=== PATIENT | male | born 1995 ===

== ENCOUNTER 2018-12-31 10:35 | Inpatient (IN) | payer OTHER ==
[~2018-12-31] VITALS: Ht 182.9 cm; Wt 84.0 kg
[2018-12-31] MEDS ORDERED: tuberculin, purif. prot. deriv. 5 units/0.1ml ID ONE (11:40)
[2018-12-31] MEDS ORDERED: hydrOXYzine 25 MG tablet PO PRN (11:40)
[2018-12-31] MEDS ORDERED: loperamide 2mg capsule PO PRN (11:40)
[2018-12-31] MEDS ORDERED: acetaminophen 325mg tablet PO PRN ×2 (11:40)
[2018-12-31] MEDS ORDERED: NO HOME MEDS (11:47)
--- NOTE | 2018-12-31 11:49 | NUR ---
Admission Note: Pt arrived on the unit in shackles, escorted by silke and . Pt calm and cooperative. Shackles removed and pt sat on the bed and then changed into hospital scrubs. Pt skin check completed by ZAMZAM laura and security Eddy as he changed. Pt intact and WNL. Pt does have excess skin around his midsection and thighs which appears to indicated that he has lost a lot of weight. This RN is unable to properly assess due to extreme disorganization. Pt doesn't answer the questions with appropriate answers. Pt is tangential with disorganized thoughts. Pt oriented x 1. Pt remains calm throughout admission process, but his speech patterns/content make very little sense with random unconnected words - word salad.
[2018-12-31 12:13] VITALS: BP 102/63
--- NOTE | 2018-12-31 17:32 | NUR ---
Nursing Progress Note: Legal hold: court competency Client on involuntary status for GD Report received from nurse with use of SBAR: n/a Why are they here: Pt has been arrested multiple times for trespassing and this time has been in Detention since April 2018. Pt unmedicated and very psychotic with poor hygiene. Pt is not competent to stand trial and so was placed here for stabilization of his psychiatric symptoms. Assessment What has happened this shift: After admission patient mostly stayed in his room. Patient walked down to dining room when the lunch trays got here but refused lunch and went back to his room. Patient did not want to sit on his bed and instead chose to sit on the floor under the window almost in a sitting up, position. Patient remains extremely confused and disorganized speaking in word salad. Patient remains pleasant and remains redirectable without agitation. Will continue to encourage hygiene care and medication compliance and will continue to reassure patient of his safety and orient him to the unit. S/I, H/I: unable to assess due to psychotic and disorganized A/VH: unable to assess due to psychotic and disorganized Sleep:no ADL's: ? Group attendance: no Were meds taken:n/a Any med S/E n/a Mental Status Exam Appearance: dishevled Eye contact: poor Behavior: isolative but cooperative Speech: word salad Mood:calm Affect: anxious to flat Thought process:disorganized Thought Content:disorganized Cognition: Insight: Judgment: Interventions PRN's used: n/a Therapeutic interventions: Restraints/seclusion/emergency medication: Justification of Continued Inpatient Treatment: Pt gravely disabled and on a court competency 1370 hold.
[2018-12-31 20:18] VITALS: BP 90/60
--- NOTE | 2019-01-01 05:19 | NUR ---
Nursing Progress Note: Legal hold: court competency Client on involuntary status for GD Report received from nurse with use of SBAR: Yes, Román RN Why are they here: Pt has been arrested multiple times for trespassing and this time has been in [facility] since April 2018. Pt unmedicated and very psychotic with poor hygiene. Pt is not competent to stand trial and so was placed here for stabilization of his psychiatric symptoms. Assessment What has happened this shift: Pt isolates in his room majority of the shift, but does come into the group room to get a snack. He does not engage with ay of his peers. Pt will answer questions and is cooperative with 1:1 assessment. Pt is pleasant, but guarded. PPD was placed. Pt sits on floor reading a book, when encouraged to lay in bed to be more comfortable he politely declines. Pt speaks in full sentences but it is mainly delusional content. He mentions "troll people, Taliaferro, October, necromancy." He occasionally speaks in a word salad. Pt offered a shower and new clothing but he declined. He also declined any medication. S/I, H/I: unable to assess due to psychotic and disorganized A/VH: unable to assess due to psychotic and disorganized Sleep: see sleep assessment notation ADL's: independent Group attendance: rn shift mgr, no group Were meds taken:n/a Any med S/E n/a Mental Status Exam Appearance: disheveled Eye contact: direct Behavior: isolative but cooperative Speech: word salad at times, linear at other times Mood:calm, guarded Affect: anxious to flat Thought process:disorganized Thought Content:disorganized Cognition: poor Insight:poor Judgment: poor Interventions PRN's used: n/a Therapeutic interventions: 1:1 assessment, therapeutic listening, offered shower and clean clothing although he declined, Q15 minute safety checks Restraints/seclusion/emergency medication:none Justification of Continued Inpatient Treatment: Pt gravely disabled and on a court competency 1370 hold.
[2019-01-01 07:38] VITALS: BP 108/62
[2019-01-01 08:02] LABS: CHOL/HDL RATIO 2.7 (0.00-4.99); CHOLESTEROL 114 MG/DL (0-200); HDL CHOLESTEROL 43 MG/DL (35-60); LDL CHOLESTEROL 65 MG/DL (50-100); TRIGLYCERIDES 47 MG/DL (20-135)
--- NOTE | 2019-01-01 17:45 | NUR ---
Nursing Progress Note: Legal hold: court competency Client on involuntary status for GD Report received from ZAMZAM Mayer with use of SBAR Why are they here: Pt has been arrested multiple times for trespassing and this time has been in Longterm since April 2018. Pt unmedicated and very psychotic with poor hygiene. Pt is not competent to stand trial and so was placed here for stabilization of his psychiatric symptoms. Assessment What has happened this shift: Pt. is awake at beginning of shift, pt. appears apprehensive. Pt. in community room for breakfast. Pt. goes by Devon. 1:1 done in pt.'s room. Pt. stops cooperating with assessment after a few questions. Pt. begins word salad talk which this RN cannot understand. Pt. smiles bizzarely Pt. visited by hospitalist, and pt. was not responding coherently, responding to questions with the following, "penis, vagina, my testosterone is flowing through my body, shabish, the cognitive.." Pt. to psychotic to go to group. S/I, H/I: unable to assess due to psychotic and disorganized A/VH: unable to assess due to psychotic and disorganized Sleep: see sleep assessment notation ADL's: independent but not doing self-care. Group attendance: No, pt. is too psychotic. Were meds taken:n/a Any med S/E n/a Mental Status Exam Appearance: disheveled Eye contact: direct Behavior: isolative but cooperative Speech: word salad at times, linear at other times Mood:calm, guarded Affect: anxious to flat Thought process:disorganized Thought Content:disorganized Cognition: poor Insight:poor Judgment: poor Interventions PRN's used: n/a Therapeutic interventions: 1:1 assessment, therapeutic listening, offered shower and clean clothing although he declined, Q15 minute safety checks Restraints/seclusion/emergency medication:none Justification of Continued Inpatient Treatment: Pt gravely disabled and on a court competency 1370 hold.
[2019-01-01 20:00] VITALS: BP 116/64
--- NOTE | 2019-01-01 20:30 | NUR ---
Received a call from the [facility] to verify the hx of Solo's meds while in custody. Per Sudhir RN the record showed that in 2017 he was prescribed Zyprexa 5mg po QHS, Celexa 40 mg po daily, Hydroxyzine 50mg po TID prn, Trazadone 100mg one to 2 tabs qhs prn insomnia, and he did state that the patient had been on conservatorship in the recent past. I reviewed this information with Dr. Cano.
--- NOTE | 2019-01-02 02:37 | NUR ---
Nursing Progress Note: Legal hold: court competency Client on involuntary status for GD Report received from nurse with use of SBAR: Yes, Rivera RN Why are they here: Pt has been arrested multiple times for trespassing and this time has been in [facility] since April 2018. Pt unmedicated and very psychotic with poor hygiene. Pt is not competent to stand trial and so was placed here for stabilization of his psychiatric symptoms. Assessment What has happened this shift: Pt isolates in his room majority of the shift, he does stick his head out of his door occasionally and looks around suspiciously. He still has a napkin stuffed up his left nostril, which remote mortgage underwriter encouraged him to remove but he replied, "it keeps the tip of the spine." Most of his conversation is word salad. He does respond appropriately sometimes, but speech is pressured and mostly bizarre. He smiles occasionally and giggles. He will talk to remote mortgage underwriter but look directly next to remote mortgage underwriter and stare at the wall. Pt encouraged to try taking ativan, but he politely declined. Pt is sleeping in bed tonight. instead of in the chair or on the floor. 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, no group Were meds taken:n/a Any med S/E n/a Mental Status Exam Appearance: disheveled Eye contact: direct Behavior: isolative but cooperative Speech: word salad at times, linear at other times Mood:calm, guarded Affect: anxious to flat Thought process:disorganized Thought Content:disorganized Cognition: poor Insight:poor Judgment: poor Interventions PRN's used: n/a Therapeutic interventions: 1:1 assessment, therapeutic listening, offered shower and clean clothing although he declined, Q15 minute safety checks Restraints/seclusion/emergency medication:none Justification of Continued Inpatient Treatment: Pt gravely disabled and on a court competency 1370 hold.
[2019-01-02 08:00] VITALS: BP 101/54
--- NOTE | 2019-01-02 11:05 | NUR ---
The below named therapist completed this patients Activity Assessment. This patient was unable to answer any questions directly due to his inability to distinguish reality from internal stimuli. He remained pleasant and was willing to communicate with this therapist. There were times in between his disorganized, delusional and random 'word salad' comments where remnants of this patients thoughts and feelings surfaced. At one point, the patient was talking about his cousin, then began talking in gibberish with disconnected thoughts. He then stopped and said, translated it means "Nobody's is here." At another point in the conversation, the patient was noted saying "Nobody talks to me." This was not said in relationship to a specific question, rather a random comment that was mixed in between other nonsensical communications. Several times, this patient would give this therapist direct eye contact, would shake his head, open his mouth and make odd facial gestures. The assessment ended with this therapist re-stating her name and thanking the patient for talking together. Jailene Varghese MA, EDI PROGRAMMER ANALYST #[id number] [facility] Art Therapist
--- NOTE | 2019-01-02 17:10 | NUR ---
Art Therapy Group, Continued: Patient was able to follow directions and began selecting pictures to share in group. Patient was able to wait his turn and was able to listen to others talk. When patient did talk, his thought content remained disorganized and he described his pictures using words that were "of his own making or language." At one point patient did share 1/5 pictures of a forested area with a gonzalez noting "If I was to kill someone, this is where I would bury them." There was not an identifying intent and the patient rambled on with unrelated non-sensible comments. When asked towards the end of group if he remembered what he had described re: his gonzalez picture, his comment had changed completely. This was patients first attempt at being in a group setting. Although his psychosis and thought process made direct communication difficult, he remained respectful of other group members and in return they were respectful. Jailene Varghese MA, HAND RIVETER #[id number] [facility] Art Therapist
--- NOTE | 2019-01-02 17:49 | NUR ---
Nursing Progress Note: Legal hold: court competency Client on involuntary status for GD Report received from ZAMZAM Mayer with use of SBAR Why are they here: Pt has been arrested multiple times for trespassing and this time has been in [facility] since April 2018. Pt unmedicated and very psychotic with poor hygiene. Pt is not competent to stand trial and so was placed here for stabilization of his psychiatric symptoms. Was in solitary confinement for 6 months in [facility]. Assessment What has happened this shift: Pt. wanted to let this RN know that he wanted to shave but said, "my fingers are broken" and pointed to his face. RN assisted pt. with trimming his mcmillan. RN asked pt. if he wanted to trim his finger nails and pt. shook his head "no". Pt. asked this RN what ethnicity his name was, when RN responded "it's Bulgarian" pt. replied with a word of Bulgarian. RN asked pt. what ethnicity his name was and pt. started speaking word salad but then said, "Macedonian". Pt. seen sitting on floor in his room. Pt. went to afternoon group. Pt. smiles bizzarely and tries to speak to other pt.'s but is not comprehendible. S/I, H/I: Pt. responds with word salad A/VH: Pt. responds with word salad Sleep: 6.25 hours of sleep. ADL's: independent. pt. trimmed his facial hair, RN encouraged pt. to clip his nails and shower but pt. refused. Group attendance: Pt. attended afternoon group. Were meds taken: N/A Any med S/E N/A Mental Status Exam Appearance: Disheveled. Eye contact: direct Behavior: isolative but cooperative Speech: word salad at times, linear at other times Mood: calm, guarded Affect: anxious to flat Thought process: disorganized Thought Content: disorganized Cognition: poor Insight:poor Judgment: poor Interventions PRN's used: n/a Therapeutic interventions: 1:1 assessment, therapeutic listening, offered shower and clean clothing although he declined, Q15 minute safety checks Restraints/seclusion/emergency medication:none Justification of Continued Inpatient Treatment: Pt gravely disabled and on a court competency 1370 hold.
[2019-01-02] MEDS ORDERED: haloperidol lactate 5mg/ml inj IM ONE (20:45)
[2019-01-02] MEDS ORDERED: LORazepam 2 mg/ml vial IM ONE (20:45)
[2019-01-02] MEDS: aripiprazole 5mg tablet PO SCH (21:00)
--- NOTE | 2019-01-02 21:16 | NUR ---
Nursing Progress Note: Legal hold: court competency Client on involuntary status for GD Report received from ZAMZAM Stafford with use of SBAR Why are they here: Pt has been arrested multiple times for trespassing and this time has been in Group Home since April 2018. Pt unmedicated and very psychotic with poor hygiene. Pt is not competent to stand trial and so was placed here for stabilization of his psychiatric symptoms. Was in solitary confinement for 6 months in [facility]. Assessment What has happened this shift: One to one with the patient to assess severity of thought disorder. The patient appeared very disheveled and it appears he has not combed his hair or showered in some time. He was relatively pleasant until medication pass when he was informed he needed to take the Abilify or get an injection of Haldol/Ativan. He continued to refuse and security staff were at the bedside and the patient then accepted the Abilify but he was quite angry about it but was not aggressive. The patient gave very bizarre responses to any question asked of him. When asked what year it was he began talking to someone named Salma that was not in the room. He continued to communicate with people who were not there throughout the evening. He stated he wants to be called, "Devon" then stated "R[facility] is short for [facility]" The place he is at is "[facility]" He stated his source of income is "[employer]" He is unable to formulate any kind of realistic plan for food fdc or clothing out side of the safety and structure of the unit. He is eating his meals when meals are served but he does not take care of his ADLs. A/VH: He is actively responding to internal stimuli and is talking to people are not there. Sleep: ADL's: The patient is not attending to his ADLs and requires encouragement and prompting Group attendance: No PM group Were meds taken: Yes Any med S/E - none at this time reported or observed Mental Status Exam Appearance: Disheveled. He is wearing scrubs. His hair is uncombed. He constantly has a tissue hanging from one of his nostrils. When he was asked about it he stated something about wanting to be transgender. Eye contact: direct Behavior: Disorganized, Talking to people who are not there. Resistive to medications. Speech: Fast, spontaneous Mood: calm until medication pass Affect: some labile. Laughing and singing at times. Thought process: disorganized Thought Content: delusional, psychotic Cognition: poor Insight:poor Judgment: poor Interventions PRN's used: n/a Therapeutic interventions: 1:1 assessment, reoriented patient as needed, provided medication Restraints/seclusion/emergency medication:none Justification of Continued Inpatient Treatment: Pt gravely disabled and on a court competency 1370 hold
[2019-01-03 07:49] VITALS: BP 104/65
--- NOTE | 2019-01-03 15:17 | NUR ---
Nursing Progress Note: Solo Jordan Legal hold: court competency Client on involuntary status for GD Report received from ZAMZAM Mayer with use of SBAR Why are they here: Pt has been arrested multiple times for trespassing and this time has been in [facility] since April 2018. Pt unmedicated and very psychotic with poor hygiene. Pt is not competent to stand trial and so was placed here for stabilization of his psychiatric symptoms. Was in solitary confinement for 6 months in [facility]. Assessment What has happened this shift: Pt was observed sitting on floor beneath window, behind the chair when approached by this automatic typewriter inspector. When asked why he was there, client replied "I need to keep my back straight, my hips are broken." When asked how he broke his hips, he replied "I didnt." Rates pain at 10/10, depression 10/10, denies suicidal ideation, homicidal ideation. States "I need methamphetamine to calm down." Initial HR 117, PRN medications ordered for agitation, but no outward signs/symptoms. The patient appeared very disheveled and it appears he has not combed his hair or showered in some time. The patient gave very bizarre responses to any question asked of him. Refused lunch, remained on the bed covered in blanket, when approached appeared confused, oriented to place, offered brush, toothbrush, shower, clean clothes, client refused all. States he has pain in left mandaeism from too much dopamine production. C/O back pain, declined any pain medication. Ambulated in loera and returned to room. A/VH: He is actively responding to internal stimuli and is talking to people are not there. Sleep: 6 hours ADL's: The patient is not attending to his ADLs and requires encouragement and prompting Group attendance: No Were meds taken: none ordered on day shift Any med S/E - none at this time reported or observed Mental Status Exam Appearance: Disheveled. He is wearing scrubs. His hair is uncombed. He constantly has a tissue hanging from one of his nostrils. Eye contact: poor Behavior: Disorganized, Talking to people who are not there. Isolating, guarded, suspicious Speech: pressured, incoherent Mood: fearful, paranoid Affect: constricted Thought process: disorganized Thought Content: delusional, psychotic Cognition: poor Insight:poor Judgment: poor Interventions PRN's used: n/a Therapeutic interventions: 1:1 assessment, reoriented patient as needed Restraints/seclusion/emergency medication:none Justification of Continued Inpatient Treatment: Pt gravely disabled and on a court competency 1370 hold. Currently on [facility] order for medication administration.
[2019-01-03 20:00] VITALS: BP 120/60
[2019-01-03] MEDS: aripiprazole 5mg tablet PO SCH (20:48)
--- NOTE | 2019-01-03 22:48 | NUR ---
Nursing Progress Note: Legal hold: Court Competency Client on involuntary status for GD Report received from ZAMZAM Chavarria with use of SBAR Why are they here: Pt has been arrested multiple times for trespassing and this time has been in [facility] since April 2018. Pt unmedicated and very psychotic with poor hygiene. Pt is not competent to stand trial and so was placed here for stabilization of his psychiatric symptoms. Was in solitary confinement for 6 months in [facility]. Assessment What has happened this shift: Patient is in bed at the change of shift. He is easily aroused and informs staff that he likes to go by "Eddi". He is cooperative and friends during a 1:1 assessment. During the assessment when asked questions patient responds by reading stuff off a book. When asked how his day was he states "[place] best seller, yeah because you know [place]." He denies SI/HI, AH/VH but appears to be responding to internal stimuli. He is internally preoccupied, and is heard talking to himself at times. At medication ass time patient becomes agitated stating "The nurse last night was a bitch, she made me take Abilify because she was mad at me." he then throws his blankets off and leaps out of his bed stating "Who's my Dr. you can go tell them to fuck themselves." "[place] is holding me against my will." patient is left in his room to calm down, CRN and this senior underwriter return and reluctantly patient does take hsi medication at this time and then is provided with warm blankets. SI/HI: Denies A/VH: Denies, but is actively responding to internal stimuli and is talking to people are not there. Sleep: See sleep assessment ADL's: The patient is not attending to his ADLs and requires encouragement and prompting Group attendance: No PM group Were meds taken: Yes Any med S/E - none at this time reported or observed Mental Status Exam Appearance: Disheveled. He is wearing scrubs. His hair is uncombed Eye contact: Direct Behavior: Disorganized, Talking to people who are not there. Resistive to medications. Speech: Fast, spontaneous Mood: Calm and cooperative until medication pass Affect: Labile Thought process: Disorganized Thought Content: Delusional, psychotic Cognition: Poor Insight Poor Judgment: Poor Interventions PRN's used: None Therapeutic interventions: 1:1 assessment at the bedside. Provided therapeutic communication and active listening, medication administration/monitoring/education, reality orientation, symptom identification and management, Q 15 min checks. Restraints/seclusion/emergency medication: None Justification of Continued Inpatient Treatment: Pt gravely disabled and on a court competency 1370 hold
[2019-01-04 08:07] VITALS: BP 97/67
--- NOTE | 2019-01-04 17:30 | NUR ---
Nursing Progress Note: Legal hold: Court Competency Client on involuntary status for GD Report received from ZAMZAM Baltazar with use of SBAR Why are they here: Pt has been arrested multiple times for trespassing and this time has been in [facility] since April 2018. Pt unmedicated and very psychotic with poor hygiene. Pt is not competent to stand trial and so was placed here for stabilization of his psychiatric symptoms. Was in solitary confinement for 6 months in [facility]. Assessment What has happened this shift: Pt. stayed in bed until mid morning, refusing to eat breakfast. 1:1 done at bedside. Pt. continues to be disorganized in his conversation with moments of clarity. Pt. allowed RN to clip his fingernails. Pt. continues to make references to needing testosterone and other hormones and neurotransmiters. Pt. smiles bizarrely and makes bizarre gestures such as standing in the middle of the hallway and pretending to fire a bow and arrow. Pt. mostly isolative with a few interactions with pt.'s and staff. SI/HI: Denies A/VH: Denies, but is actively responding to internal stimuli and is talking to people are not there. Sleep: 7 hours ADL's: The patient is not attending to his ADLs and requires encouragement and prompting. Nails clipped today after much encouragemetn Group attendance: No PM group Were meds taken: Yes Any med S/E - none at this time reported or observed Mental Status Exam Appearance: Disheveled. He is wearing scrubs. His hair is uncombed Eye contact: Direct Behavior: Disorganized, Talking to people who are not there. Resistive to medications. Speech: Fast, spontaneous Mood: Calm and cooperative until medication pass Affect: Labile Thought process: Disorganized Thought Content: Delusional, psychotic Cognition: Poor Insight Poor Judgment: Poor Interventions PRN's used: None Therapeutic interventions: 1:1 assessment at the bedside. Provided therapeutic communication and active listening, medication administration/monitoring/education, reality orientation, symptom identification and management, Q 15 min checks. Restraints/seclusion/emergency medication: None Justification of Continued Inpatient Treatment: Pt gravely disabled and on a court competency 1370 hold
[2019-01-04 19:39] VITALS: BP 101/66
[2019-01-04] MEDS: aripiprazole 5mg tablet PO SCH (20:58)
--- NOTE | 2019-01-05 02:41 | NUR ---
Nursing Progress Note: Legal hold: Court Competency Client on involuntary status for GD Report received from ZAMZAM Chavarria with use of SBAR Why are they here: Pt has been arrested multiple times for trespassing and this time has been in [facility] since April 2018. Pt unmedicated and very psychotic with poor hygiene. Pt is not competent to stand trial and so was placed here for stabilization of his psychiatric symptoms. Was in solitary confinement for 6 months in [facility]. Assessment What has happened this shift: Patient is in his room at the change of shift. He does come out and go to the group room for evening snack where he eats a sandwich and burrito then promptly returns to his room. During his assessment patient is very disorganized and states things randomly. He changes his tone of voice at one point and refers to lucifer climbing a mountain. He then states "Fadumo always talked about all her blue eyed babies, then she went bat shit and gave them all green eyes." He agrees to his evening medications this evening without incident and states "It's 30 mg Abilify." which is confirmed and he takes them without incident. He then states "Those are crimson. (referring to the Abilify.)Once I took them are they still Crimson?" Then returns to sitting in a chair staring out the window. It is noted that the patient does take all his blankets and sleeps on the floor in the evenings. SI/HI: Denies A/VH: Denies, but is actively responding to internal stimuli and is talking to people are not there, and is noted changing his tone of voice. Sleep: 7 hours ADL's: The patient is not attending to his ADLs and requires encouragement and prompting. Nails clipped today after much encouragement Group attendance: No PM group Were meds taken: Yes Any med S/E - None at this time reported or observed Mental Status Exam Appearance: Disheveled. He is wearing scrubs. His hair is uncombed Eye contact: Direct Behavior: Disorganized, Talking to people who are not there. Speech: Fast, spontaneous Mood: Calm and cooperative Affect: Animated Thought process: Disorganized Thought Content: Delusional, psychotic Cognition: Poor Insight Poor Judgment: Poor Interventions PRN's used: None Therapeutic interventions: 1:1 assessment at the bedside. Provided therapeutic communication and active listening, medication administration/monitoring/education, reality orientation, symptom identification and management, Q 15 min checks. Restraints/seclusion/emergency medication: None Justification of Continued Inpatient Treatment: Pt gravely disabled and on a court competency 1370 hold.
[2019-01-05 08:00] VITALS: BP 108/83
--- NOTE | 2019-01-05 12:58 | NUR ---
Initial: Pt admit with [facility] with psychosis. Pt currently on a regular diet with documented 75-100% PO intake meeting nutrient needs. LBM 01/05. No edema or wounds. No nutrition diagnosis at this time. Will continue to follow. Recommendations: 1) Continue with regular diet 2) Weekly wt Addendum: 01/05/19 at [address] Amended: Links added.
--- NOTE | 2019-01-05 17:48 | NUR ---
Nursing Progress Note: Legal hold: court competency 1730 Client on involuntary status for GD Report received from Delaney charge nurse, RN with use of SBAR Why are they here: Pt has been arrested multiple times for trespassing and this time has been in [facility] since April 2018. Pt unmedicated and very psychotic with poor hygiene. Pt is not competent to stand trial and so was placed here for stabilization of his psychiatric symptoms. Was in solitary confinement for [address] [facility]. Assessment What has happened this shift: Patient was awake at change of shift and curled up in a ball in the chair in the corner. He is pale, disheveled, and wide eyed. He states that he can only take medication at night. One to one with the patient to assess severity of thought disorder. The patient appeared very disheveled and it appears he has not combed his hair or showered in some time. When asked what year it was patient stated Past year, past year, code, code, 75, 75. with a bright affect. Patient then began speaking in what sounded like [place] Parlezvous parlevous, yolanda, yolanda, colton? Patient isolated in his room for most of the day reading Brian Vo, curled up in a ball underneath blankets in his chair and sometimes on the floor. Patient reminded he could sleep in the bed. He smiled and nodded and pulled the covers over his head while remaining curled in a ball in the chair. Later in the shift he was seen hopping and twirling down the hallway. At what point he was walking between two different colored floor tiles with his finger upraised directly in front of him and he appeared to be attempting to stay away from the developer designer colored floor tiles as if it was a gee. A/VH: He is actively responding to internal stimuli and is talking to people who are not there. Sleep: See report ADL's: The patient is not attending to his ADLs even with encouragement and prompting. He did change into clean clothes. He was given a hairbrush which he ran through the back of his hair, but he was unable to successfully groom his own hair. Group attendance: No Were meds taken: No Any med S/E - none at this time reported or observed Mental Status Exam Appearance: Disheveled. He is wearing scrubs. His hair is uncombed. He constantly has a tissue hanging from one of his nostrils. Eye contact: direct Behavior: Disorganized, Talking to people who are not there. Hopping in the hallway. Laying ion the floor. Curled up in a ball. Speech: Fast, spontaneous Mood: Good Affect: Bright and full Thought process: disorganized, thoughts are disconnected and rapid. Loose associations, word salad. Thought Content: Illusions, delusions, ideas of reference Cognition: poor attention and concentration. Insight:poor Judgment: poor Interventions PRN's used: n/a Therapeutic interventions: 1:1 assessment, reoriented patient as needed, medication education, Q15 checks Restraints/seclusion/emergency medication:none Justification of Continued Inpatient Treatment: Pt gravely disabled and on a court competency 1370 hold
[2019-01-05 19:00] VITALS: BP 96/63
[2019-01-05] MEDS: aripiprazole 5mg tablet PO SCH (21:30)
--- NOTE | 2019-01-06 04:15 | NUR ---
Nursing Progress Note: Legal hold: court competency 1730 Client on involuntary status for GD Report received from ZAMZAM Chavarria with use of SBAR Why are they here: Pt has been arrested multiple times for trespassing and this time has been in [facility] since April 2018. Pt unmedicated and very psychotic with poor hygiene. Pt is not competent to stand trial and so was placed here for stabilization of his psychiatric symptoms. Was in solitary confinement for 6 months in [facility]. Assessment What has happened this shift: This patient is in a recumbent position on the floor of his room. He is upbeat and converses easily with this director underwriter sales upon entry into the room. The patient exhibits delusional behavior. His speech is tangential, his behavior is animated. A/VH: He is actively responding to internal stimuli and is talking to people who are not there. This patient has placed cleanex in his right nare. He is medication compliant. This patient is advised that he is in a safe place. Sleep: See report ADL's: The patient is not attending to his ADLs even with encouragement and prompting. He did change into clean clothes. He was given a hairbrush which he ran through the back of his hair, but he was unable to successfully groom his own hair. Group attendance: No Were meds taken: No Any med S/E - none at this time reported or observed Mental Status Exam Appearance: Disheveled. He is wearing scrubs. His hair is uncombed. He constantly has a tissue hanging from one of his nostrils. Eye contact: direct Behavior: Disorganized, Talking to people who are not there. Hopping in the hallway. Laying ion the floor. Curled up in a ball. Speech: Fast, spontaneous Mood: Good Affect: Bright and full Thought process: disorganized, thoughts are disconnected and rapid. Loose associations, word salad. Thought Content: Illusions, delusions, ideas of reference Cognition: poor attention and concentration. Insight:poor Judgment: poor Interventions PRN's used: n/a Therapeutic interventions: 1:1 assessment, reoriented patient as needed, medication education, Q15 checks Restraints/seclusion/emergency medication:none Justification of Continued Inpatient Treatment: Pt gravely disabled and on a court competency 1370 hold
[2019-01-06 07:00] VITALS: BP 98/50
--- NOTE | 2019-01-06 15:48 | NUR ---
Nursing Progress Note: Legal hold: court competency 1730 Client on involuntary status for GD Report received from Tanja Euceda charge nurse, RN with use of SBAR Why are they here: Pt has been arrested multiple times for trespassing and this time has been in [facility] since April 2018. Pt unmedicated and very psychotic with poor hygiene. Pt is not competent to stand trial and so was placed here for stabilization of his psychiatric symptoms. Was in solitary confinement for 6 months in [facility]. Assessment What has happened this shift: Patient was seen up on the unit after change of shift. He is pale, disheveled, with hair that is long and unbrushed and sticks up around his face. He stays in his room for the majority of the day but is present on the unit for meals. When eating his behavior is disorganized. He will pour his milk into the bag of cereal even though he has access to a bowl and spoon. He eats most of his meals with his fingers. He smiles when approached. He was seen in his room doing yoga in the afternoon. When this nurse commented on his flexibility he stated I am not that flexible with my mind anymore. When asked what he meant by that he stated I did a lot and I paid for it all. When asked if he would like to take a shower this shift he looked fearful and stated There is no air in there. A/VH: He is actively responding to internal stimuli. Sleep: Slept some during the day on a mattress on the floor. ADL's: The patient is not attending to his ADLs even with encouragement and prompting. He did not change into clean clothes today. Group attendance: No Were meds taken: No Any med S/E - none at this time reported or observed Mental Status Exam Appearance: Disheveled. He is wearing scrubs. His hair is uncombed. He constantly has a tissue hanging from one of his nostrils. Eye contact: direct Behavior: Disorganized, isolative Speech: Fast, spontaneous, difficulty enunciating words Mood: Good Affect: Bright , expressive, and full Thought process: disorganized, thoughts are disconnected and rapid. Loose associations, word salad. Thought Content: Illusions, delusions, ideas of reference Cognition: poor attention and concentration. Insight:poor Judgment: poor Interventions PRN's used: N/A Therapeutic interventions: 1:1 assessment, reoriented patient as needed, medication education, Q15 checks Restraints/seclusion/emergency medication:none Justification of Continued Inpatient Treatment: Pt gravely disabled and on a court competency 1370 hold
[2019-01-06 19:48] VITALS: BP 99/60
[2019-01-06] MEDS: aripiprazole 5mg tablet PO SCH (21:30)
--- NOTE | 2019-01-07 02:16 | NUR ---
Nursing Progress Note: Legal hold: court competency 1730 Client on involuntary status for GD Report received from Deon charge nurse, RN with use of SBAR Why are they here: Pt has been arrested multiple times for trespassing and this [facility] in [facility] 2018. Pt unmedicated and very psychotic with poor hygiene. Pt is not competent to stand trial and so was placed here for stabilization of his psychiatric symptoms. Was in solitary confinement for 6 months in [facility]. Assessment What has happened this shift: This patient self isolates in his room. He is awake and animated. He has a second mattress on the floor which he chooses to use. The patient speaks freely to this report writer. He presents as disheveled. He had tissue paper in his left nare. The patient explains that he is related to Eliseo Lin is a relative who his family keeps on the fringe. When this report writer advises that Eliseo Lin has been for many years now the patient expresses surprise. He then moves on quickly to discuss a family friend Maykel Butler. The patient occasionly speakes a word salad. His speach pattern is fast. He bounces between topics rapidly. He can be labile at times, he is not violent. The patient has been medication compliant and he takes his medication. This patient is reassured that he is in a safe place. The patient agrees and then rapidly exhibits flight of ideas. A/VH: He is actively responding to internal stimuli. Sleep: Slept some during the day on a mattress on the floor. ADL's: The patient is not attending to his ADLs even with encouragement and prompting. He did not change into clean clothes today. Group attendance: No Were meds taken: No Any med S/E - none at this time reported or observed Mental Status Exam Appearance: Disheveled. He is wearing scrubs. His hair is uncombed. He constantly has a tissue hanging from one of his nostrils. Eye contact: direct Behavior: Disorganized, isolative Speech: Fast, spontaneous, difficulty enunciating words Mood: Good Affect: Bright , expressive, and full Thought process: disorganized, thoughts are disconnected and rapid. Loose associations, word salad. Thought Content: Illusions, delusions, ideas of reference Cognition: poor attention and concentration. Insight:poor Judgment: poor Interventions PRN's used: N/A Therapeutic interventions: 1:1 assessment, reoriented patient as needed, medication education, Q15 checks Restraints/seclusion/emergency medication:none Justification of Continued Inpatient Treatment: Pt gravely disabled and on a court competency 1370 hold
[2019-01-07 08:26] VITALS: BP 157/55
--- NOTE | 2019-01-07 17:50 | NUR ---
Nursing Progress Note: Legal hold: court competency 1730 Client on involuntary status for GD Report received from ZAMZAM Gomes with use of SBAR Why are they here: Pt has been arrested multiple times for trespassing and this time has been in [facility] since April 2018. Pt unmedicated and very psychotic with poor hygiene. Pt is not competent to stand trial and so was placed here for stabilization of his psychiatric symptoms. Was in solitary confinement for 6 months in [facility]. Assessment What has happened this shift: Pt. sleeping at start of shift. Pt. awake for breakfast in community room then went back to his room and fell asleep. Pt.sleeping on mat on the floor. 1:1 done in pt.'s room, [facility] assessment pt. was mostly coherent. When RN asked pt. why he is sleeping on the floor pt. did not respond. Pt. denies SI/HI, A/V H. Pt. appears to be responding to internal stimuli though. Pt. reports he slept well.Pt. keeps tissue up his left nostril, when RN asked this pt. about it he stated, "I need it for my neurotransmitters". Pt. did remove it when RN asked him to. Pt. is labile at times. Pt. continues to refuse shower. SI/HI: Pt. Denies. A/VH: Pt. denies, but he is actively responding to internal stimuli. Sleep: Slept some during the day on a mattress on the floor. ADL's: Independent. Pt. refusing shower. Group attendance: No Were meds taken: N/A Any med S/E - none at this time reported or observed Mental Status Exam Appearance: Disheveled. Not showering. He is wearing scrubs. His hair is uncombed. He constantly has a tissue hanging from one of his nostrils. Eye contact: direct Behavior: Disorganized, isolative Speech: Fast, spontaneous, difficulty enunciating words Mood: Good Affect: Bright, expressive, and full Thought process: Moments of clairy mixed with disorganized thinking that is disconnected and rapid. Loose associations, word salad at times. Thought Content: delusions and ideas of reference about testosterone and neurotransmitters. Cognition: poor attention and concentration. Insight:poor Judgment: poor Interventions PRN's used: N/A Therapeutic interventions: 1:1 assessment, reoriented patient as needed, ADL encouragement, Q15 checks Restraints/seclusion/emergency medication:none Justification of Continued Inpatient Treatment: Pt is gravely disabled unable to verbalize a plan for food, clothing and nursing home. Interrupting current crisis. on a court competency 1370 hold
[2019-01-07 20:46] VITALS: BP 102/69
[2019-01-07] MEDS: aripiprazole 5mg tablet PO SCH (20:55)
--- NOTE | 2019-01-07 23:02 | NUR ---
Nursing Progress Note: Legal hold: court competency 1370 Client on involuntary status for GD Report received from ZAMZAM Chavarria with use of SBAR Why are they here: Pt has been arrested multiple times for trespassing and this time has been in [facility] since April 2018. Pt unmedicated and very psychotic with poor hygiene. Pt is not competent to stand trial and so was placed here for stabilization of his psychiatric symptoms. Was in solitary confinement for 6 months in [facility]. Assessment What has happened this shift: Pt walking the halls in a hunched manner then later with a book on his head. He was also observed to be sorting through the books in the TV room and engaging with on of his peers. During 1:1, pt had returned to his room and was looking out his room window, talking to himself. Pt keeps tissue in his left nostril for "deviated septum" and requested that the RN realign his nose. Pt continued "Your eyebrows are very straight except when it comes to connecting with the Gods" and "The mountain is [place]? Like Pass? [place]?" He smiled, then turned back to his window stating "Thank you for visiting." Pt would only smile and nod, after this interaction. He was compliant with medications. SI/HI: Denies. A/VH: Denies, but observed to be talking loudly to himself in his room Sleep: Slept some during the day on a mattress on the floor. ADL's: Independent. Pt. refusing shower. Group attendance: N Were meds taken: Y Any med S/E: None reported nor observed Mental Status Exam Appearance: Wearing unit green scrubs, with nonskid socks and disheveled hair Eye contact: Direct Behavior: Disorganized, isolative, interacting with peers, pacing Speech: Fast, normal tone Mood: "Good" Affect: Expressive Thought process: Disorganized Thought Content: Delusional, Loose associations Cognition: Limited attention and concentration; Impaired Insight: Poor Judgment: Poor Interventions PRN's used: N/A Therapeutic interventions: 1:1 assessment, reoriented patient as needed, ADL encouragement, Q15 checks Restraints/seclusion/emergency medication: None Justification of Continued Inpatient Treatment: Pt is gravely disabled unable to verbalize a plan for food, clothing and senior living. Interrupting current crisis. on a court competency 1370 hold
[2019-01-08 08:00] VITALS: BP 95/60
--- NOTE | 2019-01-08 15:01 | NUR ---
Nursing Progress Note: Legal hold: court competency 1730 Client on involuntary status for GD Report received from TIARA Mayer with use of SBAR Why are they here: Pt has been arrested multiple times for trespassing and this time has been in [facility] since April 2018. Pt unmedicated and very psychotic with poor hygiene. Pt is not competent to stand trial and so was placed here for stabilization of his psychiatric symptoms. Was in solitary confinement for 6 months in [facility]. Assessment What has happened this shift: Pt. sleeping at start of shift on mattress on the floor by the window. Pt. awake for breakfast in community room. Patient appears to be a little more paranoid today. RN within 6 feet of patient and patient took 2 steps back. RN called patient Solo and patient advised RN to call him Devon. Patient isolates. When RN spoke to patient she noticed his shirt was dirty with stains. RN asked patient if he wanted to change his shirt. Patient started saying obscure things and then quickly took off his shirt and put on a clean (green scrub shirt). Patient was seen rinsing his hair in the sink earlier in the day. RN spoke to patient again in early afternoon. Patient stated he is depressed because there is nothing to do here. Patient offered RN some Abilify "just in case." He was slightly sarcastic with a little anger and appeared to be more linear than this morning. Patient did not get the day correct but he guessed by looking at his wrist band. When RN asked him where he was he pulled a green scrub shirt from the chair and stated "[facility]". RN offered patient head phones to listen to music patient didn't answer but asked RN if she listened to music. RN has not observed patient responding to internal stimuli but RN has observed patient acting and saying bizarre statements. Patient still has tissue in his left nostril. RN observed patient take it out and place it back in again. A/VH: Pt. denies Sleep: Slept some during the day on a mattress on the floor. ADL's: Independent Group attendance: No Were meds taken: N/A Any med S/E - none at this time reported or observed Mental Status Exam Appearance: Patient's hair was wet and placed behind his ears. Pt has a tissue hanging from his left nostril. Eye contact: direct Behavior: Disorganized, isolative Speech: Fast, spontaneous, difficulty enunciating words Mood: Paranoid, Slight anger Affect: flat Thought process: Disorganized. Loose associations, Word salad at times. Thought Content: Boredom Cognition: poor attention and concentration. Insight:poor Judgment: poor Interventions PRN's used: N/A Therapeutic interventions: 1:1 assessment, reoriented patient as needed, ADL encouragement, Q15 checks Restraints/seclusion/emergency medication:none Justification of Continued Inpatient Treatment: Pt is gravely disabled unable to verbalize a plan for food, clothing and [facility]. Interrupting current crisis. on a court competency 1370 hold
[2019-01-08 20:00] VITALS: BP 126/69
[2019-01-08] MEDS: aripiprazole 5mg tablet PO SCH (20:25)
--- NOTE | 2019-01-09 00:14 | NUR ---
Nursing Progress Note: Legal hold: court competency 1370 Client on involuntary status for GD Report received from TIARA Chavarria with use of SBAR Why are they here: Pt has been arrested multiple times for trespassing and this time has been in [facility] since April 2018. Pt unmedicated and very psychotic with poor hygiene. Pt is not competent to stand trial and so was placed here for stabilization of his psychiatric symptoms. Was in solitary confinement for 6 months in [facility]. Assessment What has happened this shift: Pt. walking around the unit during change of shift. Later he was in the group room staring intently at the TV and miming shooting an arrow at it. This RN then observed pt to say the following to a tech " How do you spell ICHOR? What year is it? [birth year]? Yes, that's right. Yes! Thats the same antique as the second child." 1:1 was completed in pt's room. He was noted to be looking out the window making "honking" noises that he described as representing "dog vaginal farts" or "fargles" (as his family calls them). He then continued to state "My mom had gone to payless rides - its ghastly what happened." Pt then switched conversation to requesting that the MD prescribe "uppers" because he is "bored". Pt compliant with medications and went to sleep on mattress on the floor after administration. SI/HI: Denies A/VH: Denies Sleep: See Sleep Assessment ADL's: Independent Group attendance: N Were meds taken: Y Any med S/E: none at this time reported or observed Mental Status Exam Appearance: Wearing green scrubs and nonskid socks with a tissue hanging from his left nostril. Eye contact: Direct Behavior: Bizarre Speech: Fast, spontaneous, difficulty enunciating words Mood: "I feel Great" Affect: Blunted with some brightening that is not always appropriate to conversation Thought process: Disorganized. Loose associations. Thought Content: Boredom Cognition: Poor attention and concentration. Insight: Poor Judgment: Poor Interventions PRN's used: N/A Therapeutic interventions: 1:1 assessment, reoriented patient as needed, ADL encouragement, Q15 checks Restraints/seclusion/emergency medication: None Justification of Continued Inpatient Treatment: Pt is gravely disabled unable to verbalize a plan for food, clothing and [facility]. Interrupting current crisis. on a court competency 1370 hold.
[2019-01-09 08:00] VITALS: BP 114/69
--- NOTE | 2019-01-09 17:00 | NUR ---
Nursing Progress Note: Legal hold: 5270 Client on involuntary status for GD. Report received from TIARA Mayer with use of SBAR Why are they here: Pt admitted on a 5150 for Psychosis. Pt is engaged in a belief that her TV at her home was communicating with her and her couch was attempting to cause harm to her daughter. Pt also having difficulty sleeping due to fear that her life is in danger. Assessment Pt. isolating in room most of the day, however, when pt. comes out he acts bizarre, shouting, running, and jumping and needs redirection. Pt. ate meals in community room. Pt. has moments of clarity interrupted by bizzarre, tangential, and word salad sentences stating, "My finger print is on the back of your calf. Cunt sword, it is enchanted. [place]. Smith mejia." S/I, H/I: denies A/VH: denies Sleep: 6.75 hours ADL's: Independent Group attendance: No Were Meds taken: N/A Any med S/E: None observed, None reported Mental Status Exam Appearance: Clean, dressed in hospital scrubs Eye contact: Direct Behavior: Isolative puncutated with moments of bizarre yelling, running, and jumping. Speech: Hyper verbal Mood: Labile Affect: Bright Thought process: Disorganized, tangential with moments of clarity. Thought Content: Nonsensical, magical topics Cognition: A/O x3 (not cognizant of events/purpose) Insight: Poor Judgment: Poor Interventions PRN's used: Therapeutic interventions: Limit setting, No tolerance rule on unit to keep other patients safe. Provided therapeutic communication and active listening, medication administration/monitoring/education, reality orientation, symptom identification and management, Q 15 min checks. Restraints/seclusion/emergency medication: None Justification of Continued Inpatient Treatment: Pt remains labile, agitated, paranoid and psychotic. Interruption of current crisis, therapeutic support and medication management needed to provide stabilization, and prevent decompensation decreasing risk to patient and other patients on unit.
[2019-01-09 20:00] VITALS: BP 107/63
[2019-01-09] MEDS: aripiprazole 5mg tablet PO SCH (21:41)
--- NOTE | 2019-01-10 03:39 | NUR ---
Nursing Progress Note: Legal hold: court competency 1370 Client on involuntary status for GD Report received from TIARA Stafford with use of SBAR Why are they here: Pt has been arrested multiple times for trespassing and this time has been in [facility] since April 2018. Pt unmedicated and very psychotic with poor hygiene. Pt is not competent to stand trial and so was placed here for stabilization of his psychiatric symptoms. Was in solitary confinement for 6 months in [facility]. Assessment What has happened this shift: Pt. walking around the unit during change of shift. Observed to break out into a hunched over sprint then return to normal walking pace. Pt visited the group room, TV room, and his bedroom at fast intervals before remaining in her bedroom. Pt did not engage with staff or peers. During 1:1, Rn asked how was doing to which pt replied "I'm good" while squinting his eyes suspicously and taking a few steps back. Pt would not elaborate on the rest of his day and reluctantly answered other questions. He requested a snack, RN provided sandwich. Pt compliant with med pass and agreeable to Abilify increase from 30mg to 45mg. SI/HI: Denies A/VH: Denies Sleep: See Sleep Assessment ADL's: Independent Group attendance: N Were meds taken: Y Any med S/E: none at this time reported or observed Mental Status Exam Appearance: Wearing green scrubs and nonskid socks with a tissue hanging from his left nostril. Eye contact: Direct Behavior: Bizarre Speech: Fast, spontaneous, difficulty enunciating words Mood: "I'm good" Affect: Blunted with some brightening that is not always appropriate to conversation Thought process: Disorganized. Loose associations. Thought Content: Boredom Cognition: Poor attention and concentration. Insight: Poor Judgment: Poor Interventions PRN's used: N/A Therapeutic interventions: 1:1 assessment, reoriented patient as needed, ADL encouragement, Q15 checks Restraints/seclusion/emergency medication: None Justification of Continued Inpatient Treatment: Pt is gravely disabled unable to verbalize a plan for food, clothing and chcf. Interrupting current crisis. on a court competency 1370 hold.
[2019-01-10 08:00] VITALS: BP 111/65
--- NOTE | 2019-01-10 17:03 | NUR ---
Nursing Progress Note: Legal hold: 5270 Client on involuntary status for GD. Report received from TIARA Mayer with use of SBAR Why are they here: Pt admitted on a 5150 for Psychosis. Pt is engaged in a belief that her TV at her home was communicating with her and her couch was attempting to cause harm to her daughter. Pt also having difficulty sleeping due to fear that her life is in danger. Assessment Patient visible on the unit. Patient refused shower today. Patient denies auditory hallucinations and suicidal thoughts and depression. Though he denied hallucinations, patient observed gesturing at things unseen in the hallway and talking to himself while sitting in his room. Patient has mattress on his floor and is laying in the sun by the window stating he was constructing himself to the sunlight. Later patient also made bizarre statement about seeing Jw Maravilla on the TV and thats could tell she has leukemia on her lip. Continue to provide reassurance as necessary. S/I, H/I: denies A/VH: denies Sleep: 8 hours last noc, napped a little today ADL's: Independent Group attendance: No Were Meds taken: N/A Any med S/E: None observed, None reported Mental Status Exam Appearance: Clean, dressed in hospital scrubs Eye contact: Direct Behavior: Isolative puncutated with moments of bizarre yelling, running, and jumping. Speech: Hyper verbal Mood: Labile Affect: Bright Thought process: Disorganized, tangential with moments of clarity. Thought Content: Nonsensical, magical topics Cognition: A/O x3 (not cognizant of events/purpose) Insight: Poor Judgment: Poor Interventions PRN's used: Therapeutic interventions: Limit setting, No tolerance rule on unit to keep other patients safe. Provided therapeutic communication and active listening, medication administration/monitoring/education, reality orientation, symptom identification and management, Q 15 min checks. Restraints/seclusion/emergency medication: None Justification of Continued Inpatient Treatment: Pt remains labile, agitated, paranoid and psychotic. Interruption of current crisis, therapeutic support and medication management needed to provide stabilization, and prevent decompensation decreasing risk to patient and other patients on unit.
[2019-01-10 20:00] VITALS: BP 107/61
[2019-01-10] MEDS: aripiprazole 5mg tablet PO SCH (20:58)
--- NOTE | 2019-01-11 03:30 | NUR ---
Nursing Progress Note: Legal hold: Court Competency 1370 Client on involuntary status for GD Report received from TIARA Elizalde with use of SBAR Why are they here: Pt has been arrested multiple times for trespassing and this time has been in [facility] since April 2018. Pt unmedicated and very psychotic with poor hygiene. Pt is not competent to stand trial and so was placed here for stabilization of his psychiatric symptoms. Was in solitary confinement for 6 months in [facility]. Assessment What has happened this shift: Pt was pacing hallway in front of his room at shift change. Pt had a bright affect. Introduced self and pt prefers to be called "Devon" "I like Devon." As pt was conversing with this brief writer pt was having conversation and looking over his shoulder "ouch" and looks over right shoulder and mumbles something. "My mother knows" then looks over left shoulder. States their names in jibberish and states "that is their Thai names." Pt. talks about how his burrito was lined when he was in school "I couldn't afford lunch." HS Abilify was administer pt stated "Abilify means "abrupt victory, I win." Pt observed rolling around on his bed yelling, laughing. Pt provided HS snack and medication. Pt retired to bed and is currently sleeping. 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 Eye contact: Direct Behavior: Bizarre, isolative Speech: Hyperverbal Mood: "I'm good" Affect: Blunted with some brightening that is not always appropriate to conversation Thought process: Disorganized. loose associations. Thought Content: Preoccupied with internal stimuli Cognition: Poor attention and concentration. Insight: Poor Judgment: Poor Interventions PRN's used: N/A Therapeutic interventions: 1:1 assessment, reoriented patient as needed, ADL encouragement, Q15 checks Restraints/seclusion/emergency medication: None Justification of Continued Inpatient Treatment: Pt is gravely disabled unable to verbalize a plan for food, clothing and nursing home. Interrupting current crisis. on a court competency 1370 hold.
[2019-01-11 07:29] VITALS: BP 112/66
--- NOTE | 2019-01-11 15:34 | NUR ---
Nursing Progress Note: Legal hold: Court Competency 1370 Client on involuntary status for GD Report received from TIARA Sharma with use of SBAR Why are they here: Pt has been arrested multiple times for trespassing and this time has been in [facility] since April 2018. Pt unmedicated and very psychotic with poor hygiene. Pt is not competent to stand trial and so was placed here for stabilization of his psychiatric symptoms. Was in solitary confinement for 6 months in [facility]. Assessment What has happened this shift: Pt denied anxiety, depression, SI/HI/AH/VH. Pt was disoriented to time, thought it was the month after December. Pt asked when his 5270 was up, explained that he was not on a 5250, he was here from the nursing home to establish competency. Asked pt if he knew why he had been in nursing home, pt shook his head "no." Pt stated that he had not been trespassing, that he lived there for 3 years but that he would wander off from time to time because he could not stand the tails. When asked him to elaborate he stated "the livestock." Pt could not state what kind of animal/livestock but he did describe that they had a skin condition with a nonsensical name that this RN cannot exactly recall. Pt described in detail blisters and bubbles in the skin that would ooze and then the skin would shear off in sheets. Pt stated that he had a nice tree with a hole in it that he hid out in. Pt did not have tissue shoved up his nose this shift, also nothing observed in pt's ears. Pt continues to prefer to have his mattress on the floor. SI/HI: Pt denies A/VH: Pt denies Sleep: Slept 7 hours per noc shift report ADL's: Independent, pt refused to shower today Group attendance: Pt declines to attend groups Were meds taken: Pt has no medications scheduled in the morning Any med S/E: None reported or observed Mental Status Exam Appearance: Messy hair Eye contact: Good Behavior: cooperative, isolative to self Speech: clear, audible, limited, uses neologisms Mood: Good Affect: Blunted Thought process: Disorganized, delusional Thought Content: Pt insists he was not trespassing, inquiring when his hold is up Cognition: A/O X 2 Insight: Poor Judgment: Poor Interventions PRN's used: None Therapeutic interventions: 1:1 assessment, therapeutic conversation, reality orientation, discouraging pt from shoving tissue up his nose, encouragement to perform personal hygiene, legal status education, Q 15 min safety checks. Restraints/seclusion/emergency medication: None Justification of Continued Inpatient Treatment: Pt is delusional and disorganized, he is gravely disabled unable to verbalize a plan for food, clothing and half-way. Interrupting current crisis in attempt to establish court competency.
[2019-01-11 19:00] VITALS: BP 120/66
[2019-01-11] MEDS: aripiprazole 5mg tablet PO SCH (21:27)
[2019-01-11] MEDS: LORazepam 1 MG tablet PO PRN (21:27)
--- NOTE | 2019-01-12 02:36 | NUR ---
Nursing Progress Note: Legal hold: Court Competency 1370 Client on involuntary status for GD Report received from TIARA Elizalde with use of SBAR Why are they here: Pt has been arrested multiple times for trespassing and this time has been in [facility] since April 2018. Pt unmedicated and very psychotic with poor hygiene. Pt is not competent to stand trial and so was placed here for stabilization of his psychiatric symptoms. Was in solitary confinement for 6 months in [facility]. Assessment What has happened this shift: Pt was lying on his mattress in his room at shift change. Pt was observed walking down the loera waving his arms - he mentioned "not sure", "I own [employer]." Pt was medication compliant. This typewriter mechanic dropped a pill on the floor, pt was adamant about taking it. Had to explain the pill would be replaced with a clean one. Pt requested an Ativan at the same time. Pt remarked "last two words make it difficult." Pt stayed in his room until HS snack, then retired to bed. 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 Thought Content: Nonsensical Cognition: Poor attention and concentration. Insight: Poor Judgment: Poor Interventions PRN's used: N/A Therapeutic interventions: 1:1 assessment, reoriented patient as needed, ADL encouragement, Q15 checks. Restraints/seclusion/emergency medication: None Justification of Continued Inpatient Treatment: Pt is gravely disabled unable to verbalize a plan for food, clothing and skilled nursing. Interrupting current crisis. on a court competency 1370 hold.
[2019-01-12 07:57] VITALS: BP 106/62
--- NOTE | 2019-01-12 09:46 | NUR ---
Reassessment: Pt continues with documented 75-100% PO intake on regular diet meeting nutrient needs. [facility] 01/10. No nutrition diagnosis at this time. Will continue to follow. Recommendations: 1) Continue with regular diet 2) Weekly wt Addendum: 01/12/19 at [address] Amended: Links added.
--- NOTE | 2019-01-12 14:23 | NUR ---
Nursing Progress Note: Legal hold: Court Competency 1370 Client on involuntary status for GD Report received from TIARA Sharma with use of SBAR Why are they here: Pt has been arrested multiple times for trespassing and this time has been in [facility] since April 2018. Pt unmedicated and very psychotic with poor hygiene. Pt is not competent to stand trial and so was placed here for stabilization of his psychiatric symptoms. Was in solitary confinement for 6 months in [facility]. Assessment What has happened this shift: Pt described is mood as "good" today. Pt was able to recall that he was in nursing home for trespassing. Pt once again wanted to know about when his 5250 was up, explained again that he was on a 1370 for competency, pt stated that he already had a trial twice and that he was supposed to be released in June. Pt continues to be disorganized with delusions and loose associations, he appears to be internally preoccupied and responding to internal stimuli at times. Observed pt staring at his reflection in the lower section of his bedroom window while sitting on his mattress which is still on the floor. Pt would point at his reflection and make gestures with his fingers. Pt denied depression, anxiety, SI/HI/AH/VH. Pt described "hot flashes" or "hot shots" in nursing home. He mentioned something about amphetamines then he stated that prisoners and guards would drink a bunch of fruit juice and then pee into cups and toss it on people or spray it all over everywhere. Pt stated that "nursing home was getting pretty fun...it's easy to do a nursing home sentence, I did not expect to come here." "There was a female officer with dark hair who did not appreciate vaginal jokes amongst male prisoners...if I see the associate juvenile court judge, I'll cough in his face...my family has it's own myth...zoology (then some mumbled nonsense)... Vj raised daughters and I'm the Rustler so I'm Devon...I don't age at all, in nursing home my face got kind of scruffy which is irritating." Encouraged pt to shower, pt declined. Let pt know he could shave here if he wished, he stated he would let me know later. SI/HI: Pt denies A/VH: Pt denies Sleep: Slept per noc shift report ADL's: Independent, pt refused to shower again today Group attendance: Pt declines to attend groups Were meds taken: Pt has no medications scheduled in the morning Any med S/E: None reported or observed Mental Status Exam Appearance: Messy hair, encouraged pt to brush it to prevent knots, pt declined Eye contact: Good Behavior: guarded, isolative to self, internally preoccupied, appears to be responding to internal stimuli at times. Speech: tangential, makes up words Mood: "Good" Affect: Flat Thought process: Disorganized, delusional, loose associations Thought Content: Cognition: A/O X 3, D/o to time Insight: Poor Judgment: Poor Interventions PRN's used: None Therapeutic interventions: 1:1 assessment, therapeutic conversation, reality orientation, encouragement to shower and perform personal hygiene, legal status education,monitoring for medication side effects, Q 15 min safety checks. Restraints/seclusion/emergency medication: None Justification of Continued Inpatient Treatment: Pt is delusional and disorganized, he is gravely disabled unable to verbalize a plan for food, clothing and [facility]. Interrupting current crisis in attempt to establish court competency.
[2019-01-12 19:00] VITALS: BP 108/65
[2019-01-12] MEDS: aripiprazole 5mg tablet PO SCH (21:00)
--- NOTE | 2019-01-12 23:55 | NUR ---
Nursing Progress Note: Legal hold: Court Competency 1370 Client on involuntary status for GD Report received from TIARA Elizalde with use of SBAR Why are they here: Pt has been arrested multiple times for trespassing and this time has been in [facility] since April 2018. Pt unmedicated and very psychotic with poor hygiene. Pt is not competent to stand trial and so was placed here for stabilization of his psychiatric symptoms. Was in solitary confinement for 6 months in [facility]. Assessment What has happened this shift: Pt was in room dancing around at shift change. Pt asked this creative writer if she wanted to play a board game "I am anxious" because he is bored. Asked if pt wanted to color in the group, pt obliged, but didn't stay long. Pt refused an Ativan when offered. 1:1 assessment was completed at bedside, pt at first refused stated "I know my sister very well, they call her Nehemias." Pt kept referring to his mother, when asked if he sees his mother pt looked to his right and "yes, but she is in room 327." Pt then preceded to go to the consultation room "there." Pt was medication compliant. Pt was in and out of his room this shift. Observed dancing in talking into his hand like a radio. Pt likes to be called Devon. SI/HI: None reported or observed A/VH: None reported or observed Sleep: Currently sleeping comfortably. 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 Thought Content: Nonsensical Cognition: Poor attention and concentration. Insight: Poor Judgment: Poor Interventions PRN's used: N/A Therapeutic interventions: 1:1 assessment, therapeutic conversation, reality orientation, encouragement to shower and perform personal hygiene, legal status education,monitoring for medication side effects, Q 15 min safety checks. Justification of Continued Inpatient Treatment: Pt is delusional and disorganized, he is gravely disabled unable to verbalize a plan for food, clothing and residential. Interrupting current crisis in attempt to establish court competency
[2019-01-13 08:00] VITALS: BP 101/67
[2019-01-13] MEDS ORDERED: benztropine 1mg tablet PO ONE (12:00)
[2019-01-13 14:13] LABS: BASOPHILS % (AUTO) 0.9 % (0-1); EOSINOPHILS # (AUTO) 0.1 X10'3 (0-0.9); EOSINOPHILS % (AUTO) 1.4 % (0-6); HEMOGLOBIN 14.5 g/dl (14.0-17.9); LYMPHOCYTES # (AUTO) 1.6 X10'3 (1.1-4.8); LYMPHOCYTES % (AUTO) 29.4 % (21-51); MEAN CORPUSCULAR HEMOGLOBIN 30.2 PG (27.0-31.0); MEAN CORPUSCULAR HGB CONC 34.4 g/dL (33.0-36.5); MEAN CORPUSCULAR VOLUME 87.7 FL (78-98); MONOCYTES # (AUTO) 0.5 X10'3 (0-0.9); MONOCYTES % (AUTO) 9.9 % (2-12); NEUTROPHILS # (AUTO) 3.2 X10'3 (1.8-7.7); NEUTROPHILS % (AUTO) 58.4 % (42-75); PLATELET COUNT 233 X10'3 (140-440); RED BLOOD COUNT 4.79 X10'6 (4.70-6.10); RED CELL DISTRIBUTION WIDTH 13.1 % (11.5-14.5); WHITE BLOOD COUNT 5.5 X10'3 (4.5-11.0)
[2019-01-13 14:26] LABS: ALBUMIN 3.5 G/DL (3.4-5.0); ANION GAP 4 (8-16); BLOOD UREA NITROGEN 12 MG/DL (7-18); CALCIUM 8.6 MG/DL (8.5-10.1); CHLORIDE 108 MMOL/L (99-107); CREATININE 0.86 MG/DL (0.60-1.10); GLUCOSE 102 MG/DL (70-104); POTASSIUM 4.4 MMOL/L (3.5-5.1); SODIUM 140 MMOL/L (135-145); TOTAL CARBON DIOXIDE 28.2 MMOL/L (24-32); eGFR > 90 ML/MIN
[2019-01-13 14:58] LABS: ALANINE AMINOTRANSFERASE 19 U/L (12-78); ALBUMIN/GLOBULIN RATIO 1.2 (1.1-1.5); ALKALINE PHOSPHATASE 67 IU/L (46-116); ASPARTATE AMINO TRANSFERASE 14 U/L (10-37); BILIRUBIN,DIRECT 0.1 MG/DL (0-0.3); BILIRUBIN,TOTAL 0.3 MG/DL (0.1-1.0); TOTAL PROTEIN 6.4 G/DL (6.4-8.2)
--- NOTE | 2019-01-13 15:21 | NUR ---
Nursing Progress Note: Legal hold: Court Competency 1370 Client on involuntary status for GD Report received from TIARA Sharma with use of SBAR Why are they here: Pt has been arrested multiple times for trespassing and this time has been in [facility] since April 2018. Pt unmedicated and very psychotic with poor hygiene. Pt is not competent to stand trial and so was placed here for stabilization of his psychiatric symptoms. Was in solitary confinement for 6 months in [facility]. Assessment What has happened this shift: Pt denied depression/anxiety/SI/HI/AH/VH. Pt again refused to shower and shave. Pt c/o restless legs, reported that he felt like he just had to keep moving them. Pt also stated, "there seems to be a problem with the hemoglobular concentration of my blood." Notified Dr Mcdowell of pt's c/o restless legs, obtained order for Cogentin 0.5 mg BID as well as lab work as pt did not have a CBC or chem panel on file or in his chart. Pt was reluctant to take the Cogentin stated that he would just walk some more as he needed exercise anyway. Pt took the Cogentin with much encouragement. Lab results were WNL. SI/HI: Pt denies A/VH: Pt denies Sleep: Slept per 6.5 hours noc shift report ADL's: Independent, pt refused to shave or shower Group attendance: Pt declines to attend groups Were meds taken: Pt has no medications scheduled in the morning, did take 1st dose of Cogentin Any med S/E: Possible akathisia, pt c/o restless legs. Mental Status Exam Appearance: Long messy hair, unshaven Eye contact: Good Behavior: guarded, isolative to self, internally preoccupied, out of room walking more in the hallway Speech: minimal today, continues to make up words Mood: "good" Affect: Flat Thought process: Disorganized Thought Content: Preoccupied with restless legs, somewhat medication resistent Cognition: A/O X 3, D/o to time Insight: Poor Judgment: Poor Interventions PRN's used: None Therapeutic interventions: 1:1 assessment, active listening, reality orientation, encouragement to shower and perform personal hygiene, medication administration/education/ monitoring for effect and side effects, legal status education, Q 15 min safety checks. Restraints/seclusion/emergency medication: None Justification of Continued Inpatient Treatment: Pt is delusional and disorganized, he is gravely disabled unable to verbalize a plan for food, clothing and jail. Interrupting current crisis in attempt to establish court competency.
[2019-01-13] MEDS: benztropine 1mg tablet PO SCH (20:00)
[2019-01-13] MEDS: aripiprazole 5mg tablet PO SCH (21:11)
--- NOTE | 2019-01-14 04:02 | NUR ---
Nursing Progress Note: Legal hold: Court Competency 1370 Client on involuntary status for GD Report received from TIARA Elizalde with use of SBAR Why are they here: Pt has been arrested multiple times for trespassing and this time has been in [facility] since April 2018. Pt unmedicated and very psychotic with poor hygiene. Pt is not competent to stand trial and so was placed here for stabilization of his psychiatric symptoms. Was in solitary confinement for 6 months in [facility]. Assessment What has happened this shift: Pt was in the loera pacing and asked if this staff writer could smell coconut. Told him that I could not but would try to find the source. Pt later stated that he found it one of the staff smells like that. Pt refused to have help combing his hair stating it will smooth it self out. Pt continues to lay on the mattress on the floor with his blanket over his head. Pt has difficulty initiating a conversation but will answer if spoken to. Pt likes to be called Devon. Pt was med compliant with the exception of his Cogentin he refused. SI/HI: None reported or observed A/VH: None reported or observed Sleep: Currently sleeping comfortably. 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 Thought Content: Nonsensical Cognition: Poor attention and concentration. Insight: Poor Judgment: Poor Interventions PRN's used: N/A Therapeutic interventions: 1:1 assessment, therapeutic conversation, reality orientation, encouragement to shower and perform personal hygiene, legal status education,monitoring for medication side effects, Q 15 min safety checks. Justification of Continued Inpatient Treatment: Pt is delusional and disorganized, he is gravely disabled unable to verbalize a plan for food, clothing and senior living. Interrupting current crisis in attempt to establish court competency
[2019-01-14 08:00] VITALS: BP 89/51
[2019-01-14] MEDS: benztropine 1mg tablet PO SCH ×2 (11:46→20:00)
--- NOTE | 2019-01-14 17:55 | NUR ---
Nursing Progress Note: Legal hold: Court Competency 1370 Client on involuntary status for GD Report received from ZAMZAM Saldaña with use of SBAR Why are they here: Pt has been arrested multiple times for trespassing and this time has been in Care Home since April 2018. Pt unmedicated and very psychotic with poor hygiene. Pt is not competent to stand trial and so was placed here for stabilization of his psychiatric symptoms. Was in solitary confinement for 6 months in [facility]. Assessment What has happened this shift: Pt denied depression/anxiety/SI/HI/AH/VH. Pt again refused to shower and shave. Cogentin 0.5 mg administered as ordered. Patient states he feels improvement in his leg twitching. Sat with patient, he spoke at length in a tangential, nonsensical manner about "the hundred women that he impregnated, but only two babies were born, decreasing the twinkles in my eye while someone plays dark side of the anguiano for twenty-four hours." Continues to display posturing while in his room or out in the loera. Observed talking to self when in his room. Sat in the loera on the floor reading a [employer] book. Presents as bizarre and delusional. SI/HI: Pt denies A/VH: Pt denies Sleep: Did not sleep today ADL's: Independent, pt refused to shave or shower Group attendance: Pt declines to attend groups Were meds taken: Pt has no medications scheduled in the morning, did take 1st dose of Cogentin Any med S/E: Possible akathisia, pt c/o restless legs. Mental Status Exam Appearance: Long messy hair, unshaven Eye contact: Good Behavior: guarded, isolative to self, internally preoccupied, out of room walking more in the hallway Speech: minimal today, continues to make up words Mood: "good" Affect: Flat Thought process: Disorganized Thought Content: Preoccupied with restless legs, somewhat medication resistent Cognition: A/O X 3, D/o to time Insight: Poor Judgment: Poor Interventions PRN's used: None Therapeutic interventions: 1:1 assessment, active listening, reality orientation, encouragement to shower and perform personal hygiene, medication administration/education/ monitoring for effect and side effects, legal status education, Q 15 min safety checks. Restraints/seclusion/emergency medication: None Justification of Continued Inpatient Treatment: Pt is delusional and disorganized, he is gravely disabled unable to verbalize a plan for food, clothing and mcc. Interrupting current crisis in attempt to establish court competency.
[2019-01-14] MEDS: aripiprazole 5mg tablet PO SCH (20:50)
--- NOTE | 2019-01-15 01:13 | NUR ---
Nursing Progress Note: Legal hold: Court Competency 1370 Client on involuntary status for GD Report received from TIARA Elizalde with use of SBAR Why are they here: Pt has been arrested multiple times for trespassing and this time has been in [facility] since April 2018. Pt unmedicated and very psychotic with poor hygiene. Pt is not competent to stand trial and so was placed here for stabilization of his psychiatric symptoms. Was in solitary confinement for 6 months in [facility]. Assessment What has happened this shift: Pt stading in the loera talking with a peer. Then pt squatted and buried his head in his hands and was talking to him self then got up and went to his room. This data analyst report writer asked pt how he is doing today pt stated Im fine and walked away. Pt was in loera with a blanket wrapped around him and preceded to run down the loera with the blanket as a cape when he stoped he punched the air as if fighting then posed with his hands on his hip. Pt continued to talk to him self responding to internal stimuli. At one point pt was playing KitchIn with a peer in the loera. Pt refused his Cogentin this shift but took his Abilify. Pt denies SI/HI and AH.VH . SI/HI: None reported or observed A/VH: None reported or observed Sleep: Currently sleeping comfortably. 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 Thought Content: Nonsensical Cognition: Poor attention and concentration. Insight: Poor Judgment: Poor Interventions PRN's used: N/A Therapeutic interventions: 1:1 assessment, therapeutic conversation, reality orientation, encouragement to shower and perform personal hygiene, legal status education,monitoring for medication side effects, Q 15 min safety checks. Justification of Continued Inpatient Treatment: Pt is delusional and disorganized, he is gravely disabled unable to verbalize a plan for food, clothing and fdc. Interrupting current crisis in attempt to establish court competency
[2019-01-15 07:23] VITALS: BP 133/58
--- NOTE | 2019-01-15 07:23 | NUR ---
DISCHARGE PLANNING: HOA emailed [facility] Station Worker, Giuseppe GARCIA, to request clarification of where to send updated notes and progress information to. Sanjana Cisse, [id number]
[2019-01-15] MEDS: benztropine 1mg tablet PO SCH ×2 (07:56→20:00)
--- NOTE | 2019-01-15 17:03 | NUR ---
Nursing Progress Note: Legal hold: Court Competency 1370 Client on involuntary status for GD Report received from ZAMZAM Mayer with use of SBAR Why are they here: Pt has been arrested multiple times for trespassing and this time has been in [facility] since April 2018. Pt unmedicated and very psychotic with poor hygiene. Pt is not competent to stand trial and so was placed here for stabilization of his psychiatric symptoms. Was in solitary confinement for 6 months in [facility]. Assessment What has happened this shift: Pt denied depression/anxiety/SI/HI/AH/VH. Pt again refused to shower and shave. Cogentin 0.5 mg administered as ordered. Patient states he feels improvement in his leg twitching. Pt voices desire to get medicine to increase his blood volume because hes getting no sun. Pt observed posturing to nothing in the hallway and continues to lie on floor in room by his window. Pt stays to himself and does not initiate interactions with others. SI/HI: Pt denies A/VH: Pt denies Sleep: Did not sleep today ADL's: Independent, pt refused to shave or shower Group attendance: Pt declines to attend groups Were meds taken: Pt has no medications scheduled in the morning, did take 1st dose of Cogentin Any med S/E: Possible akathisia, pt c/o restless legs. Mental Status Exam Appearance: Long messy hair, unshaven Eye contact: Good Behavior: guarded, isolative to self, internally preoccupied, out of room walking more in the hallway Speech: minimal today, continues to make up words Mood: "good" Affect: Flat Thought process: Disorganized Thought Content: Preoccupied with restless legs, somewhat medication resistent Cognition: A/O X 3, D/o to time Insight: Poor Judgment: Poor Interventions PRN's used: None Therapeutic interventions: 1:1 assessment, active listening, reality orientation, encouragement to shower and perform personal hygiene, medication administration/education/ monitoring for effect and side effects, legal status education, Q 15 min safety checks. Restraints/seclusion/emergency medication: None Justification of Continued Inpatient Treatment: Pt is delusional and disorganized, he is gravely disabled unable to verbalize a plan for food, clothing and retirement. Interrupting current crisis in attempt to establish court competency.
[2019-01-15 20:00] VITALS: BP 112/77
[2019-01-15] MEDS: aripiprazole 5mg tablet PO SCH (20:10)
--- NOTE | 2019-01-15 22:35 | NUR ---
Nursing Progress Note: Legal hold: Court Competency 1370 Client on involuntary status for GD Report received from ZAMZAM Elizalde with use of SBAR Why are they here: Pt has been arrested multiple times for trespassing and this time has been in [facility] since April 2018. Pt unmedicated and very psychotic with poor hygiene. Pt is not competent to stand trial and so was placed here for stabilization of his psychiatric symptoms. Was in solitary confinement for 6 months in [facility]. Assessment What has happened this shift: Pt denied depression/anxiety/SI/HI/AH/VH. Pt again refused to shower and shave. Cogentin 0.5 mg refused this shift. Patient states he feels improvement in his leg twitching. Pt continues to respond to internal stimuli talking to himself the hallway and continues to lie on floor in room by his window. Pt stays to himself and does not initiate interactions with others. SI/HI: Pt denies A/VH: Pt denies Sleep: Did not sleep today ADL's: Independent, pt refused to shave or shower Group attendance: Pt declines to attend groups Were meds taken: Pt has no medications scheduled in the morning, did take 1st dose of Cogentin Any med S/E: Possible akathisia, pt c/o restless legs. Mental Status Exam Appearance: Long messy hair, unshaven Eye contact: Good Behavior: guarded, isolative to self, internally preoccupied, out of room walking more in the hallway Speech: minimal today, continues to make up words Mood: "good" Affect: Flat Thought process: Disorganized Thought Content: Preoccupied with restless legs, somewhat medication resistent Cognition: A/O X 3, D/o to time Insight: Poor Judgment: Poor Interventions PRN's used: None Therapeutic interventions: 1:1 assessment, active listening, reality orientation, encouragement to shower and perform personal hygiene, medication administration/education/ monitoring for effect and side effects, legal status education, Q 15 min safety checks. Restraints/seclusion/emergency medication: None Justification of Continued Inpatient Treatment: Pt is delusional and disorganized, he is gravely disabled unable to verbalize a plan for food, clothing and longterm. Interrupting current crisis in attempt to establish court competency.
[2019-01-16 08:52] VITALS: BP 109/64
[2019-01-16] MEDS: benztropine 1mg tablet PO SCH ×2 (08:59→20:29)
[2019-01-16] MEDS ORDERED: haloperidol 5mg tablet PO ONE (12:30)
--- NOTE | 2019-01-16 16:03 | NUR ---
Nursing Progress Note: Legal hold: Court Competency 1370 Client on involuntary status for GD Report received from TIARA Mayer with use of SBAR Why are they here: Pt has been arrested multiple times for trespassing and this time has been in care home since April 2018. Pt unmedicated and very psychotic with poor hygiene. Pt is not competent to stand trial and so was placed here for stabilization of his psychiatric symptoms. Was in solitary confinement for 6 months in [facility]. Assessment What has happened this shift: Pt sitting in the chair in his room at the change of shift with his eyes closed. He refused breakfast. Initially, he refused his Cogentin, but after an hour agreed to take the medications. Pt continues to express delusional thinking. He talked about being a dermaphrodite. He described having an eyeball on the top of his head and one eyeball behind his knee. He requested a medication to help replenish his blood supply. Pt reported that while he slept if felt like he had a body on andrew of him. Other delusional statements were also expressed. Pt isolated to his room for much of the day. He has his mattress on the floor in front of the window. SI/HI: Denies A/VH: Denies Sleep: Slept per 3.25 hours per noc shift report ADL's: Independent Group attendance: No Were meds taken: Initially refused, then agreed to take Cogentin Any med S/E: None reported or noted Mental Status Exam Appearance: Long hair, mcmillan Eye contact: Direct Behavior: Isolates, guarded Speech: Normal Mood: Anxious Affect: Flat Thought process: Disorganized, Delusions Thought Content: Resists taking medications, Delusions Cognition: A/O X 3 Insight: Poor Judgment: Poor Interventions PRN's used: None Therapeutic interventions: 1:1 assessment, active listening, reality orientation, encouragement to shower, medication administration/education/ monitoring for effect and side effects, maintained therapeutic milieu, Q 15 min safety checks. Restraints/seclusion/emergency medication: None Justification of Continued Inpatient Treatment: Pt is delusional and disorganized, he is gravely disabled unable to verbalize a plan for food, clothing and alf. Interrupting current crisis in attempt to establish court competency.
[2019-01-16 20:00] VITALS: BP 103/59
[2019-01-16] MEDS: aripiprazole 5mg tablet PO SCH (20:29)
--- NOTE | 2019-01-16 23:20 | NUR ---
Nursing Progress Note: Legal hold: Court Competency 1370 Client on involuntary status for GD Report received from ZAMZAM Marcelino with use of SBAR Why are they here: Pt has been arrested multiple times for trespassing and this [facility]. Pt unmedicated and very psychotic with poor hygiene. Pt is not competent to stand trial and so was placed here for stabilization of his psychiatric symptoms. Was in solitary confinement for 6 months in [facility]. Assessment What has happened this shift: Received patient awake in room. Patient did walk to the dayroom and have a snack briefly. Patient did not initiate interaction with staff or peers. Patient denies depression and denies suicidal thoughts, but does endorse auditory hallucinations and says its like listening to teenage girls talking about their music patient does state that it bothers him. Patient asleep by 2100. SI/HI: Pt denies A/VH: Pt denies Sleep: Did not sleep today ADL's: Independent, pt refused to shave or shower Group attendance: Pt declines to attend groups Were meds taken: Pt has no medications scheduled in the morning, did take 1st dose of Cogentin Any med S/E: Possible akathisia, pt c/o restless legs. Mental Status Exam Appearance: Long messy hair, unshaven Eye contact: Good Behavior: guarded, isolative to self, internally preoccupied, out of room walking more in the hallway Speech: minimal today, continues to make up words Mood: "good" Affect: Flat Thought process: Disorganized Thought Content: Preoccupied with restless legs, somewhat medication resistent Cognition: A/O X 3, D/o to time Insight: Poor Judgment: Poor Interventions PRN's used: None Therapeutic interventions: 1:1 assessment, active listening, reality orientation, encouragement to shower and perform personal hygiene, medication administration/education/ monitoring for effect and side effects, legal status education, Q 15 min safety checks. Restraints/seclusion/emergency medication: None Justification of Continued Inpatient Treatment: Pt is delusional and disorganized, he is gravely disabled unable to verbalize a plan for food, clothing and half-way. Interrupting current crisis in attempt to establish court competency.
[2019-01-17 07:30] VITALS: BP 100/64
[2019-01-17] MEDS: benztropine 1mg tablet PO SCH ×2 (07:31→20:22)
[2019-01-17] MEDS ORDERED: haloperidol 5mg tablet PO SCH (08:00)
--- NOTE | 2019-01-17 17:19 | NUR ---
Nursing Progress Note: Legal hold: Court Competency 1370 Client on involuntary status for GD Report received from ZAMZAM Mayer with use of SBAR Why are they here: Pt has been arrested multiple times for trespassing and this time has been in [facility] since April 2018. Pt unmedicated and very psychotic with poor hygiene. Pt is not competent to stand trial and so was placed here for stabilization of his psychiatric symptoms. Was in solitary confinement for 6 months in [facility]. Assessment What has happened this shift: Pt. in room at beginning of shift. pt. laying on mattress on floor. Pt. took medications and ate breakfast in day room. When taking medications, pt. mumbled something about "my medications are for my electrolytes" Pt. encouraged to shower this AM, and reports that he showered yesterday. Pt. isolative in his room today and seen crouching on the floor, standing in odd positions. When asked what he is doing pt. does not respond or responds bizarrely with nonsensical words. Pt. denies having any side effects from the medications. SI/HI: Pt denies A/VH: Pt denies Sleep: 7.75 hours ADL's: Independent. Pt. showered yesterday. Group attendance: Pt declines to attend groups Were meds taken: Y Any med S/E: None responded. Mental Status Exam Appearance: Long messy hair, unshaven Eye contact: Good Behavior: guarded, isolates in his room, internally preoccupied Speech: minimal today, continues to make up words Mood: "good" Affect: Flat Thought process: Disorganized Thought Content: Nonsensical delusions about testosterone and made up words. Cognition: A/O X 3, D/o to time Insight: Poor Judgment: Poor Interventions PRN's used: None Therapeutic interventions: 1:1 assessment, active listening, reality orientation, encouragement to shower and perform personal hygiene, medication administration/education/ monitoring for effect and side effects, legal status education, Q 15 min safety checks. Restraints/seclusion/emergency medication: None Justification of Continued Inpatient Treatment: Pt is delusional and disorganized, he is gravely disabled unable to verbalize a plan for food, clothing and penitentiary. Interrupting current crisis in attempt to establish court competency.
[2019-01-17 20:00] VITALS: BP 107/57
[2019-01-17] MEDS: aripiprazole 5mg tablet PO SCH (20:21)
--- NOTE | 2019-01-18 00:56 | NUR ---
Nursing Progress Note: Legal hold: Court Competency 1370 Client on involuntary status for GD Report received from ZAMZAM Chavarria with use of SBAR Why are they here: Pt has been arrested multiple times for trespassing and this time has been in [facility] Term since April 2018. Pt unmedicated and very psychotic with poor hygiene. Pt is not competent to stand trial and so was placed here for stabilization of his psychiatric symptoms. Was in solitary confinement for 6 months in [facility]. Assessment What has happened this shift: Pt was sitting on the mattress on the floor in his room w a blanket over his head at change of shift. 1:1 assessment completed at bedside. Pt states I'm looking at a "very ugly man in the window." Pt is pleasant and smiling and makes nonsensical statements. Pt denies s/i, denies h/i, denies a/vh but is internally preoccupied. Asked pt about sleep and he explains "Im just chillin here with Tanja, and points to the corner." Pt is med compliant amrit, states "Yeah I know, you're giving me the wobbly leg medicine." SI/HI: Pt denies A/VH: Pt denies Sleep: pt sleeps well ADL's: Independent. Pt. showered yesterday. Group attendance: Pt declines to attend groups Were meds taken: Y Any med S/E: None responded. Mental Status Exam Appearance: Long messy hair, unshaven Eye contact: Good Behavior: guarded, isolates in his room, internally preoccupied Speech: minimal Mood: "good" Affect: Flat Thought process: Disorganized Thought Content: Nonsensical delusions Cognition: A/O X 3, D/o to time Insight: Poor Judgment: Poor Interventions PRN's used: None Therapeutic interventions: 1:1 assessment, active listening, reality orientation, encouragement to shower and perform personal hygiene, medication administration/education/ monitoring for effect and side effects, legal status education, Q 15 min safety checks. Restraints/seclusion/emergency medication: None Justification of Continued Inpatient Treatment: Pt is delusional and disorganized, he is gravely disabled unable to verbalize a plan for food, clothing and intermediate. Interrupting current crisis in attempt to establish court competency.
[2019-01-18] MEDS: LORazepam 1 MG tablet PO PRN (07:48)
[2019-01-18] MEDS: benztropine 1mg tablet PO SCH ×2 (07:48→21:04)
[2019-01-18 07:56] VITALS: BP 98/60
--- NOTE | 2019-01-18 10:35 | NUR ---
Reassessment: Pt continues with good PO intake meeting nutrient needs documented at 75-100% with the exception of refusing two meals. Wt stable with admit. [facility] 01/18. No nutrition diagnosis. Will continue to follow. Recommendations: 1) Continue with regular diet 2) Weekly wt Addendum: 01/18/19 at [address] Amended: Links added.
--- NOTE | 2019-01-18 17:53 | NUR ---
Nursing Progress Note: Legal hold: Court Competency 1370 Client on involuntary status for GD Report received from Tanja Aly RN with use of SBAR Why are they here: Pt has been arrested multiple times for trespassing and this time has been in [facility] since April 2018. Pt unmedicated and very psychotic with poor hygiene. Pt is not competent to stand trial and so was placed here for stabilization of his psychiatric symptoms. Was in solitary confinement for 6 months in [facility]. Assessment What has happened this shift: Pt. awake at beginning of shift. Pt. agitated this am, hitting himself in the chest. RN gave pt. Ativan 1 mg po with good effect. Pt. took medications and ate breakfast in community room. Pt. isolative to room all morning sitting on mat on the floor and staring out his window. Pt. denies SI/HI, A/V H. Pt. has moments of clarity with nonsensical words. RN asked if pt. if he needs anything, pt. replies, "I need my cunt sword". RN asked pt. where he was, and pt. replied, "I'm on the fourth intersteller planet". Pt. seen and overheard talking with himself. SI/HI: Pt denies A/VH: Pt denies Sleep: Pt. reports ADL's: Independent. Pt. showered yesterday. Group attendance: Pt declines to attend groups Were meds taken: Y Any med S/E: None responded. Mental Status Exam Appearance: Long messy hair, unshaven Eye contact: Good Behavior: guarded, isolates in his room, internally preoccupied Speech: minimal Mood: "good" Affect: Flat Thought process: Disorganized Thought Content: Nonsensical delusions with moments of clarity. Pt. focused on discharge. Cognition: A/O X 2, d/o to events and purpose and place. Insight: Poor Judgment: Poor Interventions PRN's used: None Therapeutic interventions: 1:1 assessment, active listening, reality orientation, encouragement to shower and perform personal hygiene, medication administration/education/ monitoring for effect and side effects, legal status education, Q 15 min safety checks. Restraints/seclusion/emergency medication: None Justification of Continued Inpatient Treatment: Pt is delusional and disorganized, he is gravely disabled unable to verbalize a plan for food, clothing and assisted. Interrupting current crisis in attempt to establish court competency.
[2019-01-18 19:00] VITALS: BP 109/62
[2019-01-18] MEDS: aripiprazole 5mg tablet PO SCH (21:05)
--- NOTE | 2019-01-19 03:07 | NUR ---
Nursing Progress Note: Legal hold: Court Competency 1370 Client on involuntary status for GD Report received from TIARA Chavarria with use of SBAR Why are they here: Pt has been arrested multiple times for trespassing and [facility] in [facility]. Pt unmedicated and very psychotic with poor hygiene. Pt is not competent to stand trial and so was placed here for stabilization of his psychiatric symptoms. Was in solitary confinement for 6 months in [facility]. Assessment What has happened this shift: Pt was sitting on his mattress in his room with a blanket over his head. When asked if pt was okay pt responded "yes", but did not remove the blanket. Pt still prefers to be called "Devon." Pt isolates to his room, but is out for HS snack. Pt cooperative with 1:1 assessment and medication administration. When asked where he is at pt responds "my mothers [id number] (spells it out). Pt responds with "to Stephanie" when asked about his mood, which means to break the rules. Pt appeared to be less agitated this shift and not as many outbursts. SI/HI: Pt denies. None observed A/VH: Pt denies. None observed Sleep: Currently sleeping. Pt is on mattress in room. ADL's: Independent. 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 Were meds taken: Medication compliant Any med S/E: None responded. Mental Status Exam Appearance: Clean, wearing green scrubs. Eye contact: Good Behavior: Guarded, isolates in his room, internally preoccupied Speech: Minimal Mood: "to Stephanie" = to break the rules Affect: Flat Thought process: Disorganized Thought Content: Nonsensical delusions Cognition: A/O X 3, D/o to time Insight: Poor Judgment: Poor Interventions PRN's used: None Therapeutic interventions: 1:1 assessment, active listening, reality orientation, encouragement to shower and perform personal hygiene, medication administration/education/ monitoring for effect and side effects, legal status education, Q 15 min safety checks. Restraints/seclusion/emergency medication: None Justification of Continued Inpatient Treatment: Pt is delusional and disorganized, he is gravely disabled unable to verbalize a plan for food, clothing and snf. Interrupting current crisis in attempt to establish court competency.
[2019-01-19 07:30] VITALS: BP 108/71
[2019-01-19] MEDS: benztropine 1mg tablet PO SCH ×2 (07:51→21:04)
--- NOTE | 2019-01-19 17:45 | NUR ---
Nursing Progress Note: Legal hold: Court Competency 1370 Client on involuntary status for GD Report received from TIARA Sharma with use of SBAR Why are they here: Pt has been arrested multiple times for trespassing and this time has been in [facility] since April 2018. Pt unmedicated and very psychotic with poor hygiene. Pt is not competent to stand trial and so was placed here for stabilization of his psychiatric symptoms. Was in solitary confinement for 6 months in [facility]. Assessment What has happened this shift: Pt. sleeping at start of shift. Pt. took medications but refused breakfast. Pt. later asked for his tray but it was gone but was given PBJ sandwhich and whole milk. Pt. denies SI/HI, A/V H. Pt. states. 1:1 done at bedside, pt. continues have moments of clear thinking with d/o thinking. When asked about his medications, pt. states, "I have the adam to the universe". Pt.'s mood is labile, pt. seen dancing in the hallway and then sitting in the corner of the room with a blanket over his head. Pt. encouraged to shower and states, "I may". RN asked pt. how much he ate for lunch and pt. replied "How much did I eat for lunch?" RN asked again and pt. replied "I ate as much as my left hand" and then pt. preceeds to hold his right hand up. SI/HI: Pt denies. A/VH: Pt denies. Sleep: 6.25 ADL's: Independent. Group attendance: Pt. did not attend groups. Were meds taken: Yes Any med S/E: None reported. None observed. Mental Status Exam Appearance: Clean, wearing green scrubs. Eye contact: Good Behavior: Guarded, isolates in his room, internally preoccupied Speech: Minimal Mood: "Good" Affect: Flat Thought process: Disorganized, tangential Thought Content: Nonsensical delusions Cognition: A/O X 3, D/o to time Insight: Poor Judgment: Poor Interventions PRN's used: None Therapeutic interventions: 1:1 assessment, active listening, reality orientation, encouragement to shower and perform personal hygiene, medication administration/education/ monitoring for effect and side effects, legal status education, Q 15 min safety checks. Restraints/seclusion/emergency medication: None Justification of Continued Inpatient Treatment: Pt is delusional and disorganized, he is gravely disabled unable to verbalize a plan for food, clothing and detention. Interrupting current crisis in attempt to establish court competency.
[2019-01-19 20:00] VITALS: BP 99/55
[2019-01-19] MEDS: aripiprazole 5mg tablet PO SCH (21:05)
--- NOTE | 2019-01-20 01:51 | NUR ---
Nursing Progress Note: Legal hold: Court Competency 1370 Client on involuntary status for GD Report received from Deon , with use of SBAR Why are they here: Pt has been arrested multiple times for trespassing and this time has been in [facility] since April 2018. Pt unmedicated and very psychotic with poor hygiene. Pt is not competent to stand trial and so was placed here for stabilization of his psychiatric symptoms. Was in solitary confinement for 6 months in [facility]. Assessment What has happened this shift: This patient is isolating in his room. He sleeps on the mattress on the floor. The patient is oriented to peraon and place, he knows this writers name from memory. The patient exhibits disorganized thought. Patient makes good eye contact. He is friendly to staff. He is medication compliant. The patient consumes his meals. He eats occasional snacks. This patient on some previous shifts has stuffed toilet paper in his left nare. He is not doing that today. The patient denies S/I or H/I. He denies hearing voices. The patient is advised that he is in a safe place. SI/HI: Pt denies. A/VH: Pt denies. Sleep: 6.25 ADL's: Independent. Group attendance: Pt. did not attend groups on the day shift. Were med's taken: Yes Any med S/E: None reported. None observed. Mental Status Exam Appearance: Clean, wearing green scrubs. Eye contact: Good Behavior: Guarded, isolates in his room, internally preoccupied Speech: Minimal Mood: "Good" Affect: Flat Thought process: Disorganized, tangential Thought Content: Nonsensical delusions Cognition: Oriented to person and place. Insight: Poor Judgment: Poor Interventions PRN's used: None Therapeutic interventions: 1:1 assessment, active listening, reality orientation, encouragement to shower and perform personal hygiene, medication administration/education/ monitoring for effect and side effects, legal status education, Q 15 min safety checks. Restraints/seclusion/emergency medication: None Justification of Continued Inpatient Treatment: Pt is delusional and disorganized, he is gravely disabled unable to verbalize a plan for food, clothing and assisted. Interrupting current crisis in attempt to establish court competency.
[2019-01-20] MEDS: benztropine 1mg tablet PO SCH ×2 (07:51→20:00)
[2019-01-20 08:00] VITALS: BP 94/51
--- NOTE | 2019-01-20 16:54 | NUR ---
Nursing Progress Note: Legal hold: Court Competency 1370 Client on involuntary status for GD Report received from Tanja Euceda RN with use of SBAR Why are they here: Pt has been arrested multiple times for trespassing and this time has been in [facility] since April 2018. Pt unmedicated and very psychotic with poor hygiene. Pt is not competent to stand trial and so was placed here for stabilization of his psychiatric symptoms. Was in solitary confinement for 6 months in [facility]. Assessment What has happened this shift: Received Pt in bed on floor at beginning of shift. Pt. took AM medication after many questions and false statements about its purpose. He tolerated conversation with this RN for a short time which included lucid moments mixed with bizzare statements and disorganized thinking. Pt very paranoid about medications. Spent most of the day in his room isolating, with an occasional walk through the halls. Minimal contact with peers or staff initiated by Pt. Pt did not eat lunch but was given a PBJ which he ate. Pt observed speaking to himself and making hand and body movements that appear to be engaging imaginary things. SI/HI: Pt denies. A/VH: Pt denies. Sleep: 7 ADL's: Independent. Group attendance: Pt. did not attend groups. Were meds taken: Yes Any med S/E: None reported. None observed. Mental Status Exam Appearance: Clean, wearing green scrubs. Eye contact: Good Behavior: Guarded, isolates in his room, internally preoccupied Speech: Minimal Mood: "Good" Affect: Flat Thought process: Disorganized, tangential Thought Content: Nonsensical delusions Cognition: A/O X 3, D/o to time Insight: Poor Judgment: Poor Interventions PRN's used: None Therapeutic interventions: 1:1 assessment, active listening, reality orientation, encouragement to shower and perform personal hygiene, medication administration/education/ monitoring for effect and side effects, legal status education, Q 15 min safety checks. Restraints/seclusion/emergency medication: None Justification of Continued Inpatient Treatment: Pt is delusional and disorganized, he is gravely disabled unable to verbalize a plan for food, clothing and penitentiary. Interrupting current crisis in attempt to establish court competency.
[2019-01-20 19:55] VITALS: BP 103/66
[2019-01-20] MEDS: aripiprazole 5mg tablet PO SCH (22:13)
--- NOTE | 2019-01-21 05:04 | NUR ---
Nursing Progress Note: Legal hold: Court Competency 1370 Client on involuntary status for GD Report received from Tanja Euceda RN with use of SBAR Why are they here: Pt has been arrested multiple times for trespassing and this time has been in [facility] since April 2018. Pt unmedicated and very psychotic with poor hygiene. Pt is not competent to stand trial and so was placed here for stabilization of his psychiatric symptoms. Was in solitary confinement for 6 months in [facility]. Assessment What has happened this shift: Once again this patient is self isolating in his room. On rare occasion he enters hallway. The patient is well oriented but quite delusional. He is medication compliant. The patient is animated at times. He rambles, telling this proposal manager writer I raised myself from . The patient is cooperative with this proposal manager writer. The patient is assured that he is in a safe place. This patient rested quietly throughout the night in his chair or on the floor mattress. SI/HI: Pt denies. A/VH: Pt denies. Sleep: ADL's: Independent. Group attendance: Pt. did not attend groups. Were meds taken: Yes Any med S/E: None reported. None observed. Mental Status Exam Appearance: Clean, wearing green scrubs. Eye contact: Good Behavior: Guarded, isolates in his room, internally preoccupied Speech: Minimal Mood: "Good" Affect: Flat Thought process: Disorganized, tangential Thought Content: Nonsensical delusions Cognition: A/O X 3, D/o to time Insight: Poor Judgment: Poor Interventions PRN's used: None Therapeutic interventions: 1:1 assessment, active listening, reality orientation, encouragement to shower and perform personal hygiene, medication administration/education/ monitoring for effect and side effects, legal status education, Q 15 min safety checks. Restraints/seclusion/emergency medication: None Justification of Continued Inpatient Treatment: Pt is delusional and disorganized, he is gravely disabled unable to verbalize a plan for food, clothing and long term. Interrupting current crisis in attempt to establish court competency.
[2019-01-21] MEDS: benztropine 1mg tablet PO SCH ×2 (07:45→20:57)
[2019-01-21 08:03] VITALS: BP 104/60
--- NOTE | 2019-01-21 16:44 | NUR ---
Nursing Progress Note: Legal hold: Court Competency 1370 Client on involuntary status for GD Report received from ZAMZAM Fuentes with use of SBAR Why are they here: Pt has been arrested multiple times for trespassing and this time has been in [facility] since April 2018. Pt unmedicated and very psychotic with poor hygiene. Pt is not competent to stand trial and so was placed here for stabilization of his psychiatric symptoms. Was in solitary confinement for 6 months in [facility]. Assessment What has happened this shift: Pt. sleeping at change of shift. Pt. took medications and ate breakfast in day room. 1:1 assessment done at bedside. Pt. reports he slept well and ate all his breakfast. Pt. talks about killing a friend named Meenakshi when he is discharged. When further asked about this woman, pt. looks at his hand and says, "She's a roque, a roque panda, dedra", going on with Clang associations and neologisms. When asked what month it is today, pt. responded, "It's a good season of nice healthy warewolves." Pt. did not attend groups. Pt. did not eat his lunch tray but did eat a PBJ sandwhich. RN asked pt. why he is called Eddi and not Solo and pt. responded, "because Solo is the other rhonda". RN asked pt. what he will do when he is discharged and pt. states, "I'm going to get certificates, I'm going to get a baseball bat and do damage to their bodies" RN asked who these people are and pt. states, "Their licks, "I'm going to do damage to their knees just like they did to mine". RN discussed pt.'s threats with the treatment team. Pt. sits on the floor of his room looking out the window. Clang associations and neologisms. Received Pt in bed on floor at beginning of shift. Pt. took AM medication after many questions and false statements about its purpose. He tolerated conversation with this RN for a short time which included lucid moments mixed with bizzare statements and disorganized thinking. Pt very paranoid about medications. Spent most of the day in his room isolating, with an occasional walk through the halls. Minimal contact with peers or staff initiated by Pt. Pt did not eat lunch but was given a PBJ which he ate. Pt observed speaking to himself and making hand and body movements that appear to be engaging imaginary things. SI/HI: Pt denies. A/VH: Pt denies. Sleep: 5.75 ADL's: Independent. Group attendance: Pt. did not attend groups. Were meds taken: Yes Any med S/E: None reported. None observed. Mental Status Exam Appearance: Clean, wearing green scrubs. Eye contact: Good Behavior: Guarded, isolates in his room, internally preoccupied Speech: Clang associations and neologisms. Mood: "Good" Affect: Flat Thought process: Disorganized, tangential Thought Content: Nonsensical delusions Cognition: A/O X 3, D/o to time Insight: Poor Judgment: Poor Interventions PRN's used: None Therapeutic interventions: 1:1 assessment, active listening, reality orientation, encouragement to shower and perform personal hygiene, medication administration/education/ monitoring for effect and side effects, legal status education, Q 15 min safety checks. Restraints/seclusion/emergency medication: None Justification of Continued Inpatient Treatment: Pt is delusional and disorganized, he is gravely disabled unable to verbalize a plan for food, clothing and [facility]. Interrupting current crisis in attempt to establish court competency.
[2019-01-21 20:00] VITALS: BP 98/55
[2019-01-21] MEDS: aripiprazole 5mg tablet PO SCH (20:57)
--- NOTE | 2019-01-21 22:39 | NUR ---
Nursing Progress Note: Legal hold: court competency 1370 Client on involuntary status for GD Report received from nurse with use of SBAR: Yes, Deon WYMAN Why are they here: Pt has been arrested multiple times for trespassing and this time has been in [facility] since April 2018. Pt unmedicated and very psychotic with poor hygiene. Pt is not competent to stand trial and so was placed here for stabilization of his psychiatric symptoms. Assessment What has happened this shift: Pt isolates in his room majority of the shift, but does come into the group room to get a snack. He does not engage with ay of his peers. Pt will answer questions and is cooperative with 1:1 assessment. Pt is pleasant, but guarded. When asked how his day was he replied, "It was fine, I got up late." He is medication compliant. 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 Mental Status Exam Appearance: disheveled Eye contact: direct Behavior: isolative but cooperative Speech: word salad at times, linear at other times Mood:calm, guarded Affect: anxious to flat Thought process:disorganized Thought Content:disorganized Cognition: poor Insight:poor Judgment: poor Interventions PRN's used: n/a Therapeutic interventions: 1:1 assessment, therapeutic listening, offered shower and clean clothing although he declined, Q15 minute safety checks Restraints/seclusion/emergency medication:none Justification of Continued Inpatient Treatment: Pt gravely disabled and on a court competency 1370 hold.
[2019-01-22 07:30] VITALS: BP 99/55
[2019-01-22] MEDS: benztropine 1mg tablet PO SCH ×2 (07:44→20:13)
[2019-01-22] MEDS ORDERED: LORazepam 2 mg/ml vial IM PRN (10:45)
[2019-01-22] MEDS ORDERED: diphenhydrAMINE 50 mg/ml inj IM PRN (10:45)
[2019-01-22] MEDS: haloperidol 5mg tablet PO SCH ×2 (10:45→20:00)
[2019-01-22] MEDS: LORazepam 1 MG tablet PO SCH ×2 (11:10→20:17)
[2019-01-22] MEDS: diphenhydrAMINE 25mg capsule PO SCH ×2 (11:10→20:17)
--- NOTE | 2019-01-22 11:53 | NUR ---
Note: Pt asked SW to explain if he is ordered to take medication per the court. Pt states he does not agree to take Haldol, stating he has an allergy to the medication. Pt states the medication causes him to gain weight and reports he needs a stimulant medication. Pt continued to decline medication after being informed of historical information from previous conservatorship records. Pt was directed to discuss situation in his room. Pt was provided w/ IM of Haldol and will be offered PO during next administration. Sanjana Cisse, Lease Attendant DOCUMENT CONTROL SUPERVISOR [id number] Supervised by Sandip Anders, [id number]
[2019-01-22] MEDS: haloperidol lactate 5mg/ml inj IM PRN ×2 (11:54→20:35)
--- NOTE | 2019-01-22 17:50 | NUR ---
Nursing Progress Note: Legal hold: court competency 1370 Client on involuntary status for GD Report received from nurse with use of SBAR: Yes, Leyla RN Why are they here: Pt has been arrested multiple times for trespassing and this time has [facility] in [facility] April 2018. Pt unmedicated and very psychotic with poor hygiene. Pt is not competent to stand trial and so was placed here for stabilization of his psychiatric symptoms. Assessment What has happened this shift: Pt. sleeping at start of shift. Pt. woken up for medications and breakfast. 1:1 assessment done at bedside. Pt. has clear thinking mixed with d/o thinking with clang associations and neologisms. Pt. ate all of breakfast but did not eat lunch tray. Pt. ate peanut butter, and jelly sandwhich instead. Pt. started on Haldol, Ativan, and Benadryl. Pt. given Ativan, Haldol, and Benadryl IM after refusing PO this afternoon. Pt. states, "the haldol is pulling all of the water out of my body". Pt. ate all his tray at dinner. S/I, H/I: denies A/VH: denies Sleep: 7.5 hours ADL's: independent. Pt. encouraged to shower, pt. reports he showered yesterday. Group attendance: Pt. did not attend groups. Were meds taken: yes Any med S/E : none reported, none observed. Mental Status Exam Appearance: disheveled Eye contact: direct Behavior: isolative Speech: word salad at times, clang associations, neologisms. Mood:calm, guarded Affect: anxious to flat Thought process: Disorganized, tangential Thought Content: Nonsensical delusions Cognition: poor Insight:poor Judgment: poor Interventions PRN's used: Therapeutic interventions: 1:1 assessment, active listening, reality orientation, encouragement to shower and perform personal hygiene, medication administration/education/ monitoring for effect and side effects, legal status education, Q 15 min safety checks. Restraints/seclusion/emergency medication: None Justification of Continued Inpatient Treatment: Pt is delusional and disorganized, he is gravely disabled unable to verbalize a plan for food, clothing and intermediate. Interrupting current crisis in attempt to establish court competency.
[2019-01-22 20:00] VITALS: BP 104/50
[2019-01-22] MEDS ORDERED: LORazepam 1 MG tablet PO SCH (20:00)
[2019-01-22] MEDS ORDERED: diphenhydrAMINE 25mg capsule PO SCH (20:00)
[2019-01-22] MEDS: aripiprazole 5mg tablet PO SCH (20:13)
--- NOTE | 2019-01-22 22:11 | NUR ---
Nursing Progress Note: Legal hold: court competency 1370 Client on involuntary status for GD Report received from nurse with use of SBAR: Yes, Deon WYMAN Why are they here: Pt has been arrested multiple times for trespassing and this time has been in [facility] since April 2018. Pt unmedicated and very psychotic with poor hygiene. Pt is not competent to stand trial and so was placed here for stabilization of his psychiatric symptoms. Assessment What has happened this shift: Pt walks the unit occasionally, stopping randomly in the loera and looking around. Medical DrViola came to interview him, pt's responses were mostly nonsensical,"snorting moldy cheese up your nose for an upper," but he did say, "I do not want Haldol, I was 300 pounds." Pt was given medication education and reality was enforced, radio news writer reminded him that he was her for a court competency. Pt was cooperative with the physician's physical assessment. At HS medication pass pt took all of his medications PO except Haldol. Pt requested that he "please get the injection, I won't throw a fit." Pt was given Haldol 5 mg IM. Pt was very cooperative and polite. He then asked for a snack, which he was given. 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 Mental Status Exam Appearance: disheveled Eye contact: direct Behavior: cooperative Speech: linear at times, Mood:calm, guarded Affect: anxious to flat Thought process:disorganized Thought Content:disorganized Cognition: poor Insight:poor Judgment: poor Interventions PRN's used: n/a Therapeutic interventions: 1:1 assessment, therapeutic listening, offered shower and clean clothing although he declined, Q15 minute safety checks Restraints/seclusion/emergency medication:none Justification of Continued Inpatient Treatment: Pt gravely disabled and on a court competency 1370 hold.
--- NOTE | 2019-01-23 07:05 | NUR ---
Late entry DISCHARGE PLANNING: SW emailed all progress, MAR and nursing notes to [employer], Giuseppe Paredes. Sanjana Cisse, Sheriffs WEATHERIZATION SPECIALIST [id number] Supervised by Sandip Anders, [id number]
[2019-01-23 07:56] VITALS: BP 105/66
[2019-01-23] MEDS: haloperidol 5mg tablet PO SCH ×2 (08:12→20:55)
[2019-01-23] MEDS: diphenhydrAMINE 25mg capsule PO SCH ×2 (08:12→20:52)
[2019-01-23] MEDS: benztropine 1mg tablet PO SCH ×2 (08:13→20:52)
[2019-01-23] MEDS: LORazepam 1 MG tablet PO SCH ×2 (08:13→20:50)
--- NOTE | 2019-01-23 17:47 | NUR ---
Nursing Progress Note: Legal hold: court competency 1370 Client on involuntary status for GD Report received from nurse with use of SBAR: Leyla WYMAN Why are they here: Pt has been arrested multiple times for trespassing and this time has been in [facility] since April 2018. Pt unmedicated and very psychotic with poor hygiene. Pt is not competent to stand trial and so was placed here for stabilization of his psychiatric symptoms. Assessment What has happened this shift: Pt. sleeping at start of shift. Pt. woken up for medications and breakfast. Pt. took all medications PO. Pt. ate all of breakfast and went back to sleep. 1:1 done at bedside. RN asked pt. "Do you know where you're at right now?" Pt. responded, "[facility]" RN asked pt. "What is the date?" Pt. responds, "6 month". then says "I'm on [facility], Perdomo, Valentino, Soy... etc. with Clang associations and neologisms. Pt. refused to go to groups stating, "I'm not going to go to groups because I'm hear by police order. I just want to leave." RN asked pt. "What do you want to do with your life?" Pt. responded, "I Want to feed the rabbit bulls. I entroph... enroph, ensoph..." S/I, H/I: denies A/VH: denies Sleep: 6.5hrs ADL's: independent Group attendance: No Were meds taken: yes Any med S/E : none reported, none observed. Mental Status Exam Appearance: disheveled Eye contact: direct Behavior: cooperative, isolative Speech: linear at times, clang associations and neologisms at other times. Mood:calm, guarded Affect: congruent with mood at times. Flat at other times. Thought process:disorganized Thought Content:disorganized Cognition: A&O x1 Insight:poor Judgment: poor Interventions PRN's used: n/a Therapeutic interventions: 1:1 assessment, therapeutic listening, offered shower and clean clothing although he declined, Q15 minute safety checks Restraints/seclusion/emergency medication:none Justification of Continued Inpatient Treatment: Pt gravely disabled and on a court competency 1370 hold.
[2019-01-23 20:00] VITALS: BP 108/60
[2019-01-23] MEDS: aripiprazole 5mg tablet PO SCH (20:51)
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
[2019-01-24] MEDS: benztropine 1mg tablet PO SCH ×2 (07:32→20:52)
[2019-01-24] MEDS: diphenhydrAMINE 25mg capsule PO SCH ×2 (07:32→20:53)
[2019-01-24] MEDS: LORazepam 1 MG tablet PO SCH ×2 (07:32→20:53)
[2019-01-24] MEDS: haloperidol 5mg tablet PO SCH ×2 (07:32→20:52)
[2019-01-24 07:46] VITALS: BP 104/64
--- NOTE | 2019-01-24 16:19 | NUR ---
Nursing Progress Note: Legal hold: court competency 1370 Client on involuntary status for GD Report received from ZAMZAM Mayer with use of SBAR. Why are they here: Pt has been arrested multiple times for trespassing and this time has been in [facility] since April 2018. Pt unmedicated and very psychotic with poor hygiene. Pt is not competent to stand trial and so was placed here for stabilization of his psychiatric symptoms. Assessment What has happened this shift: Patient is observed sleeping at change of shift. Once awake, he is observed walking the halls. RN offered patient his morning medications just prior to breakfast. Patient reported that he already took his meds this morning, patient did not take any meds yet this morning. Patient agreed to show this nurse the RN that administered his meds, patient was unable to find said nurse and then agreed to take all PO meds. Patient did make eye contact with RN and then joined others in group room for breakfast. After breakfast patient is observed resting. He gets up in the afternoon and when asked how he is doing states that he is doing fine, he denies having any needs, gets a book and then returns to his room. S/I, H/I: denies A/VH: denies Sleep: 8.75 NOC and rested during day ADL's: independent Group attendance: no Were meds taken: yes Any med S/E : none reported, none observed. Mental Status Exam Appearance: disheveled and unkempt Eye contact: direct Behavior: cooperative and isolative Speech: soft tone, normal rate/rhythm Mood: calm Affect: restricted with softening Thought process: disorganized thoughts Thought Content: no delusional thought content expressed Cognition: poor Insight:poor Judgment: poor Interventions PRN's used: n/a Therapeutic interventions: 1:1 assessment, therapeutic listening, offered shower and clean clothing although he declined, Q15 minute safety checks Restraints/seclusion/emergency medication:none Justification of Continued Inpatient Treatment: Pt gravely disabled and on a court competency 1370 hold.
[2019-01-24 20:00] VITALS: BP 104/71
[2019-01-24] MEDS: aripiprazole 5mg tablet PO SCH (20:54)
--- NOTE | 2019-01-25 04:40 | NUR ---
Nursing Progress Note: Legal hold: 1370 Client on involuntary status for GD Report received from nurse with use of SBAR: ZAMZAM Elizalde Why are they here: Pt has been arrested multiple times for trespassing and this time has been in [facility] since April 2018. Pt unmedicated and very psychotic with poor hygiene. Pt is not competent to stand trial and so was placed here for stabilization of his psychiatric symptoms. Assessment What has happened this shift: Pt. isolating in his room laying on his mattress placed on the floor throughout the shift, body wrapped in blankets. This medical technical writer attempted to complete 1:1 at bedside, pt. cooperative, however presents as guarded, restless, and slightly irritable at times. He presents with poverty of speech and will minimally answer questions with disorganized/tangental answers. Pt. denies any H/A, however inappropriately states, "No, I stopped watching TV." He does appear to be internally preoccupied and continues to make grandiose delusional statements. Pt. is A&O X3, however when questioned by this medical technical writer why he is here states, "It says medical in my chart." He is compliant with all medications and then requests to attend snack. S/I, H/I: Denies A/VH: Denies, however appears internally preoccupied Sleep: Appears to be resting comfortably ADL's: Requires encouragement and prompting from staff Group attendance: Pt. reports he does not attend groups, states, "I don't need to." Were meds taken: yes Any med S/E: None Mental Status Exam Appearance: Appears disheveled, however appropriately dressed in hospital attire Eye contact: Fair Behavior: Cooperative, however presents as guarde, restless, and slightly irritable at times. Speech: Poverty of speech and will minimally answer questions with disorganized/tangental answers Mood: Cooperative, restless, slightly irritable Affect: Constricted Thought process: Disorganized, tangental Thought Content: Grandiose delusions, H/A, preoccupation with internal stimuli Cognition: A&O X3 Insight: Poor Judgment: Poor Interventions PRN's used: None Therapeutic interventions: Maintained a safe and supportive environment, provided clear and simple instructions, attempted to reorient to reality, and maintained Q 15 min safety checks. Restraints/seclusion/emergency medication: N/A Justification of Continued Inpatient Treatment: Pt. requires continued medication adjustments and a safe and supportive environment. He is not competent to stand trial.
[2019-01-25 08:00] VITALS: BP 106/56
[2019-01-25] MEDS: benztropine 1mg tablet PO SCH ×2 (08:00→20:15)
[2019-01-25] MEDS: diphenhydrAMINE 25mg capsule PO SCH ×2 (08:20→20:14)
[2019-01-25] MEDS: LORazepam 1 MG tablet PO SCH ×2 (08:20→20:14)
[2019-01-25] MEDS: haloperidol 5mg tablet PO SCH ×2 (08:20→20:15)
--- NOTE | 2019-01-25 12:09 | NUR ---
Reassessment: Pt continues with good PO intake meeting nutrient needs documented at 75-100% with the exception of refusing two meals. Wt stable with admit. [facility] 01/23. No nutrition diagnosis. Will continue to follow. Recommendations: 1) Continue with regular diet 2) Weekly wt Addendum: 01/25/19 at [address] Amended: Links added.
--- NOTE | 2019-01-25 15:39 | NUR ---
Nursing Progress Note: Legal hold: 1370 Client on involuntary status for GD Report received from nurse with use of SBAR: Tanja Euceda RN Why are they here: Pt has been arrested multiple times for trespassing and this time has been in Shel[facility] since April 2018. Pt unmedicated and very psychotic with poor hygiene. Pt is not competent to stand trial and so was placed here for stabilization of his psychiatric symptoms. Assessment What has happened this shift: Pt denied depression, anxiety, SI/HI/AH/VH. Pt adamantly refused Cogentin stating that it was for restless legs and he didn't need it since his legs weren't restless. Pt stated that Ativan was a pain pill and he wasn't in pain so he didn't need it, told pt it was also called lorazepam and it was for anxiety. Pt replied, lorazepam, that's a suppressant, I only take suppressants at bedtime...don't argue with me, you'll lose." Pt asked the PCT what time he was supposed to take his meds. PCT encouraged him to listen to this nurse. Pt reluctantly took all morning meds except Cogentin with much encouragement. Pt naps frequently throughout the day. When attempted a therapeutic conversation with the pt he replied with rhyming nonsensical words interspersed with a couple of sentences that made some sense. Pt is irritable at times and mostly avoidant and isolative to self. S/I, H/I: Pt denies A/VH: Pt denies Sleep: Slept per noc shift report ADL's: Poor hygiene, refuses to brush hair or shower at times Group attendance: Pt declines Were meds taken: Yes, all but Cogentin Any med S/E: Pt seems drowsy after morning meds, no side effects reported, denies restless legs. Mental Status Exam Appearance: Disheveled, messy hair Eye contact: Fair Behavior: Guarded, resistant to meds, irritable, avoidant, isolative to self Speech: Disorganized at times with nonsensical words and rhyming, poverty of speech Mood: Irritable Affect: Constricted Thought process: Disorganized Thought Content: Pt does not like to take medications, believes he is only supposed to take them at bedtime Cognition: A&O X2 Insight: Poor Judgment: Poor Interventions PRN's used: None Therapeutic interventions: 1:1 assessment, attempted establishment of rapport, encouragement to take prescribed medications, encouragement to express thoughts and feelings, encouragement to perform personal hygiene, reality orientation, medication administration/monitoring/education, Q 15 min safety checks. Restraints/seclusion/emergency medication: N/A Justification of Continued Inpatient Treatment: Pt requires continued medication adjustments in a safe and supportive environment. He remains psychotic and disorganized, he is not competent to stand trial.
[2019-01-25 20:00] VITALS: BP 94/51
[2019-01-25] MEDS: aripiprazole 5mg tablet PO SCH (20:15)
--- NOTE | 2019-01-26 01:44 | NUR ---
Nursing Progress Note: Legal hold: 1370 Client on involuntary status for GD Report received from nurse with use of SBAR: ZAMZAM Elizalde Why are they here: Pt has been arrested multiple times for trespassing and this time has been in [facility] since April 2018. Pt unmedicated and very psychotic with poor hygiene. Pt is not competent to stand trial and so was placed here for stabilization of his psychiatric symptoms. Assessment What has happened this shift: Pt. continues to isolate in his room throughout the shift, laying in bed with a blanket over his head. This freelance writer awoke pt. to attend HS snack and administer HS medications. Pt. states, "I don't want the Cogentin." This freelance writer explained the purpose of this medication to pt. and he seemed to nod in understanding, however then stated, "No Ativan, I already got it twice today." This freelance writer provided education to pt. that he had only received Ativan X1 today in the morning. Pt. impulsively stated, "Ok, can I go to snack first?" and he quickly left the room. Pt. returned and asked freelance writer if all the medications were ready, and then he quickly took them. However, he refuses to let this freelance writer reassess his BP, which was slightly hypotensive, pt. denies any dizziness and will monitor. Pt. continues to present with poverty of speech, and will minimally answer questions sometimes appropriately, and other times with disorganized/tangental answers. This freelance writer attempts to question pt. regarding what he likes to do, and if he is looking forward to the 31 of January? However, he is unable to appropriately formulate an answer, and begins speaking in a disorganized fashion about setting off bombs and explosions. S/I, H/I: Denies A/VH: Denies, however appears internally preoccupied Sleep: Appears to be resting comfortably ADL's: Requires direction, encouragement, and prompting from staff Group attendance: Pt. remains unable to participate in groups Were meds taken: yes Any med S/E: None Mental Status Exam Appearance: Hair disheveled, however appropriately dressed in hospital attire Eye contact: Fair Behavior: Cooperative with resistance to care at times, guarded, restless/impulsive, and slightly irritable at times. Speech: Poverty of speech, will minimally answer questions appropriately or with disorganized/tangental answers Mood: Blunted Affect: Flat Thought process: Disorganized, tangental Thought Content: Grandiose delusions, H/A, preoccupation with internal stimuli Cognition: A&O X3 Insight: Poor Judgment: Poor Interventions PRN's used: None Therapeutic interventions: Maintained a safe and supportive environment, provided clear and simple instructions, attempted to reorient to reality, provided medication education and positive encouragement, encouraged independent performance of ADLs and socialization with others, and maintained Q 15 min safety checks. Restraints/seclusion/emergency medication: N/A Justification of Continued Inpatient Treatment: Pt. requires continued medication adjustments and a safe and supportive environment. He is not competent to stand trial.
[2019-01-26 07:57] VITALS: BP 94/53
[2019-01-26] MEDS: diphenhydrAMINE 25mg capsule PO SCH ×2 (08:25→20:45)
[2019-01-26] MEDS: LORazepam 1 MG tablet PO SCH ×2 (08:25→20:42)
[2019-01-26] MEDS: haloperidol 5mg tablet PO SCH ×2 (08:25→20:45)
[2019-01-26] MEDS: benztropine 1mg tablet PO SCH ×2 (08:25→20:46)
--- NOTE | 2019-01-26 15:22 | NUR ---
Nursing Progress Note: Legal hold: 1370 Client on involuntary status for GD Report received from nurse with use of SBAR: Tanja Euceda, RN Why are they here: Pt has been arrested multiple times for trespassing and this time has been in [facility] since April 2018. Pt unmedicated and very psychotic with poor hygiene. Pt is not competent to stand trial and so was placed here for stabilization of his psychiatric symptoms. Assessment What has happened this shift: Pt had to be told that breakfast was here this morning twice, did come to the dining room to eat before the trays were collected. Pt stated that he only took meds at night, reminded pt that he actually takes his medication twice daily in the morning and at night. Pt took all his scheduled morning meds and allowed this RN to do a physical assessment as well as a mental health assessment which he participated in minimally. When asked pt if he slept well, he replied, "nope." When asked why not he stated, "cause I want to get out of here." When asked him if he heard voices, he replied, "yes." Asked the pt what the voices say to him and he replied, "I hear your voice...no Ana, no Reinaldo, no Alejandro, no tummy...the only pain I might have is tummy." Asked the pt if he was currently having tummy pain, pt replied, "yes." Pt was unable to recall when he had his last BM, asked him if he was feeling constipated, pt answered "no." Offered the pt some Maalox, pt refused stating, "Maalox kills dogs, I know because my neighbors's dog drank Maalox and ." Encouraged pt to let this RN know if his stomach pain did not go away or worsened, pt replied, "Do you have any of those Uncrustables?" Reminded pt that he had just eaten breakfast but he could ask for an Uncrustable at snack time. S/I, H/I: Pt denies A/VH: Pt denies Sleep: Slept 9 hours per noc shift report ADL's: Poor hygiene, refuses to brush hair or shower at times Group attendance: Pt declines Were meds taken: Yes Any med S/E: No side effects noted or reported. Mental Status Exam Appearance: Disheveled, messy hair Eye contact: Fair Behavior: Restricted, mostly isolative to self, cooperative Speech: audible, clear, quiet unless asked direct questions, using alliterations today, speech is more organized than previously. Mood: less irritable today Affect: Flat Thought process: often illogical Thought Content: wants out of here, likes snacks Cognition: A&O X2 Insight: Poor Judgment: Poor Interventions PRN's used: None Therapeutic interventions: 1:1 assessment, establishment of rapport, encouragement to take prescribed medications, encouragement to express thoughts and feelings, encouragement to perform personal hygiene, reality orientation, medication administration/monitoring/education, Q 15 min safety checks. Restraints/seclusion/emergency medication: N/A Justification of Continued Inpatient Treatment: Pt requires continued medication adjustments in a safe and supportive environment. He remains psychotic and disorganized, he is not competent to stand trial.
[2019-01-26 20:00] VITALS: BP 114/61
[2019-01-26] MEDS: aripiprazole 5mg tablet PO SCH (20:44)
--- NOTE | 2019-01-27 01:17 | NUR ---
Nursing Progress Note: Legal hold: court competency 1370 Client on involuntary status for GD Report received from nurse with use of SBAR: Yes, Fide MENJIVAR Why are they here: Pt has been arrested multiple times for trespassing and this time has been in [facility] since April 2018. Pt unmedicated and very psychotic with poor hygiene. Pt is not competent to stand trial and so was placed here for stabilization of his psychiatric symptoms. Assessment What has happened this shift: Pt walks the unit occasionally, he says hello to sports writer and smiles. He is minimal in conversation but remains pleasant. He is medication compliant. He denies SI/HI/AH/VH. He appears anxious at times, will shift while standing or look at sports writer and others from the corner of his eye. When sports writer asks if he is feeling anxious he just shakes his head and says, "i'm okay, just hungry." Pt is given a peanut butter and jelly uncrustable which he eats in the rec room. Concrete Mixer Operator encourages pt to shower or let sports writer brush his hair but he politely declines. S/I, H/I: denies A/VH: denies Sleep: see sleep assessment notation ADL's: independent Group attendance: overnight cashier, no group Were meds taken: yes Any med S/E : none reported, none observed. Mental Status Exam Appearance: disheveled Eye contact: direct Behavior: cooperative Speech: linear at times, Mood:calm, guarded Affect: anxious to flat Thought process:disorganized Thought Content:disorganized Cognition: poor Insight:poor Judgment: poor Interventions PRN's used: n/a Therapeutic interventions: 1:1 assessment, therapeutic listening, offered shower and clean clothing although he declined, Q15 minute safety checks Restraints/seclusion/emergency medication:none Justification of Continued Inpatient Treatment: Pt gravely disabled and on a court competency 1370
[2019-01-27 07:47] VITALS: BP 93/47
[2019-01-27] MEDS: diphenhydrAMINE 25mg capsule PO SCH (08:06)
[2019-01-27] MEDS: haloperidol 5mg tablet PO SCH ×2 (08:06→20:18)
[2019-01-27] MEDS: LORazepam 1 MG tablet PO SCH ×3 (08:06→20:18)
[2019-01-27] MEDS: benztropine 1mg tablet PO SCH ×2 (08:07→20:18)
[2019-01-27 08:49] VITALS: BP 100/58
[2019-01-27] MEDS ORDERED: LORazepam 2 mg/ml vial IM PRN (11:35)
--- NOTE | 2019-01-27 14:15 | NUR ---
Nursing Progress Note: Legal hold: 1370 Client on involuntary status for GD Report received from nurse with use of SBAR: Tanja Euceda RN Why are they here: Pt has been arrested multiple times for trespassing and this time has been in [facility] since April 2018. Pt unmedicated and very psychotic with poor hygiene. Pt is not competent to stand trial and so was placed here for stabilization of his psychiatric symptoms. Assessment What has happened this shift: Pt showered and washed his hair this morning before breakfast, though he still looked fatigued. B/P before breakfast was low at 93/47, pt does not like to drink water. Let pt know his BP was low and that it was important for him to drink more fluids, pt responded, " I need hemoglobual stimulants." Reiterated/educated that what he needed was some more fluids. Pt again stated, "it's hemoglobual stimulants." Asked pt what he liked to drink, pt declined to answer. Pt does drink his coffee and his milk. Instructed PCT to order extra fluids on menu for pt and to try a variety of things like tea and lemonade to determine what he likes to drink. B/P rechecked after breakfast, it was 100/58. Pt returned to bed after breakfast and slept a couple of hours, up again for lunch then back to bed. Pt has been taking routine PO Benadryl 50 mg, Ativan 2 mg, and Haldol 5 mg in the morning since 01/22/19 with IM back ups. He is Riesed. Pt has not received IM back up since 01/22/19. Discussed pt's fatigue and low BP with ANDRES Early who decreased his routine PO Ativan to 1 mg PO BID with intent to wean him off of it and D/c'd his Benadryl. S/I, H/I: Pt denies A/VH: Pt denies Sleep: Slept 9.75 hours per noc shift report, napped for much of the day. ADL's: Independent, pt showered today before breakfast. Group attendance: No Were meds taken: Yes Any med S/E: Hypotension, increased fatigue/somnolence Mental Status Exam Appearance: Clean, showered, dressed in hospital scrubs Eye contact: Fair Behavior: Fatigued, restricted, mostly isolative to self, cooperative Speech: audible, clear, quiet unless asked direct questions, nonsensical at times Mood: Calm Affect: Flat Thought process: Disorganized, delusional Thought Content: pt believes his blood pressure is low because he needs "hemoglobual stimulants." Cognition: A&O X2 Insight: Poor Judgment: Poor Interventions PRN's used: None Therapeutic interventions: 1:1 assessment, encouragement to take prescribed PO medications, encouragement to express thoughts and feelings, encouragement to perform personal hygiene, reality orientation, medication administration/monitoring/education, encouragement to drink adequate fluids, Q 15 min safety checks. Restraints/seclusion/emergency medication: N/A Justification of Continued Inpatient Treatment: Pt requires continued medication adjustments in a safe and supportive environment. He remains psychotic and disorganized, he is not competent to stand trial.
[2019-01-27 19:55] VITALS: BP 94/53
[2019-01-27] MEDS: aripiprazole 5mg tablet PO SCH (20:17)
--- NOTE | 2019-01-28 00:27 | NUR ---
Nursing Progress Note: Legal hold: court competency 1370 Client on involuntary status for GD Report received from nurse with use of SBAR: Yes, Fide MENJIVAR Why are they here: Pt has been arrested multiple times for trespassing and this time has been in [facility] since April 2018. Pt unmedicated and very psychotic with poor hygiene. Pt is not competent to stand trial and so was placed here for stabilization of his psychiatric symptoms. Assessment What has happened this shift: Pt isolates to his room most of the shift, but does come out for snack and to occasionally look around. He has a flat affect, but brightened slightly when engaged. He denies SI/HI/VH. PT does say he hears voices but will not elaborate. He is able to hold a linear conversation this evening while doing the 1:1 assessment. He is medication compliant. Market Gardener asks what his hobbies are and he replies with a smile, "getting a house." Pt's BP was 94/53 this shift. Market Gardener educated pt on the importance of drinking water and hydration. Pt nodded his head , but drank 2 juice boxes directly after during snack. Market Gardener encouraged pt to brush his hair or let staff brush it but he politely declined. S/I, H/I: denies A/VH: + voices, but will not elaborate Sleep: see sleep assessment notation ADL's: independent Group attendance: blacktop spreader, no group Were meds taken: yes Any med S/E : none reported, none observed. Mental Status Exam Appearance: green scrubs, uncombed hair Eye contact: direct Behavior: cooperative Speech: linear at times, Mood:calm, guarded Affect: anxious to flat Thought process:disorganized Thought Content:disorganized Cognition: poor Insight:poor Judgment: poor Interventions PRN's used: n/a Therapeutic interventions: 1:1 assessment, therapeutic listening, offered shower and clean clothing although he declined, Q15 minute safety checks Restraints/seclusion/emergency medication:none Justification of Continued Inpatient Treatment: Pt gravely disabled and on a court competency 1370
[2019-01-28] MEDS: haloperidol 5mg tablet PO SCH ×2 (07:42→20:28)
[2019-01-28] MEDS: benztropine 1mg tablet PO SCH ×2 (07:42→20:27)
[2019-01-28] MEDS: LORazepam 1 MG tablet PO SCH ×2 (07:43→20:25)
[2019-01-28 08:00] VITALS: BP 93/52
--- NOTE | 2019-01-28 11:07 | NUR ---
Nursing Progress Note: Legal hold: 1370 Client on involuntary status for GD Report received from nurse with use of SBAR: ZAMZAM Bowens Why are they here: Pt has been arrested multiple times for trespassing and this time has been in Longterm since April 2018. Pt unmedicated and very psychotic with poor hygiene. Pt is not competent to stand trial and so was placed here for stabilization of his psychiatric symptoms. Assessment What has happened this shift: Pt appeared fatigued. Patient spent the majority of the morning lying flat on his mattress on the floor. Pt dressed in green scrubs. Pt's appearance looks disheveled with unkept hair and pt is unshaven. Pt was seen ambulating up and down hallways periodically during the shift. Pt had minimal interaction with other patients and staff. Pt made nonsensical statements during medication administration. Pt inquired about certain medications during medication administration, asking what medications he was taking. Pt ate breakfast with the rest of the group. Pt continued to have low-normal blood pressure, with a systolic of 93 mmHg this morning. Pt does not like to drink water and preferred to have milk. Educated pt that taking in more fluids would improve blood pressure. Pt also drank coffee. Pt returned to bed after breakfast where he spent the majority of his time continuing to lie down and periodically ambulated through hallways. Pt inquired why his benadryl had been d/c'd. Informed pt medication had been d/c'd related to concerns of his fatigue and low BP. S/I, H/I: Pt denies A/VH: Pt denies Sleep: Slept 9.75 hours per noc shift report, napped for much of the day. ADL's: Independent, pt showered today before breakfast. Group attendance: No Were meds taken: Yes Any med S/E: Hypotension, increased fatigue/somnolence Mental Status Exam Appearance: Clean, showered, dressed in hospital scrubs Eye contact: Fair Behavior: Fatigued, restricted, mostly isolative to self, cooperative Speech: audible, clear, quiet unless asked direct questions, nonsensical at times Mood: Calm Affect: Flat Thought process: Disorganized, delusional Thought Content: pt believes his blood pressure is low because he needs "hemoglobual stimulants." Cognition: A&O X2 Insight: Poor Judgment: Poor Interventions PRN's used: None Therapeutic interventions: 1:1 assessment, encouragement to take prescribed PO medications, encouragement to express thoughts and feelings, encouragement to perform personal hygiene, reality orientation, medication administration/monitoring/education, encouragement to drink adequate fluids, Q 15 min safety checks. Restraints/seclusion/emergency medication: N/A Justification of Continued Inpatient Treatment: Pt requires continued medication adjustments in a safe and supportive environment. He remains psychotic and disorganized, he is not competent to stand trial.
[2019-01-28 20:00] VITALS: BP 102/50
[2019-01-28] MEDS: aripiprazole 5mg tablet PO SCH (20:23)
--- NOTE | 2019-01-28 22:21 | NUR ---
Nursing Progress Note: Legal hold: 1370 Client on involuntary status for GD Report received from nurse with use of SBAR: ZAMZAM Bowens Why are they here: Pt has been arrested multiple times for trespassing and this time has been in [facility] since April 2018. Pt unmedicated and very psychotic with poor hygiene. Pt is not competent to stand trial and so was placed here for stabilization of his psychiatric symptoms. Assessment What has happened this shift: Pt appeared fatigued. Patient spent the majority shift lying flat on his mattress on the floor. Pt dressed in green scrubs. Pt's appearance looks disheveled with unkept hair and pt is unshaven. Pt was seen ambulating up and down hallways periodically during the shift. Pt had minimal interaction with other patients and staff. Pt made nonsensical statements during medication administration. Pt ate snack with the rest of the group. Pt does not like to drink water . Educated pt that taking in more fluids would improve blood pressure. Pt also drank hot chocolate at snack. Pt returned to bed after snack where he spent the majority of his time continuing to lie down and periodically ambulated through hallways. S/I, H/I: Pt denies A/VH: Pt denies Sleep: Slept 9.75 hours per noc shift report, napped for much of the day. ADL's: Independent, pt showered today before breakfast. Group attendance: No Were meds taken: Yes Any med S/E: Hypotension, increased fatigue/somnolence Mental Status Exam Appearance: Clean, showered, dressed in hospital scrubs Eye contact: Fair Behavior: Fatigued, restricted, mostly isolative to self, cooperative Speech: audible, clear, quiet unless asked direct questions, nonsensical at times Mood: Calm Affect: Flat Thought process: Disorganized, delusional Thought Content: pt believes his blood pressure is low because he needs "hemoglobual stimulants." Cognition: A&O X2 Insight: Poor Judgment: Poor Interventions PRN's used: None Therapeutic interventions: 1:1 assessment, encouragement to take prescribed PO medications, encouragement to express thoughts and feelings, encouragement to perform personal hygiene, reality orientation, medication administration/monitoring/education, encouragement to drink adequate fluids, Q 15 min safety checks. Restraints/seclusion/emergency medication: N/A Justification of Continued Inpatient Treatment: Pt requires continued medication adjustments in a safe and supportive environment. He remains psychotic and disorganized, he is not competent to stand trial.
[2019-01-29 07:32] VITALS: BP 116/62
[2019-01-29] MEDS: haloperidol 5mg tablet PO SCH ×2 (09:05→20:34)
[2019-01-29] MEDS: LORazepam 1 MG tablet PO SCH ×2 (09:05→20:53)
[2019-01-29] MEDS: benztropine 1mg tablet PO SCH ×2 (09:06→20:33)
--- NOTE | 2019-01-29 14:46 | NUR ---
Nursing Progress Note: Legal hold: 1370 Client on involuntary status for GD Report received from nurse with use of SBAR: Leyla RN Why are they here: Pt has been arrested multiple times for trespassing and this time has been in [facility] April 2018. Pt unmedicated and very psychotic with poor hygiene. Pt is not competent to stand trial and so was placed here for stabilization of his psychiatric symptoms. Assessment What has happened this shift: Received Pt in bed and appeared to be sleeping w/o distress. Pt awoke and talked with social science instructor in a relatively coherent manner. Pt ate breakfast with others w/o issue. Pt took AM medications without argument or stating misinformation about them. He did proceed to talk delusionally about dancing with spirits and being jailed for odd reasons. Pt returns to room during free times and lays on his mattress or looks out the window. Encouraged groups and fluids. He liked drinking hot chocolate. Pt remains guarded and delusional, yet is more engagable and less argumentative. S/I, H/I: Pt denies A/VH: Pt denies Sleep: Slept 8.5 hours per noc shift report, napped for much of the day. ADL's: Independent, pt showered today before breakfast. Group attendance: No Were meds taken: Yes Any med S/E: Mild Hypotension Mental Status Exam Appearance: Clean, showered, dressed in hospital scrubs Eye contact: Fair Behavior: Fatigued, restricted, mostly isolative to self, cooperative Speech: audible, clear, quiet unless asked direct questions, nonsensical at times Mood: Calm Affect: Flat Thought process: Disorganized, delusional Thought Content: dulusions r/t persecution Cognition: A&O X2 Insight: Poor Judgment: Poor Interventions PRN's used: None Therapeutic interventions: 1:1 assessment, encouragement to take prescribed PO medications, encouragement to express thoughts and feelings, encouragement to perform personal hygiene, reality orientation, medication administration/monitoring/education, encouragement to drink adequate fluids, Q 15 min safety checks. Restraints/seclusion/emergency medication: N/A Justification of Continued Inpatient Treatment: Pt requires continued medication adjustments in a safe and supportive environment. He remains psychotic and disorganized, he is not competent to stand trial.
[2019-01-29 20:00] VITALS: BP 111/90
[2019-01-29] MEDS: aripiprazole 5mg tablet PO SCH (20:36)
--- NOTE | 2019-01-29 21:53 | NUR ---
Nursing Progress Note: Legal hold: 1370 Client on involuntary status for GD Report received from nurse with use of SBAR: Ted RN Why are they here: Pt has been arrested multiple times for trespassing and this time has been in [facility] since April 2018. Pt unmedicated and very psychotic with poor hygiene. Pt is not competent to stand trial and so was placed here for stabilization of his psychiatric symptoms. Assessment What has happened this shift: Received Pt in room sitting in chair looking out window. Pt paced the loera and responded to greatings by this teletypewriter installer. Pt ate snack with others w/o issue. Pt took HS medications without argument or stating misinformation about them. He did proceed to talk delusionally about dancing with spirits and being jailed for odd reasons. Pt returns to room after snack and lay on his mattress and looks out the window. Pt remains guarded and delusional, yet is more engagable and less argumentative. S/I, H/I: Pt denies A/VH: Pt denies Sleep: Slept 8.5 hours per noc shift report, napped for much of the day. ADL's: Independent, pt showered today before breakfast. Group attendance: No Were meds taken: Yes Any med S/E: Mild Hypotension Mental Status Exam Appearance: Clean, showered, dressed in hospital scrubs Eye contact: Fair Behavior: Fatigued, restricted, mostly isolative to self, cooperative Speech: audible, clear, quiet unless asked direct questions, nonsensical at times Mood: Calm Affect: Flat Thought process: Disorganized, delusional Thought Content: dulusions r/t persecution Cognition: A&O X2 Insight: Poor Judgment: Poor Interventions PRN's used: None Therapeutic interventions: 1:1 assessment, encouragement to take prescribed PO medications, encouragement to express thoughts and feelings, encouragement to perform personal hygiene, reality orientation, medication administration/monitoring/education, encouragement to drink adequate fluids, Q 15 min safety checks. Restraints/seclusion/emergency medication: N/A Justification of Continued Inpatient Treatment: Pt requires continued medication adjustments in a safe and supportive environment. He remains psychotic and disorganized, he is not competent to stand trial.
[2019-01-30 07:24] VITALS: BP 98/60
[2019-01-30] MEDS: haloperidol 5mg tablet PO SCH ×2 (08:31→20:33)
[2019-01-30] MEDS: LORazepam 1 MG tablet PO SCH ×2 (08:31→20:32)
[2019-01-30] MEDS: benztropine 1mg tablet PO SCH ×2 (08:32→20:32)
--- NOTE | 2019-01-30 15:50 | NUR ---
Nursing Progress Note: Solo Jordan Legal hold: 1370 Client on involuntary status for GD Report received from nurse with use of SBAR: ZAMZAM Mayer Why are they here: Pt has been arrested multiple times for trespassing and this time has been in Nursing Home since April 2018. Pt unmedicated and very psychotic with poor hygiene. Pt is not competent to stand trial and so was placed here for stabilization of his psychiatric symptoms. Assessment What has happened this shift: Pt. In room lying on mattress at change of shift. Refuses physical assessment, answers questions with minimal responses. When asked why he prefers to sleep on the mattress on the floor, he responds "It is difficult to explain." Ate breakfast in community room with others, returned to room immediately after. This headline writer inquired about level of depression which he responded "I am depressed, they are giving me Haldol." When asked why this was depressing, he responded with "it is a synthetic drug and it affects my hemogolbulin, they are going to make me remove hemoglobulin." Compliant with medication administration. Approached this headline writer to request a sugar packet, then stated "there is enough sugar in this already, (holding up water pitcher)." Isolated in room majority of afternoon, appears to be sleeping. Suggested to begin preparing letters stating incompetent for trial. S/I, H/I: Pt denies A/VH: Pt denies Sleep: Slept 7.25 hours, napping throughout the day. Medications adjusted to reduce fatigue. ADL's: Independent, declined offer of a shower today Group attendance: No Were meds taken: Yes Any med S/E: Mild Hypotension 98/60 no complaints of dizziness Mental Status Exam Appearance: Green scrubs, hair wild, disheveled Eye contact: Fair Behavior: Fatigued, restricted, mostly isolative to self, cooperative Speech: audible, clear, quiet unless asked direct questions, Mood: Calm Affect: Flat Thought process: Disorganized, delusional Thought Content: dulusions r/t persecution Cognition: A&O X2 Insight: Poor Judgment: Poor Interventions PRN's used: None Therapeutic interventions: 1:1 assessment, encouragement to take prescribed PO medications, encouragement to express thoughts and feelings, encouragement to perform personal hygiene, reality orientation, medication administration/monitoring/education, encouragement to drink adequate fluids, Q 15 min safety checks. Restraints/seclusion/emergency medication: N/A Justification of Continued Inpatient Treatment: Pt requires continued medication adjustments in a safe and supportive environment. He remains psychotic and disorganized, he is not competent to stand trial.
[2019-01-30 20:00] VITALS: BP 104/54
[2019-01-30] MEDS: aripiprazole 5mg tablet PO SCH (20:32)
--- NOTE | 2019-01-31 01:53 | NUR ---
Nursing Progress Note: Legal hold: 1370 Client on involuntary status for GD Report received from nurse with use of SBAR: ZAMZAM Waldrop Why are they here: Pt has been arrested multiple times for trespassing and this time has been in Care Home since April 2018. Pt unmedicated and very psychotic with poor hygiene. Pt is not competent to stand trial and so was placed here for stabilization of his psychiatric symptoms. Assessment What has happened this shift: Pt was lying on his mattress with covers over his head at shift change. Pt responded to underwriter solicitation director when his name called. Pt was medication compliant and 1:1 was completed at bedside. This underwriter solicitation director made a comment about being slow opening up his medication packages. Pt stated "my sister is younger than me, she was so slow she used all the ink in my printer. When asked if he had any more siblings pt responded "No, they are all Pluto's children." Pt isolated most of the shift, came out for HS snack then went back to room. Pt denies wanting to harm himself, or A/VH, but is observed, by himself engaging in conversation in his room. S/I, H/I: None reported or observed A/VH: None reported or observed Sleep: Currently sleeping. See sleep assessment notation. ADL's: Independent - with some prompting Group attendance: shift production associate, no group Were meds taken: Medication compliant Any med S/E: Mild hypotension 104/54 Mental Status Exam Appearance: Disheveled, messy hair dressed in green scrubs Eye contact: Fair Behavior: Fatigued, restricted, mostly isolative to self, cooperative Speech: audible, clear, quiet unless asked direct questions, nonsensical at times Mood: Calm Affect: Flat Thought process: Disorganized, tangential Thought Content: Wanting his HS snack Cognition: A&O X2 Insight: Poor Judgment: Poor Interventions PRN's used: None Therapeutic interventions: 1:1 assessment, encouragement to take prescribed PO medications, encouragement to express thoughts and feelings, encouragement to perform personal hygiene, reality orientation, medication administration/monitoring/education, encouragement to drink adequate fluids, Q 15 min safety checks. Restraints/seclusion/emergency medication: N/A Justification of Continued Inpatient Treatment: Pt requires continued medication adjustments in a safe and supportive environment. He remains psychotic and disorganized, he is not competent to stand trial.
[2019-01-31] MEDS: haloperidol 5mg tablet PO SCH ×2 (07:38→20:27)
[2019-01-31] MEDS: benztropine 1mg tablet PO SCH ×2 (07:39→20:27)
[2019-01-31] MEDS: LORazepam 1 MG tablet PO SCH ×2 (07:40→20:28)
[2019-01-31 08:00] VITALS: BP 103/65
--- NOTE | 2019-01-31 13:10 | NUR ---
Reassessment: Patient's PO intake fluctuates recently 50-75% however overall with 75-100% PO intake likely meeting nutrient needs. Wt also fluctuates, currently +5.7 kg since admit. Pt documented with LBM 01/29 however per GI trends pt bowel pattern being documented as "normal" as well as "no bowel movement" simultaneously. D/w RN who spoke with pt about BM, pt reported LBM this morning. No nutrition diagnosis at this time. Will continue to follow. Recommendations: 1) Continue with regular diet 2) Weekly wt Addendum: 01/31/19 at [address] Amended: Links added.
--- NOTE | 2019-01-31 13:35 | NUR ---
Nursing Progress Note: Legal hold: 1370 Client on involuntary status for GD Report received from nurse with use of SBAR: Leyla RN Why are they here: Pt has been arrested multiple times for trespassing and this time has been in [facility] since April 2018. Pt unmedicated and very psychotic with poor hygiene. Pt is not competent to stand trial and so was placed here for stabilization of his psychiatric symptoms. Assessment What has happened this shift: The patient was asleep at change of shift. He was up for breakfast and is med compliant. Isolates to room and lays on mattress on floor in front of window. Delusional thoughts about beings and how trespassing isn't a real thing. Retreats to room frequently and puts wadded up sheet over his entire head and neck. Removes sheet when instructed to do so. Eats lunch with group and is guarded but cooperative. S/I, H/I: Pt denies A/VH: Pt denies Sleep: Napped ADL's: Independent Group attendance: No Were meds taken: Yes Any med S/E: None Mental Status Exam Appearance: Disheveled, dressed in hospital scrubs Eye contact: Poor Behavior: Guarded, restricted, mostly isolative, cooperative Speech: audible, clear, quiet, nonsensical at times Mood: Calm Affect: Flat Thought process: Disorganized, delusional Thought Content: beings and trespassing definition Cognition: A&O X2 Insight: Poor Judgment: Poor Interventions PRN's used: None Therapeutic interventions: 1:1 assessment, encouragement to take prescribed PO medications, encouragement to express thoughts and feelings, encouragement to perform personal hygiene, reality orientation, medication administration/monitoring/education, encouragement to drink adequate fluids, Q 15 min safety checks. Restraints/seclusion/emergency medication: N/A Justification of Continued Inpatient Treatment: Pt requires continued medication adjustments in a safe and supportive environment. He remains psychotic and disorganized, he is not competent to stand trial.
[2019-01-31 20:00] VITALS: BP 95/59
[2019-01-31] MEDS: aripiprazole 5mg tablet PO SCH (20:26)
--- NOTE | 2019-01-31 23:44 | NUR ---
Nursing Progress Note: Legal hold: 1370 Client on involuntary status for GD Report received from nurse with use of SBAR: ZAMZAM Farley Why are they here: Pt has been arrested multiple times for trespassing and this time has been in [facility] since April 2018. Pt unmedicated and very psychotic with poor hygiene. Pt is not competent to stand trial and so was placed here for stabilization of his psychiatric symptoms. Assessment What has happened this shift: Pt walking around unit at beginning of shift, then isolated to his room, laying on the mattress next to the window. During 1:1, pt looked at this RN suspiciously and stated he "is perfectly fine". Pt would nod or answer "okay" to most direct questions but not offer information on his own. Pt stated "I want to be left alone now so I may stretch to straighten my spine, thank you." Pt compliant with all medications. S/I, H/I: Pt denies A/VH: Pt denies Sleep: See Sleep Assessment ADL's: Independent Group attendance: Attended HS Snack Were meds taken: Y Any med S/E: None reported nor observed Mental Status Exam Appearance: Disheveled, dressed in green hospital scrubs Eye contact: Direct Behavior: Guarded, Cooperative, mostly isolates to room Speech: Clear and quiet, normal rate and rhythm Mood: Calm Affect: Blunted Thought process: Difficult to assess given interaction Thought Content: Wanting to stretch, wanting to be left alone Cognition: A&O X3 Insight: Poor Judgment: Poor Interventions PRN's used: None Therapeutic interventions: 1:1 assessment, encouragement to take prescribed PO medications, encouragement to express thoughts and feelings, encouragement to perform personal hygiene, reality orientation, medication administration/monitoring/education, encouragement to drink adequate fluids, Q 15 min safety checks. Restraints/seclusion/emergency medication: N/A Justification of Continued Inpatient Treatment: Pt requires continued medication adjustments in a safe and supportive environment until competent to stand trial.
[2019-02-01] MEDS: benztropine 1mg tablet PO SCH ×2 (07:30→20:20)
[2019-02-01] MEDS: haloperidol 5mg tablet PO SCH ×2 (07:30→20:21)
[2019-02-01 07:59] VITALS: BP 98/50
--- NOTE | 2019-02-01 17:00 | NUR ---
Nuring Progress Note Legal hold: 1370 Client on involuntary status for GD Report received from nurse with use of SBAR: Tanja Aly RN Why are they here: Pt has been arrested multiple times for trespassing and this time has been in [facility] since April 2018. Pt unmedicated and very psychotic with poor hygiene. Pt is not competent to stand trial and so was placed here for stabilization of his psychiatric symptoms. Assessment What has happened this shift: Pt. asleep at start of shift pt. took medication and ate all meals. 1:1 done at [facility]. Pt. states, "I'm in a bad mood". RN asked pt. what happened to put him in a bad mood, pt. replied, "I'm leafy", and then continued to repeat kaz, jeremiah, gabriel". Pt. did not attend groups. Pt. seen pacing hallways at times but mostly isolates to his room. Pt asks about his discharge. S/I, H/I: Pt denies A/VH: Pt denies Sleep: 6.50 hrs ADL's: Independent Group attendance: No group attendance. Were meds taken: Y Any med S/E: None reported nor observed Mental Status Exam Appearance: Disheveled, dressed in green hospital scrubs Eye contact: Direct Behavior: Guarded, Cooperative, mostly isolates to room Speech: Clear and quiet, normal rate and rhythm Mood: Pt. states "I'm in a bad mood" Affect: Blunted Thought process: linear at times mixed wtih neologisms and Clang associations. Thought Content: Focused on discharge Cognition: A&O X3 Insight: Poor Judgment: Poor Interventions PRN's used: None Therapeutic interventions: 1:1 assessment, encouragement to take prescribed PO medications, encouragement to express thoughts and feelings, encouragement to perform personal hygiene, reality orientation, medication administration/monitoring/education, encouragement to drink adequate fluids, Q 15 min safety checks. Restraints/seclusion/emergency medication: N/A Justification of Continued Inpatient Treatment: Pt requires continued medication adjustments in a safe and supportive environment until competent to stand trial.
[2019-02-01 20:00] VITALS: BP 93/57
[2019-02-01] MEDS: aripiprazole 5mg tablet PO SCH (20:21)
--- NOTE | 2019-02-02 00:52 | NUR ---
Nursing Progress Note: Legal hold: 1370 Client on involuntary status for GD Report received from nurse with use of SBAR: ZAMZAM Elizalde Why are they here: Pt has been arrested multiple times for trespassing and this time has been in [facility] since April 2018. Pt unmedicated and very psychotic with poor hygiene. Pt is not competent to stand trial and so was placed here for stabilization of his psychiatric symptoms. Assessment What has happened this shift: Pt. continues to isolate in his room throughout the shift, laying in bed; however does attend HS snack and will occasionally come out in the hallway and look around but does not interact with others. He is compliant with V/S and physical assessment, however refuses to let this radio news writer reassess his BP, which was slightly hypotensive. Pt. states, "It's been low, I need hemoglobulin stimulation to regrow blood." Pt. encouraged by this radio news writer to consume plenty of fluids in order to prevent dehydration, and he voices understanding, states, "I refill my own pitcher from the sink." When questioned by this radio news writer regarding any any dizziness, pt. denies, however reports he was a little dizzy this morning and agrees to notify staff if he feels this way again. 1:1 completed at bedside, pt. continues to be pleasantly delusional with a disorganized/tangental thought process, however is able to be redirected. He continues to present with poverty of speech, and will minimally answer questions, however concentration and length of response has improved. Pt. is A&O X3 (is unable to answer why he is here). Also, when questioned in regard to the day states, "It's the day before my birthday," and it was verified that it is in-fact his BD tomorrow. However, pt. then make delusional/disorganized statements, "I am [age] again. I'm the only [place] in [place], two S's and two L's." S/I, H/I: Denies A/VH: Denies, however continues to appear internally preoccupied at times Sleep: Reports he sleeps well ADL's: Requires direction, encouragement, and prompting from staff Group attendance: Pt. does not attend groups Were meds taken: yes Any med S/E: None Mental Status Exam Appearance: Hair disheveled, however appropriately dressed in hospital attire Eye contact: Fair Behavior: Cooperative with resistance to care at times, guarded, withdrawn, and isolative Speech: Poverty of speech, will minimally answer questions appropriately or with disorganized/tangental answers Mood: Pleasantly delusional Affect: Flat Thought process: Disorganized, tangental, however is able to be redirected Thought Content: Ongoing delusions and preoccupation with internal stimuli Cognition: A&O X3 (not to reason here) Insight: Poor Judgment: Poor to fair Interventions PRN's used: None Therapeutic interventions: Maintained a safe and supportive environment, provided clear and simple instructions, attempted to reorient to reality, provided positive encouragement regarding improved cognition and ability to focus, encouraged independent performance of ADLs and socialization with others, and maintained Q 15 min safety checks. Restraints/seclusion/emergency medication: N/A Justification of Continued Inpatient Treatment: Pt. requires continued medication adjustments and a safe and supportive environment. He is not competent to stand trial.
[2019-02-02 07:59] VITALS: BP 84/58
[2019-02-02] MEDS: haloperidol 5mg tablet PO SCH ×2 (08:13→20:45)
[2019-02-02] MEDS: benztropine 1mg tablet PO SCH ×2 (08:13→20:45)
[2019-02-02] MEDS: mag hydrox/Alum hydrox/simeth 30ml oral suspension PO PRN ×2 (12:41→17:00)
--- NOTE | 2019-02-02 16:50 | NUR ---
Nuring Progress Note Legal hold: 1370 Client on involuntary status for GD Report received from nurse with use of SBAR: Tanja Aly RN Why are they here: Pt has been arrested multiple times for trespassing and this time has been in [facility] since April 2018. Pt unmedicated and very psychotic with poor hygiene. Pt is not competent to stand trial and so was placed here for stabilization of his psychiatric symptoms. Assessment What has happened this shift: Pt. asleep at start of shift pt. took medication and ate all meals. 1:1 done at [facility]. Pt. states, "I'm in a bad mood". RN asked pt. what happened to put him in a bad mood, pt. replied, "I'm leafy", and then continued to repeat kaz, jeremiah, gabriel". Pt. did not attend groups. Pt. seen pacing hallways at times but mostly isolates to his room. Pt asks about his discharge. S/I, H/I: Pt denies A/VH: Pt denies Sleep: 6.50 hrs ADL's: Independent Group attendance: No group attendance. Were meds taken: Y Any med S/E: None reported nor observed Mental Status Exam Appearance: Disheveled, dressed in green hospital scrubs Eye contact: Direct Behavior: Guarded, Cooperative, mostly isolates to room Speech: Clear and quiet, normal rate and rhythm Mood: Pt. states "I'm in a bad mood" Affect: Blunted Thought process: linear at times mixed wtih neologisms and Clang associations. Thought Content: Focused on discharge Cognition: A&O X3 Insight: Poor Judgment: Poor Interventions PRN's used: None Therapeutic interventions: 1:1 assessment, encouragement to take prescribed PO medications, encouragement to express thoughts and feelings, encouragement to perform personal hygiene, reality orientation, medication administration/monitoring/education, encouragement to drink adequate fluids, Q 15 min safety checks. Restraints/seclusion/emergency medication: N/A Justification of Continued Inpatient Treatment: Pt requires continued medication adjustments in a safe and supportive environment until competent to stand trial. Addendum: 02/02/19 at 1819 by Wandy Woods RN Please disregard note
--- NOTE | 2019-02-02 18:04 | NUR ---
Nuring Progress Note Legal hold: 1370 Client on involuntary status for GD Report received from nurse with use of SBAR: Tanja Aly RN Why are they here: Pt has been arrested multiple times for trespassing and this [facility] in [facility] April 2018. Pt unmedicated and very psychotic with poor hygiene. Pt is not competent to stand trial and so was placed here for stabilization of his psychiatric symptoms. Assessment What has happened this shift: Pt up for all meals. Pt. remains psychotic making statements that he was in a 4 rm apt. and there were 36 men all named Joshua. Pt. reports that he likes senior living better because he can sleep all day and only talk to someone every few days. Pt. sleeps on mattress on floor. Pt. complains of burning of his esophagus, Maalox given x 2, would probably benefit from Protonix, will endorse to in a.m. Pt. does brush his hair when asked, otherwise it messy from laying in bed. Pt. isolates to his room most of the day and does not attend groups. ASSESSMENT: S/I, H/I: Pt denies A/VH: Pt denies Sleep: 7.50 hrs ADL's: Independent with prompting. Group attendance: No group attendance. Were meds taken: Y Any med S/E: None reported nor observed Mental Status Exam Appearance: Disheveled, dressed in green hospital scrubs Eye contact: Direct Behavior: Guarded, Cooperative, mostly isolates to room Speech: Clear and quiet, normal rate and rhythm Mood: Dysthymic. Affect: Blunted Thought process: Illogical, flight of ideas. at times mixed wtih neologisms and Clang associations. Thought Content: Getting daily needs met. Prefers to be alone in bed. Cognition: A&O X3 Insight: Impaired. Judgment: Impaired. Interventions PRN's used: Maalox x 2 Therapeutic interventions: 1:1 assessment, encouragement to take prescribed PO medications, encouragement to express thoughts and feelings, encouragement to perform personal hygiene, reality orientation, medication administration/monitoring/education, encouragement to drink adequate fluids, Q 15 min safety checks. Restraints/seclusion/emergency medication: N/A Justification of Continued Inpatient Treatment: Pt requires continued medication adjustments in a safe and supportive environment until competent to stand trial.
[2019-02-02 20:00] VITALS: BP 104/62
[2019-02-02] MEDS: aripiprazole 5mg tablet PO SCH (20:44)
--- NOTE | 2019-02-03 02:47 | NUR ---
Nursing Progress Note: Legal hold: 1370 Client on involuntary status for GD Report received from nurse with use of SBAR: ZAMZAM Elizalde Why are they here: Pt has been arrested multiple times for trespassing and this time has been in [facility] since April 2018. Pt unmedicated and very psychotic with poor hygiene. Pt is not competent to stand trial and so was placed here for stabilization of his psychiatric symptoms. Assessment What has happened this shift: Pt. laying in his bed at the beginning of the shift, and later up in that hallway smiling and interacting minimally with others. V/S WNL and no c/o dizziness or indigestion this shift. 1:1 completed at bedside, pt. presents as cooperative and guarded, social interaction is improved, and no s/s of mood lability. He is better ability to focus and appears to have less internal preoccupation. Pt. continues to be pleasantly delusional with a disorganized/tangental thought process, however is able to be redirected. This bond writer wishes pt. a happy birthday and he smiles and states, "Thank you, I am 23 again because of the God Thaddeus." When questioned regarding how his day went, he states, "It was the same,, I'm just waiting to get out." He reports he plans to return to [place] and feels that he will be able to care for himself, states, "I've been doing it for 24 years." S/I, H/I: Denies A/VH: Denies, decreased s/s of internal preoccupation present Sleep: Reports he sleeps well ADL's: Requires direction, encouragement, and prompting from staff Group attendance: Pt. does not attend groups Were meds taken: yes Any med S/E: None Mental Status Exam Appearance: Hair disheveled, however appropriately dressed in hospital attire Eye contact: Good Behavior: Cooperative and guarded Speech: Poverty of speech, will minimally answer questions appropriately or with disorganized/tangental answers Mood: Pleasantly delusional Affect: Blunted, animates with conversation Thought process: Disorganized, tangental, however is able to be redirected Thought Content: Ongoing delusions and some preoccupation with internal stimuli Cognition: A&O X3 (not to reason here) Insight: Poor Judgment: Poor to fair Interventions PRN's used: None Therapeutic interventions: Maintained a safe and supportive environment, provided clear and simple instructions, attempted to reorient to reality, provided positive encouragement regarding improved cognition and ability to focus, encouraged independent performance of ADLs and socialization with others, and maintained Q 15 min safety checks. Restraints/seclusion/emergency medication: N/A Justification of Continued Inpatient Treatment: Pt. requires continued medication adjustments and a safe and supportive environment. He is not competent to stand trial.
[2019-02-03 08:00] VITALS: BP 113/54
[2019-02-03] MEDS: haloperidol 5mg tablet PO SCH ×2 (09:00→20:42)
[2019-02-03] MEDS: benztropine 1mg tablet PO SCH ×2 (09:01→20:43)
[2019-02-03] MEDS: pantoprazole 40mg Tablet.DR PO SCH (09:14)
--- NOTE | 2019-02-03 19:23 | NUR ---
Nursing Progress Note Legal hold: 1370 Client on involuntary status for GD Report received from nurse with use of SBAR: Tanja Aly RN Why are they here: Pt has been arrested multiple times for trespassing and this time [facility] in [facility] since April 2018. Pt unmedicated and very psychotic with poor hygiene. Pt is not competent to stand trial and so was placed here for stabilization of his psychiatric symptoms. Assessment What has happened this shift: Pt. up for all meals and asks for and was provided extra snack per request. Pt. reluctant to talk or allow exams, evaluations. Pt. utilizes neoglisms/Makes words up: Chanches, colonic box pain in throat. Any "Faustinier facts comes from me". If allowed to talk, he becomes more psychotic as he speaks, no evidence of agitation or violence. Pt refused Protonix as it sounded like a " control method". Assured him that it was not, but went into other delusional/psychotic statements. ASSESSMENT: S/I, H/I: Pt denies A/VH: Pt denies Sleep: 6.0 hrs NOC, sleeps during daytime. ADL's: Independent with prompting. Group attendance: No group attendance. Were meds taken: Yes for meds that he knows he will get IM for rejecting. Refused Protonix before lunch. Any med S/E: None reported nor observed Mental Status Exam Appearance: Disheveled, dressed in green hospital scrubs, wild hair. Eye contact: Direct Behavior: Guarded, Cooperative, mostly isolates to room Speech: Clear and quiet, normal rate and rhythm Mood: Dysthymic. Affect: Blunted Thought process: Illogical, disorganized, flight of ideas. at times mixed with neologisms. Thought Content: Getting daily needs met. Prefers to be alone in bed. Cognition: A&O X3 Insight: Impaired. Judgment: Impaired. Interventions PRN's used: Maalox x 2 Therapeutic interventions: 1:1 assessment, encouragement to take prescribed PO medications, encouragement to express thoughts and feelings, encouragement to perform personal hygiene, reality orientation, medication administration/monitoring/education, encouragement to drink adequate fluids, Q 15 min safety checks. Restraints/seclusion/emergency medication: N/A Justification of Continued Inpatient Treatment: Pt requires continued medication adjustments in a safe and supportive environment until competent to stand trial.
[2019-02-03 19:55] VITALS: BP 99/39
[2019-02-03] MEDS: aripiprazole 5mg tablet PO SCH (20:45)
--- NOTE | 2019-02-03 22:42 | NUR ---
Nursing Progress Note Legal hold: 1370 Client on involuntary status for GD Report received from nurse with use of SBAR: Tanja Aly RN Why are they here: Pt has been arrested multiple times for trespassing and this time has been in [facility] since April 2018. Pt unmedicated and very psychotic with poor hygiene. Pt is not competent to stand trial and so was placed here for stabilization of his psychiatric symptoms. Assessment What has happened this shift: Pt. up for all meals and asks for and was provided extra snack per request. If allowed to talk, he becomes more psychotic as he speaks, no evidence of agitation or violence. Pt refused Protonix as it sounded like a " control method". Assured him that it was not, but went into other delusional/psychotic statements. This shift he was med compliant and manually checked his BP 98/72. ASSESSMENT: S/I, H/I: Pt denies A/VH: Pt denies Sleep: 6.0 hrs NOC, sleeps during daytime. ADL's: Independent with prompting. Group attendance: No group attendance. Were meds taken: Yes for meds that he knows he will get IM for rejecting. Refused Protonix before lunch. Any med S/E: None reported nor observed Mental Status Exam Appearance: Disheveled, dressed in green hospital scrubs, wild hair. Eye contact: Direct Behavior: Guarded, Cooperative, mostly isolates to room Speech: Clear and quiet, normal rate and rhythm Mood: Dysthymic. Affect: Blunted Thought process: Illogical, disorganized, flight of ideas. at times mixed with neologisms. Thought Content: Getting daily needs met. Prefers to be alone in bed. Cognition: A&O X3 Insight: Impaired. Judgment: Impaired. Interventions PRN's used: Maalox x 2 Therapeutic interventions: 1:1 assessment, encouragement to take prescribed PO medications, encouragement to express thoughts and feelings, encouragement to perform personal hygiene, reality orientation, medication administration/monitoring/education, encouragement to drink adequate fluids, Q 15 min safety checks. Restraints/seclusion/emergency medication: N/A Justification of Continued Inpatient Treatment: Pt requires continued medication adjustments in a safe and supportive environment until competent to stand trial.
[2019-02-04] MEDS ORDERED: pantoprazole 40mg Tablet.DR PO SCH (07:30)
[2019-02-04] MEDS: pantoprazole 40mg Tablet.DR PO SCH (07:56)
[2019-02-04] MEDS: haloperidol 5mg tablet PO SCH ×2 (07:56→20:41)
[2019-02-04] MEDS: benztropine 1mg tablet PO SCH ×2 (07:56→20:40)
--- NOTE | 2019-02-04 08:00 | NUR ---
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 HOA has attempted to contact several times and has been unable to make contact w/ store employees. Sanjana Cisse, [employer] YARD RIGGER [id number] Supervised by Sandip Anders, [id number]
[2019-02-04 08:06] VITALS: BP 100/68
[2019-02-04] MEDS: mag hydrox/Alum hydrox/simeth 30ml oral suspension PO PRN (16:48)
--- NOTE | 2019-02-04 16:55 | NUR ---
Nursing Progress Note Legal hold: 1370 Client on involuntary status for GD Report received from nurse with use of SBAR: JAYME Murillo Why are they here: Pt has been arrested multiple times for trespassing and this time has been in [facility] since April 2018. Pt unmedicated and very psychotic with poor hygiene. Pt is not competent to stand trial and so was placed here for stabilization of his psychiatric symptoms. Assessment What has happened this shift: Received patient sleeping in his bed. Patient awoke for breakfast and all meals. Patient did not attend groups, but returned to his room and laid on his bed on the floor under the window during all times other than meals. Patient seen gesturing to things unseen. The patient denies auditory or visual hallucinations and denies suicidal thoughts. Patient medication compliant. ASSESSMENT: S/I, H/I: Pt denies A/VH: Pt denies Sleep: 5.5 hrs NOC, sleeps during daytime. ADL's: Independent with prompting. Group attendance: No group attendance. Were meds taken: Yes Any med S/E: None reported nor observed Mental Status Exam Appearance: Disheveled, dressed in green hospital scrubs, wild hair. Eye contact: Direct Behavior: Guarded, Cooperative, mostly isolates to room Speech: Clear and quiet, normal rate and rhythm Mood: Dysthymic. Affect: Blunted Thought process: Illogical, disorganized, flight of ideas. at times mixed with neologisms. Thought Content: Getting daily needs met. Prefers to be alone in bed. Cognition: A&O X3 Insight: Impaired. Judgment: Impaired. Interventions PRN's used: Maalox x 1 Therapeutic interventions: 1:1 assessment, encouragement to take prescribed PO medications, encouragement to express thoughts and feelings, encouragement to perform personal hygiene, reality orientation, medication administration/monitoring/education, encouragement to drink adequate fluids, Q 15 min safety checks. Restraints/seclusion/emergency medication: N/A Justification of Continued Inpatient Treatment: Pt requires continued medication adjustments in a safe and supportive environment until competent to stand trial.
[2019-02-04 20:00] VITALS: BP 102/57
[2019-02-04] MEDS: aripiprazole 5mg tablet PO SCH (20:41)
--- NOTE | 2019-02-04 23:27 | NUR ---
Nursing Progress Note Legal hold: 1370 Client on involuntary status for GD Report received from nurse with use of SBAR: JAYME Murillo Why are they here: Pt has been arrested multiple times for trespassing and this time has been in [facility] since April 2018. Pt unmedicated and very psychotic with poor hygiene. Pt is not competent to stand trial and so was placed here for stabilization of his psychiatric symptoms. Assessment What has happened this shift: Received patient up and pacing the loera. Patient in group room for snack. Patient did not attend groups, but returned to his room and laid on his bed on the floor under the window during all times other than meals. Patient seen gesturing to things unseen. The patient denies auditory or visual hallucinations and denies suicidal thoughts. Patient medication compliant. ASSESSMENT: S/I, H/I: Pt denies A/VH: Pt denies Sleep: 5.5 hrs NOC, sleeps during daytime. ADL's: Independent with prompting. Group attendance: No group attendance. Were meds taken: Yes Any med S/E: None reported nor observed Mental Status Exam Appearance: Disheveled, dressed in green hospital scrubs, wild hair. Eye contact: Direct Behavior: Guarded, Cooperative, mostly isolates to room Speech: Clear and quiet, normal rate and rhythm Mood: Dysthymic. Affect: Blunted Thought process: Illogical, disorganized, flight of ideas. at times mixed with neologisms. Thought Content: Getting daily needs met. Prefers to be alone in bed. Cognition: A&O X3 Insight: Impaired. Judgment: Impaired. Interventions PRN's used: Maalox x 1 Therapeutic interventions: 1:1 assessment, encouragement to take prescribed PO medications, encouragement to express thoughts and feelings, encouragement to perform personal hygiene, reality orientation, medication administration/monitoring/education, encouragement to drink adequate fluids, Q 15 min safety checks. Restraints/seclusion/emergency medication: N/A Justification of Continued Inpatient Treatment: Pt requires continued medication adjustments in a safe and supportive environment until competent to stand trial.
[2019-02-05 07:15] VITALS: BP 93/54
[2019-02-05] MEDS: haloperidol 5mg tablet PO SCH ×2 (07:59→20:21)
[2019-02-05] MEDS: benztropine 1mg tablet PO SCH ×2 (07:59→20:20)
[2019-02-05] MEDS: pantoprazole 40mg Tablet.DR PO SCH (07:59)
[2019-02-05 10:30] VITALS: BP 96/47
--- NOTE | 2019-02-05 13:13 | NUR ---
Nursing Progress Note Legal hold: 1370 Client on involuntary status for GD Report received from nurse with use of SBAR: Leyla MENJIVAR Why are they here: Pt has been arrested multiple times for trespassing and this time has been in [facility] since April 2018. Pt unmedicated and very psychotic with poor hygiene. Pt is not competent to stand trial and so was placed here for stabilization of his psychiatric symptoms. Assessment What has happened this shift: Pt denied depression, SI/HI/AH/VH, and anxiety. Signs of responding to internal stimuli not observed. Pt c/o pain in the back of his head and behind his right eye this morning 03/09. He would not identify it as "headache" pain and refused prn Tylenol. Pt also c/o feeling like he couldn't get enough air to his lungs and of feeling like he was going to pass out at times, stated, "don't worry, I start twitching before I pass out." Rechecked pt's VS, O2 sat was 96% on RA. Pt continues to have hypotension with BP of 93/54 this morning and 96/47 when rechecked at 1030. Pt encouraged to lima ASSESSMENT: S/I, H/I: Pt denies A/VH: Pt denies Sleep: 5.5 hrs NOC, sleeps during daytime. ADL's: Independent with prompting. Group attendance: No group attendance. Were meds taken: Yes Any med S/E: None reported nor observed Mental Status Exam Appearance: Disheveled, dressed in green hospital scrubs, wild hair. Eye contact: Direct Behavior: Guarded, Cooperative, mostly isolates to room Speech: Clear and quiet, normal rate and rhythm Mood: Dysthymic. Affect: Blunted Thought process: Illogical, disorganized, flight of ideas. at times mixed with neologisms. Thought Content: Getting daily needs met. Prefers to be alone in bed. Cognition: A&O X3 Insight: Impaired. Judgment: Impaired. Interventions PRN's used: Maalox x 1 Therapeutic interventions: 1:1 assessment, encouragement to take prescribed PO medications, encouragement to express thoughts and feelings, encouragement to perform personal hygiene, reality orientation, medication administration/monitoring/education, encouragement to drink adequate fluids, Q 15 min safety checks. Restraints/seclusion/emergency medication: N/A Justification of Continued Inpatient Treatment: Pt requires continued medication adjustments in a safe and supportive environment until competent to stand trial. Addendum: 02/05/19 at 1322 by Coleen Aguilar RN (Lee) NURSING NOTE CONTINUED, ACCIDENTLY HIT A ALVAREZ AND SAVED NOTE BEFORE COMPLETED.
--- NOTE | 2019-02-05 13:22 | NUR ---
CONTINUED Nursing Progress Note: Legal hold: 1370 Client on involuntary status for GD Report received from nurse with use of SBAR: Leyla MENJIVAR Why are they here: Pt has been arrested multiple times for trespassing and this [facility] in [facility] since April 2018. Pt unmedicated and very psychotic with poor hygiene. Pt is not competent to stand trial and so was placed here for stabilization of his psychiatric symptoms. Assessment What has happened this shift: Pt denied depression, SI/HI/AH/VH, and anxiety. Signs of responding to internal stimuli not observed. Pt c/o pain in the back of his head and behind his right eye this morning 03/09. He would not identify it as "headache" pain and refused prn Tylenol. Pt also c/o feeling like he couldn't get enough air to his lungs and of feeling like he was going to pass out at times, stated, "don't worry, I start twitching before I pass out." Rechecked pt's VS, O2 sat was 96% on RA. Pt continues to have hypotension with BP of 93/54 this morning and 96/47 when rechecked at 1030. Pt encouraged to sit down when feeling dizzy, encouraged fluids, pt expressed understanding and filled his cup up with 2 cups of water from the sink and drank them in front of this RN. Discussed low BP trend with ANDRES Early as well as c/o feeling dizzy. Reassessed pt immediately prior to writing this note. Pt stated that the pain in his head and eye were now "barely there." Pt observed lying on the floor in his room. Encouraged pt to place his mattress on the floor if he wished. Pt stated, "okay, but I'm just stretching my back right now." Pt was cooperative with all scheduled PO meds this shift. ASSESSMENT: S/I, H/I: Pt denies A/VH: Pt denies Sleep: Slept 8 hours per noc shift report, naps during the day ADL's: Independent with prompting Group attendance: No Were meds taken: Yes Any med S/E: Pt c/o feeling SOB and dizzy, hypotension. Mental Status Exam Appearance: Messy hair, barefoot, refusing to wear nonskid socks Eye contact: Fair Behavior: cooperative, restricted, mostly isolative to self Speech: Clear, normal rate and rhythm, poverty of speech Mood: Dysthymic Affect: Blunted Thought process: Perseverative, disorganized Thought Content: somatic complaints Cognition: A&O X3 Insight: Impaired. Judgment: Impaired. Interventions PRN's used: None Therapeutic interventions: 1:1 assessment, encouragement to take prescribed PO medications, encouragement to express thoughts and feelings, encouragement to perform personal hygiene, reality orientation, medication administration/monitoring/education, encouragement to drink adequate fluids, Q 15 min safety checks. Restraints/seclusion/emergency medication: N/A Justification of Continued Inpatient Treatment: Pt requires continued medication adjustments in a safe and supportive environment until competent to stand trial.
--- NOTE | 2019-02-05 16:44 | NUR ---
The extra mattress was removed from the pt's room today. Pt observed lying on the mattress on his bed today.
--- NOTE | 2019-02-05 18:17 | NUR ---
Observed pt lying on the floor again, told pt it would be okay if he wished to take the mattress off of the bed and place it on the floor, offered assistance. Pt stated, "no, that's okay, cause Tanja sleeps in it...the nice Yi lady who sleeps in here when I'm not here."
[2019-02-05 20:00] VITALS: BP 104/58
[2019-02-05] MEDS: aripiprazole 5mg tablet PO SCH (20:21)
--- NOTE | 2019-02-05 22:03 | NUR ---
Nursing Progress Note Legal hold: 1370 Client on involuntary status for GD Report received from nurse Akhil WYMAN with use of SBAR: Why are they here: Pt has been arrested multiple times for trespassing and this time has been in [facility] since April 2018. Pt unmedicated and very psychotic with poor hygiene. Pt is not competent to stand trial and so was placed here for stabilization of his psychiatric symptoms. Assessment What has happened this shift: Pt denied depression, SI/HI/AH/VH, and anxiety. Signs of responding to internal stimuli observed. Pt lying on floor after his extra matres was removed. Pt said he is letting his friend Tanja use the bed who is the older albanian lady he talks to.Pt continues to pace and make bizarre jesters and movements. Rechecked pt's VS, O2 sat was 96% on RA. Pt continues to have hypotension with BP of 93/54 this morning and 96/47 when rechecked at 1030. ASSESSMENT: S/I, H/I: Pt denies A/VH: Pt denies Sleep: 5.5 hrs NOC, sleeps during daytime. ADL's: Independent with prompting. Group attendance: No group attendance. Were meds taken: Yes Any med S/E: None reported nor observed Mental Status Exam Appearance: Disheveled, dressed in green hospital scrubs, wild hair. Eye contact: Direct Behavior: Guarded, Cooperative, mostly isolates to room Speech: Clear and quiet, normal rate and rhythm Mood: Dysthymic. Affect: Blunted Thought process: Illogical, disorganized, flight of ideas. at times mixed with neologisms. Thought Content: Getting daily needs met. Prefers to be alone in bed. Cognition: A&O X3 Insight: Impaired. Judgment: Impaired. Interventions PRN's used: Maalox x 1 Therapeutic interventions: 1:1 assessment, encouragement to take prescribed PO medications, encouragement to express thoughts and feelings, encouragement to perform personal hygiene, reality orientation, medication administration/monitoring/education, encouragement to drink adequate fluids, Q 15 min safety checks. Restraints/seclusion/emergency medication: N/A Justification of Continued Inpatient Treatment: Pt requires continued medication adjustments in a safe and supportive environment until competent to stand trial. Addendum: 02/05/19 at 1322 by Coleen Aguilar RN (Lee) NURSING NOTE CONTINUED, ACCIDENTLY HIT A ALVAREZ AND SAVED NOTE BEFORE COMPLETED.
[2019-02-06 07:00] VITALS: BP 86/45
[2019-02-06] MEDS: haloperidol 5mg tablet PO SCH (07:30)
[2019-02-06] MEDS: benztropine 1mg tablet PO SCH ×2 (07:30→20:13)
[2019-02-06] MEDS: pantoprazole 40mg Tablet.DR PO SCH (07:30)
[2019-02-06 10:27] LABS: BASOPHILS % (AUTO) 0.9 % (0-1); EOSINOPHILS # (AUTO) 0.1 X10'3 (0-0.9); EOSINOPHILS % (AUTO) 1.7 % (0-6); HEMATOCRIT 47.7 % (42.0-52.0); HEMOGLOBIN 15.7 g/dl (14.0-17.9); LYMPHOCYTES # (AUTO) 1.7 X10'3 (1.1-4.8); LYMPHOCYTES % (AUTO) 31.9 % (21-51); MEAN CORPUSCULAR HEMOGLOBIN 29.5 PG (27.0-31.0); MEAN CORPUSCULAR HGB CONC 32.9 g/dL (33.0-36.5); MEAN CORPUSCULAR VOLUME 89.7 FL (78-98); MEAN PLATELET VOLUME 7.6 FL (7.4-10.4); MONOCYTES # (AUTO) 0.5 X10'3 (0-0.9); MONOCYTES % (AUTO) 9.4 % (2-12); NEUTROPHILS % (AUTO) 56.1 % (42-75); PLATELET COUNT 228 X10'3 (140-440); RED BLOOD COUNT 5.31 X10'6 (4.70-6.10); RED CELL DISTRIBUTION WIDTH 13.3 % (11.5-14.5); WHITE BLOOD COUNT 5.3 X10'3 (4.5-11.0)
--- NOTE | 2019-02-06 17:23 | NUR ---
Nursing Progress Note Legal hold: 1370 Client on involuntary status for GD Report received from ZAMZAM Mayer with use of SBAR: Why are they here: Pt has been arrested multiple times for trespassing and this time has been in [facility] since April 2018. Pt unmedicated and very psychotic with poor hygiene. Pt is not competent to stand trial and so was placed here for stabilization of his psychiatric symptoms. Assessment What has happened this shift: Pt prefers to go by "Devon." He presents sleeping on his bed at change of shift, extra mattress had been removed during NOC. During assessment he denies depression, SI/HI/AH/VH, and anxiety. Pt makes bizarre statements. He reports not wanting to take his morning medications but did so after some education. Pt actively responds to internal stimuli. Pt continues to pace and make bizarre movements. Pt has low 86/45, Marcus Sharath notified. Pt encouraged to drink more water today. ASSESSMENT: S/I, H/I: Pt denies A/VH: Pt denies Sleep: "good" - naps during daytime ADL's: Independent with prompting Group attendance: No group attendance Were meds taken: Yes Any med S/E: None reported nor observed Mental Status Exam Appearance: Disheveled, dressed in green hospital scrubs, wild hair. Eye contact: Shifty Behavior: Guarded, Cooperative, isolates Speech: Clear and quiet, normal rate and rhythm Mood: Dysthymic. Affect: Blunted Thought process: Illogical, disorganized, flight of ideas Thought Content: unable to formally assess, pt very guarded Cognition: A&O X3 Insight: Impaired Judgment: Impaired Interventions PRN's used: n/a Therapeutic interventions: 1:1 assessment, encouragement to take prescribed PO medications, encouragement to express thoughts and feelings, encouragement to perform personal hygiene, reality orientation, medication administration/monitoring/education, encouragement to drink adequate fluids, Q 15 min safety checks. Restraints/seclusion/emergency medication: N/A Justification of Continued Inpatient Treatment: Pt requires continued medication adjustments in a safe and supportive environment until competent to stand trial.
[2019-02-06 19:56] VITALS: BP 100/58
[2019-02-06] MEDS ORDERED: clozapine 25mg tablet PO SCH (21:00)
[2019-02-06] MEDS ORDERED: aripiprazole 5mg tablet PO SCH (21:00)
[2019-02-06] MEDS ORDERED: haloperidol 5mg tablet PO SCH (21:00)
--- NOTE | 2019-02-06 21:55 | NUR ---
Nursing Progress Note Legal hold: 1370 Client on involuntary status for GD Report received from ZAMZAM [place] with use of SBAR: Why are they here: Pt has been arrested multiple times for trespassing and this time has been in [facility] since April 2018. Pt unmedicated and very psychotic with poor hygiene. Pt is not competent to stand trial and so was placed here for stabilization of his psychiatric symptoms. Assessment What has happened this shift: The patient has been up on the unit pacing at times. He has his mattress on the floor of his room. He lacks ability to socialize appropriately with others 2nd to his psychotic thought process. He makes bizarre somatic delusional statements that are difficult to follow such as "My left nostril is burnt all the way to my eye socket" and "There's a piece of my skull missing from the left side of my head" He is unable to verbalize any kind of plan for his self care if her were not in the safety and security of the unit. When asked why he was here he stated, "I'm here so they can use sedatives so I won't be able to go to court" He insight is very poor into his need for medications but he did take all of the medications that were ordered. He was polite during the evening assessment. ASSESSMENT: S/I, H/I: Pt denies A/VH: Pt denies but clearly has disordered thought processes Sleep: ADL's: The patient appears very disheveled with his hair uncombed and sticking up in all directions Group attendance: No group attendance Were meds taken: Yes Any med S/E: None reported nor observed Mental Status Exam Appearance: Disheveled, dressed in green hospital scrubs, wild hair. Eye contact: Fair Behavior: Guarded, Cooperative, out of his room but no real socializing with others Speech: Spontaneous Mood: Denies problems with mood Affect: Blunted Thought process: Illogical, disorganized, flight of ideas Thought Content: delusional, psychotic thoughts Cognition: The patient is aware of where he is at and that he was in [facility] Insight: very poor Judgment: very poor Interventions PRN's used: n/a Therapeutic interventions: 1:1 assessment, encouragement to take prescribed PO medications, encouragement to express thoughts and feelings, encouragement to perform personal hygiene, reality orientation, medication administration/monitoring/education, encouragement to drink adequate fluids, Q 15 min safety checks. Restraints/seclusion/emergency medication: N/A Justification of Continued Inpatient Treatment: Pt requires continued medication adjustments in a safe and supportive environment until competent to stand trial.
[2019-02-07 07:08] LABS: BASOPHILS # (AUTO) 0.1 X10'3 (0-0.2); BASOPHILS % (AUTO) 1.2 % (0-1); EOSINOPHILS # (AUTO) 0.1 X10'3 (0-0.9); HEMATOCRIT 47.1 % (42.0-52.0); HEMOGLOBIN 15.7 g/dl (14.0-17.9); LYMPHOCYTES # (AUTO) 1.9 X10'3 (1.1-4.8); LYMPHOCYTES % (AUTO) 36.3 % (21-51); MEAN CORPUSCULAR HEMOGLOBIN 29.5 PG (27.0-31.0); MEAN CORPUSCULAR HGB CONC 33.4 g/dL (33.0-36.5); MEAN CORPUSCULAR VOLUME 88.2 FL (78-98); MEAN PLATELET VOLUME 7.6 FL (7.4-10.4); MONOCYTES # (AUTO) 0.5 X10'3 (0-0.9); MONOCYTES % (AUTO) 9.8 % (2-12); NEUTROPHILS # (AUTO) 2.6 X10'3 (1.8-7.7); NEUTROPHILS % (AUTO) 50.7 % (42-75); PLATELET COUNT 225 X10'3 (140-440); RED BLOOD COUNT 5.34 X10'6 (4.70-6.10); WHITE BLOOD COUNT 5.2 X10'3 (4.5-11.0)
[2019-02-07 07:45] VITALS: BP 90/52
[2019-02-07] MEDS: haloperidol 5mg tablet PO SCH ×2 (07:52→20:56)
[2019-02-07] MEDS: benztropine 1mg tablet PO SCH ×2 (07:53→20:57)
[2019-02-07] MEDS: pantoprazole 40mg Tablet.DR PO SCH (07:53)
--- NOTE | 2019-02-07 12:06 | NUR ---
Reassessment: Pt with steady PO intake at 75-100% meeting nutrient needs. Wt stable since last RD assessment. LBM 02/05 per physical assessment however pt documented with large formed BM 02/07 in GI trends. Pt with MoM PRN. Will continue to follow and monitor need for additional bowel care. Recommendations: 1) Continue with regular diet 2) Bowel care PRN 3) Weekly wt Addendum: 02/07/19 at [address] Amended: Links added.
--- NOTE | 2019-02-07 17:49 | NUR ---
Nursing Progress Note Legal hold: 1370 Client on involuntary status for GD Report received from ZAMZAM Mayer with use of SBAR: Why are they here: Pt has been arrested multiple times for trespassing and this time has been in [facility] since April 2018. Pt unmedicated and very psychotic with poor hygiene. Pt is not competent to stand trial and so was placed here for stabilization of his psychiatric symptoms. Assessment What has happened this shift: Pt prefers to go by "Devon." He presents sleeping on his bed at change of shift, extra mattress had been removed during NOC. 1:1 assessment. Patient denies depression SI/HI/AVH. Patient makes bizarre statements when RN giving him his morning medications. Patient questioned his medications but RN explained the medications and patient took all of them. Patient is still quit disheveled with his hair sticking up. Patient appears to respond to internal stimuli. Patient lays in bed, remakes his bed and walks around the unit with a blanket draped around his shoulders. Patient is no longer having the tissue up his nose so he has had some progress. ASSESSMENT: S/I, H/I: Pt denies A/VH: Pt denies Sleep: "good" - naps during daytime ADL's: Independent with prompting Group attendance: No group attendance Were meds taken: Yes Any med S/E: None reported nor observed Mental Status Exam Appearance: Disheveled, dressed in green hospital scrubs, wild hair. Eye contact: Shifty Behavior: Guarded, Cooperative, isolates Speech: Clear and quiet, normal rate and rhythm Mood: Dysthymic. Affect: Blunted Thought process: Illogical, disorganized, flight of ideas Thought Content: unable to formally assess, pt very guarded Cognition: A&O X3 Insight: Impaired Judgment: Impaired Interventions PRN's used: n/a Therapeutic interventions: 1:1 assessment, encouragement to take prescribed PO medications, encouragement to express thoughts and feelings, encouragement to perform personal hygiene, reality orientation, medication administration/monitoring/education, encouragement to drink adequate fluids, Q 15 min safety checks. Restraints/seclusion/emergency medication: N/A Justification of Continued Inpatient Treatment: Pt requires continued medication adjustments in a safe and supportive environment until competent to stand trial.
[2019-02-07 19:26] VITALS: BP 90/60
[2019-02-07] MEDS ORDERED: clozapine 25mg tablet PO SCH (21:00)
[2019-02-07] MEDS ORDERED: aripiprazole 5mg tablet PO SCH (21:00)
--- NOTE | 2019-02-08 00:01 | NUR ---
Nursing Progress Note: Legal hold: court competency 1370 Client on involuntary status for GD Report received from nurse with use of SBAR: Yes, Deon MENJIVAR Why are they here: Pt has been arrested multiple times for trespassing and this time has been in [facility] since April 2018. Pt unmedicated and very psychotic with poor hygiene. Pt is not competent to stand trial and so was placed here for stabilization of his psychiatric symptoms. Assessment What has happened this shift: Pt walks the unit with a blanket draped around his shoulders. He approaches headline writer and requests to shave his face. Pt is monitored while he shaves, and he thanks headline writer. When asked how his day went he replies, "uneventful." Cone Former asks if he has been thinking about his court competency at all and he says," I have. The strong nitric operator is going to find me guilty no matter what. Even if I am nit he will find someone I am associated with and I'll still be in custodial. 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 You couldn't even get a danuta for the children but I could get much more for my mother." Pt is medication compliant. He sleeps on the floor next to his bed. 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 Mental Status Exam Appearance: disheveled, did shave this evening Eye contact: direct Behavior: cooperative Speech: linear at times, Mood:calm, guarded Affect: anxious to flat Thought process:disorganized Thought Content:disorganized Cognition: poor Insight:poor Judgment: poor Interventions PRN's used: n/a Therapeutic interventions: 1:1 assessment, therapeutic listening, offered shower and clean clothing although he declined, Q15 minute safety checks Restraints/seclusion/emergency medication:none Justification of Continued Inpatient Treatment: Pt gravely disabled and on a court competency 1370
[2019-02-08 08:00] VITALS: BP 107/64
[2019-02-08] MEDS: pantoprazole 40mg Tablet.DR PO SCH (08:00)
[2019-02-08] MEDS: benztropine 1mg tablet PO SCH ×2 (08:00→20:05)
[2019-02-08] MEDS: haloperidol 5mg tablet PO SCH ×2 (08:00→20:03)
[2019-02-08 11:27] LABS: BASOPHILS % (AUTO) 0.6 % (0-1); EOSINOPHILS # (AUTO) 0.1 X10'3 (0-0.9); EOSINOPHILS % (AUTO) 1.2 % (0-6); HEMATOCRIT 46.3 % (42.0-52.0); HEMOGLOBIN 15.6 g/dl (14.0-17.9); LYMPHOCYTES # (AUTO) 1.4 X10'3 (1.1-4.8); LYMPHOCYTES % (AUTO) 24.6 % (21-51); MEAN CORPUSCULAR HEMOGLOBIN 29.7 PG (27.0-31.0); MEAN CORPUSCULAR HGB CONC 33.6 g/dL (33.0-36.5); MEAN CORPUSCULAR VOLUME 88.4 FL (78-98); MEAN PLATELET VOLUME 8.1 FL (7.4-10.4); MONOCYTES # (AUTO) 0.5 X10'3 (0-0.9); MONOCYTES % (AUTO) 9.3 % (2-12); NEUTROPHILS # (AUTO) 3.6 X10'3 (1.8-7.7); NEUTROPHILS % (AUTO) 64.3 % (42-75); PLATELET COUNT 222 X10'3 (140-440); RED BLOOD COUNT 5.23 X10'6 (4.70-6.10); RED CELL DISTRIBUTION WIDTH 12.8 % (11.5-14.5); WHITE BLOOD COUNT 5.5 X10'3 (4.5-11.0)
--- NOTE | 2019-02-08 12:40 | NUR ---
Nursing Progress Note Legal hold: 1370 Client on involuntary status for GD Report received from Tanja Aly RN with use of SBAR: Why are they here: Pt has been arrested multiple times for trespassing and this time has been in [facility] since April 2018. Pt unmedicated and very psychotic with poor hygiene. Pt is not competent to stand trial and so was placed here for stabilization of his psychiatric symptoms. Assessment What has happened this shift: Pt prefers to go by "Devon." He sleeping on his bed at change of shift and up for breakfast. Patient 1:1 assessment, patient denies suicidal ideation and depression. Patient answers questions appropriately. Patient asked for prune juice for constipation. Patient makes bizarre statements at breakfasts. Patient stares at his medications for several seconds and then took all of them. Patient is still quit disheveled with his hair sticking up. Patient appears to respond to internal stimuli. Patient lays in bed and occasionally will lay on the floor by the window. ASSESSMENT: S/I, H/I: Pt denies A/VH: Pt denies Sleep: "good" - naps during daytime ADL's: Independent with prompting Group attendance: No group attendance Were meds taken: Yes Any med S/E: None reported nor observed Mental Status Exam Appearance: Disheveled, dressed in green hospital scrubs, wild hair. Eye contact: Shifty Behavior: Guarded, Cooperative, isolates Speech: Clear and quiet, normal rate and rhythm Mood: Dysthymic. Affect: Blunted Thought process: Illogical, disorganized, flight of ideas Thought Content: unable to formally assess, pt very guarded Cognition: A&O X3 Insight: Impaired Judgment: Impaired Interventions PRN's used: n/a Therapeutic interventions: 1:1 assessment, encouragement to take prescribed PO medications, encouragement to express thoughts and feelings, encouragement to perform personal hygiene, reality orientation, medication administration/monitoring/education, encouragement to drink adequate fluids, Q 15 min safety checks. Restraints/seclusion/emergency medication: N/A Justification of Continued Inpatient Treatment: Pt requires continued medication adjustments in a safe and supportive environment until competent to stand trial.
[2019-02-08] MEDS: LORazepam 0.5 MG tablet PO PRN (15:16)
--- NOTE | 2019-02-08 15:29 | NUR ---
Nursing Progress Note addendum. Patient in Community Room during lunch saying "fat fat fat fat". Soon after patient was walking in the loera and looked in the nurses station and yelled "fat!". Patient again walking down the pacing and Tech John asked patient "How are you?" patient replied "Fuck you!". Patient pacing in the hallway. RN got patient 0.5 mg Ativan P.O. RN asked patient if he was anxious and patient stated "No, my left brain is misfiring."
[2019-02-08 20:00] VITALS: BP 91/56
[2019-02-08] MEDS ORDERED: aripiprazole 5mg tablet PO SCH (21:00)
[2019-02-08] MEDS ORDERED: clozapine 25mg tablet PO SCH (21:00)
--- NOTE | 2019-02-09 00:16 | NUR ---
Nursing Progress Note: Legal hold: court competency 1370 Client on involuntary status for GD Report received from nurse with use of SBAR: Yes, Deon MENJIVAR Why are they here: Pt has been arrested multiple times for trespassing and this time has been in [facility] since April 2018. Pt unmedicated and very psychotic with poor hygiene. Pt is not competent to stand trial and so was placed here for stabilization of his psychiatric symptoms. Assessment What has happened this shift: Pt isolates to his room most of the shift aside from snack at 1999. Pt is pleasant upon approach and is a little more talkative today. Candy Catcher asks why he cursed at staff on day shift and he replied, " I was having left eye pain as if I were staring at a distant light in the darkness for far too long. The pain is gone now but I was being snarky. 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 Mental Status Exam Appearance: disheveled, did shave this evening Eye contact: direct Behavior: cooperative Speech: linear at times, Mood:calm, guarded Affect: anxious to flat Thought process:disorganized Thought Content:disorganized Cognition: poor Insight:poor Judgment: poor Interventions PRN's used: n/a Therapeutic interventions: 1:1 assessment, therapeutic listening, offered shower and clean clothing although he declined, Q15 minute safety checks Restraints/seclusion/emergency medication:none Justification of Continued Inpatient Treatment: Pt gravely disabled and on a court competency 1370
[2019-02-09] MEDS: haloperidol 5mg tablet PO SCH ×2 (07:46→19:59)
[2019-02-09] MEDS: pantoprazole 40mg Tablet.DR PO SCH (07:46)
[2019-02-09] MEDS: benztropine 1mg tablet PO SCH ×2 (07:46→19:59)
[2019-02-09 08:00] VITALS: BP 108/74
[2019-02-09 11:11] LABS: BASOPHILS % (AUTO) 0.8 % (0-1); EOSINOPHILS # (AUTO) 0.1 X10'3 (0-0.9); EOSINOPHILS % (AUTO) 1.7 % (0-6); HEMATOCRIT 47.4 % (42.0-52.0); HEMOGLOBIN 15.7 g/dl (14.0-17.9); LYMPHOCYTES # (AUTO) 1.5 X10'3 (1.1-4.8); LYMPHOCYTES % (AUTO) 31.5 % (21-51); MEAN CORPUSCULAR HEMOGLOBIN 29.4 PG (27.0-31.0); MEAN CORPUSCULAR HGB CONC 33.2 g/dL (33.0-36.5); MEAN CORPUSCULAR VOLUME 88.5 FL (78-98); MEAN PLATELET VOLUME 7.6 FL (7.4-10.4); MONOCYTES # (AUTO) 0.5 X10'3 (0-0.9); MONOCYTES % (AUTO) 10.8 % (2-12); NEUTROPHILS # (AUTO) 2.6 X10'3 (1.8-7.7); NEUTROPHILS % (AUTO) 55.2 % (42-75); PLATELET COUNT 225 X10'3 (140-440); RED BLOOD COUNT 5.35 X10'6 (4.70-6.10); RED CELL DISTRIBUTION WIDTH 12.9 % (11.5-14.5); WHITE BLOOD COUNT 4.6 X10'3 (4.5-11.0)
--- NOTE | 2019-02-09 14:50 | NUR ---
Nursing Progress Note Legal hold: 1370 Client on involuntary status for GD Report received from Tanja Aly RN with use of SBAR: Why are they here: Pt has been arrested multiple times for trespassing and this time has been in [facility] since April 2018. Pt unmedicated and very psychotic with poor hygiene. Pt is not competent to stand trial and so was placed here for stabilization of his psychiatric symptoms. Assessment What has happened this shift: ASSESSMENT: Patient is observed sleeping on the floor in his room at shift change. He is awoken just before breakfast and when greeted he greets this RN back with a Good morning. He takes his medications without issue. He reports that he slept well last night but is continuing to have discomfort with his right eye. He reports he has a sty and that he has been draining it. Nothing is observed by this RN but patient is educated on washing his hands often, not touching his eye with his hands, and only using a clean washcloth to avoid infection. He verbalizes understanding. Did not eat his lunch, he asks for crackers and states The kitchen touched my lunch with their hands, their glove came off or something. It smells like a neighbor that I use to have. When asked if it was a bad smell he stated Well not bad, it smelled like a teenagers, bodily function. Patient is observed mumbling unintelligibly while walking alone in the loera and fidgeting with his hands. Patient is pleasant throughout the day. S/I, H/I: Pt denies A/VH: Pt denies, appears to be responding to internal stimuli Sleep: 8hrs NOC- naps during daytime ADL's: Independent with prompting, showered today Group attendance: No group attendance Were meds taken: Yes Any med S/E: None reported nor observed Mental Status Exam Appearance: Disheveled, dressed in green hospital scrubs, wild hair. Eye contact: direct Behavior: Cooperative, isolative but friendly Speech: Clear and quiet, normal rate and rhythm Mood: content Affect: restricted with occasional brightening Thought process: linear Thought Content: Delusional and paranoid Cognition: A&O X3 Insight: Impaired Judgment: Impaired Interventions PRN's used: n/a Therapeutic interventions: 1:1 assessment, encouragement to take prescribed PO medications, encouragement to express thoughts and feelings, encouragement to perform personal hygiene, reality orientation, medication administration/monitoring/education, encouragement to drink adequate fluids, Q 15 min safety checks. Restraints/seclusion/emergency medication: N/A Justification of Continued Inpatient Treatment: Pt requires continued medication adjustments in a safe and supportive environment until competent to stand trial.
[2019-02-09 20:00] VITALS: BP 97/69
[2019-02-09] MEDS ORDERED: clozapine 100mg tablet PO SCH (21:00)
--- NOTE | 2019-02-09 23:19 | NUR ---
Nursing Progress Note: Legal hold: court competency 1370 Client on involuntary status for GD Report received from nurse with use of SBAR: Yes, Deon MENJIVAR Why are they here: Pt has been arrested multiple times for trespassing and this time has been in [facility] since April 2018. Pt unmedicated and very psychotic with poor hygiene. Pt is not competent to stand trial and so was placed here for stabilization of his psychiatric symptoms. Assessment What has happened this shift: Pt isolates to his room at the beginning of the shift. He is pleasant on approach and begins talking about random things. He mentions having 2 children and commercial underwriter asks how old they are and he replies, "well there are many many herbes or hollidays, about this tall (motions with hands) big enough to hit with a bat with no intention of stopping." "Or my sister Spickard the shadow eater will get them." Driver Wheelchair asks who the mother of his children are and he replies, "Oh my DNA was extracted from me at a young age and now there are too many Smiths." Pt is medication compliant and cooperative with 1:1 assessment. After HS meds, he is observed skipping to the community room for snack yelling happily unintelligible words. He returns to his room and lays on the floor and can be heard talking and counting. S/I, H/I: denies A/VH: denies Sleep: see sleep assessment notation ADL's: independent Group attendance: weight shifter, no group Were meds taken: yes Any med S/E : none reported, none observed. Mental Status Exam Appearance: disheveled, did shave this evening Eye contact: direct Behavior: cooperative Speech: linear at times, Mood:calm, guarded Affect: anxious to flat Thought process:disorganized Thought Content:disorganized Cognition: poor Insight:poor Judgment: poor Interventions PRN's used: n/a Therapeutic interventions: 1:1 assessment, therapeutic listening, offered shower and clean clothing although he declined, Q15 minute safety checks Restraints/seclusion/emergency medication:none Justification of Continued Inpatient Treatment: Pt gravely disabled and on a court competency 1370
[2019-02-10] MEDS: haloperidol 5mg tablet PO SCH ×2 (07:18→20:23)
[2019-02-10] MEDS: pantoprazole 40mg Tablet.DR PO SCH (07:19)
[2019-02-10] MEDS: benztropine 1mg tablet PO SCH ×2 (07:19→20:20)
[2019-02-10 08:31] VITALS: BP 108/60
[2019-02-10 11:27] LABS: BASOPHILS # (AUTO) 0.1 X10'3 (0-0.2); BASOPHILS % (AUTO) 1.2 % (0-1); EOSINOPHILS # (AUTO) 0.1 X10'3 (0-0.9); EOSINOPHILS % (AUTO) 1.2 % (0-6); HEMATOCRIT 51.6 % (42.0-52.0); HEMOGLOBIN 17.2 g/dl (14.0-17.9); LYMPHOCYTES # (AUTO) 1.5 X10'3 (1.1-4.8); LYMPHOCYTES % (AUTO) 31.3 % (21-51); MEAN CORPUSCULAR HEMOGLOBIN 29.5 PG (27.0-31.0); MEAN CORPUSCULAR HGB CONC 33.3 g/dL (33.0-36.5); MEAN CORPUSCULAR VOLUME 88.6 FL (78-98); MEAN PLATELET VOLUME 7.8 FL (7.4-10.4); MONOCYTES # (AUTO) 0.4 X10'3 (0-0.9); MONOCYTES % (AUTO) 8.8 % (2-12); NEUTROPHILS # (AUTO) 2.7 X10'3 (1.8-7.7); NEUTROPHILS % (AUTO) 57.5 % (42-75); PLATELET COUNT 229 X10'3 (140-440); RED BLOOD COUNT 5.83 X10'6 (4.70-6.10); RED CELL DISTRIBUTION WIDTH 13.1 % (11.5-14.5); WHITE BLOOD COUNT 4.8 X10'3 (4.5-11.0)
--- NOTE | 2019-02-10 12:42 | NUR ---
Nursing Progress Note Legal hold: 1370 Client on involuntary status for GD Report received from Tanja Aly RN with use of SBAR: Why are they here: Pt has been arrested multiple times for trespassing and this time has been in [facility] since April 2018. Pt unmedicated and very psychotic with poor hygiene. Pt is not competent to stand trial and so was placed here for stabilization of his psychiatric symptoms. Assessment What has happened this shift: Pt prefers to go by "Devon. He spent almost the entire shift wrapped up like a mummy in a blanket laying on the floor by the window. He answers closed ended questions. He is up for meals. He does not go to groups. He did take all of his medications as prescribed, but will not swallow his pills with water. Instead he puts his head upside down to straighten my esophagus and then swallows the pills dry. ASSESSMENT: S/I, H/I: Pt denies A/VH: Pt denies Sleep: sleeps all day ADL's: Independent with prompting and cuing Group attendance: No group attendance Were meds taken: Yes Any med S/E: None reported nor observed Mental Status Exam Appearance: Disheveled, dressed in green hospital scrubs, wild hair. Eye contact: Poor Behavior: Bizarre Speech: quiet, normal rate and rhythm Mood: Dysthymic. Affect: Flat Thought process: Illogical, disorganized, flight of ideas Thought Content: unable to formally assess, pt very guarded Cognition: A&O X3 Insight: Poor Judgment: Poor Interventions PRN's used: n/a Therapeutic interventions: 1:1 assessment, encouragement to take prescribed PO medications, encouragement to express thoughts and feelings, encouragement to perform personal hygiene, reality orientation, medication administration/monitoring/education, encouragement to drink adequate fluids, Q 15 min safety checks. Restraints/seclusion/emergency medication: N/A Justification of Continued Inpatient Treatment: Pt requires continued medication adjustments in a safe and supportive environment until competent to stand trial.
[2019-02-10 19:55] VITALS: BP 109/61
[2019-02-10] MEDS: LORazepam 0.5 MG tablet PO PRN (20:34)
[2019-02-10] MEDS ORDERED: clozapine 25mg tablet PO SCH (21:00)
--- NOTE | 2019-02-10 23:02 | NUR ---
Nursing Progress Note: Legal hold: court competency 1370 Client on involuntary status for GD Report received from nurse with use of SBAR: Yes, Deon MENJIVAR Why are they here: Pt has been arrested multiple times for trespassing and this time has been in Shelter since April 2018. Pt unmedicated and very psychotic with poor hygiene. Pt is not competent to stand trial and so was placed here for stabilization of his psychiatric symptoms. Assessment What has happened this shift: Pt paces the unit this shift from approximately shift change to 2129. He points to the floor and tells whiter there is an angry chihuahua in the floor. He also mentions his mom "Tanja" who he says he spoke to internally 2 days ago. He also mentions that he is immune to cancer. PT did know his full name and date of . Tower Director encouraged pt to try sleeping in his bed tonight, but he politely refused saying" straightens out the spine, yes it does." while pacing up and down the loera he begins cursing and getting excited and skipping. He stops sporadically and turns around and paces some more. PT given PRN ativan along with HS medications. Pt is medication compliant and cooperative with 1:1 assessment. S/I, H/I: denies A/VH: denies Sleep: see sleep assessment notation ADL's: independent Group attendance: police shift commander, no group Were meds taken: yes Any med S/E : none reported, none observed. Mental Status Exam Appearance: disheveled, did shave this evening Eye contact: direct Behavior: cooperative Speech: linear at times, Mood:calm, guarded Affect: anxious to flat Thought process:disorganized Thought Content:disorganized Cognition: poor Insight:poor Judgment: poor Interventions PRN's used: ativan Therapeutic interventions: 1:1 assessment, therapeutic listening, offered shower and clean clothing although he declined, Q15 minute safety checks Restraints/seclusion/emergency medication:none Justification of Continued Inpatient Treatment: Pt gravely disabled and on a court competency 1370
[2019-02-11 08:28] VITALS: BP 115/83
[2019-02-11] MEDS: benztropine 1mg tablet PO SCH ×2 (09:02→20:32)
[2019-02-11] MEDS: haloperidol 5mg tablet PO SCH ×2 (09:02→20:34)
[2019-02-11] MEDS: pantoprazole 40mg Tablet.DR PO SCH (09:02)
[2019-02-11 10:27] LABS: BASOPHILS % (AUTO) 0.7 % (0-1); EOSINOPHILS # (AUTO) 0.1 X10'3 (0-0.9); EOSINOPHILS % (AUTO) 1.9 % (0-6); HEMOGLOBIN 16.6 g/dl (14.0-17.9); LYMPHOCYTES # (AUTO) 1.5 X10'3 (1.1-4.8); LYMPHOCYTES % (AUTO) 27.2 % (21-51); MEAN CORPUSCULAR HEMOGLOBIN 29.8 PG (27.0-31.0); MEAN CORPUSCULAR HGB CONC 33.2 g/dL (33.0-36.5); MEAN CORPUSCULAR VOLUME 89.8 FL (78-98); MEAN PLATELET VOLUME 7.8 FL (7.4-10.4); MONOCYTES # (AUTO) 0.6 X10'3 (0-0.9); MONOCYTES % (AUTO) 10.5 % (2-12); NEUTROPHILS # (AUTO) 3.3 X10'3 (1.8-7.7); NEUTROPHILS % (AUTO) 59.7 % (42-75); PLATELET COUNT 209 X10'3 (140-440); RED BLOOD COUNT 5.56 X10'6 (4.70-6.10); WHITE BLOOD COUNT 5.5 X10'3 (4.5-11.0)
--- NOTE | 2019-02-11 12:52 | NUR ---
DISCHARGE PLANNING: SW emailed pt notes, MAR and progress to Engineer Of System Development Giuseppe Paredes. SW requested clarification regarding [facility] conservatorship process for pt. Sanjana Cisse, Assistant Teaching Professor CLINICAL TECHNICIAN [id number] Supervised by Sandip Anders, [id number]
--- NOTE | 2019-02-11 15:04 | NUR ---
Nursing Progress Note: Solo Jordan Legal hold: court competency 1370 Client on involuntary status for GD Report received from ZAMZAM [place] with use of SBAR: Why are they here: Pt has been arrested multiple times for trespassing and this time has been in [facility] since April 2018. Pt unmedicated and very psychotic with poor hygiene. Pt is not competent to stand trial and so was placed here for stabilization of his psychiatric symptoms. Assessment What has happened this shift: Pt. Lying on floor completely covered with blankets at change of shift. Pt is medication compliant and cooperative with 1:1 assessment. When asked how he was feeling, client replied "not good." When asked why, client states "mortality." This song writer then asked patient if he could elaborate in which he stated "no one will , we will all live forever, the micheline will turn everyone evil." During med pass, client stated "excuse me, I need to get to my water" very appropriately. Following breakfast, returned to room, lying on floor. Only seen on unit ambulated to meals, then retreating to room, lying on floor covered completely with banket. S/I, H/I: denies A/VH: denies, Observed responding to some external stimuli Sleep: 6.75 ADLs: independent requires encouragement Group attendance: Were meds taken: yes Any med S/E : none reported, none observed. Mental Status Exam Appearance: disheveled, Eye contact: direct Behavior: cooperative Speech: linear at times, Mood:calm, guarded Affect: anxious to flat Thought process:disorganized Thought Content:disorganized Cognition: poor Insight:poor Judgment: poor Interventions PRN's used: Therapeutic interventions: 1:1 assessment, therapeutic listening, offered shower and clean clothing although he declined, Q15 minute safety checks Restraints/seclusion/emergency medication:none Justification of Continued Inpatient Treatment: Pt gravely disabled and on a court competency 1370
[2019-02-11] MEDS ORDERED: LORazepam 1 MG tablet PO PRN (18:50)
[2019-02-11 19:39] VITALS: BP 131/58
[2019-02-11] MEDS ORDERED: clozapine 25mg tablet PO SCH (21:00)
--- NOTE | 2019-02-12 02:32 | NUR ---
RN PROGRESS NOTE: LEGAL HOLD: 1370 (Client lacks capacity to stand trial at this time.) THIS SHIFT: Client was lying on the floor completely covered with a blanket next to the wall. At med pass client stood in doorway and accepted medications. Client stated, "They keep taking my blood. They took it three times. They only need to take it once." Client expressed interest in his Lab results. Client to discuss lab results with MD. Client did leave room several times during the shift. Pleasant and cooperative. MSE: Messy hair, disheveled clothing. Mood was stable. Thoughts are tangential with loose associations. Affect is appropriate. Client is unable to formulate a plan for food and intermediate.
[2019-02-12 07:43] VITALS: BP 105/63
[2019-02-12] MEDS: pantoprazole 40mg Tablet.DR PO SCH (07:58)
[2019-02-12] MEDS: haloperidol 5mg tablet PO SCH ×2 (07:58→20:45)
[2019-02-12] MEDS: benztropine 1mg tablet PO SCH ×2 (07:58→20:44)
[2019-02-12 11:04] LABS: BASOPHILS % (AUTO) 0.8 % (0-1); EOSINOPHILS # (AUTO) 0.1 X10'3 (0-0.9); HEMATOCRIT 49.2 % (42.0-52.0); HEMOGLOBIN 16.5 g/dl (14.0-17.9); LYMPHOCYTES # (AUTO) 1.4 X10'3 (1.1-4.8); LYMPHOCYTES % (AUTO) 23.9 % (21-51); MEAN CORPUSCULAR HEMOGLOBIN 29.5 PG (27.0-31.0); MEAN CORPUSCULAR HGB CONC 33.5 g/dL (33.0-36.5); MEAN PLATELET VOLUME 7.6 FL (7.4-10.4); MONOCYTES # (AUTO) 0.6 X10'3 (0-0.9); MONOCYTES % (AUTO) 9.6 % (2-12); NEUTROPHILS # (AUTO) 3.9 X10'3 (1.8-7.7); NEUTROPHILS % (AUTO) 64.7 % (42-75); PLATELET COUNT 226 X10'3 (140-440); RED BLOOD COUNT 5.59 X10'6 (4.70-6.10); RED CELL DISTRIBUTION WIDTH 12.9 % (11.5-14.5)
--- NOTE | 2019-02-12 17:13 | NUR ---
Nursing Progress Note: Solo Jordan Legal hold: court competency 1370 Client on involuntary status for GD Report received from ZAMZAM Mayer with use of SBAR: Why are they here: Pt has been arrested multiple times for trespassing and this time has been in [facility] since April 2018. Pt unmedicated and very psychotic with poor hygiene. Pt is not competent to stand trial and so was placed here for stabilization of his psychiatric symptoms. Assessment What has happened this shift: Pt. Lying on floor completely covered with blankets at change of shift. Pt is medication compliant and cooperative with 1:1 assessment. When asked why he prefers to sleep on the floor client stated "it keeps my back straight." I have more muscles on one side of my body." Was medication compliant, ate meals in community room. When asked by other staff why he prefers sleeping on the floor states "the study of the forearm determines the path of the heart then responded you have a good day ma'am." S/I, H/I: denies A/VH: denies, Observed responding to some external stimuli Sleep: 8 ADLs: independent requires encouragement Group attendance: No Were meds taken: yes Any med S/E : none reported, none observed. Mental Status Exam Appearance: disheveled, Eye contact: direct Behavior: cooperative Speech: tangential Mood:calm, guarded Affect: anxious to flat Thought process:disorganized Thought Content:disorganized Cognition: poor Insight:poor Judgment: poor Interventions PRN's used: Therapeutic interventions: 1:1 assessment, therapeutic listening, offered shower and clean clothing although he declined, Q15 minute safety checks Restraints/seclusion/emergency medication:none Justification of Continued Inpatient Treatment: Pt gravely disabled and on a court competency 1370
[2019-02-12 20:00] VITALS: BP 104/81
[2019-02-12] MEDS: CLOZAPINE 100 MG TAB.RAPDIS PO SCH (20:45)
--- NOTE | 2019-02-12 23:43 | NUR ---
Nursing Progress Note: Solo Jordan Legal hold: court competency 1370 Client on involuntary status for GD Report received from ZAMZAM Mayer with use of SBAR: Why are they here: Pt has been arrested multiple times for trespassing and this time has been in [facility] since April 2018. Pt unmedicated and very psychotic with poor hygiene. Pt is not competent to stand trial and so was placed here for stabilization of his psychiatric symptoms. Assessment What has happened this shift: Pt. Lying on floor completely covered with blankets at change of shift. Pt is medication compliant and cooperative with 1:1 assessment. Patient pacing the loera participated in snack. Responding to internal stimuli talking to him self and the carrera. Patient prefers to sleep on the floor with pillow and blanket. S/I, H/I: denies A/VH: denies, Observed responding to some external stimuli Sleep: 8 ADLs: independent requires encouragement Group attendance: No Were meds taken: yes Any med S/E : none reported, none observed. Mental Status Exam Appearance: disheveled, Eye contact: direct Behavior: cooperative Speech: tangential Mood:calm, guarded Affect: anxious to flat Thought process:disorganized Thought Content:disorganized Cognition: poor Insight:poor Judgment: poor Interventions PRN's used: Therapeutic interventions: 1:1 assessment, therapeutic listening, offered shower and clean clothing although he declined, Q15 minute safety checks Restraints/seclusion/emergency medication:none Justification of Continued Inpatient Treatment: Pt gravely disabled and on a court competency 1370
[2019-02-13 07:29] VITALS: BP 119/65
[2019-02-13] MEDS ORDERED: haloperidol 5mg tablet PO SCH (08:00)
[2019-02-13] MEDS: pantoprazole 40mg Tablet.DR PO SCH (08:08)
[2019-02-13] MEDS: benztropine 1mg tablet PO SCH ×2 (08:08→20:07)
[2019-02-13 09:44] LABS: BASOPHILS % (AUTO) 0.7 % (0-1); EOSINOPHILS # (AUTO) 0.1 X10'3 (0-0.9); EOSINOPHILS % (AUTO) 1.7 % (0-6); HEMATOCRIT 49.8 % (42.0-52.0); HEMOGLOBIN 16.8 g/dl (14.0-17.9); LYMPHOCYTES # (AUTO) 1.6 X10'3 (1.1-4.8); LYMPHOCYTES % (AUTO) 33.1 % (21-51); MEAN CORPUSCULAR HEMOGLOBIN 29.8 PG (27.0-31.0); MEAN CORPUSCULAR HGB CONC 33.8 g/dL (33.0-36.5); MEAN CORPUSCULAR VOLUME 88.1 FL (78-98); MEAN PLATELET VOLUME 7.9 FL (7.4-10.4); MONOCYTES # (AUTO) 0.5 X10'3 (0-0.9); MONOCYTES % (AUTO) 9.6 % (2-12); NEUTROPHILS # (AUTO) 2.6 X10'3 (1.8-7.7); NEUTROPHILS % (AUTO) 54.9 % (42-75); PLATELET COUNT 208 X10'3 (140-440); RED BLOOD COUNT 5.65 X10'6 (4.70-6.10); RED CELL DISTRIBUTION WIDTH 12.8 % (11.5-14.5); WHITE BLOOD COUNT 4.8 X10'3 (4.5-11.0)
--- NOTE | 2019-02-13 16:35 | NUR ---
Nursing Progress Note: Solo Jordan Legal hold: court competency 1370 Client on involuntary status for GD Report received from ZAMZAM Mayer with use of SBAR: Why are they here: Pt has been arrested multiple times for trespassing and this time has been in [facility] since April 2018. Pt unmedicated and very psychotic with poor hygiene. Pt is not competent to stand trial and so was placed here for stabilization of his psychiatric symptoms. Assessment What has happened this shift: Pt. Lying on floor completely covered with blankets at change of shift. Pt is medication compliant and cooperative with 1:1 assessment. Patient pacing the loera participated in snack. Responding to internal stimuli talking to him self and the carrera. Compliant with blood draw. Showered today. Dr. Cano has worked with patient to answer questions minimally and to not ramble down a rabbit hole in preparation for court hearing. Today his responses have been very minimal with 1-2 word responses. Continues to sleep and sit on floor in room when accept for meal times. S/I, H/I: denies A/VH: denies, Observed responding to some external stimuli Sleep: 8.25 ADLs: independent requires encouragement Group attendance: No Were meds taken: yes Any med S/E : none reported, none observed. Mental Status Exam Appearance: clean, green scrubs, hair unbrushed Eye contact: direct Behavior: cooperative Speech: tangential Mood:calm, guarded Affect: anxious to flat Thought process:disorganized Thought Content:disorganized Cognition: poor Insight:poor Judgment: poor Interventions PRN's used: Therapeutic interventions: 1:1 assessment, therapeutic listening, offered shower and clean clothing although he declined, Q15 minute safety checks Restraints/seclusion/emergency medication:none Justification of Continued Inpatient Treatment: Pt gravely disabled and on a court competency 1370
[2019-02-13 20:00] VITALS: BP 121/74
[2019-02-13] MEDS: CLOZAPINE 100 MG TAB.RAPDIS PO SCH (20:05)
[2019-02-13] MEDS: haloperidol 5mg tablet PO SCH (20:05)
[2019-02-13] MEDS: clozapine 25mg tablet PO SCH (20:18)
[2019-02-13] MEDS ORDERED: CLOZAPINE 25 MG PO SCH (21:00)
[2019-02-13] MEDS ORDERED: CLOZAPINE 25 MG oral disintegrating tablet PO SCH (21:00)
--- NOTE | 2019-02-14 04:10 | NUR ---
Nursing Progress Note: Solo Jordan Legal hold: court competency 1370 Client on involuntary status for GD Report received from ZAMZAM [place] with use of SBAR: Why are they here: Pt has been arrested multiple times for trespassing and this time has been in [facility] since April 2018. Pt unmedicated and very psychotic with poor hygiene. Pt is not competent to stand trial and so was placed here for stabilization of his psychiatric symptoms. Assessment What has happened this shift: Patient pacing the loera at the beginning of shift. Patient pleasant and cooperative during physical assessment. Answering all questions "yes ma'am" and "no ma'am." However, when patient was asked by this typewriter aligner to listen to his heart sounds he asked "which one?" and proceeded to say "oh yea, you went to med school" and directed this typewriter aligner to the correct location of his heart but then he explained "not all human hearts are in the same spot." Patient continues to lay and sit on the floor while in his room, but sat in a chair while in the group room for snack. S/I, H/I: denies A/VH: denies Sleep: asleep at this time ADLs: independent requires encouragement Group attendance: group room for snack Were meds taken: yes Any med S/E : none reported, none observed. Mental Status Exam Appearance: clean, green scrubs, hair unkept Eye contact: direct Behavior: cooperative Speech: tangential Mood:calm, guarded Affect: anxious to flat Thought process:disorganized Thought Content:disorganized Cognition: poor Insight:poor Judgment: poor Interventions PRN's used: Therapeutic interventions: 1:1 assessment, therapeutic listening, offered shower and clean clothing although he declined, Q15 minute safety checks Restraints/seclusion/emergency medication:none Justification of Continued Inpatient Treatment: Pt gravely disabled and on a court competency 1370
[2019-02-14 07:56] VITALS: BP 136/58
[2019-02-14] MEDS: benztropine 1mg tablet PO SCH ×2 (08:00→20:07)
[2019-02-14] MEDS: pantoprazole 40mg Tablet.DR PO SCH (08:00)
[2019-02-14 08:21] LABS: BASOPHILS % (AUTO) 1.2 % (0-1); EOSINOPHILS # (AUTO) 0.1 X10'3 (0-0.9); EOSINOPHILS % (AUTO) 2.2 % (0-6); HEMATOCRIT 49.9 % (42.0-52.0); HEMOGLOBIN 16.9 g/dl (14.0-17.9); LYMPHOCYTES # (AUTO) 1.3 X10'3 (1.1-4.8); LYMPHOCYTES % (AUTO) 31.4 % (21-51); MEAN CORPUSCULAR HEMOGLOBIN 29.8 PG (27.0-31.0); MEAN CORPUSCULAR HGB CONC 33.8 g/dL (33.0-36.5); MEAN CORPUSCULAR VOLUME 88.1 FL (78-98); MONOCYTES # (AUTO) 0.6 X10'3 (0-0.9); MONOCYTES % (AUTO) 13.4 % (2-12); NEUTROPHILS # (AUTO) 2.2 X10'3 (1.8-7.7); NEUTROPHILS % (AUTO) 51.8 % (42-75); PLATELET COUNT 195 X10'3 (140-440); RED BLOOD COUNT 5.66 X10'6 (4.70-6.10); WHITE BLOOD COUNT 4.3 X10'3 (4.5-11.0)
--- NOTE | 2019-02-14 08:54 | NUR ---
Reassessment: Pt PO 75-100% meals meeting needs. LBM 02/13. No nutrition concerns at this time. Recommendations: 1) Continue with regular diet 2) Bowel care PRN 3) Weekly wt Addendum: 02/14/19 at [address] Amended: Links added.
--- NOTE | 2019-02-14 14:25 | NUR ---
Nursing Progress Note: Legal hold: court competency 1370 Client on involuntary status for GD Report received from ZAMZAM Mayer with use of SBAR: Why are they here: Pt has been arrested multiple times for trespassing and this time has been in [facility]Term since April 2018. Pt unmedicated and very psychotic with poor hygiene. Pt is not competent to stand trial and so was placed here for stabilization of his psychiatric symptoms. Assessment What has happened this shift: Pt refused to allow physical assessment to be done. When asked if I could listen to his lungs, he replied, "no, they already got my lungs." Asked pt who had got his lungs. He replied, "the girl with the blood draw, I don't need a stethoscope." Pt walked away from this RN as he was stating this. WBC count was 4.3 today, psychiatrist Dr Cano notified. Pt observed lying on the floor in his room. PCT requested/encouraged pt to lie in his bed instead of on the floor. Pt layed down in bed curled up in the lower left corner, taking up as little room as possible in the bed as though to leave room for an unseen someone else. Later observed pt sitting on the floor in the hallway propped against the wall by the front door with a blanket around him. Asked the pt if there was any reason why he was sitting on the floor in the hallway and not in his room. He replied, "no" and declined to elaborate. PCT reports that he often does this, did not feel that pt was door watching or exit seeking. S/I, H/I: Pt declined to answer the question A/VH: Pt declined to answer the question Sleep: Slept 7.75 hours per noc shift report ADLs: independent, requires prompting for personal hygiene at times Group attendance: No Were meds taken: Yes Any med S/E : None reported or noted Mental Status Exam Appearance: Disheveled, messy hair, long fingernails Eye contact: Fair Behavior: Avoidant, guarded, dismissive, isolative to self Speech: minimal, poverty of speech Mood: Irritable, avoidant Affect: Flat Thought process: Delusional Thought Content: He doesn't need to be assessed physically, does not appreciate frequent blood draws. Cognition: A/O X 2 Insight:poor Judgment: poor Interventions PRN's used: None Therapeutic interventions: 1:1 assessment, active listening, encouragement to express thoughts and feelings, encouragement to lie on his bed instead of on the hard floor, encouragement to perform personal hygiene, Q15 minute safety checks Restraints/seclusion/emergency medication: None Justification of Continued Inpatient Treatment: Pt gravely disabled and on a court competency 1370, remains delusional and disorganized.
[2019-02-14 19:00] VITALS: BP 116/78
[2019-02-14] MEDS: clozapine 25mg tablet PO SCH (20:07)
[2019-02-14] MEDS: CLOZAPINE 100 MG TAB.RAPDIS PO SCH (20:08)
[2019-02-14] MEDS: haloperidol 5mg tablet PO SCH (20:08)
--- NOTE | 2019-02-14 21:26 | NUR ---
Nursing Progress Note: Legal hold: court competency 1370 Client on involuntary status for GD Report received from TIARA Elizalde with use of SBAR: Why are they here: Pt has been arrested multiple times for trespassing and this time has been in [facility] since April 2018. Pt unmedicated and very psychotic with poor hygiene. Pt is not competent to stand trial and so was placed here for stabilization of his psychiatric symptoms. Assessment What has happened this shift: Patient ambulating the loera at the start of shift. Compliant with physical assessment and medications. After assessment patient began jogging in place and into a slow motion into the loera. This nurse asked if he needed to get some energy out and replied his hands were cold and needed to warm them up. Refused warm blanket when offered. S/I, H/I: refused A/VH: refused Sleep: asleep at this time ADLs: independent, requires prompting for personal hygiene at times Group attendance: group room for snack Were meds taken: Yes Any med S/E : None reported or noted Mental Status Exam Appearance: unkept nails and hair, wearing green scrubs Eye contact: Fair Behavior: pleasant, cooperative Speech: minimal, clear, steady pace Mood: "good" Affect: Flat Thought process: Delusional Thought Content: unable to assess Cognition: A/O X 2 Insight: poor Judgment: poor Interventions PRN's used: None Therapeutic interventions: 1:1 assessment, active listening, encouragement to express thoughts and feelings, encouragement to lie on his bed instead of on the hard floor, encouragement to perform personal hygiene, Q15 minute safety checks Restraints/seclusion/emergency medication: None Justification of Continued Inpatient Treatment: Pt gravely disabled and on a court competency 1370, remains delusional and disorganized.
[2019-02-15 08:00] VITALS: BP 105/71
[2019-02-15] MEDS: benztropine 1mg tablet PO SCH ×2 (08:15→21:24)
[2019-02-15] MEDS: pantoprazole 40mg Tablet.DR PO SCH (08:15)
[2019-02-15 08:25] LABS: EOSINOPHILS # (AUTO) 0.1 X10'3 (0-0.9); HEMOGLOBIN 15.7 g/dl (14.0-17.9); LYMPHOCYTES # (AUTO) 1.1 X10'3 (1.1-4.8); LYMPHOCYTES % (AUTO) 26.4 % (21-51); MEAN CORPUSCULAR HEMOGLOBIN 29.3 PG (27.0-31.0); MEAN CORPUSCULAR HGB CONC 33.4 g/dL (33.0-36.5); MEAN CORPUSCULAR VOLUME 87.6 FL (78-98); MEAN PLATELET VOLUME 8.1 FL (7.4-10.4); MONOCYTES # (AUTO) 0.5 X10'3 (0-0.9); MONOCYTES % (AUTO) 12.2 % (2-12); NEUTROPHILS # (AUTO) 2.5 X10'3 (1.8-7.7); NEUTROPHILS % (AUTO) 58.4 % (42-75); PLATELET COUNT 197 X10'3 (140-440); RED BLOOD COUNT 5.37 X10'6 (4.70-6.10); RED CELL DISTRIBUTION WIDTH 12.8 % (11.5-14.5); WHITE BLOOD COUNT 4.3 X10'3 (4.5-11.0)
--- NOTE | 2019-02-15 17:35 | NUR ---
Nursing Progress Note: Legal hold: court competency 1370 Client on involuntary status for GD Report received from ZAMZAM Mayer with use of SBAR: Why are they here: Pt has been arrested multiple times for trespassing and this time has been in Detention since April 2018. Pt unmedicated and very psychotic with poor hygiene. Pt is not competent to stand trial and so was placed here for stabilization of his psychiatric symptoms. Assessment What has happened this shift: Received patient visible on unit. Patient remains to himself and does not initiate interaction with others. Patient attended meals but did not attend groups today. Patient continues to nap a lot during free times. Patient able to remain focused on topic during interaction with nurse. Patient denies auditory hallucinations, but does endorse depression and says its mostly related to his still being here. Patient denies suicidal thoughts. S/I, H/I: denies A/VH: denies Sleep: some napping today ADLs: independent, requires prompting for personal hygiene at times Group attendance: No Were meds taken: Yes Any med S/E : None reported or noted Mental Status Exam Appearance: Disheveled, messy hair, long fingernails Eye contact: Fair Behavior: Avoidant, guarded, dismissive, isolative to self Speech: minimal, poverty of speech Mood: Irritable, avoidant Affect: Flat Thought process: Delusional Thought Content: He doesn't need to be assessed physically, does not appreciate frequent blood draws. Cognition: A/O X 2 Insight:poor Judgment: poor Interventions PRN's used: None Therapeutic interventions: 1:1 assessment, active listening, encouragement to express thoughts and feelings, encouragement to lie on his bed instead of on the hard floor, encouragement to perform personal hygiene, Q15 minute safety checks Restraints/seclusion/emergency medication: None Justification of Continued Inpatient Treatment: Pt gravely disabled and on a court competency 1370, remains delusional and disorganized.
[2019-02-15 19:34] VITALS: BP 128/56
[2019-02-15] MEDS: CLOZAPINE 100 MG TAB.RAPDIS PO SCH (21:22)
[2019-02-15] MEDS: clozapine 25mg tablet PO SCH (21:23)
[2019-02-15] MEDS: haloperidol 5mg tablet PO SCH (21:24)
--- NOTE | 2019-02-16 01:16 | NUR ---
Nursing Progress Note: Legal hold: court competency 1370 Client on involuntary status for GD Report received from ZAMZAM Mayer with use of SBAR: Why are they here: Pt has been arrested multiple times for trespassing and [facility]. Pt unmedicated and very psychotic with poor hygiene. Pt is not competent to stand trial and so was placed here for stabilization of his psychiatric symptoms. Assessment What has happened this shift: Patient sitting in his room on the floor at the beginning of the shift. Shortly after he was visible on the unit. Patient is showing interest in discharge AEB he approached this nurse stating "excuse me miss, do you know what county I would be discharged to when I leave?" this nurse was unsure at the time and he was accepting of the response. Patient was helpful with peers, another patient needed help and he eagerly found this nurse stating the other patients needs. Patient went outside for snack with peers and staff. Patient compliant with physical assessment and medication pass. Patient Clozaril increased by 25mg making HS dose 250mg per MD order, no c/o or observation of ASE. Patient went to room and laid on the floor shortly after coming in from outside. S/I, H/I: denies A/VH: denies Sleep: asleep at this time ADLs: independent, requires prompting for personal hygiene at times Group attendance: outside on the patio for snack Were meds taken: Yes Any med S/E : None reported or noted Mental Status Exam Appearance: Disheveled, unkept hair, long fingernails Eye contact: Fair Behavior: pleasant, cooperative, helpful Speech: clear, steady pace, minimal Mood: stated "feel good" Affect: Flat Thought process: Delusional Thought Content: what county he would be discharged to when the time comes Cognition: A/O X 2 Insight:poor Judgment: poor Interventions PRN's used: None Therapeutic interventions: 1:1 assessment, active listening, encouragement to express thoughts and feelings, encouragement to lie on his bed instead of on the hard floor, encouragement to perform personal hygiene, Q15 minute safety checks Restraints/seclusion/emergency medication: None Justification of Continued Inpatient Treatment: Pt gravely disabled and on a court competency 1370, remains delusional and disorganize
[2019-02-16 07:42] VITALS: BP 116/58
[2019-02-16] MEDS: benztropine 1mg tablet PO SCH ×2 (08:39→20:46)
[2019-02-16] MEDS: pantoprazole 40mg Tablet.DR PO SCH (08:39)
[2019-02-16 12:09] LABS: BASOPHILS % (AUTO) 0.6 % (0-1); EOSINOPHILS # (AUTO) 0.1 X10'3 (0-0.9); EOSINOPHILS % (AUTO) 2.2 % (0-6); HEMATOCRIT 46.2 % (42.0-52.0); HEMOGLOBIN 15.4 g/dl (14.0-17.9); LYMPHOCYTES # (AUTO) 0.9 X10'3 (1.1-4.8); LYMPHOCYTES % (AUTO) 15.7 % (21-51); MEAN CORPUSCULAR HEMOGLOBIN 29.6 PG (27.0-31.0); MEAN CORPUSCULAR HGB CONC 33.4 g/dL (33.0-36.5); MEAN CORPUSCULAR VOLUME 88.7 FL (78-98); MONOCYTES # (AUTO) 0.8 X10'3 (0-0.9); MONOCYTES % (AUTO) 12.8 % (2-12); NEUTROPHILS % (AUTO) 68.7 % (42-75); PLATELET COUNT 194 X10'3 (140-440); RED BLOOD COUNT 5.21 X10'6 (4.70-6.10); RED CELL DISTRIBUTION WIDTH 12.8 % (11.5-14.5); WHITE BLOOD COUNT 5.9 X10'3 (4.5-11.0)
--- NOTE | 2019-02-16 17:08 | NUR ---
Nursing Progress Note: Legal hold: court competency 1370 Client on involuntary status for GD Report received from Tanja Aly RN with use of SBAR: Why are they here: Pt has been arrested multiple times for trespassing and [facility]. Pt unmedicated and very psychotic with poor hygiene. Pt is not competent to stand trial and so was placed here for stabilization of his psychiatric symptoms. Assessment What has happened this shift: Received patient sleeping on floor of bedroom. Patient got up for breakfast after being woken up two times. Patient compliant with medications. Patient did attend all meals, but refused all groups. Patient polite upon approach, but did state he felt the medications are not making any changes in him. Patient stated, Im used to being on Ritalin and being yelled at. Patient states thats how his parents treated him. Patient very [id number] and concrete; without emotion. Patient denies auditory hallucinations, and suicidal thoughts though he does endorse some depression. S/I, H/I: denies A/VH: denies Sleep: some napping today ADLs: independent, requires prompting for personal hygiene at times Group attendance: No Were meds taken: Yes Any med S/E : None reported or noted Mental Status Exam Appearance: Disheveled, messy hair, long fingernails Eye contact: Fair Behavior: Avoidant, guarded, dismissive, isolative to self Speech: minimal, poverty of speech Mood: Irritable, avoidant Affect: Flat Thought process: Delusional Thought Content: He doesn't need to be assessed physically, does not appreciate frequent blood draws. Cognition: A/O X 2 Insight:poor Judgment: poor Interventions PRN's used: None Therapeutic interventions: 1:1 assessment, active listening, encouragement to express thoughts and feelings, encouragement to lie on his bed instead of on the hard floor, encouragement to perform personal hygiene, Q15 minute safety checks Restraints/seclusion/emergency medication: None Justification of Continued Inpatient Treatment: Pt gravely disabled and on a court competency 1370, remains delusional and disorganized.
[2019-02-16 20:00] VITALS: BP 112/75
[2019-02-16] MEDS: clozapine 25mg tablet PO SCH (20:47)
[2019-02-16] MEDS: haloperidol 5mg tablet PO SCH (20:47)
[2019-02-16] MEDS: CLOZAPINE 100 MG TAB.RAPDIS PO SCH (20:47)
--- NOTE | 2019-02-17 03:00 | NUR ---
Nursing Progress Note: Legal hold: Court competency 1370 Client on involuntary status for GD Report received from ZAMZAM Elizalde with use of SBAR: Why are they here: Pt has been arrested multiple times for trespassing and this time has been in [facility] since April 2018. Pt unmedicated and very psychotic with poor hygiene. Pt is not competent to stand trial and so was placed here for stabilization of his psychiatric symptoms. Assessment What has happened this shift: Pt sitting in his room at shift change. Pt is later observed walking the halls talking to himself and waving his hands. Pt is polite and cooperative with 1:1 assessment and medication administration. Pt is always polite when he needs something, weather it be a snack, a pitcher of water or patient when waiting for his meds. Pt continues to sleep on floor of his room "it makes my lumbar spine feel better." S/I, H/I: Pt denies. None observed. A/VH: Pt denies. Pt is observed talking to himself, being animated with arms/hands. Sleep: Currently sleeping. See sleep assessment notation. ADLs: Independent, requires prompting for personal hygiene at times Group attendance: power and recovery shift engineer no group. Were meds taken: Medication compliant Any med S/E : None reported or noted Mental Status Exam Appearance: Disheveled, unkept hair, dressed in green scrubs Eye contact: Fair Behavior: Guarded, avoidant, dismissive, isolates to self Speech: Minimal, poverty of speech Mood: stated "feel good" Affect: Flat Thought process: Delusional Thought Content: Pt happy about snack tonight. Cognition: A/O X 2 Insight: Poor Judgment: Poor Interventions PRN's used: None Therapeutic interventions: 1:1 assessment, active listening, encouragement to express thoughts and feelings, encouragement to lie on his bed instead of on the hard floor, encouragement to perform personal hygiene, Q15 minute safety checks Restraints/seclusion/emergency medication: N/A Justification of Continued Inpatient Treatment: Pt gravely disabled and on a court competency 1370, remains delusional and disorganize.
[2019-02-17 08:00] VITALS: BP 125/70
[2019-02-17] MEDS: benztropine 1mg tablet PO SCH ×2 (08:17→20:35)
[2019-02-17] MEDS: pantoprazole 40mg Tablet.DR PO SCH (08:17)
[2019-02-17 10:34] LABS: BASOPHILS % (AUTO) 0.7 % (0-1); EOSINOPHILS # (AUTO) 0.1 X10'3 (0-0.9); EOSINOPHILS % (AUTO) 2.3 % (0-6); HEMATOCRIT 44.4 % (42.0-52.0); LYMPHOCYTES # (AUTO) 1.1 X10'3 (1.1-4.8); LYMPHOCYTES % (AUTO) 17.8 % (21-51); MEAN CORPUSCULAR HEMOGLOBIN 29.4 PG (27.0-31.0); MEAN CORPUSCULAR HGB CONC 33.8 g/dL (33.0-36.5); MEAN CORPUSCULAR VOLUME 87.1 FL (78-98); MEAN PLATELET VOLUME 7.7 FL (7.4-10.4); MONOCYTES # (AUTO) 0.9 X10'3 (0-0.9); MONOCYTES % (AUTO) 15.2 % (2-12); PLATELET COUNT 189 X10'3 (140-440); RED CELL DISTRIBUTION WIDTH 12.9 % (11.5-14.5); WHITE BLOOD COUNT 6.2 X10'3 (4.5-11.0)
--- NOTE | 2019-02-17 11:23 | NUR ---
Nursing Progress Note: Legal hold: Court competency 1370 Client on involuntary status for GD Report received from TIARA Sharma with use of SBAR: Why are they here: Pt has been arrested multiple times for trespassing and this time has been in [facility] since April 2018. Pt unmedicated and very psychotic with poor hygiene. Pt is not competent to stand trial and so was placed here for stabilization of his psychiatric symptoms. Assessment What has happened this shift: Pt up for breakfast, was filling out his menu when this RN asked to scan his wristband to give him his meds. Pt allowed wrist band to be scanned but then picked up his finished meal tray to place in cart and started walking off to his room. Stopped pt to give him his meds which pt reluctantly took. Pt continues to be constricted, isolative to self and somewhat avoidant. After lab draw around 1015 this am pt asked family helper for a treat "since I did so good." Pt requested a PB &J sandwich he said "to replenish my sodium levels." Pt given an Uncrustable for snack. He read the label nodded and approvingly stated 500 M.G. sodium, then asked, "is that milligrams?" Pt proceeded to quickly eat his snack. Pt denies depression, SI/HI/AH/VH, states, "I'm good, a little anxious because I want to get out of here." When asked pt if he knew the date, he replied, "It's not Monday." (Today is Monday.) When asked him if he knew what month we were in he replied, " 2 months after January?" Let pt know the date and that we were still in January, pt replied, "oh cool." Notified pt that his daily blood draw order was changed to weekly. Pt stated, "I'm supposed to be getting out of here in a week." Pt continues to prefer sleeping/napping on the floor with a blanket over him. S/I, H/I: Pt denies A/VH: Pt denies. Sleep: Slept 7.75 hours last night, naps periodically throughout the day ADLs: Independent, requires prompting for personal hygiene at times Group attendance: Declines to attend groups Were meds taken: Reluctantly compliant Any med S/E : None noted or reported Mental Status Exam Appearance: Disheveled, unkept hair, dressed in green scrubs Eye contact: Fair Behavior: Constricted, avoidant, dismissive, isolates to self Speech: Minimal, poverty of speech Mood: a little anxious Affect: Flat Thought process: Delusional Thought Content: Pt wants out of here, believes he will be leaving within the week, believes he needs his sodium replenished. Cognition: A/O X 3 Insight: Poor Judgment: Poor Interventions PRN's used: None Therapeutic interventions: 1:1 assessment, encouragement to express thoughts and feelings, encouragement to lie on his bed instead of on the hard floor, encouragement to perform personal hygiene, reality orientation, medication administration/education/monitoring, lab draws/monitoring for Clozaril, Q15 minute safety checks Restraints/seclusion/emergency medication: N/A Justification of Continued Inpatient Treatment: Pt gravely disabled and on a court competency 1370, remains delusional and disorganize.
[2019-02-17 19:57] VITALS: BP 127/82
[2019-02-17] MEDS: clozapine 25mg tablet PO SCH ×2 (20:36→21:00)
[2019-02-17] MEDS: CLOZAPINE 100 MG TAB.RAPDIS PO SCH (20:36)
[2019-02-17] MEDS: haloperidol 5mg tablet PO SCH (20:37)
[2019-02-17] MEDS ORDERED: clozapine 25mg tablet PO ONE (22:05)
--- NOTE | 2019-02-18 03:39 | NUR ---
Nursing Progress Note: Legal hold: Court competency 1370 Client on involuntary status for GD Report received from TIARA Sharma with use of SBAR: Why are they here: Pt has been arrested multiple times for trespassing and this time has been in [facility] April 2018. Pt unmedicated and very psychotic with poor hygiene. Pt is not competent to stand trial and so was placed here for stabilization of his psychiatric symptoms. Assessment What has happened this shift: Pt ambulating in halls at start of shift. Pleasant and cooperative. Pt conversation is extremely delusional. Pt asked if he was going to be released next week. When asked where he would go if he got released the pt said said he would live in front of the [facility] for several years. He went on to say the business systems consultant at this [employer] was into bestiality. 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 Pt slept on the floor. S/I, H/I: Pt denies A/VH: Pt denies. Sleep: Slept sleeping at this time ADLs: Independent, requires prompting for personal hygiene at times Group attendance: Declines to attend groups Were meds taken: Reluctantly compliant Any med S/E : None noted or reported Mental Status Exam Appearance: Disheveled, unkept hair, dressed in green scrubs Eye contact: Fair Behavior: Constricted, avoidant, dismissive, isolates to self Speech: Minimal, poverty of speech Mood: a little anxious Affect: Flat Thought process: Delusional Thought Content: Pt wants out of here, believes he will be leaving within the week, believes he needs his sodium replenished. Cognition: A/O X 3 Insight: Poor Judgment: Poor Interventions PRN's used: None Therapeutic interventions: 1:1 assessment, encouragement to express thoughts and feelings, encouragement to lie on his bed instead of on the hard floor, encouragement to perform personal hygiene, reality orientation, medication administration/education/monitoring, lab draws/monitoring for Clozaril, Q15 minute safety checks Restraints/seclusion/emergency medication: N/A Justification of Continued Inpatient Treatment: Pt gravely disabled and on a court competency 1370, remains delusional and disorganize.
[2019-02-18 08:00] VITALS: BP 116/77
[2019-02-18] MEDS: pantoprazole 40mg Tablet.DR PO SCH (08:18)
[2019-02-18] MEDS: benztropine 1mg tablet PO SCH ×2 (08:18→20:09)
--- NOTE | 2019-02-18 15:42 | NUR ---
Nursing Progress Note: Legal hold: Court competency 1370 Client on involuntary status for GD Report received from ZAMZAM Mondragon with use of SBAR: Why are they here: Pt has been arrested multiple times for trespassing and this time has been in [facility] April 2018. Pt unmedicated and very psychotic with poor hygiene. Pt is not competent to stand trial and so was placed here for stabilization of his psychiatric symptoms. Assessment What has happened this shift: Pt stated he was fasting today, planned on fasting for 3 days. PCT explained that this was not a healthy thing for him to do and he did eventually come to the dining room with encouragement and eat his breakfast. At lunchtime, pt initially only ate 25% but was prompted to return to the dining room to finish his meal and he did. Pt remains somewhat disorganized though responds well to prompts and redirection. Pt continues to prefer lying on the floor to sleep. S/I, H/I: Pt denies A/VH: Pt denies. Sleep: Slept 9.5 hours last night, naps periodically throughout the day ADLs: Independent, requires prompting for personal hygiene, declines to brush his hair most of the time Group attendance: Declines to attend groups Were meds taken: Yes Any med S/E : None noted or reported Mental Status Exam Appearance: Disheveled, unkept hair, dressed in green scrubs Eye contact: Fair Behavior: Constricted, avoidant, isolates to self Speech: Minimal, poverty of speech Mood: "good" Affect: Flat Thought process: Delusional, disorganized Thought Content: Pt wants to go on a fast. Cognition: A/O X 3 Insight: Poor Judgment: Poor Interventions PRN's used: None Therapeutic interventions: 1:1 assessment, encouragement to express thoughts and feelings, encouragement to lie on his bed instead of on the hard floor, encouragement to perform personal hygiene, reality orientation, medication administration/education/monitoring, lab draws/monitoring for Clozaril, Q15 minute safety checks Restraints/seclusion/emergency medication: N/A Justification of Continued Inpatient Treatment: Pt gravely disabled and on a court competency 1370, remains delusional and disorganized.
[2019-02-18] MEDS: clozapine 25mg tablet PO SCH (20:09)
[2019-02-18] MEDS: CLOZAPINE 100 MG TAB.RAPDIS PO SCH (20:11)
[2019-02-18] MEDS: haloperidol 5mg tablet PO SCH (20:12)
[2019-02-18 20:32] VITALS: BP 112/76
--- NOTE | 2019-02-19 02:05 | NUR ---
Nursing Progress Note: Legal hold: Court competency 1370 Client on involuntary status for GD Report received from ZAMZAM Mondragon with use of SBAR: Why are they here: Pt has been arrested multiple times for trespassing and this time has been in [facility] April 2018. Pt unmedicated and very psychotic with poor hygiene. Pt is not competent to stand trial and so was placed here for stabilization of his psychiatric symptoms. Assessment What has happened this shift: Pt is walking up and down halls at start of shift. Pt continues to have disorganized delusional thinking. Pt asked when he will be discharged. When pt was asked if he was aware of plan to conserve him, pt replied he had been conserved before. Asked if that was a good thing pt said no but did not seem upset, he said immediately after that he was thinking of getting a bicycle for exercise. Pt is pleasant and cooperative took all medications. S/I, H/I: Pt denies A/VH: Pt denies. Sleep: asleep at this time ADLs: Independent, requires prompting for personal hygiene, declines to brush his hair most of the time Group attendance: Declines to attend groups Were meds taken: Yes Any med S/E : None noted or reported Mental Status Exam Appearance: Disheveled, unkept hair, dressed in green scrubs Eye contact: Fair Behavior: Constricted, avoidant, isolates to self Speech: Minimal, poverty of speech Mood: "good" Affect: Flat Thought process: Delusional, disorganized Thought Content: Pt wants to go on a fast. Cognition: A/O X 3 Insight: Poor Judgment: Poor Interventions PRN's used: None Therapeutic interventions: 1:1 assessment, encouragement to express thoughts and feelings, encouragement to lie on his bed instead of on the hard floor, encouragement to perform personal hygiene, reality orientation, medication administration/education/monitoring, lab draws/monitoring for Clozaril, Q15 minute safety checks Restraints/seclusion/emergency medication: N/A Justification of Continued Inpatient Treatment: Pt gravely disabled and on a court competency 1370, remains delusional and disorganized.
[2019-02-19] MEDS: pantoprazole 40mg Tablet.DR PO SCH (07:29)
[2019-02-19] MEDS: benztropine 1mg tablet PO SCH ×2 (08:00→20:59)
[2019-02-19 08:40] VITALS: BP 107/79
--- NOTE | 2019-02-19 13:50 | NUR ---
Nursing Progress Note: Legal hold: Court competency 1370 Client on involuntary status for GD Report received from shift engineer RN Why are they here: Pt has been arrested multiple times for trespassing and this time has been in [facility] April 2018. Pt unmedicated and very psychotic with poor hygiene. Pt is not competent to stand trial and so was placed here for stabilization of his psychiatric symptoms. Assessment What has happened this shift: Patient up and visible on unit. Walked the hallway at frequent intervals and appears less isolative this shift. No somatic complaints as of this writing. Client needs ADL prompting yet still appears disheveled. Pleasent and engaging with staff. Pt is pleasant and cooperative but refused Cogentin this am. S/I, H/I: Pt denies A/VH: Pt denies. Sleep: 7.5 hours last shift. Rested briefly several times this shift. ADLs: Independent, requires prompting for personal hygiene, declines to brush his hair most of the time Group attendance: Declines to attend groups Were meds taken: selective Any med S/E : None noted or reported Mental Status Exam Appearance: Disheveled, unkept hair, dressed in green scrubs Eye contact: Fair Behavior: Constricted, avoidant, isolates to self Speech: Minimal, poverty of speech Mood: "I feel good now" Affect: Flat Thought process: Delusional, disorganized Thought Content: Pt wants to go on a fast. Cognition: A/O X 3 Insight: Poor Judgment: Poor Interventions PRN's used: None Therapeutic interventions: 1:1 assessment, encouragement to express thoughts and feelings, encouragement to lie on his bed instead of on the hard floor, encouragement to perform personal hygiene, reality orientation, medication administration/education/monitoring, lab draws/monitoring for Clozaril, Q15 minute safety checks Restraints/seclusion/emergency medication: N/A Justification of Continued Inpatient Treatment: Pt gravely disabled and on a court competency 1370, remains delusional and disorganized.
[2019-02-19 20:46] VITALS: BP 106/73
[2019-02-19] MEDS: CLOZAPINE 100 MG TAB.RAPDIS PO SCH (20:58)
[2019-02-19] MEDS: haloperidol 5mg tablet PO SCH (20:59)
--- NOTE | 2019-02-19 22:13 | NUR ---
Nursing Progress Note: Legal hold: Court competency 1370 Client on involuntary status for GD Report received from ZAMZAM Mondragon with use of SBAR: Why are they here: Pt has been arrested multiple times for trespassing and this time has [facility] in [facility] 2018. Pt unmedicated and very psychotic with poor hygiene. Pt is not competent to stand trial and so was placed here for stabilization of his psychiatric symptoms. Assessment What has happened this shift: Pt, as usual, is walking up and down halls at start of shift. Pt continues to have disorganized delusional thinking. Pt is still refusing to have hair brushed. He is still sleeping on floor in room, He said he is afraid to sleep in the bed because he saw a scary movie and now he is afraid of the woman trying to take hime for 2 pennies. Unable to hold a conversation because so much of what he says is nonsensical. Pt is pleasant and cooperative took all medications. S/I, H/I: Pt denies A/VH: Pt denies. Sleep: asleep at this time ADLs: Independent, requires prompting for personal hygiene, declines to brush his hair most of the time Group attendance: Declines to attend groups Were meds taken: Yes Any med S/E : None noted or reported Mental Status Exam Appearance: Disheveled, unkept hair, dressed in green scrubs Eye contact: Fair Behavior: Pleasant cooperative Speech: Talkative but tangental Mood: "good" Affect: animated Thought process: Delusional, disorganized Thought Content: unable to assess Cognition: A/O X 3 Insight: Poor Judgment: Poor Interventions PRN's used: None Therapeutic interventions: 1:1 assessment, encouragement to express thoughts and feelings, encouragement to lie on his bed instead of on the hard floor, encouragement to perform personal hygiene, reality orientation, medication administration/education/monitoring, lab draws/monitoring for Clozaril, Q15 minute safety checks Restraints/seclusion/emergency medication: N/A Justification of Continued Inpatient Treatment: Pt gravely disabled and on a court competency 1370, remains delusional and disorganized.
[2019-02-20] MEDS: pantoprazole 40mg Tablet.DR PO SCH (07:36)
[2019-02-20] MEDS: benztropine 1mg tablet PO SCH ×2 (07:36→20:39)
[2019-02-20 08:37] VITALS: BP 116/82
--- NOTE | 2019-02-20 11:44 | NUR ---
Nursing Progress Note: Legal hold: Court competency 1370 Client on involuntary status for GD Report received from machinist 2nd shift RN Why are they here: Pt has been arrested multiple times for trespassing and this time has been in [facility] April 2018. Pt unmedicated and very psychotic with poor hygiene. Pt is not competent to stand trial and so was placed here for stabilization of his psychiatric symptoms. Assessment What has happened this shift: Patient sleeping on the floor at change of shift. No distress observed. Patient was up for breakfast. Patient took his medications as prescribed. Patient walked the halls. Patient isolates and does not attend group. No change in patient's behavior. S/I, H/I: Pt denies A/VH: Pt denies. Sleep: several naps during the day. ADLs: Independent, requires prompting for personal hygiene, declines to brush his hair most of the time Group attendance: Declines Were meds taken: yes Any med S/E : None noted or reported Mental Status Exam Appearance: Disheveled, unkept hair, dressed in green scrubs Eye contact: Fair Behavior: Constricted, avoidant, isolates to self Speech: Minimal, poverty of speech Mood: bored Affect: Flat Thought process: Delusional, disorganized Thought Content: unknown Cognition: A/O X 3 Insight: Poor Judgment: Poor Interventions PRN's used: None Therapeutic interventions: 1:1 assessment, encouragement to express thoughts and feelings, encouragement to lie on his bed instead of on the hard floor, encouragement to perform personal hygiene, reality orientation, medication administration/education/monitoring, lab draws/monitoring for Clozaril, Q15 minute safety checks Restraints/seclusion/emergency medication: N/A Justification of Continued Inpatient Treatment: Pt gravely disabled and on a court competency 1370, remains delusional and disorganized.
--- NOTE | 2019-02-20 14:27 | NUR ---
Addendum Nursing Progress Note: Bethany Dsouza, RN; Yelitza, RN and patient practiced a mock trial for patient. Patient did well but was a little disorganized. Patient was articulate but then went off on tangents. Patient did better than expected. Patient will practice again at a later date.
[2019-02-20 20:00] VITALS: BP 116/72
[2019-02-20] MEDS: haloperidol 5mg tablet PO SCH (20:38)
[2019-02-20] MEDS: CLOZAPINE 100 MG TAB.RAPDIS PO SCH (20:38)
--- NOTE | 2019-02-21 01:36 | NUR ---
Nursing Progress Note: Legal hold: Court competency 1370 Client on involuntary status for GD Report received from ZAMZAM [place] Why are they here: Pt has been arrested multiple times for trespassing and this time has been in [facility] since April 2018. Pt unmedicated and very psychotic with poor hygiene. Pt is not competent to stand trial and so was placed here for stabilization of his psychiatric symptoms. Assessment What has happened this shift: Patient is walking the loera at change of shift. He is friendly and occasionally will interact with others. He makes random statements/questions during conversations. Like "Are bananas and rice pilaf alike? Oh just checking." He is complaint with evening medications. He puts himself to bed after HS medications and is noted to still be sleeping on the floor with a pillow and blanket next to his bed. No change in patient's behavior. S/I, H/I: Pt denies A/VH: Pt denies. Sleep: See sleep assessment ADLs: Independent, requires prompting for personal hygiene, declines to brush his hair most of the time Group attendance: Declines Were meds taken: Yes Any med S/E : None noted or reported Mental Status Exam Appearance: Disheveled, unkept hair, dressed in green scrubs Eye contact: Fair Behavior: Constricted, walks halls Speech: Speaks fast, normal volume Mood: Pleasant, Affect: Flat Thought process: Delusional, disorganized Thought Content: Unknown Cognition: A/O X 3 Insight: Poor Judgment: Poor Interventions PRN's used: None Therapeutic interventions: 1:1 assessment, encouragement to express thoughts and feelings, encouragement to lie on his bed instead of on the hard floor, encouragement to perform personal hygiene, reality orientation, medication administration/education/monitoring, lab draws/monitoring for Clozaril, Q15 minute safety checks Restraints/seclusion/emergency medication: N/A Justification of Continued Inpatient Treatment: Pt gravely disabled and on a court competency 1370, remains delusional and disorganized.
[2019-02-21 08:00] VITALS: BP 104/61
[2019-02-21] MEDS: benztropine 1mg tablet PO SCH ×2 (08:02→21:30)
[2019-02-21] MEDS: pantoprazole 40mg Tablet.DR PO SCH (08:02)
--- NOTE | 2019-02-21 11:59 | NUR ---
Reassessment: Pt continues meeting nutrient needs with documented 75-100% PO intake on regular diet. [facility] 02/20. No nutrition diagnosis at this time. Will continue to follow. Recommendations: 1) Continue with regular diet 2) Bowel care PRN 3) Weekly wt Addendum: 02/21/19 at [address] Amended: Links added.
--- NOTE | 2019-02-21 16:39 | NUR ---
Nursing Progress Note: Legal hold: Court competency 1370 Client on involuntary status for GD Report received from assembler 1st shift nurse discharge plannerLeyla Why are they here: Pt has been arrested multiple times for trespassing and this time has been in [facility] since April 2018. Pt unmedicated and very psychotic with poor hygiene. Pt is not competent to stand trial and so was placed here for stabilization of his psychiatric symptoms. Assessment What has happened this shift: Patient sleeping on the floor w/o distress at change of shift. Patient was up for breakfast. Patient took his medications as prescribed w/o any opposition Patient walked the halls and sits by his window looking out and often talks to himself. Patient isolates and does not attend group, but does attend meals and snack times with others. Pleasant and cooperative, even joked a little with staff. No change in patient's behavior. S/I, H/I: Pt denies A/VH: Pt denies. Sleep: several naps during the day. ADLs: Independent, requires prompting for personal hygiene, declines to brush his hair most of the time: no change Group attendance: Declines Were meds taken: yes Any med S/E : None noted or reported Mental Status Exam Appearance: Disheveled, unkept hair, dressed in green scrubs Eye contact: Fair Behavior: Constricted, avoidant, isolates to self Speech: Minimal, poverty of speech Mood: bored Affect: Flat Thought process: Delusional, disorganized Thought Content: unknown Cognition: A/O X 3 Insight: Poor Judgment: Poor Interventions PRN's used: None Therapeutic interventions: 1:1 assessment, encouragement to express thoughts and feelings, encouragement to lie on his bed instead of on the hard floor, encouragement to perform personal hygiene, reality orientation, medication administration/education/monitoring, lab draws/monitoring for Clozaril, Q15 minute safety checks Restraints/seclusion/emergency medication: N/A Justification of Continued Inpatient Treatment: Pt gravely disabled and on a court competency 1370, remains delusional and disorganized.
[2019-02-21 19:45] VITALS: BP 117/78
[2019-02-21] MEDS: LORazepam 0.5 MG tablet PO PRN (21:30)
[2019-02-21] MEDS: haloperidol 5mg tablet PO SCH (21:33)
[2019-02-21] MEDS: CLOZAPINE 100 MG TAB.RAPDIS PO SCH (21:34)
[2019-02-21] MEDS: mag hydrox/Alum hydrox/simeth 30ml oral suspension PO PRN (21:34)
--- NOTE | 2019-02-22 05:06 | NUR ---
Nursing Progress Note: Legal hold: Court competency 1370 Client on involuntary status for GD Report received from ZAMZAM Chavarria, with use of SBAR. Why are they here: Pt has been arrested multiple times for trespassing and this time has been in [facility] since April 2018. Pt unmedicated and very psychotic with poor hygiene. Pt is not competent to stand trial and so was placed here for stabilization of his psychiatric symptoms. Assessment What has happened this shift: Patient ambulating through halls following shift change. Patient thought process is more linear for periods of times. He then becomes disorganized. Patient is cooperative with staff. He is medication compliant and eats his meals. At times patient demonstrates a keen sense of humor. Patient states he sleeps on the floor as he has a bad back and that feels best. Patient denies H/I or S/I. S/I, H/I: Pt denies A/VH: Pt denies. Sleep: Occasional short naps prior to bedtime. ADLs: Independent, requires prompting for personal hygiene, declines to brush his hair most of the time: no change Group attendance: Did not attend on day shift. Were meds taken: Patient is medication compliant. Any med S/E : None noted or reported Mental Status Exam Appearance: Disheveled, unkept hair, dressed in green scrubs Eye contact: Fair Behavior: Constricted, avoidant, isolates to self Speech: Minimal, poverty of speech Mood: Bored Affect: Flat Thought process: Delusional, disorganized Thought Content: unknown Cognition: A/O X 3 Insight: Poor Judgment: Poor Interventions PRN's used: None Therapeutic interventions: 1:1 assessment, encouragement to express thoughts and feelings, encouragement to lie on his bed instead of on the hard floor, encouragement to perform personal hygiene, reality orientation, medication administration/education/monitoring, lab draws/monitoring for Clozaril, Q15 minute safety checks Restraints/seclusion/emergency medication: N/A Justification of Continued Inpatient Treatment: Pt gravely disabled and on a court competency 1370, remains delusional and disorganized.
[2019-02-22 08:07] VITALS: BP 117/73
[2019-02-22] MEDS: LORazepam 0.5 MG tablet PO PRN (08:36)
[2019-02-22] MEDS: pantoprazole 40mg Tablet.DR PO SCH (08:38)
[2019-02-22] MEDS: benztropine 1mg tablet PO SCH ×2 (08:38→20:55)
--- NOTE | 2019-02-22 16:43 | NUR ---
Nursing Progress Note: Legal hold: Court competency 1370 Client on involuntary status for GD Report received from TIARA Dewey with use of SBAR Why are they here: Pt has been arrested multiple times for trespassing and [facility]. Pt unmedicated and very psychotic with poor hygiene. Pt is not competent to stand trial and so was placed here for stabilization of his psychiatric symptoms. Assessment What has happened this shift: Patient sleeping on the floor at start of shift. He was up for meals. Mock court held w/staff, and Dr. Cano. Pt brushed his hair when asked to and put it back in a ponytail prior to the mock court. Did not attend groups. Paced halls not speaking to anyone for over 2 hours after the mock trial. S/I, H/I: Denies A/VH: Denies. Sleep: Naps during the day. ADLs: Independent Group attendance: No Were meds taken: Yes Any med S/E : None noted or reported Mental Status Exam Appearance: Disheveled, unkept hair, dressed in green scrubs Eye contact: Poor Behavior: Avoidance, isolates in room Speech: Minimal with loose associations Mood: Patient, calm and cooperative Affect: Flat Thought process: Disorganized Thought Content: Unknown Cognition: A/O X 3 Insight: Poor Judgment: Poor Interventions PRN's used: None Therapeutic interventions: 1:1 assessment, provided therapeutic communication with active listening, medication administration/monitoring/education, encouragement to perform self care/personal hygiene and attend groups, Q 15 min safety checks. Restraints/seclusion/emergency medication: N/A Justification of Continued Inpatient Treatment: Pt gravely disabled and on a court competency 1370, remains delusional and disorganized.
[2019-02-22 20:00] VITALS: BP 123/83
[2019-02-22] MEDS: CLOZAPINE 100 MG TAB.RAPDIS PO SCH (20:51)
[2019-02-22] MEDS: clozapine 25mg tablet PO SCH (20:53)
[2019-02-22] MEDS: haloperidol 5mg tablet PO SCH (20:53)
[2019-02-22] MEDS ORDERED: CLOZAPINE 25 MG PO SCH (21:00)
--- NOTE | 2019-02-23 00:30 | NUR ---
Nursing Progress Note: Legal hold: Court competency 1370 Client on involuntary status for GD Report received from ZAMZAM Chavarria with use of SBAR Why are they here: Pt has been arrested multiple times for trespassing and [facility] 2018. Pt unmedicated and very psychotic with poor hygiene. Pt is not competent to stand trial and so was placed here for stabilization of his psychiatric symptoms. Assessment Patient is pacing halls at shift change. He listens to head phones. Patient returns to room for interview. Patient states he is feeling pretty good. Patient talks about past nursing home experiences, living at a [facility] in [place], he then exhibits flight of thought. Patient states he can't wait to go home. Patient has no plan for future. Patient denies voices. no H/I or S/I. He states he ate dinner. Q15 minute rounding will be continued for patient safety. S/I, H/I: Denies A/VH: Denies. Sleep: Naps during the day. ADLs: Independent Group attendance: No Were meds taken: Yes Any med S/E : None noted or reported Mental Status Exam Appearance: Disheveled, unkept hair, dressed in green scrubs Eye contact: Poor Behavior: Avoidance, isolates in room Speech: Minimal with loose associations Mood: Patient, calm and cooperative Affect: Flat Thought process: Disorganized Thought Content: Unknown Cognition: A/O X 3 Insight: Poor Judgment: Poor Interventions PRN's used: None Therapeutic interventions: 1:1 assessment, provided therapeutic communication with active listening, medication administration/monitoring/education, encouragement to perform self care/personal hygiene and attend groups, Q 15 min safety checks. Restraints/seclusion/emergency medication: N/A Justification of Continued Inpatient Treatment: Pt gravely disabled and on a court competency 1370, remains delusional and disorganized.
[2019-02-23 08:00] VITALS: BP 115/68
[2019-02-23] MEDS: benztropine 1mg tablet PO SCH ×2 (08:31→20:51)
[2019-02-23] MEDS: pantoprazole 40mg Tablet.DR PO SCH (08:31)
[2019-02-23 13:05] LABS: BASOPHILS # (AUTO) 0.1 X10'3 (0-0.2); EOSINOPHILS # (AUTO) 0.1 X10'3 (0-0.9); EOSINOPHILS % (AUTO) 2.3 % (0-6); HEMATOCRIT 44.5 % (42.0-52.0); LYMPHOCYTES # (AUTO) 1.6 X10'3 (1.1-4.8); LYMPHOCYTES % (AUTO) 24.6 % (21-51); MEAN CORPUSCULAR HEMOGLOBIN 29.6 PG (27.0-31.0); MEAN CORPUSCULAR HGB CONC 33.7 g/dL (33.0-36.5); MEAN CORPUSCULAR VOLUME 87.8 FL (78-98); MEAN PLATELET VOLUME 7.9 FL (7.4-10.4); MONOCYTES # (AUTO) 0.8 X10'3 (0-0.9); MONOCYTES % (AUTO) 11.7 % (2-12); NEUTROPHILS # (AUTO) 3.9 X10'3 (1.8-7.7); NEUTROPHILS % (AUTO) 60.4 % (42-75); PLATELET COUNT 227 X10'3 (140-440); RED BLOOD COUNT 5.06 X10'6 (4.70-6.10); RED CELL DISTRIBUTION WIDTH 12.7 % (11.5-14.5); WHITE BLOOD COUNT 6.5 X10'3 (4.5-11.0)
--- NOTE | 2019-02-23 16:04 | NUR ---
Nursing Progress Note: Legal hold: Court competency 1370 Client on involuntary status for GD Report received from retail shift leader zinc furnace charger, Josie Why are they here: Pt has been arrested multiple times for trespassing and this time has been in [facility] since April 2018. Pt unmedicated and very psychotic with poor hygiene. Pt is not competent to stand trial and so was placed here for stabilization of his psychiatric symptoms. Assessment What has happened this shift: Patient sleeping on the floor w/o distress at change of shift. Patient was up for breakfast and took his medications as prescribed w/o issue. Patient walked the halls and napped in AM. He continues to sit by his window meditating and talks to himself. Patient isolates and did not attend group. He but attend meals and snack times with others and reviewed a bunch of writings in his room mocking who would have written some of them, when the sba underwriter was actually himself. Pleasant and cooperative, willing to help with tasks around unit. Able to laugh appropriately with staff at times as well as laughing at bizarre statements. S/I, H/I: Pt denies A/VH: Pt denies. Sleep: several naps during the day. ADLs: Independent, requires prompting for personal hygiene, declines to brush his hair most of the time: no change Group attendance: Declines Were meds taken: yes Any med S/E : None noted or reported Mental Status Exam Appearance: Disheveled, unkept hair, dressed in green scrubs Eye contact: Fair Behavior: Constricted, avoidant, isolates to self Speech: Minimal, poverty of speech Mood: bored Affect: Flat Thought process: Delusional, disorganized Thought Content: unknown Cognition: A/O X 3 Insight: Poor Judgment: Poor Interventions PRN's used: None Therapeutic interventions: 1:1 assessment, encouragement to express thoughts and feelings, encouragement to lie on his bed instead of on the hard floor, encouragement to perform personal hygiene, reality orientation, medication administration/education/monitoring, lab draws/monitoring for Clozaril, Q15 minute safety checks Restraints/seclusion/emergency medication: N/A Justification of Continued Inpatient Treatment: Pt gravely disabled and on a court competency 1370, remains delusional and disorganized.
[2019-02-23 20:00] VITALS: BP 113/40
[2019-02-23] MEDS: haloperidol 5mg tablet PO SCH (20:50)
[2019-02-23] MEDS: CLOZAPINE 100 MG TAB.RAPDIS PO SCH (20:51)
[2019-02-23] MEDS: clozapine 25mg tablet PO SCH (21:33)
--- NOTE | 2019-02-24 03:19 | NUR ---
Nursing Progress Note: Legal hold: Court competency 1370 Client on involuntary status for GD Report received from ZAMZAM Chavarria with use of SBAR Why are they here: Pt has been arrested multiple times for trespassing and this time has been in [facility] since April 2018. Pt unmedicated and very psychotic with poor hygiene. Pt is not competent to stand trial and so was placed here for stabilization of his psychiatric symptoms. Assessment What has happened this shift: At shift change this patient is ambulating the halls listening to music on the headphones. This patient is making good eye contact and is more linear than the past month. He remembers staff names and is polite and friendly. Patient denies S/I or H/I. He does not discuss hallucinations. The patient lays on the floor without blankets or bedding. He is encouraged to use bedding and complies. This patient agrees to take all Rx medications. He is cooperative with staff. S/I, H/I: Pt denies A/VH: Pt denies. Sleep: several naps during the day. ADLs: Patient is encouraged to take better care of grooming hair, etc. Group attendance: Declined on day shift. Were meds taken: Patient is medication compliant. Any med S/E : None noted or reported Mental Status Exam Appearance: Disheveled, unkept hair, dressed in green scrubs Eye contact: Fair Behavior: Constricted, avoidant, isolates to self Speech: Minimal, poverty of speech Mood: Bored Affect: Flat Thought process: Delusional, disorganized Thought Content: unknown Cognition: A/O X 3 Insight: Poor Judgment: Poor Interventions PRN's used: None Therapeutic interventions: 1:1 assessment, encouragement to express thoughts and feelings, encouragement to lie on his bed instead of on the hard floor, encouragement to perform personal hygiene, reality orientation, medication administration/education/monitoring, lab draws/monitoring for Clozaril, Q15 minute safety checks Restraints/seclusion/emergency medication: N/A Justification of Continued Inpatient Treatment: Pt gravely disabled and on a court competency 1370, remains delusional and disorganized.
[2019-02-24 07:00] VITALS: BP 107/60
[2019-02-24] MEDS: pantoprazole 40mg Tablet.DR PO SCH (07:59)
[2019-02-24] MEDS: benztropine 1mg tablet PO SCH ×2 (07:59→21:28)
[2019-02-24 09:24] LABS: BASOPHILS # (AUTO) 0.1 X10'3 (0-0.2); EOSINOPHILS # (AUTO) 0.2 X10'3 (0-0.9); EOSINOPHILS % (AUTO) 3.2 % (0-6); HEMATOCRIT 43.1 % (42.0-52.0); HEMOGLOBIN 14.7 g/dl (14.0-17.9); LYMPHOCYTES # (AUTO) 1.4 X10'3 (1.1-4.8); LYMPHOCYTES % (AUTO) 26.2 % (21-51); MEAN CORPUSCULAR HEMOGLOBIN 29.3 PG (27.0-31.0); MEAN CORPUSCULAR VOLUME 86.4 FL (78-98); MEAN PLATELET VOLUME 7.5 FL (7.4-10.4); MONOCYTES # (AUTO) 0.6 X10'3 (0-0.9); MONOCYTES % (AUTO) 10.8 % (2-12); NEUTROPHILS # (AUTO) 3.2 X10'3 (1.8-7.7); NEUTROPHILS % (AUTO) 58.8 % (42-75); PLATELET COUNT 211 X10'3 (140-440); RED CELL DISTRIBUTION WIDTH 12.3 % (11.5-14.5); WHITE BLOOD COUNT 5.4 X10'3 (4.5-11.0)
--- NOTE | 2019-02-24 15:28 | NUR ---
Nursing Progress Note Legal hold: Court competency 1370 Client on involuntary status for GD Report received from manufacturing supervisor 2nd shift discharge coordinator, Josie Why are they here: Pt has been arrested multiple times for trespassing and this time has been in [facility] since April 2018. Pt unmedicated and very psychotic with poor hygiene. Pt is not competent to stand trial and so was placed here for stabilization of his psychiatric symptoms. Assessment What has happened this shift: Patient up for meals and snacks, but has been sleeping on the floor in his room most of the day. Isolative and withdrawn. Patient readily takes medications. Denies any complaints. S/I, H/I: Pt denies A/VH: Pt denies. Sleep: several naps during the day. ADLs: Independent, requires prompting for personal hygiene, declines to brush his hair most of the time: no change Group attendance: No Were meds taken: yes Any med S/E : None noted or reported Mental Status Exam Appearance: Disheveled, unkept hair, dressed in green scrubs Eye contact: Fair Behavior: Constricted, avoidant, isolates to self Speech: Minimal, poverty of speech Mood: bored Affect: Flat Thought process: Delusional, disorganized, internally preoccupied. Thought Content: unknown Cognition: A/O X 3 Insight: Poor Judgment: Poor Interventions PRN's used: None Therapeutic interventions: 1:1 assessment, encouragement to express thoughts and feelings, encouragement to lie on his bed instead of on the hard floor, encouragement to perform personal hygiene, reality orientation, medication administration/education/monitoring, lab draws/monitoring for Clozaril, Q15 minute safety checks Restraints/seclusion/emergency medication: N/A Justification of Continued Inpatient Treatment: Pt gravely disabled and on a court competency 1370, remains delusional and disorganized.
[2019-02-24 19:55] VITALS: BP 126/85
[2019-02-24] MEDS: CLOZAPINE 100 MG TAB.RAPDIS PO SCH (21:28)
[2019-02-24] MEDS: haloperidol 5mg tablet PO SCH (21:28)
[2019-02-24] MEDS: clozapine 25mg tablet PO SCH (21:29)
--- NOTE | 2019-02-25 02:44 | NUR ---
Nursing Progress Note: Legal hold: Court competency 1370 Client on involuntary status for GD Report received from ZAMZAM Chavarria with use of SBAR Why are they here: Pt has been arrested multiple times for trespassing and this time has been in [facility] since April 2018. Pt unmedicated and very psychotic with poor hygiene. Pt is not competent to stand trial and so was placed here for stabilization of his psychiatric symptoms. Assessment What has happened this shift: The patient was seen in the hallway at shift change. He agrees to 1:2 at his bedside. The patient is in his usual state of disarray, but cooperates. The patient is beginning to answer questions appropriately. The eye contact is better, less latency with questions, and less tangential. The patient is thinking beyond [facility], and where he will discharge to. He's denying SI/HI or depression. He will not talk about hallucinations. The patient states that his mock trials seem to be helping. The patient was compliant with all medications tonight, then went to bed on the floor. S/I, H/I: Denies A/VH: Denies. Sleep: Asleep since HS med pass. ADLs: Independent, but needs prompting. 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 Were meds taken: yes. Any med S/E : None noted or reported Mental Status Exam Appearance: Disheveled, unkept hair, dressed in green scrubs. Eye contact: Fair Behavior: Isolative Speech: Normal volume, rate/rhythm. Mood: Blunted. Affect: Flat Thought process: Delusional, disorganized Thought Content: unknown Cognition: A/O X 3 Insight: Poor Judgment: Poor Interventions PRN's used: None Therapeutic interventions: 1:1 assessment, encouragement to express thoughts and feelings, encouragement to lie on his bed instead of on the hard floor, encouragement to perform personal hygiene, reality orientation, medication administration/education/monitoring, lab draws/monitoring for Clozaril, Q15 minute safety checks Restraints/seclusion/emergency medication: N/A Justification of Continued Inpatient Treatment: Pt gravely disabled and on a court competency 1370, remains delusional and disorganized.
[2019-02-25] MEDS: pantoprazole 40mg Tablet.DR PO SCH (07:52)
[2019-02-25] MEDS: benztropine 1mg tablet PO SCH ×2 (07:52→20:59)
--- NOTE | 2019-02-25 15:45 | NUR ---
Nursing Progress Note: Julian Legal hold: Court competency 1370 Client on involuntary status for GD Report received from Why are they here: Pt has been arrested multiple times for trespassing and this time has been in [facility] since April 2018. Pt unmedicated and very psychotic with poor hygiene. Pt is not competent to stand trial and so was placed here for stabilization of his psychiatric symptoms. Assessment What has happened this shift: To start the shift, client was resting on the floor with blanket pulled over his head. Compliant with meals and medications this am. Client responds appropriately to staff direction and questions. Denies any thoughts of self harm or harm to others. Visible on unit all shift and appropriate on unit. Verbalizing needs to staff. S/I, H/I: Denies A/VH: Denies. Sleep: 6.75 hours last shift. ADLs: Independent, but needs prompting. Group attendance: No groups on overnight cashier. Were meds taken: yes. Any med S/E : None noted or reported Mental Status Exam Appearance: Disheveled, unkept hair, dressed in green scrubs. Eye contact: Fair Behavior: Isolative Speech: Normal volume, rate/rhythm. Mood: Blunted. Affect: Flat Thought process: Delusional, disorganized Thought Content: unknown Cognition: A/O X 3 Insight: Poor Judgment: Poor Interventions PRN's used: None Therapeutic interventions: 1:1 assessment, encouragement to express thoughts and feelings, encouragement to lie on his bed instead of on the hard floor, encouragement to perform personal hygiene, reality orientation, medication administration/education/monitoring, lab draws/monitoring for Clozaril, Q15 minute safety checks Restraints/seclusion/emergency medication: N/A Justification of Continued Inpatient Treatment: Pt gravely disabled and on a court competency 1370, remains delusional and disorganized.
[2019-02-25 20:00] VITALS: BP_SYST 124; BP_SYST 126; BP_DIAS 83; BP_DIAS 85
[2019-02-25] MEDS: CLOZAPINE 25 MG oral disintegrating tablet PO SCH (20:54)
[2019-02-25] MEDS: haloperidol 5mg tablet PO SCH (20:57)
[2019-02-25] MEDS: clozapine 25mg tablet PO SCH (20:59)
--- NOTE | 2019-02-26 03:41 | NUR ---
Nursing Progress Note: Legal hold: Court competency 1370 Client on involuntary status for GD Report received from ZAMZAM Chavarria with use of SBAR Why are they here: Pt has been arrested multiple times for trespassing and this time has been in [facility] since April 2018. Pt unmedicated and very psychotic with poor hygiene. Pt is not competent to stand trial and so was placed here for stabilization of his psychiatric symptoms. Assessment What has happened this shift: The patient was seen in the hallway at shift change. He continues to spend more time out of his room, but doesn't engage with other clients. 1:1 was completed at bedside. The patient reports that he's ambivalent about the court process, and doesn't understand why he can't talk about why he was there. He continues to believe that he is getting better at the "mock trials." The patient states tonight that he's having problems with his legs, "when I'm still for too long, my legs get all jittery, and I have to move, get up and walk." The patient is getting better at holding conversation without delusional content, or going off on tangents. The patient went to sleep after HS med pass. He continues to sleep on the floor. S/I, H/I: Denies A/VH: Denies. Sleep: Asleep since HS med pass. ADLs: Independent, but needs prompting. Group attendance: No groups on work car operator. Were meds taken: yes. Any med S/E : None noted or reported Mental Status Exam Appearance: Disheveled, unkept hair, dressed in green scrubs. Eye contact: Fair Behavior: Isolative, pacing Speech: Normal volume, rate/rhythm. Mood: "pretty good." Affect: Blunted Thought process: Delusional, disorganized Thought Content: Perseverates on "claiming" his inheritance. Cognition: A/O X 3 Insight: Poor Judgment: Poor Interventions: PRN's used: None Therapeutic interventions: 1:1 assessment, encouragement to express thoughts and feelings, encouragement to lie on his bed instead of on the hard floor, encouragement to perform personal hygiene, reality orientation, medication administration/education/monitoring, lab draws/monitoring for Clozaril, Q15 minute safety checks Restraints/seclusion/emergency medication: N/A Justification of Continued Inpatient Treatment: Pt gravely disabled and on a court competency 1370, remains delusional and disorganized.
[2019-02-26 08:00] VITALS: BP 120/70
[2019-02-26] MEDS: benztropine 1mg tablet PO SCH ×2 (08:22→20:54)
[2019-02-26] MEDS: pantoprazole 40mg Tablet.DR PO SCH (08:22)
[2019-02-26] MEDS: mag hydrox/Alum hydrox/simeth 30ml oral suspension PO PRN (12:09)
--- NOTE | 2019-02-26 17:07 | NUR ---
Nursing Progress Note: Legal hold: Court competency 1370 Client on involuntary status for GD Report received from assistant casino shift manager foam chargerDelaney Why are they here: Pt has been arrested multiple times for trespassing and [facility]. Pt unmedicated and very psychotic with poor hygiene. Pt is not competent to stand trial and so was placed here for stabilization of his psychiatric symptoms. Assessment What has happened this shift: Patient sleeping on the floor w/o distress at change of shift. Patient was up for breakfast and took his medications as prescribed w/o issue. Patient spent most of day in room and napped in AM. He sat by his window meditating or lays on the floor on his blanket. Patient isolates and did not attend groups, stating that they would make his stay here longer and other delusional comments.. He attend meals and snack times with others. Pleasant and cooperative, desiring to be helpful to staff. Able to laugh appropriately at times and also at his own bizarre statements. S/I, H/I: Pt denies A/VH: Pt denies. Sleep: several naps during the day. ADLs: Independent, requires prompting for personal hygiene, declines to brush his hair most of the time: no change Group attendance: Declines Were meds taken: yes Any med S/E : None noted or reported Mental Status Exam Appearance: Disheveled, unkept hair, dressed in green scrubs Eye contact: Fair Behavior: Constricted, avoidant, isolates to self Speech: Minimal, poverty of speech Mood: bored Affect: Flat Thought process: Delusional, disorganized Thought Content: unknown Cognition: A/O X 3 Insight: Poor Judgment: Poor Interventions PRN's used: None Therapeutic interventions: 1:1 assessment, encouragement to express thoughts and feelings, encouragement to lie on his bed instead of on the hard floor, encouragement to perform personal hygiene, reality orientation, medication administration/education/monitoring, lab draws/monitoring for Clozaril, Q15 minute safety checks Restraints/seclusion/emergency medication: N/A Justification of Continued Inpatient Treatment: Pt gravely disabled and on a court competency 1370, remains delusional and disorganized.
[2019-02-26 20:00] VITALS: BP 117/85
[2019-02-26] MEDS: CLOZAPINE 25 MG oral disintegrating tablet PO SCH (20:53)
[2019-02-26] MEDS: clozapine 25mg tablet PO SCH (20:54)
[2019-02-26] MEDS: haloperidol 5mg tablet PO SCH (20:54)
--- NOTE | 2019-02-27 02:47 | NUR ---
Nursing Progress Note: Legal hold: Court competency 1370 Client on involuntary status for GD Report received from ZAMZAM Jean with use of SBAR Why are they here: Pt has been arrested multiple times for trespassing and this time has been in [facility] since April 2018. Pt unmedicated and very psychotic with poor hygiene. Pt is not competent to stand trial and so was placed here for stabilization of his psychiatric symptoms. Assessment What has happened this shift: The patient was seen in the hallway at shift change. He agreed to 1:1 at his bedside. The patient reports that he didn't go to groups today, believing if he does, and says something wrong, it would hold up his discharge. The patient mentioned that he was upset about missing mock trials, but is over it, and he will do it tomorrow. The patient continues to be pleasant and willing to cooperate in his wellness. The patient says that he slept well last night, but still napped after lunch. He's still spending more time out on the unit, pacing, stretching, or just looking out the window. The patient took HS medications then went to bed on the floor. S/I, H/I: Denies A/VH: Denies. Sleep: Asleep since HS med pass. ADLs: Independent, but needs prompting. Group attendance: No groups on dean of graduate studies. Were meds taken: yes. Any med S/E : None noted or reported Mental Status Exam Appearance: Disheveled, hair pulled back with rubber band, dressed in green scrubs. Eye contact: Fair Behavior: Isolative, pacing Speech: Normal volume, rate/rhythm. Mood: "Great." Affect: Blunted Thought process: Delusional, disorganized Thought Content: Perseverates on "claiming" his inheritance. Cognition: A/O X 3 Insight: Poor Judgment: Poor Interventions: PRN's used: None Therapeutic interventions: 1:1 assessment, encouragement to express thoughts and feelings, encouragement to lie on his bed instead of on the hard floor, encouragement to perform personal hygiene, reality orientation, medication administration/education/monitoring, lab draws/monitoring for Clozaril, Q15 minute safety checks Restraints/seclusion/emergency medication: N/A Justification of Continued Inpatient Treatment: Pt gravely disabled and on a court competency 1370, remains delusional and disorganized.
[2019-02-27] MEDS: benztropine 1mg tablet PO SCH ×2 (07:22→20:39)
[2019-02-27] MEDS: pantoprazole 40mg Tablet.DR PO SCH (07:22)
[2019-02-27 08:00] VITALS: BP 112/70
--- NOTE | 2019-02-27 11:30 | NUR ---
Reassessment: PO intake with slight fluctuations with occasional 25-50% and refusals however overall 100% meeting nutrient needs. Wt stable. LBM documented as 02/23, d/w RN who states likely pt has had a BM more recent than that however pt unable to remember when he has BMs d/t current mentation. Pt with PRN MoM on med list, not yet given. Will continue to follow. Recommendations: 1) Continue with regular diet 2) Bowel care PRN 3) Weekly wt Addendum: 02/27/19 at [address] Amended: Links added.
--- NOTE | 2019-02-27 14:56 | NUR ---
Nursing Progress Note: Solo Legal hold: Court competency 1370 Client on involuntary status for GD Report received from Service Promoter Salesperson Lead RN Why are they here: Pt has been arrested multiple times for trespassing and this time has been in [facility] April 2018. Pt unmedicated and very psychotic with poor hygiene. Pt is not competent to stand trial and so was placed here for stabilization of his psychiatric symptoms. Assessment What has happened this shift: During shift initial rounds, client was discovered to be in his bed with eyes closed and even, unlabored respirations noted. This is a deviation as client usually rests on the fllor. Client was alert and compliant with all aspects of his care today. Patient appears to be more social on unit and engages staff with no problems. Patient rested at frequent intervals this shift and has presented no behavioral issues as of this writing. A mock trial was conducted for this client today and he performed well. Dr. Cano and Nursing Software Solutions Architect also participated in mock trial proceedings. S/I, H/I: Denies A/VH: Denies. Sleep: ADLs: Independent, but needs prompting. Group attendance: came to group in afternoon. Were meds taken: yes. Any med S/E : None noted or reported Mental Status Exam Appearance: Disheveled, dressed in green scrubs. Eye contact: Fair
[2019-02-27 19:15] VITALS: BP 127/83
[2019-02-27] MEDS: CLOZAPINE 25 MG oral disintegrating tablet PO SCH (20:36)
[2019-02-27] MEDS: clozapine 25mg tablet PO SCH (20:39)
[2019-02-27] MEDS: haloperidol 5mg tablet PO SCH (20:40)
--- NOTE | 2019-02-27 22:08 | NUR ---
Nursing Progress Note: Solo Legal hold: Court competency 1370 Client on involuntary status for GD Report received from ZAMZAM Landaverde Why are they here: Pt has been arrested multiple times for trespassing and this time [facility] in [facility] since April 2018. Pt unmedicated and very psychotic with poor hygiene. Pt is not competent to stand trial and so was placed here for stabilization of his psychiatric symptoms. Assessment What has happened this shift: During shift initial rounds, client was walking the halls. Client was alert and compliant with all aspects of his care today. Patient appears to be more social on unit and engages staff with no problems. Patient appeared to be a little anxious this evening about receiving his medications on time. He has also voiced concerns about wanting to change his clozapine, because at the moment he has to take 12 tablets at a time to equal his 300mg dose. MD made aware of patients concern and will try to change order. S/I, H/I: Denies A/VH: Denies. Sleep: No complaints at this time. ADLs: Independent, but needs prompting. Group attendance: came to group in afternoon. Were meds taken: yes. Any med S/E : None noted or reported Mental Status Exam Appearance: Disheveled, dressed in green scrubs. Eye contact: Fair
[2019-02-28] MEDS: pantoprazole 40mg Tablet.DR PO SCH (07:43)
[2019-02-28] MEDS: benztropine 1mg tablet PO SCH ×2 (07:44→21:02)
[2019-02-28 08:00] VITALS: BP 123/82
--- NOTE | 2019-02-28 11:45 | NUR ---
Nursing Progress Note: Legal hold: Court competency 1370 Client on involuntary status for GD Report received from ZAMZAM Mondragon with use of SBAR: Why are they here: Pt has been arrested multiple times for trespassing and this time has been in [facility] since April 2018. Pt unmedicated and very psychotic with poor hygiene. Pt is not competent to stand trial and so was placed here for stabilization of his psychiatric symptoms. Assessment What has happened this shift: Pt initially stated he was fasting today when awakened for breakfast. He was asked to come to the dining room and check out the food on his tray and agreed to do so. Ate well and returned to the floor in his bedroom to rest immediately afterwards. Up for lunch. Picked at his food. Intake poor. Stated "I ate enough." Believes he is no better now than when he first arrived in the hospital on 12/31/18. "All they do is keep me tranquilized. It's too much medicine. I need to sleep." Pt remains somewhat disorganized though responds well to prompts and redirection. Pt continues to prefer lying on the floor to sleep. S/I, H/I: Pt denies A/VH: Pt denies. Sleep: Found on the floor sleeping, for greater part of the day. ADLs: Independent, requires prompting for personal hygiene, declines to brush his hair most of the time Group attendance: Declines to attend groups Were meds taken: Yes Any med S/E : None noted or reported Mental Status Exam Appearance: Disheveled, unkept hair, dressed in green scrubs Eye contact: Fair Behavior: Constricted, avoidant, isolates to self Speech: Minimal, poverty of speech Mood: "good" Affect: Flat Thought process: Delusional, disorganized Thought Content: Pt wants to go on a fast. Cognition: A/O X 3 Insight: Poor Judgment: Poor Interventions PRN's used: None Therapeutic interventions: 1:1 assessment, encouragement to express thoughts and feelings, encouragement to lie on his bed instead of on the hard floor, encouragement to perform personal hygiene, reality orientation, medication administration/education/monitoring, lab draws/monitoring for Clozaril, Q15 minute safety checks Restraints/seclusion/emergency medication: N/A Justification of Continued Inpatient Treatment: Pt gravely disabled and on a court competency 1370, remains delusional and disorganized.
[2019-02-28 20:00] VITALS: BP 121/73
[2019-02-28] MEDS ORDERED: clozapine 100mg tablet PO SCH (21:00)
[2019-02-28] MEDS: clozapine 25mg tablet PO SCH (21:03)
[2019-02-28] MEDS: clozapine 100mg tablet PO SCH (21:03)
[2019-02-28] MEDS: haloperidol 5mg tablet PO SCH (21:03)
--- NOTE | 2019-03-01 00:18 | NUR ---
Nursing Progress Note: Legal hold: 1370 Client on involuntary status for GD Report received from nurse with use of SBAR: ZAMZAM Elizalde Why are they here: Pt has been arrested multiple times for trespassing and [facility] in [facility] April 2018. Pt unmedicated and very psychotic with poor hygiene. Pt is not competent to stand trial and so was placed here for stabilization of his psychiatric symptoms. Assessment What has happened this shift: Pt. up pacing in the hallway throughout the shift, he does attend HS snack, and requests HS medications from this bid writer at med pass time. This bid writer obtained a new order from Dr. Cano to have HS 300mg Odt Clozaril changed to 100mg Clozaril tablets per pt. c/o the quantity and taste of the Odt medication, pt. reported content. 1:1 completed at bedside, pt. presents as cooperative, restless, withdrawn, and guarded. He is A&O X3, reports the month as April. Also, interestingly, when asked his name and by this bid writer, pt. looks down at his name bracelet and reads them off. He continues to deny any depression, anxiety, or H/A, and does not appear to be paranoid or hypervigilent as he did previously. Pt. continues to present with a disorganized/tangental thought process at times, however is able to be redirected. He will sometimes make pleasantly delusional statements, and when questioned by this bid writer about how his Mock Trial went today, pt. stated, "Good, I've been to court eight times." Pt. also reports lower back pain, however refuses pain medication or other intervention at this time, states, "It's a missing vertebrae from my spine, nothing will help." This bid writer provided pt. with positive encouragement for sleeping in his bed last night, and encouraged him to do so tonight in order to help his back pain. Pt. voiced understanding, however is currently sleeping on the floor next to his bed, will continue to monitor. S/I, H/I: Denies A/VH: Denies, however continues to appear internally preoccupied at times Sleep: Reports he sleeps well, however endorses back pain, possibly r/t sleeping on the floor ADL's: Requires some direction and encouragement from staff Group attendance: Pt. reports he does not attend groups Were meds taken: yes Any med S/E: None Mental Status Exam Appearance: Hair pulled back and appropriately dressed in hospital attire Eye contact: Fair to good Behavior: Cooperative, restless, withdrawn, and guarded Speech: Soft, minimal, will answer questions appropriately or with disorganized/tangental answers Mood: Pleasant, however guarded Affect: Blunted Thought process: Disorganized, tangental, however is able to be redirected Thought Content: Pleasantly delusional at times and may be internally preoccupied Cognition: A&O X3 (not to time) Insight: Poor Judgment: Poor to fair Interventions PRN's used: None Therapeutic interventions: Maintained a safe and supportive environment, provided clear and simple instructions, attempted to reorient to reality, provided positive encouragement regarding pt. sleeping in his bed the previous shift, encouraged independent performance of ADLs and socialization with others, and maintained Q 15 min safety checks. Restraints/seclusion/emergency medication: N/A Justification of Continued Inpatient Treatment: Pt. requires continued medication adjustments and a safe and supportive environment. He is not competent to stand trial.
[2019-03-01 08:00] VITALS: BP 125/74
[2019-03-01] MEDS: benztropine 1mg tablet PO SCH ×2 (08:39→21:02)
[2019-03-01] MEDS: pantoprazole 40mg Tablet.DR PO SCH (08:39)
--- NOTE | 2019-03-01 13:47 | NUR ---
Nursing Progress Note: Legal hold: 1370 Client on involuntary status for GD Report received from nurse with use of SBAR: Fide RN Why are they here: Pt has been arrested multiple times for trespassing and this time has been in [facility] since April 2018. Pt unmedicated and very psychotic with poor hygiene. Pt is not competent to stand trial and so was placed here for stabilization of his psychiatric symptoms. Assessment What has happened this shift: Pt was the last one up for breakfast, needed encouragement to come to the dining room for meals but once up and in the dining room ate well. Pt was reluctant to take morning meds, stated, "I don't want any prns." Explained that they were routine meds not prns. Pt asked, "How come I didn't get them yesterday?" Explained that he did get them yesterday. Pt took his meds, only takes Protonix and Cogentin on day shift. Pt denies all symptoms, reports that he is "good." Pt requested black iced coffee with 2 packets of clear sugar from this RN, accommodated his request with decaf, he drank the whole cup down in about 3 seconds and resumed pacing down the hallway wrapped in a blanket. S/I, H/I: Pt denies. A/VH: Pt denies Sleep: Slept 7.25 hours per noc shift report ADL's: Independent Group attendance: No Were meds taken: Yes, only Cogentin and Protonix on am shift. Any med S/E: None observed or reported. Mental Status Exam Appearance: Disheveled, messy hair dressed in hospital scrubs and non-skid socks. Eye contact: Fair to good Behavior: Reluctantly cooperative, paces in loera, somewhat constricted, isolative to self except when requesting snacks, continues to lie on his bedroom floor. Speech: Clear, audible, poverty of speech Mood: "good" Affect: Blunted, guarded Thought process: linear, circumstantial Thought Content: does not like taking his morning meds, fixates on snacks Cognition: A&O X3, D/o to time Insight: Poor Judgment: Poor Interventions PRN's used: None Therapeutic interventions: 1:1 assessment, medication administration/monitoring/education, encouragement to take meds, encouragement to perform self-care, encouragement to express thoughts and feelings, reality orientation, Q 15 min safety checks. Restraints/seclusion/emergency medication: N/A Justification of Continued Inpatient Treatment: Pt. requires continued medication adjustments and a safe and supportive environment. He is not competent to stand trial. Addendum: 03/01/19 at 1803 by Coleen Aguilar RN (Lee) Pt observed walking down the hallway talking to himself before dinner, asked him how he was doing and he replied that he was just reciting 9 different words in Latin for poop, "shiz, copernalia, coperphaglia...(various rhyming words)...offal...you can call me Al, do you know that song?" Pt continues to have episodes where he is disorganized and tangential.
[2019-03-01 20:00] VITALS: BP 128/65
[2019-03-01] MEDS: clozapine 100mg tablet PO SCH (21:02)
[2019-03-01] MEDS: clozapine 25mg tablet PO SCH (21:03)
--- NOTE | 2019-03-01 23:31 | NUR ---
Nursing Progress Note: Legal hold: 1370 Client on involuntary status for GD Report received from nurse with use of SBAR: ZAMZAM Elizalde Why are they here: Pt has been arrested multiple times for trespassing and this time has been in [facility] since April 2018. Pt unmedicated and very psychotic with poor hygiene. Pt is not competent to stand trial and so was placed here for stabilization of his psychiatric symptoms. Assessment What has happened this shift: Pt. up pacing in the hallway throughout the shift, presents as restless and slightly bored, he does attend HS snack. He is later sitting on the floor in the hallway asking staff random questions when they walk by, states, "How do you spell [employer] Rootbeer? B. [employer]. R.G.?" This flex o writer operator informed pt. that she is not familiar with that brand and ask pt. if he is craving rootbeer? Pt. smiled and laughed, replied, "No, just the knowledge." He continues to complain of somatic pain in various areas (shoulder/back), however refuses intervention. This flex o writer operator again encouraged pt. to sleep in his bed, as this would be better for his body and help to relieve some of his pain, he voiced understanding but continues to sleep on the floor next to his bed. Pt. continues to deny any H/A or feelings of paranoia, however states, "I saw a light display in the hallway earlier, the lights got brighter when I was staring at the carrera." This flex o writer operator asked pt. whether this is a common occurrence for him, and pt. reported that it is sometimes, but he always tells staff when it happens. Will endorse to AM shift and continue to monitor. Pt. also appears to continue to present with some paranoid delusions, when asked by this flex o writer operator if he thought there was someone sleeping in his bed as he had before, pt. did not answer. S/I, H/I: Denies A/VH: Denies, however states, "I saw a light display in the hallway earlier, the lights got brighter when I was staring at the carrera." Sleep: Reports he sleeps well, however endorses intermittent pains, possibly r/t sleeping on the floor ADL's: Requires some direction and encouragement from staff Group attendance: Pt. reports he does not attend groups Were meds taken: Yes Any med S/E: None Mental Status Exam Appearance: Neat and appropriately dressed in hospital attire Eye contact: Fair to good Behavior: Cooperative, restless, and guarded Speech: Soft, minimal, will answer questions appropriately or with disorganized/tangental answers Mood: Pleasant, however guarded Affect: Blunted Thought process: Disorganized, with some loose associations, however is able to be redirected Thought Content: Pleasantly delusional at times and possible V/SOLORIO Cognition: A&O X3 (not to time) Insight: Poor Judgment: Poor to fair Interventions PRN's used: None Therapeutic interventions: Maintained a safe and supportive environment, provided clear and simple instructions, attempted to reorient to reality, provided positive encouragement regarding pt. sleeping in his bed, encouraged independent performance of ADLs and socialization with others, and maintained Q 15 min safety checks. Restraints/seclusion/emergency medication: N/A Justification of Continued Inpatient Treatment: Pt. continues to require a safe and supportive environment. He is not competent to stand trial.
[2019-03-02 07:55] VITALS: BP 135/84
[2019-03-02] MEDS: pantoprazole 40mg Tablet.DR PO SCH (08:34)
[2019-03-02] MEDS: benztropine 1mg tablet PO SCH ×2 (08:34→20:06)
--- NOTE | 2019-03-02 18:23 | NUR ---
Nursing Progress Note: Legal hold: 1370 Client on involuntary status for GD Report received from nurse with use of SBAR: Tanja Aly RN Why are they here: Pt has been arrested multiple times for trespassing and this time has been in [facility] since April 2018. Pt unmedicated and very psychotic with poor hygiene. Pt is not competent to stand trial and so was placed here for stabilization of his psychiatric symptoms. Assessment What has happened this shift: Patient is resting at shift change. He wakes just prior to breakfast and takes his medications. He states that he is doing well today. He is observed pacing the halls and talking to self at times throughout the day. His demeanor is friendly and even playful, as he asks staff to race him the loera. S/I, H/I: none reported A/VH: none reported Sleep: 7.25hrs NOC ADL's: Requires some direction and encouragement from staff Group attendance: Pt. reports he does not attend groups Were meds taken: Yes Any med S/E: None Mental Status Exam Appearance: appropriate, hair brushed Eye contact: direct Behavior: Cooperative, restless Speech: Soft, minimal, will answer questions appropriately Mood: Pleasant, however guarded Affect: Blunted Thought process: Disorganized, with some loose associations, however is able to be redirected Thought Content: Pleasantly delusional at times and possible V/SOLORIO Cognition: A&O X3 (not to time) Insight: Poor Judgment: Poor to fair Interventions PRN's used: None Therapeutic interventions: Maintained a safe and supportive environment, provided clear and simple instructions, attempted to reorient to reality, provided positive encouragement regarding pt. sleeping in his bed, encouraged independent performance of ADLs and socialization with others, and maintained Q 15 min safety checks. Restraints/seclusion/emergency medication: N/A Justification of Continued Inpatient Treatment: Pt. continues to require a safe and supportive environment. He is not competent to stand trial.
[2019-03-02 20:00] VITALS: BP 112/70
[2019-03-02] MEDS: clozapine 100mg tablet PO SCH (20:05)
[2019-03-02] MEDS: clozapine 25mg tablet PO SCH (20:06)
[2019-03-02] MEDS: mag hydrox/Alum hydrox/simeth 30ml oral suspension PO PRN (20:50)
--- NOTE | 2019-03-03 02:38 | NUR ---
Nursing Progress Note: Legal hold: court competency 1370 Client on involuntary status for GD Report received from nurse with use of SBAR: Yes, Fide MENJIVAR Why are they here: Pt has been arrested multiple times for trespassing and this time has been in [facility] since April 2018. Pt unmedicated and very psychotic with poor hygiene. Pt is not competent to stand trial and so was placed here for stabilization of his psychiatric symptoms. Assessment What has happened this shift: Pt paces the unit on shift change and smiles at staff. He engages in conversation when he is approached and even comes up to staff to talk. He says his day went well and talks about "krampus and midevil thompson." Pt said he has court coming up so he is "happy for that." He says that "retirement wasn't so bad he only got 5 or 6 hot shots." Expansion Joint Builder asks what a hotel general manager is and he replies," when you get piss thrown on you." "they let you take bird baths afterward but they won't ;et you shower until a few days later." "They didn't like me there." He speaks in a positive manner and smiles occasionally. Pt is medication compliant and cooperative with 1:1 assessment. S/I, H/I: denies A/VH: denies Sleep: see sleep assessment notation ADL's: independent Group attendance: shift coordinator, no group Were meds taken: yes Any med S/E : none reported, none observed. Mental Status Exam Appearance: disheveled, did shave this evening Eye contact: direct Behavior: cooperative Speech: linear at times, Mood:calm, guarded Affect: anxious to flat Thought process:disorganized Thought Content:disorganized Cognition: poor Insight:poor Judgment: poor Interventions PRN's used: maalox Therapeutic interventions: 1:1 assessment, therapeutic listening, offered shower and clean clothing although he declined, Q15 minute safety checks Restraints/seclusion/emergency medication:none Justification of Continued Inpatient Treatment: Pt gravely disabled and on a court competency 1370
[2019-03-03 07:16] LABS: BASOPHILS # (AUTO) 0.1 X10'3 (0-0.2); BASOPHILS % (AUTO) 1.2 % (0-1); EOSINOPHILS # (AUTO) 0.1 X10'3 (0-0.9); HEMATOCRIT 46.7 % (42.0-52.0); HEMOGLOBIN 15.7 g/dl (14.0-17.9); LYMPHOCYTES # (AUTO) 1.8 X10'3 (1.1-4.8); LYMPHOCYTES % (AUTO) 36.2 % (21-51); MEAN CORPUSCULAR HEMOGLOBIN 29.2 PG (27.0-31.0); MEAN CORPUSCULAR HGB CONC 33.7 g/dL (33.0-36.5); MEAN CORPUSCULAR VOLUME 86.7 FL (78-98); MEAN PLATELET VOLUME 7.3 FL (7.4-10.4); MONOCYTES # (AUTO) 0.5 X10'3 (0-0.9); MONOCYTES % (AUTO) 10.6 % (2-12); NEUTROPHILS # (AUTO) 2.4 X10'3 (1.8-7.7); PLATELET COUNT 256 X10'3 (140-440); RED BLOOD COUNT 5.39 X10'6 (4.70-6.10); RED CELL DISTRIBUTION WIDTH 12.6 % (11.5-14.5); WHITE BLOOD COUNT 4.9 X10'3 (4.5-11.0)
[2019-03-03] MEDS: benztropine 1mg tablet PO SCH ×2 (07:46→20:30)
[2019-03-03] MEDS: pantoprazole 40mg Tablet.DR PO SCH (07:46)
[2019-03-03 08:00] VITALS: BP 117/66
--- NOTE | 2019-03-03 15:59 | NUR ---
Nursing Progress Note: Legal hold: 1370 Client on involuntary status for GD Report received from nurse with use of SBAR: Tanja Aly RN Why are they here: Pt has been arrested multiple times for trespassing and this time has been in [facility] since April 2018. Pt unmedicated and very psychotic with poor hygiene. Pt is not competent to stand trial and so was placed here for stabilization of his psychiatric symptoms. Assessment What has happened this shift: Received Pt resting in his bed under a blanket w/o distress and with normal respirations. Pt cooperative with assessment and took AM medications w/o any questions or issue. Attended meals and interacted with staff well. He paced the halls frequently in the afternoon and attempted to be helpful with another client in a wheelchair and was thanked for it. Continues to not attend groups. ADLs encouraged. Talked about his mock trials and he thinks they are going well and that court is soon. Does not appear inappropriately concerned or anxious about court. S/I, H/I: none reported A/VH: none reported Sleep: 8hrs NOC ADL's: Requires some direction and encouragement from staff Group attendance: Pt. reports he does not attend groups Were meds taken: Yes Any med S/E: None Mental Status Exam Appearance: appropriate, hair brushed Eye contact: direct Behavior: Cooperative, restless Speech: Soft, minimal, will answer questions appropriately Mood: Pleasant, however guarded Affect: Blunted Thought process: Disorganized, with some loose associations, however is able to be redirected Thought Content: Pleasantly delusional at times and possible AH/VH Cognition: A&O X3 (not to time) Insight: Poor Judgment: Poor to fair Interventions PRN's used: None Therapeutic interventions: Maintained a safe and supportive environment, provided clear and simple instructions, attempted to reorient to reality, provided positive encouragement regarding pt. sleeping in his bed, encouraged independent performance of ADLs and socialization with others, and maintained Q 15 min safety checks. Restraints/seclusion/emergency medication: N/A Justification of Continued Inpatient Treatment: Pt. continues to require a safe and supportive environment. He is not competent to stand trial.
[2019-03-03 19:48] VITALS: BP 121/76
[2019-03-03] MEDS: clozapine 100mg tablet PO SCH (20:31)
[2019-03-03] MEDS ORDERED: clozapine 25mg tablet PO SCH (21:00)
--- NOTE | 2019-03-03 23:05 | NUR ---
Nursing Progress Note: Legal hold: 1370 Client on involuntary status for GD Report received from nurse with use of SBAR: Tanja Aly RN Why are they here: Pt has been arrested multiple times for trespassing and [facility] in [facility] April 2018. Pt unmedicated and very psychotic with poor hygiene. Pt is not competent to stand trial and so was placed here for stabilization of his psychiatric symptoms. Assessment What has happened this shift: Received Pt walking the halls at change of shift. Pt cooperative with assessment and took PM medications w/o any questions or issue. Attended dinner and interacted with staff well. He paced the halls in the evening and then went to his room. Continues to not attend groups. ADLs encouraged. Continued to talk about his mock trials and wether or not he should cut his hair. S/I, H/I: none reported A/VH: none reported Sleep: went to bed early ADL's: Requires some direction and encouragement from staff Group attendance: Pt. reports he does not attend groups Were meds taken: Yes Any med S/E: None Mental Status Exam Appearance: appropriate, hair brushed Eye contact: direct Behavior: Cooperative, restless Speech: Soft, minimal, will answer questions appropriately Mood: Pleasant, however guarded Affect: Blunted Thought process: Disorganized, with some loose associations, however is able to be redirected Thought Content: Pleasantly delusional at times and possible AH/VH Cognition: A&O X3 (not to time) Insight: Poor Judgment: Poor to fair Interventions PRN's used: None Therapeutic interventions: Maintained a safe and supportive environment, provided clear and simple instructions, attempted to reorient to reality, provided positive encouragement regarding pt. sleeping in his bed, encouraged independent performance of ADLs and socialization with others, and maintained Q 15 min safety checks. Restraints/seclusion/emergency medication: N/A Justification of Continued Inpatient Treatment: Pt. continues to require a safe and supportive environment. He is not competent to stand trial.
[2019-03-04 07:51] VITALS: BP 127/62
[2019-03-04] MEDS: benztropine 1mg tablet PO SCH ×2 (08:18→21:21)
[2019-03-04] MEDS: pantoprazole 40mg Tablet.DR PO SCH (08:18)
--- NOTE | 2019-03-04 15:22 | NUR ---
Nursing Progress Note: Legal hold: 1370 Client on involuntary status for GD Report received from nurse with use of SBAR: ZAMZAM Waldrop Why are they here: Pt has been arrested multiple times for trespassing and this time has been in [facility] since April 2018. Pt unmedicated and very psychotic with poor hygiene. Pt is not competent to stand trial and so was placed here for stabilization of his psychiatric symptoms. Assessment What has happened this shift: Received patient visible on the unit. Patient remains isolative to himself and does not initiate interaction with others. Patient wearing hospital scrubs with disheveled appearance. Patient seen pacing the hallways gesturing to things that are not in there. When questioned, patient denies hearing voices. Patient states he is looking forward to getting out of here. Patient did not attend groups can spend free time in his room laying on the floor at times. S/I, H/I: none reported A/VH: none reported Sleep: short naps during the day ADL's: Requires some direction and encouragement from staff Group attendance: Pt. reports he does not attend groups Were meds taken: Yes Any med S/E: None Mental Status Exam Appearance: appropriate, hair disheveled Eye contact: direct Behavior: Cooperative, restless Speech: Soft, minimal, will answer questions appropriately Mood: Pleasant, however guarded Affect: Blunted Thought process: Disorganized, with some loose associations, however is able to be redirected Thought Content: Pleasantly delusional at times and possible AH/VH Cognition: A&O X3 (not to time) Insight: Poor Judgment: Poor to fair Interventions PRN's used: None Therapeutic interventions: Maintained a safe and supportive environment, provided clear and simple instructions, attempted to reorient to reality, provided positive encouragement regarding pt. sleeping in his bed, encouraged independent performance of ADLs and socialization with others, and maintained Q 15 min safety checks. Restraints/seclusion/emergency medication: N/A Justification of Continued Inpatient Treatment: Pt. continues to require a safe and supportive environment. He is not competent to stand trial.
[2019-03-04] MEDS: mag hydrox/Alum hydrox/simeth 30ml oral suspension PO PRN (18:40)
[2019-03-04 20:28] VITALS: BP 128/73
[2019-03-04] MEDS: clozapine 100mg tablet PO SCH (21:22)
--- NOTE | 2019-03-05 00:41 | NUR ---
Nursing Progress Note: Legal hold: court competency 1370 Client on involuntary status for GD Report received from nurse with use of SBAR: Fide WYMAN Why are they here: Pt has been arrested multiple times for trespassing and this time has been in [facility] since April 2018. Pt unmedicated and very psychotic with poor hygiene. Pt is not competent to stand trial and so was placed here for stabilization of his psychiatric symptoms. Assessment What has happened this shift: Pt paces the unit at shift change. Pt is cooperative and polite. When asked about court, pt elaborates on a disorganized story about a laundry mat and [place] [employer]. Pt states he [facility] then here at [facility] because "my sister always sends me two trays." Pt is seen talking to himself and voicing other people's names. Pt is later making skating type movements down the loera, "if I just exercise." Pt's Clozaril was increased to 400 mg HS. Pt compliant with medications and 1:1 assessment. S/I, H/I: Pt denies. None observed. A/VH: Pt denies. Pt is seen talking to himself in the hallway and speaking people's names. Sleep: see sleep assessment notation ADL's: Independent, needs some direction and prompting from staff. 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 Were meds taken: Medication compliant. Any med S/E : None reported or observed. Mental Status Exam Appearance: Neat, brushed hair, wearing green scrubs Eye contact: Direct Behavior: Cooperative, guarded Speech: Soft, normal rate and rhythm Mood: Calm, guarded Affect: Flat, animated at times. Thought process: Disorganized, with some loose associations, is redirectable Thought Content: Pleasantly delusional at times and possible AH/VH Cognition: Poor Insight: Poor Judgment: Poor Interventions PRN's used: Maalox c/o heartburn Therapeutic interventions: 1:1 assessment, therapeutic listening, offered shower and clean clothing although he declined, Q15 minute safety checks. Restraints/seclusion/emergency medication: N/A Justification of Continued Inpatient Treatment: Pt gravely disabled and on a court competency 1370
[2019-03-05 07:35] VITALS: BP 119/82
[2019-03-05] MEDS: pantoprazole 40mg Tablet.DR PO SCH (08:54)
[2019-03-05] MEDS: benztropine 1mg tablet PO SCH ×2 (08:54→20:45)
--- NOTE | 2019-03-05 14:56 | NUR ---
Nursing Progress Note: Legal hold: 1370 Client on involuntary status for GD Report received from nurse with use of SBAR: ZAMZAM Baltazar Why are they here: Pt has been arrested multiple times for trespassing and [facility]. Pt unmedicated and very psychotic with poor hygiene. Pt is not competent to stand trial and so was placed here for stabilization of his psychiatric symptoms. Assessment What has happened this shift: Patient still sleeping on the floor and refuses to use a pillow. Patient was asleep at change of shift and awoken for breakfast. Patient speaking a little more. Patient using the headphones and singing up and down the loera. Patient walked by the nurse and the patient said "Hi!". Patient does not often initiate conversations. Patient appears to be more aware of his surroundings. Patient denies AV/hallucinations and SI/HI. Patient also told RN that the charge nurse was looking for her. Patient still has some bizarre behavior but appears to be improving. S/I, H/I: none reported A/VH: none reported Sleep: short naps during the day ADL's: Requires some direction and encouragement from staff Group attendance: Pt. reports he does not attend groups Were meds taken: Yes Any med S/E: None Mental Status Exam Appearance: appropriate, hair disheveled Eye contact: direct Behavior: Cooperative, restless Speech: Soft, minimal, will answer questions appropriately Mood: Pleasant, however guarded Affect: Blunted Thought process: Disorganized, with some loose associations, however is able to be redirected Thought Content: Pleasantly delusional at times and possible AH/VH Cognition: A&O X3 (not to time) Insight: Poor Judgment: Poor to fair Interventions PRN's used: None Therapeutic interventions: Maintained a safe and supportive environment, provided clear and simple instructions, attempted to reorient to reality, provided positive encouragement regarding pt. sleeping in his bed, encouraged independent performance of ADLs and socialization with others, and maintained Q 15 min safety checks. Restraints/seclusion/emergency medication: N/A Justification of Continued Inpatient Treatment: Pt. continues to require a safe and supportive environment. He is not competent to stand trial.
[2019-03-05 19:40] VITALS: BP 127/42
[2019-03-05] MEDS: mag hydrox/Alum hydrox/simeth 30ml oral suspension PO PRN (19:59)
[2019-03-05] MEDS: clozapine 100mg tablet PO SCH (20:45)
--- NOTE | 2019-03-05 23:24 | NUR ---
Nursing Progress Note: Legal hold: court competency 1370 Client on involuntary status for GD Report received from nurse with use of SBAR: Fide WYMAN Why are they here: Pt has been arrested multiple times for trespassing and this time has been in [facility] since April 2018. Pt unmedicated and very psychotic with poor hygiene. Pt is not competent to stand trial and so was placed here for stabilization of his psychiatric symptoms. Assessment What has happened this shift: Pt pacing the halls listening and singing with the headphones. Pt is cooperative and polite. Pt continues with disorganized statements. Pt is engaging staff more. Pt is always polite asking if can have or do things. Pt says thank you. Pt spent most of his time this shift pacing the halls and listening to music. S/I, H/I: Pt denies. None observed. A/VH: Pt denies. Pt is observed talking to himself in the hallway and speaking people's names. Sleep: see sleep assessment notation ADL's: Independent, needs some direction and prompting from staff. 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 Were meds taken: Medication compliant. Any med S/E : None reported or observed. Mental Status Exam Appearance: Neat, brushed hair, wearing green scrubs Eye contact: Direct Behavior: Cooperative, guarded Speech: Soft, normal rate and rhythm Mood: Calm, guarded Affect: Flat, very animated this shift. Thought process: Disorganized, with some loose associations, is redirectable Thought Content: Pleasantly delusional at times and possible AH/VH Cognition: Poor Insight: Poor Judgment: Poor Interventions PRN's used: Maalox c/o heartburn Therapeutic interventions: Maintained a safe and supportive environment, provided clear and simple instructions, attempted to reorient to reality, provided positive encouragement regarding pt. sleeping in his bed, encouraged independent performance of ADLs and socialization with others, and maintained Q 15 min safety checks. Restraints/seclusion/emergency medication: N/A Justification of Continued Inpatient Treatment: Pt gravely disabled and on a court competence
[2019-03-06 08:00] VITALS: BP 122/80
[2019-03-06] MEDS: pantoprazole 40mg Tablet.DR PO SCH (09:07)
[2019-03-06] MEDS: benztropine 1mg tablet PO SCH ×2 (09:08→20:51)
--- NOTE | 2019-03-06 11:22 | NUR ---
Reassessment: Pt with significant improvement in PO intake now averaging 100% meeting nutrient needs. Patient's wt is up 3.[address] assessment likely r/t good PO intake as well as medications. [facility] 03/05. No nutrition diagnosis at this time. Will continue to follow. Recommendations: 1) Continue with regular diet 2) Bowel care PRN 3) Weekly wt Addendum: 03/06/19 at [address] Amended: Links added.
--- NOTE | 2019-03-06 16:39 | NUR ---
Nursing Progress Note: Legal hold: 1370 Client on involuntary status for GD Report received from nurse with use of SBAR: ZAMZAM Baltazar Why are they here: Pt has been arrested multiple times for trespassing and this [facility] has been in [facility] 2018. Pt unmedicated and very psychotic with poor hygiene. Pt is not competent to stand trial and so was placed here for stabilization of his psychiatric symptoms. Assessment What has happened this shift: Patient still sleeping on the floor and refuses to use a pillow. Patient was asleep at change of shift and awoken for breakfast. Patient asked for a shave and Marline, inspector electromechanical assisted patient in shaving. Patient using the headphones and singing up and down the loera. Patient denies AV/hallucinations and SI/HI. Patient still has some bizarre behavior. Patient is quieter today that yesterday. S/I, H/I: none reported A/VH: none reported Sleep: short naps during the day ADL's: Requires some direction and encouragement from staff Group attendance: Pt reports he does not attend groups Were meds taken: Yes Any med S/E: None Mental Status Exam Appearance: appropriate, hair disheveled Eye contact: direct Behavior: Cooperative, restless Speech: Soft, minimal, will answer questions appropriately Mood: Pleasant, however guarded Affect: Blunted Thought process: Disorganized, with some loose associations, however is able to be redirected Thought Content: Pleasantly delusional at times and possible AH/VH Cognition: A&O X3 (not to time) Insight: Poor Judgment: Poor Interventions PRN's used: None Therapeutic interventions: Maintained a safe and supportive environment, provided clear and simple instructions, attempted to reorient to reality, provided positive encouragement regarding pt. sleeping in his bed, encouraged independent performance of ADLs and socialization with others, and maintained Q 15 min safety checks.
[2019-03-06] MEDS: mag hydrox/Alum hydrox/simeth 30ml oral suspension PO PRN (18:00)
[2019-03-06 20:00] VITALS: BP 118/84
[2019-03-06] MEDS: clozapine 100mg tablet PO SCH (20:51)
--- NOTE | 2019-03-07 02:37 | NUR ---
Nursing Progress Note: Legal hold: court competency 1370 Client on involuntary status for GD Report received from nurse with use of SBAR: ZAMZAM Torre Why are they here: Pt has been arrested multiple times for trespassing and this time has been in [facility] since April 2018. Pt unmedicated and very psychotic with poor hygiene. Pt is not competent to stand trial and so was placed here for stabilization of his psychiatric symptoms. Assessment What has happened this shift: Pt was pacing halls singing and dancing to the headphones. Pt continues to make improvement. Pt engages more with staff, but isolates to self. Pt is little more subdued this shift. Pt. is medication compliant. 1:1 assessment completed at bedside. S/I, H/I: Pt denies. None observed. A/VH: Pt denies. Pt is observed talking to himself in the hallway and speaking people's names. Sleep: see sleep assessment notation ADL's: Independent, needs some direction and prompting from staff. Group attendance: hourly shift manager, not group. Were meds taken: Medication compliant. Any med S/E : None reported or observed. Mental Status Exam Appearance: Neat, brushed hair, wearing green scrubs Eye contact: Direct Behavior: Cooperative, guarded Speech: Soft, normal rate and rhythm Mood: Pleasant, guarded Affect: Flat, animated, but a little more subdued. Thought process: Disorganized, with some loose associations, is redirectable Thought Content: Pleasantly delusional at times and possible AH/VH Cognition: Poor Insight: Poor Judgment: Poor Interventions PRN's used: Maalox c/o heartburn Therapeutic interventions: Maintained a safe and supportive environment, provided clear and simple instructions, attempted to reorient to reality, provided positive encouragement regarding pt. sleeping in his bed, encouraged independent performance of ADLs and socialization with others, and maintained Q 15 min safety checks. Restraints/seclusion/emergency medication: N/A Justification of Continued Inpatient Treatment: Pt gravely disabled and on a court competence
[2019-03-07] MEDS: pantoprazole 40mg Tablet.DR PO SCH (08:32)
[2019-03-07] MEDS: benztropine 1mg tablet PO SCH ×2 (08:33→21:15)
[2019-03-07 08:57] VITALS: BP 129/87
--- NOTE | 2019-03-07 17:32 | NUR ---
Nursing Progress Note: Legal hold: 1370 Client on involuntary status for GD Report received from nurse with use of SBAR: ZAMZAM Thornton Why are they here: Pt has been arrested multiple times for trespassing and this time has been in [facility] since April 2018. Pt unmedicated and very psychotic with poor hygiene. Pt is not competent to stand trial and so was placed here for stabilization of his psychiatric symptoms. Assessment What has happened this shift: Patient still sleeping on the floor and refuses to use a pillow. Patient was asleep at change of shift and awoken for breakfast. Patient marched with legs high up and down the halls. Patient also listened to music on the head phones and spent a lot of time looking out his window. Patient acting bizarre but denies AV/hallucinations and SI/HI. Patient did not eat breakfast this morning although patient came into the room for breakfast and then went back to his room. RN asked patient if he was hungry. Patient stated he was hungry. RN asked patient why he didn't eat his food. He said he didn't want it. S/I, H/I: none reported A/VH: none reported Sleep: short naps during the day ADL's: Requires some direction and encouragement from staff Group attendance: No Were meds taken: Yes Any med S/E: None Mental Status Exam Appearance: appropriate, hair disheveled Eye contact: direct Behavior: Cooperative, restless Speech: Soft, minimal, will answer questions appropriately Mood: Pleasant, however guarded Affect: Flat Thought process: Disorganized, with some loose associations, however is able to be redirected Thought Content: unknown Cognition: A&O X3 (not to time) Insight: Poor Judgment: Poor Interventions PRN's used: None Therapeutic interventions: Maintained a safe and supportive environment, provided clear and simple instructions, attempted to reorient to reality, provided positive encouragement regarding pt. sleeping in his bed, encouraged independent performance of ADLs and socialization with others, and maintained Q 15 min safety checks.
[2019-03-07 19:36] VITALS: BP 111/73
[2019-03-07] MEDS: clozapine 100mg tablet PO SCH (21:16)
--- NOTE | 2019-03-08 00:37 | NUR ---
Nursing Progress Note: Legal hold: 1370 Client on involuntary status for GD Report received from nurse with use of SBAR: Yelitza RN Why are they here: Pt has been arrested multiple times for trespassing and this time has been in [facility] since April 2018. Pt unmedicated and very psychotic with poor hygiene. Pt is not competent to stand trial and so was placed here for stabilization of his psychiatric symptoms. Assessment What has happened this shift: Patient is walking the halls at change of shift. He is visible on the shift moist of the evening doing different things. Listening to music, marching, walking the halls with a blanket around him like a cape at times. He is friendly and interacts with staff and peers. He is noted to have a tissue stuck in his nose again this evening but takes it out when asked. He makes various random statements throughout the evening ie: "I once had the skin melted off my foot by [place] You know the water pressure in a trailer [place] is hard. It wasn't hot, it just melted right off." He is complaint with his evening medications. At bedtime he is noted to be sleeping at the end of his bed curled in a ball fully covered in a blanket. S/I, H/I: Denies A/VH: Denies Sleep: See sleep assessment ADL's: Requires some direction and encouragement from staff Group attendance: No Were meds taken: Yes Any med S/E: None Mental Status Exam Appearance: Appropriate, hair disheveled Eye contact: Direct Behavior: Cooperative, restless Speech: Soft, answers questions appropriately Mood: Pleasant, however guarded Affect: Flat Thought process: Disorganized, with some loose associations, however is able to be redirected Thought Content: Unknown Cognition: A&O X3 (not to time) Insight: Poor Judgment: Poor Interventions PRN's used: None Therapeutic interventions: Maintained a safe and supportive environment, provided clear and simple instructions, attempted to reorient to reality, provided positive encouragement regarding pt. sleeping in his bed, encouraged independent performance of ADLs and socialization with others, and maintained Q 15 min safety checks.
[2019-03-08] MEDS: pantoprazole 40mg Tablet.DR PO SCH (07:37)
[2019-03-08] MEDS: benztropine 1mg tablet PO SCH ×2 (07:37→20:45)
[2019-03-08 08:00] VITALS: BP 126/70
--- NOTE | 2019-03-08 17:01 | NUR ---
Nursing Progress Note: Solo Legal hold: 1370 Client on involuntary status for GD Report received from Madelyn Why are they here: Pt has been arrested multiple times for trespassing and this time has been in [facility] since April 2018. Pt unmedicated and very psychotic with poor hygiene. Pt is not competent to stand trial and so was placed here for stabilization of his psychiatric symptoms. Assessment What has happened this shift: At shift change, client was resting in his bed with eyes closed. Respirations were even and unlabored. No apparent distress and no somatic complaints noted. Client was very amicable to all aspects of care and has been social on unit with peers and staff alike. He has had no behavioral issues this shift and has been visible on unit and social with staff as well as peers. S/I, H/I: Denies A/VH: Denies Sleep: See sleep assessment ADL's: Requires some direction and encouragement from staff Group attendance: No Were meds taken: Yes Any med S/E: None Mental Status Exam Appearance: Appropriate, hair disheveled Eye contact: Direct Behavior: Cooperative, restless Speech: Soft, answers questions appropriately Mood: Pleasant, however guarded Affect: Flat Thought process: Disorganized, with some loose associations, however is able to be redirected Thought Content: Unknown Cognition: A&O X3 (not to time) Insight: Poor Judgment: Poor Interventions PRN's used: None Therapeutic interventions: Maintained a safe and supportive environment, provided clear and simple instructions, attempted to reorient to reality, provided positive encouragement regarding pt. sleeping in his bed, encouraged independent performance of ADLs and socialization with others, and maintained Q 15 min safety checks.
[2019-03-08 20:00] VITALS: BP 119/64
[2019-03-08] MEDS: clozapine 100mg tablet PO SCH (20:45)
--- NOTE | 2019-03-09 01:37 | NUR ---
Nursing Progress Note: Legal hold: 1370 Client on involuntary status for GD Report received from ZAMZAM Farley Why are they here: Pt has been arrested multiple times for trespassing and this time has been in [facility] since April 2018. Pt unmedicated and very psychotic with poor hygiene. Pt is not competent to stand trial and so was placed here for stabilization of his psychiatric symptoms. Assessment What has happened this shift: Pt pacing the halls listening to music and talking to himself at shift change. Pt making loose associations during 1:1 and tangential thoughts regarding [place] mythology. Unable to be redirected. Pt also speaking gibberish to himself while pacing the halls, but speaks Somali with staff and peers. Pt is compliant with all medications and encouraged to sleep in bed. S/I, H/I: Denies A/VH: Denies Sleep: See sleep assessment ADL's: Requires some direction and encouragement from staff Group attendance: N/A Were meds taken: Yes Any med S/E: None reported, none observed Mental Status Exam Appearance: Appropriate in green unit scrubs and nonskid socks, hair disheveled Eye contact: Direct Behavior: Cooperative, restless, pacing halls, listening to headphones Speech: Soft, Normal tone and rate Mood: Pleasant, however guarded Affect: Blunted Thought process: Disorganized, loose associations Thought Content: Unknown Cognition: A&O X3 (not to time) Insight: Poor Judgment: Poor Interventions PRN's used: None Therapeutic interventions: Maintained a safe and supportive environment, provided clear and simple instructions, attempted to reorient to reality, provided positive encouragement regarding pt. sleeping in his bed, encouraged independent performance of ADLs and socialization with others, and maintained Q 15 min safety checks.
[2019-03-09 07:30] VITALS: BP 106/64
[2019-03-09] MEDS: pantoprazole 40mg Tablet.DR PO SCH (08:05)
[2019-03-09] MEDS: benztropine 1mg tablet PO SCH ×2 (08:07→20:36)
--- NOTE | 2019-03-09 17:30 | NUR ---
Nursing Progress Note: Legal hold: 1370 Client on involuntary status for GD Report received from Tanja Aly RN Why are they here: Pt has been arrested multiple times for trespassing and this time has been in [facility] since April 2018. Pt unmedicated and very psychotic with poor hygiene. Pt is not competent to stand trial and so was placed here for stabilization of his psychiatric symptoms. Assessment What has happened this shift: Pt. asleep at start of shift. Pt. took medications and ate all meals. Pt. states, "I feel frustrated that I have to keep going to mock trials". Pt. interacting with peers and staff appropriately and thougth process appears more linear than in the past. Pt. reports he likes to sleep on the floor because it helps his back pain. Pt. refused any pain medication. S/I, H/I: Denies A/VH: Denies Sleep: 5 hrs ADL's: Independent Group attendance: Pt. attends groups. Were meds taken: Yes Any med S/E: None reported, none observed Mental Status Exam Appearance: Appropriate in green unit scrubs and nonskid socks, hair disheveled but trimmed mcmillan. Eye contact: Direct Behavior: Cooperative, bored, pacing halls, listening to headphones Speech: Soft, Normal tone and rate Mood: Pleasant, contemplative. Affect: Congruent with affect Thought process: linear Thought Content: Unknown Cognition: A&O X4 Insight: Poor Judgment: Poor Interventions PRN's used: None Therapeutic interventions: Maintained a safe and supportive environment, provided clear and simple instructions, attempted to reorient to reality, provided positive encouragement regarding pt. sleeping in his bed, encouraged independent performance of ADLs and socialization with others, and maintained Q 15 min safety checks.
[2019-03-09] MEDS: mag hydrox/Alum hydrox/simeth 30ml oral suspension PO PRN (19:21)
[2019-03-09 20:00] VITALS: BP 129/75
[2019-03-09] MEDS: clozapine 100mg tablet PO SCH (20:37)
--- NOTE | 2019-03-10 01:57 | NUR ---
Nursing Progress Note: Legal hold: 1370 Client on involuntary status for GD Report received from Tanja Landaverde RN Why are they here: Pt has been arrested multiple times for trespassing and this time has been in [facility] since April 2018. Pt unmedicated and very psychotic with poor hygiene. Pt is not competent to stand trial and so was placed here for stabilization of his psychiatric symptoms. Assessment This patient is ambulating the hallways. He is well oriented and cooperative with staff. He denies H/I, S/I, or hallucinations. Patient was given MOM for indigestion. This patient is upbeat. He expresses mild anxiety over an upcoming court hearing. The patient is advised that he is in a safe place. Q15 minute rounding for patient safety. S/I, H/I: Denies A/VH: Denies Sleep: 5 hrs ADL's: Independent Group attendance: Pt. attends groups. Were meds taken: Yes Any med S/E: None reported, none observed Mental Status Exam Appearance: Appropriate in green unit scrubs and nonskid socks, hair disheveled but trimmed mcmillan. Eye contact: Direct Behavior: Cooperative, bored, pacing halls, listening to headphones Speech: Soft, Normal tone and rate Mood: Pleasant, contemplative. Affect: Congruent with affect Thought process: linear Thought Content: Unknown Cognition: A&O X4 Insight: Poor Judgment: Poor Interventions PRN's used: None Therapeutic interventions: Maintained a safe and supportive environment, provided clear and simple instructions, attempted to reorient to reality, provided positive encouragement regarding pt. sleeping in his bed, encouraged independent performance of ADLs and socialization with others, and maintained Q 15 min safety checks.
[2019-03-10] MEDS: pantoprazole 40mg Tablet.DR PO SCH (07:15)
[2019-03-10] MEDS: benztropine 1mg tablet PO SCH ×2 (07:16→20:21)
[2019-03-10 07:45] LABS: BASOPHILS # (AUTO) 0.1 X10'3 (0-0.2); BASOPHILS % (AUTO) 1.1 % (0-1); EOSINOPHILS # (AUTO) 0.2 X10'3 (0-0.9); EOSINOPHILS % (AUTO) 3.6 % (0-6); HEMOGLOBIN 15.2 g/dl (14.0-17.9); LYMPHOCYTES # (AUTO) 1.5 X10'3 (1.1-4.8); LYMPHOCYTES % (AUTO) 30.5 % (21-51); MEAN CORPUSCULAR HEMOGLOBIN 29.3 PG (27.0-31.0); MEAN CORPUSCULAR HGB CONC 33.7 g/dL (33.0-36.5); MEAN CORPUSCULAR VOLUME 86.8 FL (78-98); MEAN PLATELET VOLUME 8.1 FL (7.4-10.4); MONOCYTES # (AUTO) 0.6 X10'3 (0-0.9); MONOCYTES % (AUTO) 11.7 % (2-12); NEUTROPHILS # (AUTO) 2.6 X10'3 (1.8-7.7); NEUTROPHILS % (AUTO) 53.1 % (42-75); PLATELET COUNT 220 X10'3 (140-440); RED BLOOD COUNT 5.19 X10'6 (4.70-6.10)
[2019-03-10 08:00] VITALS: BP 118/74
--- NOTE | 2019-03-10 15:39 | NUR ---
Nursing Progress Note: Solo Legal hold: 1370 Client on involuntary status for GD Report received from Tanja Aly RN Why are they here: Pt has been arrested multiple times for trespassing and this time has been in [facility] since April 2018. Pt unmedicated and very psychotic with poor hygiene. Pt is not competent to stand trial and so was placed here for stabilization of his psychiatric symptoms. Assessment This was in his room during initial assessment and was alert and oriented x 3. Compliant with assessment and medications this am. Visible on unit and social with staff and peers. Ambulated in halls this am listening to head phones. No behavioral or somatic complaints noted. Took several periods of rest on the floor of his room. Had a visit from ANDRES Barrera today. No behavioral issues this shift. S/I, H/I: Denies A/VH: Denies Sleep: 5 hrs ADL's: Independent Group attendance: in and out of groups today. Were meds taken: Yes Any med S/E: None reported, none observed Mental Status Exam Appearance: Appropriate in green unit scrubs and nonskid socks, hair disheveled but trimmed mcmillan. Eye contact: Direct Behavior: Cooperative, bored, pacing halls, listening to headphones Speech: Soft, Normal tone and rate Mood: Pleasant, contemplative. Affect: Congruent with affect Thought process: linear Thought Content: Unknown Cognition: A&O X4 Insight: Poor Judgment: Poor Interventions PRN's used: None Therapeutic interventions: Maintained a safe and supportive environment, provided clear and simple instructions, attempted to reorient to reality, provided positive encouragement regarding pt. sleeping in his bed, encouraged independent performance of ADLs and socialization with others, and maintained Q 15 min safety checks.
[2019-03-10 19:57] VITALS: BP 121/71
[2019-03-10] MEDS: clozapine 100mg tablet PO SCH (20:20)
--- NOTE | 2019-03-11 02:23 | NUR ---
Nursing Progress Note Legal hold: 1370 Client on involuntary status for GD Report received from ZAMZAM Elizalde Why are they here: Pt has been arrested multiple times for trespassing and this time has been in [facility] since April 2018. Pt unmedicated and very psychotic with poor hygiene. Pt is not competent to stand trial and so was placed here for stabilization of his psychiatric symptoms. Assessment This patient is alert and oriented this shift. He joined others in the community room. On occasion he paced the hallways and eventually retired to his room. Patient exhibits linear thought. He discusses the possibility about going to court, he contemplates his eventual release from behavioral health. This patient did not consume much of his dinner, "I'm not hungry." Patient denies S/I or H/I, he denies hallucinations. The patient is advised he is in a safe place. He exhibits understanding of this statement. Q15 minute rounding for patient safety. S/I, H/I: Denies A/VH: Denies Sleep: Will compile later in am. ADL's: Independent Group attendance: No groups on nights. Were meds taken: Yes Any med S/E: None reported, none observed Mental Status Exam Appearance: Appropriate in green unit scrubs and nonskid socks, hair disheveled but trimmed mcmillan. Eye contact: Direct Behavior: Cooperative, bored, pacing halls, listening to headphones Speech: Soft, Normal tone and rate Mood: Pleasant, contemplative. Affect: Congruent with affect Thought process: linear Thought Content: Unknown Cognition: A&O X4 Insight: Poor Judgment: Poor Interventions PRN's used: None Therapeutic interventions: Maintained a safe and supportive environment, provided clear and simple instructions, attempted to reorient to reality, provided positive encouragement regarding pt. sleeping in his bed, encouraged independent performance of ADLs and socialization with others, and maintained Q 15 min safety checks.
[2019-03-11 07:39] VITALS: BP 119/81
[2019-03-11] MEDS: CLOZAPINE 25 MG oral disintegrating tablet PO SCH (07:59)
[2019-03-11] MEDS: pantoprazole 40mg Tablet.DR PO SCH (07:59)
[2019-03-11] MEDS: benztropine 1mg tablet PO SCH ×2 (08:00→21:24)
[2019-03-11] MEDS ORDERED: CLOZAPINE 50 MG PO SCH (08:00)
--- NOTE | 2019-03-11 17:00 | NUR ---
Nursing Progress Note Legal hold: 1370 Client on involuntary status for GD Report received from ZAMZAM Waldrop Why are they here: Pt has been arrested multiple times for trespassing and [facility]. Pt unmedicated and very psychotic with poor hygiene. Pt is not competent to stand trial and so was placed here for stabilization of his psychiatric symptoms. Assessment Pt. asleep at beginning of shift. Pt. took medications and ate all meals. Pt. continues to display Clang Associations and Neologisms. 1:1 assessment done at bedside. Pt. denies SI/HI, A/VH. Pt. states, "My daughter's name is Constance, she's a hermaphrodite and a hooker, constance Panhandler is her name". This patient is alert and oriented this shift. He joined others in the community room. On occasion he paced the hallways and eventually retired to his room. Patient exhibits linear thought. He discusses the possibility about going to court, he contemplates his eventual release from behavioral health. This patient did not consume much of his dinner, "I'm not hungry." Patient denies S/I or H/I, he denies hallucinations. The patient is advised he is in a safe place. He exhibits understanding of this statement. Q15 minute rounding for patient safety. S/I, H/I: Denies A/VH: Denies Sleep: Pt. slept 7.25 hrs during the night. Pt. did not nap on day shift. ADL's: Independent Group attendance: Pt. attended part of afternoon group. Were meds taken: Yes Any med S/E: None reported, none observed Mental Status Exam Appearance: Appropriate in green unit scrubs and nonskid socks, hair disheveled but trimmed mcmillan. Eye contact: Direct Behavior: Cooperative, pacing halls, listening to headphones Speech: Soft, Normal tone and rate Mood: Pleasant, contemplative. Affect: Congruent with affect Thought process: linear Thought Content: Unknown Cognition: A&O X4 Insight: Poor Judgment: Poor Interventions PRN's used: None Therapeutic interventions: attempted1:1 therapeutic assessment, maintained safe therapeutic milieu, provided active listening with positive feedback. Monitored for change in behavior and needed interventions. Q15 safety checks. Restraints/seclusion/emergency medication: N/A Justification of Continued Inpatient Treatment: Continued therapeutic support and medication management needed to provide stabilization, prevent decompensation, improve coping mechanisms decreasing risk to patient and readmission.
[2019-03-11 19:58] VITALS: BP 141/84
[2019-03-11] MEDS: clozapine 100mg tablet PO SCH (21:00)
[2019-03-11] MEDS ORDERED: clozapine 25mg tablet PO SCH (21:13)
[2019-03-11] MEDS ORDERED: clozapine 100mg tablet PO ONE (21:13)
[2019-03-11] MEDS ORDERED: clozapine 25mg tablet PO ONE ×2 (21:30)
--- NOTE | 2019-03-12 03:44 | NUR ---
Nursing Progress Note Legal hold: 1370 Client on involuntary status for GD Report received from TIARA Elizalde Why are they here: Pt has been arrested multiple times for trespassing and this time has been in [facility] since April 2018. Pt unmedicated and very psychotic with poor hygiene. Pt is not competent to stand trial and so was placed here for stabilization of his psychiatric symptoms. Assessment What happened this shift: Patient visible on the unit at the beginning of shift. He walked the hallway and watched TV in rec room until snack time. Patient remained pleasant and cooperative with medications and assessment. When this nurse asked about discharge plans he shrugged his shoulders and said, "I don't know, I imagine I'm going back into the court system after my court date." This nurse asked if he had a clear understanding of why he was going to court he originally talked in first person but gradually started talking into third person and he did not appear to have clear understanding. Patient continues to isolate himself, although he is visible on the unit when people start to talk to him he adds bizarre comments and walks away. This policy writer recognized he was watching a TV show he appeared to be enjoying as he intensely watched and was smiling as soon as this policy writer said "you like this show huh?" He quickly looked over and shrugged and said "it's kind of funny" and walked out until no one was in the room and then returned. S/I, H/I: Denied A/VH: Denied Sleep: asleep at this time ADL's: Independent Group attendance: no. Were meds taken: Yes Any med S/E: None reported, none observed Mental Status Exam Appearance: untamed hair, green scrubs, scruffy whiskers Eye contact: Direct Behavior: Cooperative, isolated Speech: Soft, Normal tone and rate Mood: "ok" Affect: Congruent with affect Thought process: linear Thought Content: Unknown Cognition: A&O X4 Insight: Poor Judgment: Poor Interventions PRN's used: None Therapeutic interventions: attempted1:1 therapeutic assessment, maintained safe therapeutic milieu, provided active listening with positive feedback. Monitored for change in behavior and needed interventions. Q15 safety checks. Restraints/seclusion/emergency medication: N/A Justification of Continued Inpatient Treatment: Continued therapeutic support and medication management needed to provide stabilization, prevent decompensation, improve coping mechanisms decreasing risk to patient and readmission.
[2019-03-12] MEDS: CLOZAPINE 25 MG oral disintegrating tablet PO SCH (07:33)
[2019-03-12] MEDS: benztropine 1mg tablet PO SCH ×2 (07:33→20:10)
[2019-03-12] MEDS: pantoprazole 40mg Tablet.DR PO SCH (07:33)
[2019-03-12 08:00] VITALS: BP 116/70
[2019-03-12 08:02] VITALS: BP 116/70
--- NOTE | 2019-03-12 16:38 | NUR ---
Nursing Progress Note Solo Legal hold: 1370 Client on involuntary status for GD Report received from Delaney MENJIVAR Why are they here: Pt has been arrested multiple times for trespassing and this time has been in [facility] since April 2018. Pt unmedicated and very psychotic with poor hygiene. Pt is not competent to stand trial and so was placed here for stabilization of his psychiatric symptoms. Assessment What happened this shift: Client was resting on his floor at shift change. Client rested until medications were passed and he was compliant with process. Assessment reveals no new findings. Client di state that he had a sore left foot from, "sleeping on it wrong". Client was tired but maintained good eye contact and was able to let his needs be known to staff. After morning meal, client returned to his room and is resting on his floor with eyes closed. Respirations are even and unlabored. Client has been visible on unit but for the most part has been resting in his room. No behavioral issues this shift. S/I, H/I: Denied A/VH: Denied Sleep: asleep at this time ADL's: Independent Group attendance: no Were meds taken: Yes Any med S/E: None reported, none observed Mental Status Exam Appearance: untamed hair, green scrubs, scruffy whiskers Eye contact: Direct Behavior: Cooperative, isolated Speech: Soft, Normal tone and rate Mood: "I am good today, thanks". Affect: Congruent with affect Thought process: linear Thought Content: Unknown Cognition: A&O X4 Insight: Poor Judgment: Poor Interventions PRN's used: None Therapeutic interventions: attempted1:1 therapeutic assessment, maintained safe therapeutic milieu, provided active listening with positive feedback. Monitored for change in behavior and needed interventions. Q15 safety checks. Restraints/seclusion/emergency medication: N/A Justification of Continued Inpatient Treatment: Continued therapeutic support and medication management needed to provide stabilization, prevent decompensation, improve coping mechanisms decreasing risk to patient and readmission.
[2019-03-12 19:37] VITALS: BP 115/68
[2019-03-12] MEDS: clozapine 100mg tablet PO SCH (20:10)
--- NOTE | 2019-03-13 03:25 | NUR ---
Nursing Progress Note Solo Legal hold: 1370 Client on involuntary status for GD Report received from Fide MENJIVAR Why are they here: Pt has been arrested multiple times for trespassing and this [facility] in [facility] 2018. Pt unmedicated and very psychotic with poor hygiene. Pt is not competent to stand trial and so was placed here for stabilization of his psychiatric symptoms. Assessment What happened this shift: Patient sitting on his bed reading a book at the beginning of shift where he remained most of the time. Patient compliant with medication and assessment. Denied depression, SI, HI. Patient also denied A/VH, however, he was observed responding to internal stimuli. Patient remained isolated to his room most of the shift. This conventional mortgage underwriter and another staff member let him know about snack in the group room and he didn't partake in the activity this shift. Patient continues to lie on the floor when sleeping. S/I, H/I: Denied A/VH: Denied but observed responding to internal stimuli Sleep: asleep at this time ADL's: Independent Group attendance: no Were meds taken: Yes Any med S/E: None reported, none observed Mental Status Exam Appearance: untamed hair, green scrubs, scruffy whiskers Eye contact: Direct Behavior: Cooperative, isolated Speech: Soft, Normal tone and rate Mood: "I am good today, thanks". Affect: Congruent with affect Thought process: linear, delusional side comments Thought Content: Unknown Cognition: A&O X4 Insight: Poor Judgment: Poor Interventions PRN's used: None Therapeutic interventions: attempted1:1 therapeutic assessment, maintained safe therapeutic milieu, provided active listening with positive feedback. Monitored for change in behavior and needed interventions. Q15 safety checks. Restraints/seclusion/emergency medication: N/A Justification of Continued Inpatient Treatment: Continued therapeutic support and medication management needed to provide stabilization, prevent decompensation, improve coping mechanisms decreasing risk to patient and readmission.
[2019-03-13 07:21] VITALS: BP 126/96
[2019-03-13] MEDS: benztropine 1mg tablet PO SCH ×2 (07:59→20:07)
[2019-03-13] MEDS: pantoprazole 40mg Tablet.DR PO SCH (07:59)
[2019-03-13] MEDS: CLOZAPINE 25 MG oral disintegrating tablet PO SCH (08:00)
--- NOTE | 2019-03-13 09:45 | NUR ---
Reassessment: Pt with significant improvement in PO intake now averaging 75-100% meeting nutrient needs. Patient's wt is up 12 kg since admission two months ago likely r/t good PO intake as well as medications, receiving antipsychotics. [facility] 03/12. No nutrition diagnosis at this time. Will continue to follow. Recommendations: 1) Continue with regular diet 2) Bowel care PRN 3) Weekly wt Addendum: 03/13/19 at [address] Amended: Links added.
--- NOTE | 2019-03-13 17:45 | NUR ---
Nursing Progress Note Legal hold: 1370 Client on involuntary status for GD Report received from Leyla MENJIVAR Why are they here: Pt has been arrested multiple times for trespassing and [facility] 2018. Pt unmedicated and very psychotic with poor hygiene. Pt is not competent to stand trial and so was placed here for stabilization of his psychiatric symptoms. Assessment What happened this shift: Pt. asleep at start of shift, pt. found sleeping on the floor. Pt. took medications and ate all meals in community room. 1:1 done at bedside. Pt. denies SI/HI, A/V H. Pt. continues to have tangential, disorganized thought process with neologisms and klang associations. Pt. had mock trial today and was able to control better his tangential thought process. S/I, H/I: Denies A/VH: Denies Sleep: Pt. napped x1 ADL's: Independent Group attendance: no Were meds taken: Yes Any med S/E: None reported, none observed Mental Status Exam Appearance: unkempt hair, green scrubs, unshaven Eye contact: Direct Behavior: Cooperative, isolated Speech: Soft, Normal tone and rate Mood: bright Affect: Congruent with affect Thought process: linear during mock trial. during 1:1 assessment pt. continued to display tangential, d/o thinking. Thought Content: Unknown Cognition: A&O X4 Insight: Poor Judgment: Poor Interventions PRN's used: None Therapeutic interventions: attempted1:1 therapeutic assessment, maintained safe therapeutic milieu, provided active listening with positive feedback. Monitored for change in behavior and needed interventions. Q15 safety checks. Restraints/seclusion/emergency medication: N/A Justification of Continued Inpatient Treatment: Continued therapeutic support and medication management needed to provide stabilization, prevent decompensation, improve coping mechanisms decreasing risk to patient and readmission.
[2019-03-13 19:52] VITALS: BP 110/77
[2019-03-13] MEDS: clozapine 100mg tablet PO SCH (20:06)
--- NOTE | 2019-03-13 23:53 | NUR ---
Nursing Progress Note Legal hold: 1370 Client on involuntary status for GD Report received from ZAMZAM Stafford Why are they here: Pt has been arrested multiple times for trespassing and [facility] 2018. Pt unmedicated and very psychotic with poor hygiene. Pt is not competent to stand trial and so was placed here for stabilization of his psychiatric symptoms. Assessment What happened this shift: Patient visible on the unit at the beginning of shift. Patient watched television in rec room but spent most of this shift reading a book and sitting in loera chair. Patient complaint with assessment and medications. Patient didn't socialize much but did answer questions. When asked about his mock trial he expressed that he felt it went well. When asked about his day he explained it was good and that he has a new bedroom with a roommate. When asked about how he felt about sharing his room and his thoughts on his roommate, he explained that he hasn't really gotten to know his roommate but he was ok with the changes made. Later in the shift patient was observed falling asleep in the loera chair. The patient was encouraged to lay down in his bedroom but declined stating. "I'm not tire." A short while later patient laid down in his bed where he has remained asleep. S/I, H/I: Denied A/VH: Denied Sleep: asleep at this time ADL's: Independent Group attendance: group room for snack Were meds taken: Yes Any med S/E: None reported, none observed Mental Status Exam Appearance: hair pulled back, green scrubs, unshaven Eye contact: Direct Behavior: Cooperative, isolated Speech: Soft, Normal tone and rate Mood: bright Affect: Congruent with affect Thought process: linear but delusional at times. Thought Content: discharge plan Cognition: A&O X4 Insight: Poor Judgment: Poor Interventions PRN's used: None Therapeutic interventions: attempted1:1 therapeutic assessment, maintained safe therapeutic milieu, provided active listening with positive feedback. Monitored for change in behavior and needed interventions. Q15 safety checks. Restraints/seclusion/emergency medication: N/A Justification of Continued Inpatient Treatment: Continued therapeutic support and medication management needed to provide stabilization, prevent decompensation, improve coping mechanisms decreasing risk to patient and readmission.
[2019-03-14] MEDS: pantoprazole 40mg Tablet.DR PO SCH (08:13)
[2019-03-14] MEDS: benztropine 1mg tablet PO SCH ×2 (08:13→20:18)
[2019-03-14 08:17] VITALS: BP 115/77
[2019-03-14] MEDS: CLOZAPINE 25 MG oral disintegrating tablet PO SCH (08:52)
--- NOTE | 2019-03-14 17:24 | NUR ---
Nursing Progress Note Legal hold: 1370 Client on involuntary status for GD Report received from Leyla MENJIVAR Why are they here: Pt has been arrested multiple times for trespassing and this time has been in [facility] since April 2018. Pt unmedicated and very psychotic with poor hygiene. Pt is not competent to stand trial and so was placed here for stabilization of his psychiatric symptoms. Assessment What happened this shift: Patient visible on the unit for meals and pacing the unit at times. Patient affect remains flat though becomes somewhat animated when approached and interacted with. Patient does not initiate interaction with others. Patient continues to deny auditory hallucinations and he denies depression and suicidal thoughts. Patient continues to appear disheveled and unkempt, though he does not smell and appears clean. Patient friendly when approached without agitation today. S/I, H/I: Denies A/VH: Denies Sleep: Pt. napped x1 ADL's: Independent Group attendance: no Were meds taken: Yes Any med S/E: None reported, none observed Mental Status Exam Appearance: unkempt hair, green scrubs, unshaven Eye contact: Direct Behavior: Cooperative, isolated Speech: Soft, Normal tone and rate Mood: bright Affect: Congruent with affect Thought process: linear during mock trial. during 1:1 assessment pt. continued to display tangential, d/o thinking. Thought Content: Unknown Cognition: A&O X4 Insight: Poor Judgment: Poor Interventions PRN's used: None Therapeutic interventions: attempted1:1 therapeutic assessment, maintained safe therapeutic milieu, provided active listening with positive feedback. Monitored for change in behavior and needed interventions. Q15 safety checks. Restraints/seclusion/emergency medication: N/A Justification of Continued Inpatient Treatment: Continued therapeutic support and medication management needed to provide stabilization, prevent decompensation, improve coping mechanisms decreasing risk to patient and readmission.
[2019-03-14 19:00] VITALS: BP 123/80
[2019-03-14] MEDS: clozapine 100mg tablet PO SCH (20:19)
[2019-03-15] MEDS: CLOZAPINE 25 MG oral disintegrating tablet PO SCH (07:26)
[2019-03-15] MEDS: pantoprazole 40mg Tablet.DR PO SCH (07:30)
[2019-03-15] MEDS: benztropine 1mg tablet PO SCH ×2 (07:31→20:31)
[2019-03-15 08:15] VITALS: BP 132/87
--- NOTE | 2019-03-15 15:37 | NUR ---
Nursing Progress Note: Solo Legal hold: 1370 Client on involuntary status for GD Report received from RN Why are they here: Pt has been arrested multiple times for trespassing and this time has been in [facility] since April 2018. Pt unmedicated and very psychotic with poor hygiene. Pt is not competent to stand trial and so was placed here for stabilization of his psychiatric symptoms. Assessment What happened this shift: Client was resting in bed to begin the shift with eyes closed and respirations even and unlabored. Client took medications and participated with initial assessment. He presents as cheerful and engaging with staff as well as peers. Spent the last part of morning resting in his bed. No somatic complaints as of this writing. Consumed majority of his lunch and then returned to rest in bed. No behavioral issues this shift. S/I, H/I: Denies A/VH: Denies Sleep: ADL's: Independent Group attendance: afternoon Were meds taken: Yes Any med S/E: None reported, none observed Mental Status Exam Appearance: unkempt hair, green scrubs, unshaven Eye contact: Direct Behavior: Cooperative, isolated Speech: Soft, Normal tone and rate Mood: bright Affect: Congruent with affect Thought process: linear during mock trial. during 1:1 assessment pt. continued to display tangential, d/o thinking. Thought Content: Unknown Cognition: A&O X4 Insight: Poor Judgment: Poor Interventions PRN's used: None Therapeutic interventions: attempted1:1 therapeutic assessment, maintained safe therapeutic milieu, provided active listening with positive feedback. Monitored for change in behavior and needed interventions. Q15 safety checks. Restraints/seclusion/emergency medication: N/A Justification of Continued Inpatient Treatment: Continued therapeutic support and medication management needed to provide stabilization, prevent decompensation, improve coping mechanisms decreasing risk to patient and readmission.
[2019-03-15 20:00] VITALS: BP 122/79
[2019-03-15] MEDS: clozapine 100mg tablet PO SCH (20:31)
--- NOTE | 2019-03-15 23:35 | NUR ---
Nursing Progress Note: Solo Legal hold: 1370 Client on involuntary status for GD Report received from Deon WYMAN Why are they here: Pt has been arrested multiple times for trespassing and this time has been in [facility] since April 2018. Pt unmedicated and very psychotic with poor hygiene. Pt is not competent to stand trial and so was placed here for stabilization of his psychiatric symptoms. Assessment What happened this shift: Client was in the loera reading a book at the start of this shift . Client took medications and participated with initial assessment. He presents as cheerful and engaging with staff as well as peers. No somatic complaints as of this writing. Consumed majority of his meals and snack and then returned to rest in bed. No behavioral issues this shift. S/I, H/I: Denies A/VH: Denies Sleep: ADL's: Independent Group attendance: afternoon Were meds taken: Yes Any med S/E: None reported, none observed Mental Status Exam Appearance: unkempt hair, green scrubs, unshaven Eye contact: Direct Behavior: Cooperative, isolated Speech: Soft, Normal tone and rate Mood: bright Affect: Congruent with affect Thought process: linear during mock trial. during 1:1 assessment pt. continued to display tangential, d/o thinking. Thought Content: Unknown Cognition: A&O X4 Insight: Poor Judgment: Poor Interventions PRN's used: None Therapeutic interventions: attempted1:1 therapeutic assessment, maintained safe therapeutic milieu, provided active listening with positive feedback. Monitored for change in behavior and needed interventions. Q15 safety checks. Restraints/seclusion/emergency medication: N/A Justification of Continued Inpatient Treatment: Continued therapeutic support and medication management needed to provide stabilization, prevent decompensation, improve coping mechanisms decreasing risk to patient and readmission.
[2019-03-16 08:00] VITALS: BP 114/60
[2019-03-16] MEDS: benztropine 1mg tablet PO SCH ×2 (08:35→20:50)
[2019-03-16] MEDS: CLOZAPINE 25 MG oral disintegrating tablet PO SCH (08:35)
[2019-03-16] MEDS: pantoprazole 40mg Tablet.DR PO SCH (08:35)
--- NOTE | 2019-03-16 16:57 | NUR ---
Nursing Progress Note Legal hold: 1370 Client on involuntary status for GD Report received from Tanja Aly RN Why are they here: Pt has been arrested multiple times for trespassing and this time has been in [facility] since April 2018. Pt unmedicated and very psychotic with poor hygiene. Pt is not competent to stand trial and so was placed here for stabilization of his psychiatric symptoms. Assessment What happened this shift: Received patient visible on the unit. Patient attended all meals but did not attend groups. Patient spent portions of the free time during the day peace in the hallways or lying in bed. Patient polite when approached but he does not initiate interaction with others. Patient denies auditory hallucinations and denies depression and denies suicidal thoughts. S/I, H/I: Denies A/VH: Denies Sleep: ADL's: Independent Group attendance: no Were meds taken: Yes Any med S/E: None reported, none observed Mental Status Exam Appearance: unkempt hair, green scrubs, unshaven Eye contact: Direct Behavior: Cooperative, isolated Speech: Soft, Normal tone and rate Mood: bright Affect: Congruent with affect Thought process: linear during mock trial. during 1:1 assessment pt. continued to display tangential, d/o thinking. Thought Content: Unknown Cognition: A&O X4 Insight: Poor Judgment: Poor Interventions PRN's used: None Therapeutic interventions: attempted1:1 therapeutic assessment, maintained safe therapeutic milieu, provided active listening with positive feedback. Monitored for change in behavior and needed interventions. Q15 safety checks. Restraints/seclusion/emergency medication: N/A Justification of Continued Inpatient Treatment: Continued therapeutic support and medication management needed to provide stabilization, prevent decompensation, improve coping mechanisms decreasing risk to patient and readmission.
[2019-03-16 19:00] VITALS: BP 128/83
[2019-03-16] MEDS: clozapine 100mg tablet PO SCH (20:50)
--- NOTE | 2019-03-17 00:37 | NUR ---
RN PROGRESS NOTE: THIS SHIFT: Client pleasant and cooperative during shift. Thought and speech is disorganized. Client stated "The aironancy is good now." and gestured with his hands. Client is compliant with medications. Clients mood is stable.
[2019-03-17 06:35] LABS: BASOPHILS % (AUTO) 0.6 % (0-1); EOSINOPHILS # (AUTO) 0.2 X10'3 (0-0.9); EOSINOPHILS % (AUTO) 3.7 % (0-6); HEMATOCRIT 45.2 % (42.0-52.0); HEMOGLOBIN 15.2 g/dl (14.0-17.9); LYMPHOCYTES # (AUTO) 1.6 X10'3 (1.1-4.8); LYMPHOCYTES % (AUTO) 33.9 % (21-51); MEAN CORPUSCULAR HEMOGLOBIN 29.2 PG (27.0-31.0); MEAN CORPUSCULAR HGB CONC 33.7 g/dL (33.0-36.5); MEAN CORPUSCULAR VOLUME 86.6 FL (78-98); MEAN PLATELET VOLUME 7.3 FL (7.4-10.4); MONOCYTES # (AUTO) 0.6 X10'3 (0-0.9); MONOCYTES % (AUTO) 11.8 % (2-12); NEUTROPHILS # (AUTO) 2.4 X10'3 (1.8-7.7); PLATELET COUNT 191 X10'3 (140-440); RED BLOOD COUNT 5.22 X10'6 (4.70-6.10); WHITE BLOOD COUNT 4.9 X10'3 (4.5-11.0)
[2019-03-17] MEDS: benztropine 1mg tablet PO SCH ×2 (07:27→20:26)
[2019-03-17] MEDS: pantoprazole 40mg Tablet.DR PO SCH (07:27)
[2019-03-17] MEDS: CLOZAPINE 25 MG oral disintegrating tablet PO SCH (07:28)
[2019-03-17 08:00] VITALS: BP 119/72
--- NOTE | 2019-03-17 13:41 | NUR ---
Nursing Progress Note Legal hold: 1370 Client on involuntary status for GD Report received from Tanja Aly RN Why are they here: Pt has been arrested multiple times for trespassing and this time [facility] 2018. Pt unmedicated and very psychotic with poor hygiene. Pt is not competent to stand trial and so was placed here for stabilization of his psychiatric symptoms. Assessment What happened this shift: Patient was visible on the unit at meal times. He spent some time sleeping with blanket over head. PaTtietn is much more logical talking about court and returning to [place]. S/I, H/I: Denies A/VH: Denies Sleep: WNL ADL's: Independent Group attendance: no Were meds taken: Yes Any med S/E: None reported, none observed Mental Status Exam Appearance: unkempt hair, green scrubs, unshaven Eye contact: Direct Behavior: Cooperative, isolative Speech: Soft, Normal tone and rate Mood: bright Affect: Congruent with affect Thought process: still somewhat disorganized Thought Content: Talking about going back to [place] and needing a court date and a place lars stay. Cognition: A&O X3 Insight: Poor Judgment: Poor Interventions PRN's used: None Therapeutic interventions: attempted1:1 therapeutic assessment, maintained safe therapeutic milieu, provided active listening with positive feedback. Monitored for change in behavior and needed interventions. Q15 safety checks. Restraints/seclusion/emergency medication: N/A Justification of Continued Inpatient Treatment: Continued therapeutic support and medication management needed to provide stabilization, prevent decompensation, improve coping mechanisms decreasing risk to patient and readmission.
[2019-03-17 19:57] VITALS: BP 120/75
[2019-03-17] MEDS: clozapine 100mg tablet PO SCH (20:25)
--- NOTE | 2019-03-18 00:47 | NUR ---
Nursing Progress Note: Legal hold: Court competency 1370 Client on involuntary status for GD Report received from ZAMZAM Elizalde with use of SBAR Why are they here: Pt has been arrested multiple times for trespassing and this time has been in Detention since April 2018. Pt unmedicated and very psychotic with poor hygiene. Pt is not competent to stand trial and so was placed here for stabilization of his psychiatric symptoms. Assessment What has happened this shift: The patient was seen in the hallway at shift change. He agreed to 1:1 at his new room. He continues to be pleasant and cooperative with care. The patient believes he will DC next week and and thinks he is ready to defend himself. The patient still has hard time with the concept of Trespassing, and when you are. Also, he seems to have problems with the difference between Private and Public property. The patient still wonders about the 'inheritance' that was promised him, but believes his Conservator may have it. The patient still makes occasional delusional statements, but is easily redirected. He took his HS meds, then went to sleep on his bed. S/I, H/I: Denies A/VH: Denies. Sleep: Asleep since HS med pass. ADLs: Independent, but needs prompting. 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 Were meds taken: yes. Any med S/E : None noted or reported Mental Status Exam Appearance: WNL. Clean, brushed hair, wearing green scrubs. Eye contact: Good Behavior: Pacing, watching TV, talks to other clients. Speech: Normal volume, rate/rhythm. Mood: "Great." Affect: Blunted Thought process: Logical, delusional, disorganized Thought Content: Perseverates on "claiming" his inheritance. Cognition: A/O X 3 Insight: Poor Judgment: Poor Interventions: PRN's used: None Therapeutic interventions: 1:1 assessment, encouragement to express thoughts and feelings, encouragement to lie on his bed instead of on the hard floor, encouragement to perform personal hygiene, reality orientation, medication administration/education/monitoring, lab draws/monitoring for Clozaril, Q15 minute safety checks Restraints/seclusion/emergency medication: N/A Justification of Continued Inpatient Treatment: Pt gravely disabled and on a court competency 1370, remains delusional and disorganized.
[2019-03-18] MEDS: benztropine 1mg tablet PO SCH ×2 (07:29→20:24)
[2019-03-18] MEDS: pantoprazole 40mg Tablet.DR PO SCH (07:30)
[2019-03-18] MEDS: CLOZAPINE 25 MG oral disintegrating tablet PO SCH (07:30)
[2019-03-18 07:51] VITALS: BP 112/70
[2019-03-18 07:52] VITALS: BP 112/70
--- NOTE | 2019-03-18 14:38 | NUR ---
Nursing Progress Note: Solo Legal hold: Court competency 1370 Client on involuntary status for GD Report received from Palma MENJIVAR Why are they here: Pt has been arrested multiple times for trespassing and this time has been in Care Home since April 2018. Pt unmedicated and very psychotic with poor hygiene. Pt is not competent to stand trial and so was placed here for stabilization of his psychiatric symptoms. Assessment What has happened this shift: Client was in bed resting at change of shift. Woke for medications and was compliant. Went to Group room and had breakfast and then returned to his room where he rested. Client presented for lunch after sleeping the majority of morning in his room. No behavioral issues this shift. Patient is compliant with all aspects of care. S/I, H/I: Denies A/VH: Denies. Sleep: 10 + hours. ADLs: Independent, but needs prompting. 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 Were meds taken: yes. Any med S/E : None noted or reported Mental Status Exam Appearance: WNL. Clean, brushed hair, wearing green scrubs. Eye contact: Good Behavior: Pacing, watching TV, talks to other clients. Speech: Normal volume, rate/rhythm. Mood: "doing good" Affect: Blunted Thought process: Logical, delusional, disorganized Thought Content: Perseverates on "claiming" his inheritance. Cognition: A/O X 3 Insight: Poor Judgment: Poor Interventions: PRN's used: None Therapeutic interventions: 1:1 assessment, encouragement to express thoughts and feelings, encouragement to lie on his bed instead of on the hard floor, encouragement to perform personal hygiene, reality orientation, medication administration/education/monitoring, lab draws/monitoring for Clozaril, Q15 minute safety checks Restraints/seclusion/emergency medication: N/A Justification of Continued Inpatient Treatment: Pt gravely disabled and on a court competency 1370, remains delusional and disorganized.
[2019-03-18 19:00] VITALS: BP 121/68
[2019-03-18] MEDS: clozapine 100mg tablet PO SCH (20:24)
--- NOTE | 2019-03-19 03:43 | NUR ---
RN PROGRESS NOTE: LEGAL HOLD: Court competency 1370 for GD Report received from TIARA Deng REASON FOR ADMISSION: Client has a criminal charge but was found incompetent to stand trial. Client was admitted in an attempt to gain competency. ASSESSMENT: THIS SHIFT: Client paces on unit and moves frequently from the group room to his room. He is pleasant, polite, and cooperative. Client has been walking with a blanket wrapped around himself. He approached this RN and stated, "My roommate needs help with his bed. He is clustering on the ceiling with the appliances". Client was cooperative with medications. Client is linear at times but quickly changes into disorganized speech. S/I, H/I: Denies A/VH: Denies. ADLs: Independent, needs prompting. Group attendance: N/A. Were meds taken: Yes. Any med S/E : None noted or reported MSE: Appearance: Clean, brushed hair, wearing green scrubs. Eye contact: Makes eye contact but looks away. Behavior: Paces, talks to other clients. Speech: Normal volume, rate/rhythm. Mood: Stable Affect: Anxious. Thought process: Logical, delusional, disorganized Cognition: A/O X 3 Insight: Poor Judgment: Poor INTERVENTIONS: PRN's used: None Therapeutic interventions: 1:1 assessment, Medications. Restraints/seclusion/emergency medication: N/A Justification of Continued Inpatient Treatment: Client is GD. Clients thought are disorganized and would make it difficult to adequately care for himself.
[2019-03-19 07:40] VITALS: BP 114/77
[2019-03-19] MEDS: benztropine 1mg tablet PO SCH ×2 (07:57→20:12)
[2019-03-19] MEDS: pantoprazole 40mg Tablet.DR PO SCH (07:57)
[2019-03-19] MEDS: CLOZAPINE 25 MG oral disintegrating tablet PO SCH (07:59)
--- NOTE | 2019-03-19 16:47 | NUR ---
Nursing Progress Note: Legal hold: 1370 Client on involuntary status for GD Report received from nurse with use of SBAR: Leyla RN Why are they here: Pt has been arrested multiple times for trespassing and this time has been in [facility] since April 2018. Pt unmedicated and very psychotic with poor hygiene. Pt is not competent to stand trial and so was placed here for stabilization of his psychiatric symptoms. Assessment What has happened this shift: Received Pt resting in his bed under a blanket w/o distress and with normal respirations. Pt cooperative with assessment, as usual, and took AM medications w/o any questions or issue. Attended meals and interacted with staff well. He continues to paced the halls frequently in the afternoon and not attend groups. ADLs encouraged. Talked about his mock trials and he continues to think they are going well and that court is soon. He will engage for a short time coherently then quickly become disorganized. S/I, H/I: none reported A/VH: none reported Sleep: 8hrs NOC ADL's: Requires some direction and encouragement from staff Group attendance: Pt. reports he does not attend groups Were meds taken: Yes Any med S/E: None Mental Status Exam Appearance: appropriate, hair brushed Eye contact: direct Behavior: Cooperative, restless Speech: Soft, minimal, will answer questions appropriately Mood: Pleasant, however guarded Affect: Blunted Thought process: Disorganized, with some loose associations, however is able to be redirected Thought Content: Pleasantly delusional at times and possible AH/VH Cognition: A&O X3 (not to time) Insight: Poor Judgment: Poor to fair Interventions PRN's used: None Therapeutic interventions: Maintained a safe and supportive environment, provided clear and simple instructions, attempted to reorient to reality, provided positive encouragement regarding pt. sleeping in his bed, encouraged independent performance of ADLs and socialization with others, and maintained Q 15 min safety checks. Restraints/seclusion/emergency medication: N/A Justification of Continued Inpatient Treatment: Pt. continues to require a safe and supportive environment. He is not competent to stand trial.
[2019-03-19 19:43] VITALS: BP 121/78
[2019-03-19] MEDS: clozapine 100mg tablet PO SCH (20:12)
[2019-03-19] MEDS: mag hydrox/Alum hydrox/simeth 30ml oral suspension PO PRN (21:07)
--- NOTE | 2019-03-19 22:03 | NUR ---
Nursing Progress Note: One to one with the patient to assess severity of thought disorder and level of insight into his need for treatment. The patient was observed up on the unit and while he has been up in the general patient areas he doesn't appear to have any significant ability to socialize effectively with peers. He was cooperative with the evening assessment. He appeared disheveled with his long hair sticking up in all directions but he stated he showered today and he did appear clean. He is aware that he is here under court ordered treatment but he denies that he feels that he is being helped in any way by being here or taking medications. He does however take his medications as ordered. He verbalizes bizarre somatic delusions. "I need hemoglobulin stimulants to grow more blood for my veins" He reports decreased ability to concentrate 2nd to "pain in the left hemisphere" "I'm getting weaker every day from my blood not getting enough sunlight" He stated that his thinking process is "perfectly fine" He denies having a mental illness and stated "I have effecto when I have bad stimulants" When asked why the courts ordered him to be treated he stated "I think the court wants to bill for transport" He denies thoughts to harm himself or others.
[2019-03-20] MEDS: pantoprazole 40mg Tablet.DR PO SCH (07:32)
[2019-03-20] MEDS: benztropine 1mg tablet PO SCH ×2 (07:33→20:22)
[2019-03-20] MEDS: CLOZAPINE 25 MG oral disintegrating tablet PO SCH (07:33)
[2019-03-20 08:22] VITALS: BP 129/78
--- NOTE | 2019-03-20 14:53 | NUR ---
Nursing Progress Note: Solo Legal hold: 1370 Client on involuntary status for GD Report received from nurse with use of SBAR: ZAMZAM Mayer Why are they here: Pt has been arrested multiple times for trespassing and this time [facility] in [facility] 2018. Pt unmedicated and very psychotic with poor hygiene. Pt is not competent to stand trial and so was placed here for stabilization of his psychiatric symptoms. Assessment What has happened this shift: Received Pt resting in his bed with respirations even and unlabored. He was compliant with all aspects of am care and took his meds without issue. Client was up for morning meal but returned to his room to rest and he remains in bed as of this writing. No behavioral issues identified. Client has spent the majority of shift resting in bed. No somatic complaints this shift. S/I, H/I: none reported A/VH: none reported Sleep: ADL's: Requires some direction and encouragement from staff Group attendance: not today Were meds taken: Yes Any med S/E: None Mental Status Exam Appearance: appropriate, hair brushed Eye contact: direct Behavior: Cooperative, restless Speech: Soft, minimal, will answer questions appropriately Mood: Pleasant, however guarded Affect: Blunted Thought process: Disorganized, with some loose associations, however is able to be redirected Thought Content: Pleasantly delusional at times and possible AH/VH Cognition: A&O X3 (not to time) Insight: Poor Judgment: Poor to fair Interventions PRN's used: None Therapeutic interventions: Maintained a safe and supportive environment, provided clear and simple instructions, attempted to reorient to reality, provided positive encouragement regarding pt. sleeping in his bed, encouraged independent performance of ADLs and socialization with others, and maintained Q 15 min safety checks. Restraints/seclusion/emergency medication: N/A Justification of Continued Inpatient Treatment: Pt. continues to require a safe and supportive environment. He is not competent to stand trial.
[2019-03-20 20:00] VITALS: BP 123/77
[2019-03-20] MEDS: clozapine 100mg tablet PO SCH (20:22)
[2019-03-20] MEDS ORDERED: haloperidol 5mg tablet PO SCH (21:00)
--- NOTE | 2019-03-20 23:02 | NUR ---
Nursing Progress Note: One to one with the patient to assess severity of thought disorder. The patient has been up on the unit and was been friendly and cooperative when approached for the evening assessment. He is cooperative with the unit routine. He is medication compliant and he denied having side effects to medications but added, "They taste terrible like hornet spray" He stated that he has not been going to groups and explained something to the effect that if he went to groups he would have to stay here longer. He is not able to socialize with others in any kind of meaningful way. When asked if he was making friends with the other patients he replied in a very disorganized, and bizarre comment about eating people, money for transport and it made almost no sense. At times gave very concrete replies to assessment question. When asked how he slept last night in stated "In the bed" When asked how he was feeling to day he stated "human" He is oriented but when asked what day it was he replied, "wed mina" He also stated "I have sepsis in my feet" but could not explain what he meant. He denied having any kind of sores on his feet or that they were hurting. He denies thoughts to harm himself or others. 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
[2019-03-21] MEDS: benztropine 1mg tablet PO SCH ×2 (07:22→20:35)
[2019-03-21] MEDS: pantoprazole 40mg Tablet.DR PO SCH (07:22)
[2019-03-21] MEDS: CLOZAPINE 25 MG oral disintegrating tablet PO SCH (07:23)
[2019-03-21 07:57] VITALS: BP 118/83
--- NOTE | 2019-03-21 12:29 | NUR ---
Reassessment: Pt continues meeting nutrient needs with 100% PO intake. [facility] 03/19. Will continue to follow. Recommendations: 1) Continue with regular diet 2) Bowel care PRN 3) Weekly wt Addendum: 03/21/19 at [address] Amended: Links added.
--- NOTE | 2019-03-21 13:02 | NUR ---
Progress note Solo: Client was in bed to begin shift and rested until his am medications. He is compliant with all aspects of his care. Needs prompts to conduct ADLS but is social with staff as well as peers. No somatic complaints this shift so far. Client did not attend group but did come to group room for meal and then to his room to rest. No behavioral issues noted this shift.
[2019-03-21 19:00] VITALS: BP 122/74
[2019-03-21] MEDS: clozapine 100mg tablet PO SCH (20:37)
[2019-03-21] MEDS: haloperidol 5mg tablet PO SCH (20:37)
--- NOTE | 2019-03-22 01:24 | NUR ---
Nursing Progress Note: Solo Legal hold: 1370 Client on involuntary status for GD Report received from nurse with use of SBAR: ZAMZAM Chavarria Why are they here: Pt has been arrested multiple times for trespassing and [facility] in [facility]. Pt unmedicated and very psychotic with poor hygiene. Pt is not competent to stand trial and so was placed here for stabilization of his psychiatric symptoms. Assessment Patient paced hallways, listened to music on headphones, he then showered and laid down in the doorway of his room on the floor. Patient Later had snacks with other patients and then took medications and retired to bed. This patient is pleasant and cooperative with staff. He can be easily redirected to accomplish goals. The patient denies S/I, H/I, or hallucinations. This patient is helpful to staff and other patients. He is sleeping in his bed at bedtime. S/I, H/I: Denies. A/VH: Denies. Sleep: Patient napped a couple of times prior to bedtime. ADL's: Requires some direction and encouragement from staf. Group attendance: Patient did not attend on days. Were meds taken: Yes Any med S/E: None Mental Status Exam Appearance: Patient showered and groomed self. Eye contact: Direct. Behavior: Cooperative, restless. Speech: Soft, minimal, will answer questions appropriately. Mood: Pleasant, however guarded Affect: Blunted Thought process: Disorganized, with some loose associations, however is able to be redirected Thought Content: Pleasantly delusional at times and possible AH/VH Cognition: A&O X3 (not to time) Insight: Poor Judgment: Poor to fair Interventions PRN's used: None Therapeutic interventions: Maintained a safe and supportive environment, provided clear and simple instructions, attempted to reorient to reality, provided positive encouragement regarding pt. sleeping in his bed, encouraged independent performance of ADLs and socialization with others, and maintained Q 15 min safety checks. Restraints/seclusion/emergency medication: N/A Justification of Continued Inpatient Treatment: Pt. continues to require a safe and supportive environment. He is not competent to stand trial.
[2019-03-22] MEDS: benztropine 1mg tablet PO SCH ×2 (07:40→20:34)
[2019-03-22] MEDS: CLOZAPINE 25 MG oral disintegrating tablet PO SCH (07:41)
[2019-03-22] MEDS: pantoprazole 40mg Tablet.DR PO SCH (07:41)
[2019-03-22 08:00] VITALS: BP 111/78
--- NOTE | 2019-03-22 13:41 | NUR ---
Nursing Progress Note Legal hold: 1370 Client on involuntary status for GD Report received from nurse with use of SBAR: ZAMZAM Dewey Why are they here: Pt has been arrested multiple times for trespassing and this time has been in [facility] since April 2018. Pt unmedicated and very psychotic with poor hygiene. Pt is not competent to stand trial and so was placed here for stabilization of his psychiatric symptoms. Assessment What has happened this shift: Client sleeping on his bed completely covered, face and everything, at start of shift. Compliant with assessment and am med pass. During am assessment client stated, my bone marrow is not producing enough blood they need to give me a blood stimulant. Then he said, they only gibe me sedatives they are sleep HARD pills. Paced the halls wearing a head set during this shift. S/I, H/I: none reported A/VH: none reported Sleep: N/A ADL's: Requires some direction and encouragement from staff Group attendance: No Were meds taken: Yes Any med S/E: None Mental Status Exam Appearance: Poor ADLs Eye contact: direct Behavior: Cooperative, isolates, keeps to himself Speech: Soft, normal rate and rhythm Mood: Guarded Affect: Blunted Thought process: disorganized at times loose associations Thought Content: keeps to himself concerned about his bone marrow in am Cognition: A&O X3 (not to time) Insight: Poor Judgment: Poor to fair Interventions PRN's used: None Therapeutic interventions: Provided therapeutic communication and active listening, reorient to reality in am assessment, medication administration, monitoring and education, encouraged shower and group attendance, maintained Q 15 min safety checks. Restraints/seclusion/emergency medication: N/A Justification of Continued Inpatient Treatment: Pt. continues to require a safe and supportive environment. He is not competent to stand trial.
[2019-03-22] MEDS: magnesium hydroxide 30ml (MOM) UD suspension PO PRN (17:28)
[2019-03-22 19:00] VITALS: BP 128/78
[2019-03-22] MEDS: clozapine 100mg tablet PO SCH (20:33)
[2019-03-22] MEDS: haloperidol 5mg tablet PO SCH (20:33)
--- NOTE | 2019-03-23 03:50 | NUR ---
Nursing Progress Note Legal hold: 1370 Client on involuntary status for GD Report received from nurse with use of SBAR: ZAMZAM Chavarria Why are they here: Pt has been arrested multiple times for trespassing and this time has been in [facility] since April 2018. Pt unmedicated and very psychotic with poor hygiene. Pt is not competent to stand trial and so was placed here for stabilization of his psychiatric symptoms. Assessment What has happened this shift: Patient ambulating hallways early in shift, he listens to music. Patient politely greets staff. Patient exhibits a linear thought process most of the time but then becomes bizarre. Patient complies with staff requests such as improving hygene, combing hair, taking a shower, etc. This patient denies S/I or H/I. Tonight patient is sleeping in his bed which is a fairly recent change for the better. On occasion the patient will still lay down on the floor. This patient is advised he is in a safe place. He does exhibit understanding of this. S/I, H/I: Patient denies. A/VH: Patient denies. Sleep: N/A ADL's: Requires some direction and encouragement from staff Group attendance: None on day shift, no group on nights. Were meds taken: Yes Any med S/E: None Mental Status Exam Appearance: Poor ADLs Eye contact: Direct Behavior: Cooperative, isolates, keeps to himself Speech: Soft, normal rate and rhythm Mood: Guarded Affect: Blunted Thought process: Linear at times, then disorganized at times with loose associations. Thought Content: Speaks in general about things in general around the unit, short mention of his mother. Cognition: Oriented to person, place, time, and situation. Insight: Poor Judgment: Fair. Interventions PRN's used: None Therapeutic interventions: Provided therapeutic communication and active listening, reorient to reality in am assessment, medication administration, monitoring and education, encouraged shower and group attendance, maintained Q 15 min safety checks. Restraints/seclusion/emergency medication: N/A Justification of Continued Inpatient Treatment: Pt. continues to require a safe and supportive environment. He is not competent to stand trial.
[2019-03-23 08:00] VITALS: BP 101/71
[2019-03-23] MEDS: benztropine 1mg tablet PO SCH ×2 (08:04→20:38)
[2019-03-23] MEDS: pantoprazole 40mg Tablet.DR PO SCH (08:04)
[2019-03-23] MEDS: CLOZAPINE 25 MG oral disintegrating tablet PO SCH (08:04)
--- NOTE | 2019-03-23 15:54 | NUR ---
Nursing Progress Note Legal hold: 1370 Client on involuntary status for GD Report received from nurse with use of SBAR: Tanja Aly RN Why are they here: Pt has been arrested multiple times for trespassing and this [facility] in [facility] April 2018. Pt unmedicated and very psychotic with poor hygiene. Pt is not competent to stand trial and so was placed here for stabilization of his psychiatric symptoms. Assessment What has happened this shift: Client sleeping on his bed at start of shift. During am assessment and am medication pass client reports he slept well. He is compliant with medications. Client isolates sleeping on and off throughout the shift. No changes. S/I, H/I: none reported A/VH: laughs inappropriately Sleep: N/A ADL's: Requires some direction and encouragement from staff Group attendance: No Were meds taken: Yes Any med S/E: None Mental Status Exam Appearance: Poor ADLs Eye contact: direct Behavior: Cooperative, isolates, keeps to himself Speech: Soft, normal rate and rhythm Mood: Guarded Affect: Blunted Thought process: disorganized at times loose associations Thought Content: unknown Cognition: A&O X3 (not to time) Insight: Poor Judgment: Poor Interventions PRN's used: None Therapeutic interventions: Provided therapeutic communication and active listening, reorient to reality in am assessment, medication administration, monitoring and education, encouraged shower and group attendance, maintained Q 15 min safety checks. Restraints/seclusion/emergency medication: N/A Justification of Continued Inpatient Treatment: Pt. continues to require a safe and supportive environment. He is not competent to stand trial.
[2019-03-23] MEDS: magnesium hydroxide 30ml (MOM) UD suspension PO PRN (17:15)
[2019-03-23 20:00] VITALS: BP 118/62
[2019-03-23] MEDS: haloperidol 5mg tablet PO SCH (20:39)
[2019-03-23] MEDS: clozapine 100mg tablet PO SCH (20:41)
--- NOTE | 2019-03-23 22:19 | NUR ---
Nursing Progress Note Legal hold: 1370 Client on involuntary status for GD Report received from nurse with use of SBAR: ZAMZAM Chavarria Why are they here: Pt has been arrested multiple times for trespassing and this time has been in [facility] since April 2018. Pt unmedicated and very psychotic with poor hygiene. Pt is not competent to stand trial and so was placed here for stabilization of his psychiatric symptoms. Assessment What has happened this shift: Patient up pacing the loera and spent time in the group room. Pt shaved and was Med compliant. He was social with staff and requested a new wrist band. While pacing Pt was Observed responding to internal stimuli. S/I, H/I: none reported A/VH: laughs inappropriately Sleep: N/A ADL's: Requires some direction and encouragement from staff Group attendance: No Were meds taken: Yes Any med S/E: None Mental Status Exam Appearance: Poor ADLs Eye contact: direct Behavior: Cooperative, isolates, keeps to himself Speech: Soft, normal rate and rhythm Mood: Guarded Affect: Blunted Thought process: disorganized at times loose associations Thought Content: unknown Cognition: A&O X3 (not to time) Insight: Poor Judgment: Poor Interventions PRN's used: None Therapeutic interventions: Provided therapeutic communication and active listening, reorient to reality in am assessment, medication administration, monitoring and education, encouraged shower and group attendance, maintained Q 15 min safety checks. Restraints/seclusion/emergency medication: N/A Justification of Continued Inpatient Treatment: Pt. continues to require a safe and supportive environment. He is not competent to stand trial.
[2019-03-24 07:16] LABS: EOSINOPHILS # (AUTO) 0.1 X10'3 (0-0.9); EOSINOPHILS % (AUTO) 3.2 % (0-6); HEMATOCRIT 45.2 % (42.0-52.0); HEMOGLOBIN 15.1 g/dl (14.0-17.9); LYMPHOCYTES # (AUTO) 1.9 X10'3 (1.1-4.8); MEAN CORPUSCULAR HEMOGLOBIN 29.3 PG (27.0-31.0); MEAN CORPUSCULAR HGB CONC 33.4 g/dL (33.0-36.5); MEAN CORPUSCULAR VOLUME 87.8 FL (78-98); MEAN PLATELET VOLUME 8.1 FL (7.4-10.4); MONOCYTES # (AUTO) 0.6 X10'3 (0-0.9); MONOCYTES % (AUTO) 12.2 % (2-12); NEUTROPHILS % (AUTO) 43.6 % (42-75); PLATELET COUNT 174 X10'3 (140-440); RED BLOOD COUNT 5.15 X10'6 (4.70-6.10); RED CELL DISTRIBUTION WIDTH 12.6 % (11.5-14.5); WHITE BLOOD COUNT 4.7 X10'3 (4.5-11.0)
[2019-03-24] MEDS: benztropine 1mg tablet PO SCH ×2 (07:22→20:20)
[2019-03-24] MEDS: pantoprazole 40mg Tablet.DR PO SCH (07:23)
[2019-03-24] MEDS: CLOZAPINE 25 MG oral disintegrating tablet PO SCH (07:23)
[2019-03-24 08:20] VITALS: BP 120/71
--- NOTE | 2019-03-24 15:35 | NUR ---
Nursing Progress Note: Solo Legal hold: 1370 Client on involuntary status for GD Report received Noc Shift Nurse Why are they here: Pt has been arrested multiple times for trespassing and this time has been in [facility] since April 2018. Pt unmedicated and very psychotic with poor hygiene. Pt is not competent to stand trial and so was placed here for stabilization of his psychiatric symptoms. Assessment What has happened this shift: Client was in bed to start the shift. Woke for am assessment and medications and client was compliant with both. No somatic complaints upon first assessment. Client presented for breakfast and then went to his room to rest. No behavioral issues this shift. Client has spent the majority of this shift in bed. S/I, H/I: none reported A/VH: laughs inappropriately Sleep: N/A ADL's: Requires some direction and encouragement from staff Group attendance: No Were meds taken: Yes Any med S/E: None Mental Status Exam Appearance: Poor ADLs Eye contact: direct Behavior: Cooperative, isolates, keeps to himself Speech: Soft, normal rate and rhythm Mood: Guarded Affect: Blunted Thought process: disorganized at times loose associations Thought Content: unknown Cognition: A&O X3 (not to time) Insight: Poor Judgment: Poor Interventions PRN's used: None Therapeutic interventions: Provided therapeutic communication and active listening, reorient to reality in am assessment, medication administration, monitoring and education, encouraged shower and group attendance, maintained Q 15 min safety checks. Restraints/seclusion/emergency medication: N/A Justification of Continued Inpatient Treatment: Pt. continues to require a safe and supportive environment. He is not competent to stand trial.
[2019-03-24 19:57] VITALS: BP 116/77
[2019-03-24] MEDS: haloperidol 5mg tablet PO SCH (20:21)
[2019-03-24] MEDS: clozapine 100mg tablet PO SCH (20:22)
--- NOTE | 2019-03-24 22:45 | NUR ---
Legal hold: 1370 Client on involuntary status for GD Report received Deon WYMAN. Why are they here: Pt has been arrested multiple times for trespassing and this time has been in [facility] April 2018. Pt unmedicated and very psychotic with poor hygiene. Pt is not competent to stand trial and so was placed here for stabilization of his psychiatric symptoms. Assessment What has happened this shift: Client was up pacing the loera with head phone radio singing. He would stop from time to time and respond to the wall. No somatic complaints this shift. Patient is compliant and cheerful . No behavioral issues this shift. Client has spent the majority of this shift in pacing and social . S/I, H/I: none reported A/VH: laughs inappropriately Sleep: N/A ADL's: Requires some direction and encouragement from staff Group attendance: No Were meds taken: Yes Any med S/E: None Mental Status Exam Appearance: Poor ADLs Eye contact: direct Behavior: Cooperative, isolates, keeps to himself Speech: Soft, normal rate and rhythm Mood: Guarded Affect: Blunted Thought process: disorganized at times loose associations Thought Content: unknown Cognition: A&O X3 (not to time) Insight: Poor Judgment: Poor Interventions PRN's used: None Therapeutic interventions: Provided therapeutic communication and active listening, reorient to reality in am assessment, medication administration, monitoring and education, encouraged shower and group attendance, maintained Q 15 min safety checks. Restraints/seclusion/emergency medication: N/A Justification of Continued Inpatient Treatment: Pt. continues to require a safe and supportive environment. He is not competent to stand trial.
[2019-03-25 07:30] VITALS: BP 121/63
[2019-03-25] MEDS: pantoprazole 40mg Tablet.DR PO SCH (07:55)
[2019-03-25] MEDS: benztropine 1mg tablet PO SCH ×2 (07:55→20:32)
[2019-03-25] MEDS: CLOZAPINE 25 MG oral disintegrating tablet PO SCH (07:56)
--- NOTE | 2019-03-25 17:30 | NUR ---
Legal hold: 1370 Client on involuntary status for GD Report received TIARA Waldrop. Why are they here: Pt has been arrested multiple times for trespassing and this time has been in [facility] April 2018. Pt unmedicated and very psychotic with poor hygiene. Pt is not competent to stand trial and so was placed here for stabilization of his psychiatric symptoms. Assessment What has happened this shift: Pt. asleep at start of shift. Pt. is hypersomnolant and went back to sleep after breakfast. Pt. ate all meals in community room. After lunch pt. seen pacing in the hallway with headphones on, singing to himself. Pt. took a nap in mid afternoon for 1 hour. S/I, H/I: Pt. denies A/VH: Pt. denies Sleep: N/A ADL's: Requires some direction and encouragement from staff Group attendance: No Were meds taken: Yes Any med S/E: None Mental Status Exam Appearance: Poor ADLs Eye contact: direct Behavior: Cooperative, isolates, keeps to himself Speech: Soft, normal rate and rhythm Mood: Guarded Affect: Blunted Thought process: disorganized at times loose associations Thought Content: unknown Cognition: A&O X3 (not to time) Insight: Poor Judgment: Poor Interventions PRN's used: None Therapeutic interventions: Provided therapeutic communication and active listening, reorient to reality in am assessment, medication administration, monitoring and education, encouraged shower and group attendance, maintained Q 15 min safety checks. Restraints/seclusion/emergency medication: N/A Justification of Continued Inpatient Treatment: Pt. continues to require a safe and supportive environment. He is not competent to stand trial.
[2019-03-25 20:00] VITALS: BP 124/76
[2019-03-25] MEDS: haloperidol 5mg tablet PO SCH (20:32)
[2019-03-25] MEDS: clozapine 100mg tablet PO SCH (20:33)
--- NOTE | 2019-03-25 22:13 | NUR ---
Nursing Progress Note: Solo Legal hold: 1370 Client on involuntary status for GD Report received Deon WYMAN Shift Nurse Why are they here: Pt has been arrested multiple times for trespassing and [facility]. Pt unmedicated and very psychotic with poor hygiene. Pt is not competent to stand trial and so was placed here for stabilization of his psychiatric symptoms. Assessment What has happened this shift: Client was up pacing the loera at start the shift. Compliant with assessment and medications . No somatic complaints upon assessment. No behavioral issues this shift. Client has spent the majority of this shift pacing the loera with the headphones listening to music. S/I, H/I: none reported A/VH: laughs inappropriately Sleep: N/A ADL's: Requires some direction and encouragement from staff Group attendance: No Were meds taken: Yes Any med S/E: None Mental Status Exam Appearance: Poor ADLs Eye contact: direct Behavior: Cooperative, isolates, keeps to himself Speech: Soft, normal rate and rhythm Mood: Guarded Affect: Blunted Thought process: disorganized at times loose associations Thought Content: unknown Cognition: A&O X3 (not to time) Insight: Poor Judgment: Poor Interventions PRN's used: None Therapeutic interventions: Provided therapeutic communication and active listening, reorient to reality in am assessment, medication administration, monitoring and education, encouraged shower and group attendance, maintained Q 15 min safety checks. Restraints/seclusion/emergency medication: N/A Justification of Continued Inpatient Treatment: Pt. continues to require a safe and supportive environment. He is not competent to stand trial.
[2019-03-26 07:30] VITALS: BP 115/68
[2019-03-26] MEDS: pantoprazole 40mg Tablet.DR PO SCH (07:58)
[2019-03-26] MEDS: benztropine 1mg tablet PO SCH ×2 (07:58→20:00)
[2019-03-26] MEDS: CLOZAPINE 25 MG oral disintegrating tablet PO SCH (07:59)
--- NOTE | 2019-03-26 17:39 | NUR ---
Nursing Progress Note Legal hold: 1370 Client on involuntary status for GD Report received from ZAMZAM Mayer with use of SBAR: Why are they here: Pt has been arrested multiple times for trespassing and this time has been in [facility] since April 2018. Pt unmedicated and very psychotic with poor hygiene. Pt is not competent to stand trial and so was placed here for stabilization of his psychiatric symptoms. Assessment What has happened this shift: Pt. asleep at beginning of shft. Pt. hypersomnolant. Pt. took medications and ate all meals in community room. 1:1 done at bedside. Pt. reports feeling depressed today. Pt. states, "I realize that the problem is with the left side of my brain. Because it's being dipped in water". Pt. reports headache rated 3/10, pt. refused pain medication. Pt. seen in the afternoon pacing hallway while listening to headphones. Pt. showered. S/I, H/I: Denies A/VH: Denies Sleep: Pt. napped all morning and took 1hr nap after lunch. ADL's: Requires some direction and encouragement from staff. Pt. showered today. Group attendance: No Were meds taken: Yes Any med S/E: None Mental Status Exam Appearance: Showered and in green scrubs with combed hair. Eye contact: direct Behavior: Cooperative, isolates, keeps to himself Speech: Soft, normal rate and rhythm Mood: Guarded Affect: Blunted Thought process: disorganized at times loose associations Thought Content: unknown Cognition: A&O X3 (not to time) Insight: Poor Judgment: Poor Interventions PRN's used: None Therapeutic interventions: Provided therapeutic communication and active listening, reorient to reality in am assessment, medication administration, monitoring and education, encouraged shower and group attendance, maintained Q 15 min safety checks. Restraints/seclusion/emergency medication: N/A Justification of Continued Inpatient Treatment: Pt. continues to require a safe and supportive environment. He is not competent to stand trial.
[2019-03-26] MEDS: clozapine 100mg tablet PO SCH (20:01)
[2019-03-26] MEDS: haloperidol 5mg tablet PO SCH (20:02)
[2019-03-26 20:50] VITALS: BP 125/71
--- NOTE | 2019-03-26 22:58 | NUR ---
Nursing Progress Note Legal hold: 1370 Client on involuntary status for GD Report received from ZAMZAM Mayer with use of SBAR: Why are they here: Pt has been arrested multiple times for trespassing and this time has been in [facility] since April 2018. Pt unmedicated and very psychotic with poor hygiene. Pt is not competent to stand trial and so was placed here for stabilization of his psychiatric symptoms. Assessment What has happened this shift: Pt. seen in the afternoon pacing hallway while listening to headphones. Pt. showered. Pt continues to responed to internal stimuli and Making bizarre statements. AEB I figured out the problem my brain is being dipped in water. He continues to be med compliant and social with staff and peers. S/I, H/I: Denies A/VH: Denies Sleep: Pt. napped all morning and took 1hr nap after lunch. ADL's: Requires some direction and encouragement from staff. Pt. showered today. Group attendance: No Were meds taken: Yes Any med S/E: None Mental Status Exam Appearance: Showered and in green scrubs with combed hair. Eye contact: direct Behavior: Cooperative, isolates, keeps to himself Speech: Soft, normal rate and rhythm Mood: Guarded Affect: Blunted Thought process: disorganized at times loose associations Thought Content: unknown Cognition: A&O X3 (not to time) Insight: Poor Judgment: Poor Interventions PRN's used: None Therapeutic interventions: Provided therapeutic communication and active listening, reorient to reality in am assessment, medication administration, monitoring and education, encouraged shower and group attendance, maintained Q 15 min safety checks. Restraints/seclusion/emergency medication: N/A Justification of Continued Inpatient Treatment: Pt. continues to require a safe and supportive environment. He is not competent to stand trial.
[2019-03-27] MEDS: benztropine 1mg tablet PO SCH ×2 (08:24→20:38)
[2019-03-27] MEDS: pantoprazole 40mg Tablet.DR PO SCH (08:24)
[2019-03-27] MEDS: CLOZAPINE 25 MG oral disintegrating tablet PO SCH (08:24)
[2019-03-27 08:32] VITALS: BP 119/78
--- NOTE | 2019-03-27 17:20 | NUR ---
Nursing Progress Note: Legal hold: 1370 Client on involuntary status for GD Report received from ZAMZAM Mayer Why are they here: Pt has been arrested multiple times for trespassing and this time has been in [facility] since April 2018. Pt unmedicated and very psychotic with poor hygiene. Pt is not competent to stand trial and so was placed here for stabilization of his psychiatric symptoms. Assessment What has happened this shift: Out of room for greater part of the shift. Listening to music via headset. Singing out loud as he paces the halls. Occasionally engaging with staff. During medication administration, patient stated "At least you're not spitting on me like the 5 foot 2 inch woman that stood over me while I was sleeping and called herself my mother." When not listening to music, curled up in the position in his bed with the covers pulled up over his head. Took pride in his appearance today. Pt compliant with all medications. S/I, H/I: Denies A/VH: Denies Sleep: See sleep assessment ADL's: Requires some direction and encouragement from staff Group attendance: N/A Were meds taken: Yes Any med S/E: None reported, none observed Mental Status Exam Appearance: Appropriate in green unit scrubs and nonskid socks, hair disheveled Eye contact: Direct Behavior: Cooperative, restless, pacing halls, listening to headphones Speech: Soft, Normal tone and rate Mood: Pleasant, however guarded Affect: Blunted Thought process: Disorganized, loose associations Thought Content: Unknown Cognition: A&O X3 (not to time) Insight: Poor Judgment: Poor Interventions PRN's used: None Therapeutic interventions: Maintained a safe and supportive environment, provided clear and simple instructions, attempted to reorient to reality, provided positive encouragement regarding pt. sleeping in his bed, encouraged independent performance of ADLs and socialization with others, and maintained Q 15 min safety checks.
[2019-03-27 20:00] VITALS: BP 118/82
[2019-03-27] MEDS: haloperidol 5mg tablet PO SCH (20:37)
[2019-03-27] MEDS: clozapine 100mg tablet PO SCH (20:38)
--- NOTE | 2019-03-28 00:56 | NUR ---
Nursing Progress Note: Legal hold: 1370 Client on involuntary status for GD Report received from ZAMZAM [place] Why are they here: Pt has been arrested multiple times for trespassing and this time has been in [facility] since April 2018. Pt unmedicated and very psychotic with poor hygiene. Pt is not competent to stand trial and so was placed here for stabilization of his psychiatric symptoms. Assessment What has happened this shift: Walking the unit listening to music at change of shift. he spends time sitting in the hallway, and interacting with staff on occasion. he is cooperative for a 1:1 assessment. he is very concerned this evening about this program writer having "flat feet" asking "How long have your feet been flat?" Then going off on another conversation. He is very polite and keeps to himself when not interacting with staff. Complaint for HS medications. S/I, H/I: Denies A/VH: Denies Sleep: See sleep assessment ADL's: Requires some direction and encouragement from staff Group attendance: N/A Were meds taken: Yes Any med S/E: None reported, none observed Mental Status Exam Appearance: Appropriate in green unit scrubs and nonskid socks, hair disheveled Eye contact: Direct Behavior: Cooperative, pacing halls, listening to headphones Speech: Soft, Normal tone and rate Mood: Pleasant, however guarded Affect: Blunted Thought process: Disorganized, loose associations Thought Content: Unknown Cognition: A&O X3 (not to time) Insight: Poor Judgment: Poor Interventions PRN's used: None Therapeutic interventions: Maintained a safe and supportive environment, provided clear and simple instructions, attempted to reorient to reality, provided positive encouragement regarding pt. sleeping in his bed, encouraged independent performance of ADLs and socialization with others, and maintained Q 15 min safety checks.
[2019-03-28 08:00] VITALS: BP 119/82
[2019-03-28] MEDS: CLOZAPINE 25 MG oral disintegrating tablet PO SCH (08:08)
[2019-03-28] MEDS: pantoprazole 40mg Tablet.DR PO SCH (08:09)
[2019-03-28] MEDS: benztropine 1mg tablet PO SCH ×2 (08:09→20:00)
--- NOTE | 2019-03-28 11:44 | NUR ---
Reassessment: Pt continues with 75-100% PO intake meeting nutrient needs. [facility] 03/27. Will continue to follow. Recommendations: 1) Continue with regular diet 2) Bowel care PRN 3) Weekly wt Addendum: 03/28/19 at [address] Amended: Links added.
--- NOTE | 2019-03-28 14:27 | NUR ---
Nursing Progress Note: Solo Legal hold: 1370 Client on involuntary status for GD Report received from Leyla Why are they here: Pt has been arrested multiple times for trespassing and this time has been in [facility] since April 2018. Pt unmedicated and very psychotic with poor hygiene. Pt is not competent to stand trial and so was placed here for stabilization of his psychiatric symptoms. Assessment What has happened this shift: Asleep at shift change in bed. Respirations were even and unlabored. Compliant with assessment and medications. Client spent time alternating between resting in bed and ambulating on unit, Compliant with all aspects of his care. No somatic complaints as of this writing. S/I, H/I: Denies A/VH: Denies Sleep: See sleep assessment ADL's: Requires some direction and encouragement from staff Group attendance: no Were meds taken: Yes Any med S/E: None reported, none observed Mental Status Exam Appearance: Appropriate in green unit scrubs and nonskid socks, hair disheveled Eye contact: Direct Behavior: Cooperative, pacing halls, resting Speech: Soft, Normal tone and rate Mood: Pleasant, however guarded Affect: Blunted Thought process: Disorganized, loose associations Thought Content: Unknown Cognition: A&O X3 (not to time) Insight: Poor Judgment: Poor Interventions PRN's used: None Therapeutic interventions: Maintained a safe and supportive environment, provided clear and simple instructions, attempted to reorient to reality, provided positive encouragement regarding pt. sleeping in his bed, encouraged independent performance of ADLs and socialization with others, and maintained Q 15 min safety checks
[2019-03-28 20:00] VITALS: BP 110/73
[2019-03-28] MEDS ORDERED: clozapine 25mg tablet PO ONE ×2 (20:35→21:00)
[2019-03-28] MEDS: clozapine 100mg tablet PO SCH (21:00)
[2019-03-28] MEDS ORDERED: clozapine 100mg tablet PO ONE (21:00)
[2019-03-28] MEDS: haloperidol 5mg tablet PO SCH (21:16)
--- NOTE | 2019-03-29 02:58 | NUR ---
Nursing Progress Note: Legal hold: 1370 Client on involuntary status for GD Report received from TIARA Elizalde via sbar Why are they here: Pt has been arrested multiple times for trespassing and this time has been in [facility] since April 2018. Pt unmedicated and very psychotic with poor hygiene. Pt is not competent to stand trial and so was placed here for stabilization of his psychiatric symptoms. Assessment What has happened this shift: Pt pacing unit listening to headphones, occasionally interacting with both staff and peers. Pt is aware of why he is here and that he will be discharged sometime next week; "I feel good about it." Pt continues to have word salad, neologisms, and loose associations present during 1:1 but is cooperative with all care. Pt had a burrito at snack then turned in shortly after medication administration. Pt is observed to be sleeping with a kleenex in his left nostril. S/I, H/I: Denies A/VH: Denies Sleep: See sleep assessment ADL's: Requires some direction and encouragement from staff Group attendance: N/A Were meds taken: Yes Any med S/E: None reported, none observed Mental Status Exam Appearance: Appropriate in green unit scrubs and nonskid socks, hair disheveled Eye contact: Direct Behavior: Cooperative, pacing halls, listening to headphones Speech: Soft, Normal tone and rate Mood: Pleasant, however guarded Affect: Blunted Thought process: Disorganized, loose associations Thought Content: Unknown Cognition: A&O X3 (not to time) Insight: Poor Judgment: Poor Interventions PRN's used: None Therapeutic interventions: Maintained a safe and supportive environment, provided clear and simple instructions, attempted to reorient to reality, provided positive encouragement regarding pt. sleeping in his bed, encouraged independent performance of ADLs and socialization with others, and maintained Q 15 min safety checks. Justification for continues treatment: Pt here on court order to become competent enough to stand trial.
[2019-03-29] MEDS: CLOZAPINE 25 MG oral disintegrating tablet PO SCH (07:19)
[2019-03-29] MEDS: benztropine 1mg tablet PO SCH ×2 (07:19→20:19)
[2019-03-29 07:54] VITALS: BP 137/113
--- NOTE | 2019-03-29 08:42 | NUR ---
Hand Delivered Letters of Competency to Anjelica Fox with [facility], forensic soakers supervisor.
--- NOTE | 2019-03-29 08:43 | NUR ---
Court 04/03. Anjelica, with [facility], reports that at this point client does not have to attend and that she will let us know of the outcome.
--- NOTE | 2019-03-29 15:18 | NUR ---
Nursing Progress Note: Legal hold: 1370 Client on involuntary status for GD Report received from TIARA Dewey via sbar Why are they here: Pt has been arrested multiple times for trespassing and this time has been in [facility] since April 2018. Pt unmedicated and very psychotic with poor hygiene. Pt is not competent to stand trial and so was placed here for stabilization of his psychiatric symptoms. Assessment What has happened this shift: Pt is resting in bed peacefully at change of shift. Pt continues to have word salad, neologisms, and loose associations present during 1:1 but is cooperative with all care. He takes his medications without incident. Pt is tired and naps the majority of the day. He is seen resting peacefully throughout this shift. He is up in the community room to eat his meals but does not participate in groups. S/I, H/I: Denies A/VH: Denies Sleep: naps throughout the day ADL's: Requires some direction and encouragement from staff Group attendance: No Were meds taken: Yes Any med S/E: None reported, none observed Mental Status Exam Appearance: Appropriate in green unit scrubs and nonskid socks, hair disheveled Eye contact: Direct Behavior: Cooperative, sleepy Speech: Soft, Normal tone and rate Mood: Pleasant, however guarded Affect: Blunted Thought process: Disorganized, loose associations Thought Content: Unknown Cognition: A&O X3 (not to time) Insight: Poor Judgment: Poor Interventions PRN's used: None Therapeutic interventions: Maintained a safe and supportive environment, provided clear and simple instructions, attempted to reorient to reality, provided positive encouragement regarding pt. sleeping in his bed, encouraged independent performance of ADLs and socialization with others, and maintained Q 15 min safety checks. Justification for continues treatment: Pt here on court order to become competent enough to stand trial. Addendum: 03/29/19 at 1736 by Trish Weathers RN Pt reports " I puked uop the left side of my throat and it tastes terrible". PRN Maalox was administered.
[2019-03-29] MEDS: mag hydrox/Alum hydrox/simeth 30ml oral suspension PO PRN ×2 (17:36→22:00)
[2019-03-29 20:00] VITALS: BP 114/72
[2019-03-29] MEDS: clozapine 100mg tablet PO SCH (20:19)
[2019-03-29] MEDS: haloperidol 5mg tablet PO SCH (20:21)
--- NOTE | 2019-03-30 02:33 | NUR ---
Nursing Progress Note: Legal hold: 1370 Client on involuntary status for GD Report received from TIARA Elizalde via sbar Why are they here: Pt has been arrested multiple times for trespassing and this time has been in [facility] since April 2018. Pt unmedicated and very psychotic with poor hygiene. Pt is not competent to stand trial and so was placed here for stabilization of his psychiatric symptoms. Assessment What has happened this shift: Pt pacing unit listening to headphones,interacting with staff and peers. Pt is making jokes this evening. Pt stated he is bored and ready to "move on". Pt continues to be disorganized and make loose associations during 1:1 but is cooperative with all care. Pt turned in shortly after medication administration. S/I, H/I: Denies A/VH: Denies Sleep: See sleep assessment ADL's: Requires some direction and encouragement from staff Group attendance: N/A Were meds taken: Yes Any med S/E: None reported, none observed Mental Status Exam Appearance: Appropriate in green unit scrubs and nonskid socks, hair disheveled Eye contact: Direct Behavior: Cooperative, pacing halls, listening to headphones Speech: Soft, Normal tone and rate Mood: Pleasant Affect: Blunted with occasional brightening Thought process: Disorganized, loose associations but certain situational information logical Thought Content: Unknown Cognition: A&O X3 (not to time) Insight: Poor Judgment: Poor to fair Interventions PRN's used: None Therapeutic interventions: Maintained a safe and supportive environment, provided clear and simple instructions, attempted to reorient to reality, provided positive encouragement regarding pt. sleeping in his bed, encouraged independent performance of ADLs and socialization with others, and maintained Q 15 min safety checks. Justification for continues treatment: Pt here on court order to become competent enough to stand trial.
[2019-03-30] MEDS: CLOZAPINE 25 MG oral disintegrating tablet PO SCH (07:31)
[2019-03-30] MEDS: benztropine 1mg tablet PO SCH ×2 (07:31→20:32)
[2019-03-30] MEDS: pantoprazole 40mg Tablet.DR PO SCH (07:31)
[2019-03-30 07:33] VITALS: BP 101/60
[2019-03-30 11:45] LABS: BASOPHILS % (AUTO) 0.9 % (0-1); EOSINOPHILS # (AUTO) 0.1 X10'3 (0-0.9); EOSINOPHILS % (AUTO) 2.4 % (0-6); HEMATOCRIT 46.6 % (42.0-52.0); HEMOGLOBIN 15.8 g/dl (14.0-17.9); LYMPHOCYTES # (AUTO) 1.7 X10'3 (1.1-4.8); LYMPHOCYTES % (AUTO) 33.3 % (21-51); MEAN CORPUSCULAR HEMOGLOBIN 29.2 PG (27.0-31.0); MEAN CORPUSCULAR HGB CONC 33.9 g/dL (33.0-36.5); MEAN CORPUSCULAR VOLUME 86.2 FL (78-98); MEAN PLATELET VOLUME 7.6 FL (7.4-10.4); MONOCYTES # (AUTO) 0.5 X10'3 (0-0.9); MONOCYTES % (AUTO) 10.3 % (2-12); NEUTROPHILS # (AUTO) 2.7 X10'3 (1.8-7.7); NEUTROPHILS % (AUTO) 53.1 % (42-75); PLATELET COUNT 190 X10'3 (140-440); RED BLOOD COUNT 5.41 X10'6 (4.70-6.10); RED CELL DISTRIBUTION WIDTH 12.8 % (11.5-14.5); WHITE BLOOD COUNT 5.1 X10'3 (4.5-11.0)
--- NOTE | 2019-03-30 17:25 | NUR ---
Nursing Progress Note: Legal hold: 1370 Client on involuntary status for GD Report received from TIARA Mayer via sbar Why are they here: Pt has been arrested multiple times for trespassing and this time has been in [facility] since April 2018. Pt unmedicated and very psychotic with poor hygiene. Pt is not competent to stand trial and so was placed here for stabilization of his psychiatric symptoms. Assessment What has happened this shift: Pt is found to be resting in bed peacefully at change of shift. He is seen throughout the majority of the day resting in bed, but is up ambulating in the loera prior to meals. He does not participate in groups. Pt states that he feels "fine" during 1:1 and he is pleasant and cooperative with care. Pt takes his medications without incident. He is seen in the afternoon wearing headphones and singing. He also interacts with other clients. S/I, H/I: Denies A/VH: Denies Sleep: naps throughout the day ADL's: Requires some direction and encouragement from staff Group attendance: No Were meds taken: Yes Any med S/E: None reported, none observed Mental Status Exam Appearance: Appropriate in green unit scrubs and nonskid socks, hair disheveled Eye contact: Direct Behavior: Cooperative Speech: Soft, Normal tone and rate Mood: Pleasant Affect: Blunted with occasional brightening Thought process: Disorganized, loose associations but certain situational information logical, one word answers are appropriate Thought Content: Unknown Cognition: A&O X3 (not to time) Insight: Poor Judgment: Poor to fair Interventions PRN's used: None Therapeutic interventions: Maintained a safe and supportive environment, provided clear and simple instructions, attempted to reorient to reality, provided positive encouragement regarding pt. sleeping in his bed, encouraged independent performance of ADLs and socialization with others, and maintained Q 15 min safety checks. Justification for continues treatment: Pt here on court order to become competent enough to stand trial.
[2019-03-30 19:57] VITALS: BP 112/77
[2019-03-30] MEDS: haloperidol 5mg tablet PO SCH (20:32)
[2019-03-30] MEDS: clozapine 100mg tablet PO SCH (20:32)
[2019-03-30] MEDS: mag hydrox/Alum hydrox/simeth 30ml oral suspension PO PRN (22:24)
--- NOTE | 2019-03-30 23:35 | NUR ---
Nursing Progress Note: Legal hold: 1370 Client on involuntary status for GD Report received from TIARA Elizalde via sbar Why are they here: Pt has been arrested multiple times for trespassing and this time has been in [facility] since April 2018. Pt unmedicated and very psychotic with poor hygiene. Pt is not competent to stand trial and so was placed here for stabilization of his psychiatric symptoms. Assessment What has happened this shift: Pt pacing unit listening to headphones,interacting with staff and peers. Pt engaging less with staff and peers this evening. He requested a burrito for snack and later Maalox for indigestion. Pt continues to be disorganized and make loose associations during 1:1 but is cooperative with all care. Pt turned in shortly after medication administration. S/I, H/I: Denies A/VH: Denies Sleep: See sleep assessment ADL's: Requires some direction and encouragement from staff Group attendance: N/A Were meds taken: Yes Any med S/E: None reported, none observed Mental Status Exam Appearance: Appropriate in green unit scrubs and nonskid socks, hair disheveled Eye contact: Direct Behavior: Cooperative, pacing halls, listening to headphones Speech: Soft, Normal tone and rate Mood: Pleasant Affect: Blunted with occasional brightening Thought process: Disorganized, loose associations but certain situational information logical Thought Content: Unknown Cognition: A&O X3 (not to time) Insight: Poor Judgment: Poor to fair Interventions PRN's used: Maalox Therapeutic interventions: Maintained a safe and supportive environment, provided clear and simple instructions, attempted to reorient to reality, encouraged independent performance of ADLs and socialization with others, and maintained Q 15 min safety checks. Justification for continues treatment: Pt here on court order to become competent enough to stand trial.
[2019-03-31] MEDS: pantoprazole 40mg Tablet.DR PO SCH (07:20)
[2019-03-31] MEDS: benztropine 1mg tablet PO SCH ×2 (07:20→20:49)
[2019-03-31] MEDS: CLOZAPINE 25 MG oral disintegrating tablet PO SCH (07:20)
[2019-03-31 08:00] VITALS: BP 113/73
--- NOTE | 2019-03-31 15:29 | NUR ---
Nursing Progress Note: Solo Legal hold: 1370 Client on involuntary status for GD Report received from Tanja MENJIVAR Why are they here: Pt has been arrested multiple times for trespassing and this time has been in [facility] since April 2018. Pt unmedicated and very psychotic with poor hygiene. Pt is not competent to stand trial and so was placed here for stabilization of his psychiatric symptoms. Assessment What has happened this shift: Client was in bed to begin the shift. Awoke easily for medications and assessment. Client then went back to bed until 0800 hours and then was visible on unit and ambulating in hallway. After breakfast, client returned to his room to rest, Client attended and participated in am group. Client spent time this afternoon ambulating in hallway with frequent rest breaks in his bed. Client contracts for safe unit behavior and has had no behavioral issues this shift. S/I, H/I: Denies A/VH: Denies Sleep: See sleep assessment ADL's: Requires some direction and encouragement from staff Group attendance: yes Were meds taken: Yes Any med S/E: None reported, none observed Mental Status Exam Appearance: Appropriate in green unit scrubs and nonskid socks, hair disheveled Eye contact: Direct Behavior: Cooperative Speech: Soft, Normal tone and rate Mood: Pleasant Affect: Blunted with occasional brightening Thought process: Disorganized, loose associations but certain situational information logical Thought Content: Unknown Cognition: A&O X3 (not to time) Insight: Poor Judgment: Poor to fair Interventions PRN's used: Therapeutic interventions: Maintained a safe and supportive environment, provided clear and simple instructions, attempted to reorient to reality, encouraged independent performance of ADLs and socialization with others, and maintained Q 15 min safety checks. Justification for continues treatment: Pt here on court order to become competent enough to stand trial.
[2019-03-31 19:57] VITALS: BP 115/79
[2019-03-31] MEDS: clozapine 100mg tablet PO SCH (20:49)
[2019-03-31] MEDS: haloperidol 5mg tablet PO SCH (20:49)
[2019-03-31] MEDS: mag hydrox/Alum hydrox/simeth 30ml oral suspension PO PRN (21:01)
--- NOTE | 2019-04-01 00:34 | NUR ---
Nursing Progress Note: Legal hold: 1370 Client on involuntary status for GD Report received from TIARA Elizalde Why are they here: Pt has been arrested multiple times for trespassing and this time has been in [facility] since April 2018. Pt unmedicated and very psychotic with poor hygiene. Pt is not competent to stand trial and so was placed here for stabilization of his psychiatric symptoms. Assessment What has happened this shift: Pt pacing unit listening to headphones ,interacting with staff and peers. Pt making jokes this evening and in a happier mood. Pt continues to be disorganized and make loose associations during 1:1 but is cooperative with all care. Pt turned in shortly after medication administration. S/I, H/I: Denies A/VH: Denies Sleep: See sleep assessment ADL's: Requires some direction and encouragement from staff Group attendance: N/A Were meds taken: Yes Any med S/E: None reported, none observed Mental Status Exam Appearance: Appropriate in green unit scrubs and nonskid socks, hair brushed in ponytail Eye contact: Direct Behavior: Cooperative, pacing halls, listening to headphones Speech: Soft, Normal tone and rate Mood: Pleasant, "I'm good" Affect: Blunted with occasional brightening Thought process: Disorganized, loose associations but certain situational information logical Thought Content: Unknown Cognition: A&O X3 (not to time) Insight: Poor Judgment: Poor to fair Interventions PRN's used: Maalox Therapeutic interventions: Maintained a safe and supportive environment, provided clear and simple instructions, attempted to reorient to reality, encouraged independent performance of ADLs and socialization with others, and maintained Q 15 min safety checks. Justification for continues treatment: Pt here on court order to become competent enough to stand trial.
[2019-04-01 08:00] VITALS: BP 111/77
[2019-04-01] MEDS: CLOZAPINE 25 MG oral disintegrating tablet PO SCH (08:29)
[2019-04-01] MEDS: pantoprazole 40mg Tablet.DR PO SCH (08:29)
[2019-04-01] MEDS: benztropine 1mg tablet PO SCH ×2 (08:30→20:26)
--- NOTE | 2019-04-01 15:40 | NUR ---
[facility] Nursing Progress Note: Legal hold: 1370 Client on involuntary status for GD Report received from Palma MENJIVAR Why are they here: Pt has been arrested multiple times for trespassing and this time has been in [facility] since April 2018. Pt unmedicated and very psychotic with poor hygiene. Pt is not competent to stand trial and so was placed here for stabilization of his psychiatric symptoms. Assessment What has happened this shift: Pt up for meals and did pace the unit at times. Pt observed talking to self at times; though he denies a/v hallucinations. Pt did not attend groups. Pt did nap at times through out the shift. S/I, H/I: Denies A/VH: Denies Sleep: See sleep assessment ADL's: Requires some direction and encouragement from staff Group attendance: no Were meds taken: Yes Any med S/E: None reported, none observed Mental Status Exam Appearance: Appropriate in green unit scrubs and nonskid socks, hair disheveled Eye contact: Direct Behavior: Cooperative Speech: Soft, Normal tone and rate Mood: Pleasant Affect: Blunted with occasional brightening Thought process: Disorganized, loose associations but certain situational information logical Thought Content: Unknown Cognition: A&O X3 (not to time) Insight: Poor Judgment: Poor to fair Interventions PRN's used: Therapeutic interventions: Maintained a safe and supportive environment, provided clear and simple instructions, attempted to reorient to reality, encouraged independent performance of ADLs and socialization with others, and maintained Q 15 min safety checks. Justification for continues treatment: Pt here on court order to become competent enough to stand trial.
[2019-04-01 20:00] VITALS: BP 108/78
[2019-04-01] MEDS: clozapine 100mg tablet PO SCH (20:27)
[2019-04-01] MEDS: haloperidol 5mg tablet PO SCH (20:27)
--- NOTE | 2019-04-02 02:46 | NUR ---
Nursing Progress Note: Legal hold: 1370 Client on involuntary status for GD Report received from TIARA Elizalde Why are they here: Pt has been arrested multiple times for trespassing and this time has been in [facility] since April 2018. Pt unmedicated and very psychotic with poor hygiene. Pt is not competent to stand trial and so was placed here for stabilization of his psychiatric symptoms. Assessment What has happened this shift: Pt pacing unit listening to headphones, occasionally interacts with peers or staff. Requests snacks a few times and attends snack time. Pt is aware he is awaiting court date; any probing conversation results in nonsensical phrases, like " butch kim is trying to gel" in response to how is the music he is listening to? Pt able to make his needs known and attempts to joke with staff but disorganized thinking make a linear conversation difficult. Pt is medication complaint, cooperative, and pleasant. S/I, H/I: Denies A/VH: Denies Sleep: See sleep assessment ADL's: Requires some direction and encouragement from staff Group attendance: N/A Were meds taken: Yes Any med S/E: None reported, none observed Mental Status Exam Appearance: Appropriate in green unit scrubs and nonskid socks, hair disheveled Eye contact: Direct Behavior: Cooperative, pacing halls, listening to headphones, joking Speech: Soft, Normal tone and rate Mood: Pleasant, "Okay" Affect: Blunted with occasional brightening Thought process: Disorganized, loose associations but certain situational information logical Thought Content: Unknown Cognition: A&O X3 (not to time) Insight: Poor Judgment: Poor to fair Interventions PRN's used: None Therapeutic interventions: Maintained a safe and supportive environment, provided clear and simple instructions, attempted to reorient to reality, encouraged independent performance of ADLs and socialization with others, and maintained Q 15 min safety checks. Justification for continues treatment: Pt here on court order to become competent enough to stand trial.
[2019-04-02 07:45] VITALS: BP 119/70
[2019-04-02] MEDS: pantoprazole 40mg Tablet.DR PO SCH (08:05)
[2019-04-02] MEDS: benztropine 1mg tablet PO SCH ×2 (08:05→20:16)
[2019-04-02] MEDS: clozapine 25mg tablet PO SCH (08:05)
--- NOTE | 2019-04-02 17:02 | NUR ---
Nursing Progress Note: Legal hold: 1370 Client on involuntary status for GD Report received from TIARA Mayer w/use of [facility] Why are they here: Pt has been arrested multiple times for trespassing and this time has been in [facility] since April 2018. Pt unmedicated and very psychotic with poor hygiene. Pt is not competent to stand trial and so was placed here for stabilization of his psychiatric symptoms. Assessment What has happened this shift: Pt spends most of the shift pacing the halls with headsets on. On occasion he will stop and talk to peers or staff. He remains pleasantly delusional with tangential and disorganized thought process. He mumbles most of the time. S/I, H/I: Denies A/VH: Denies Sleep: Asleep at start of shift. Reports sleeping well at night. ADL's: Requires prompting and encouragement to comb hair Group attendance: Art therapy for 15 minutes Were meds taken: Yes Any med S/E: None reported, none observed Mental Status Exam Appearance: Appropriate in green unit scrubs and nonskid socks, hair disheveled Eye contact: Direct Behavior: Cooperative, pacing halls, listening to headphones Speech: Soft, Normal tone and rate Mood: Pleasant Affect: Blunted with occasional brightening Thought process: Disorganized, loose associations Thought Content: Unknown Cognition: A&O X3 (not to time) Insight: Poor Judgment: fair Interventions PRN's used: None Therapeutic interventions: Provided therapeutic communication and active listening, administered/educated/monitored medications, encouraged attendance and participation of programs and maintained Q 15 min safety checks. Justification for continues treatment: Pt here on court order to become competent enough to stand trial.
[2019-04-02] MEDS: haloperidol 5mg tablet PO SCH (20:16)
[2019-04-02] MEDS: clozapine 100mg tablet PO SCH (20:16)
[2019-04-02 20:33] VITALS: BP 119/76
--- NOTE | 2019-04-02 23:30 | NUR ---
Nursing Progress Note: Legal hold: 1370 Client on involuntary status for GD Report received from TIARA Elizalde w/use of SBAR Why are they here: Pt has been arrested multiple times for trespassing and this time has been in [facility] since April 2018. Pt unmedicated and very psychotic with poor hygiene. Pt is not competent to stand trial and so was placed here for stabilization of his psychiatric symptoms. Assessment What has happened this shift: Pt came into group room repeatedly. Talks to staff and other pts often sits for five to ten minutes watching TV. Then gets up and paces the halls with headsets on. Pt is aware of and looking forward to discharge from here. He understands he is going to court. When asked where he expects to live he said "I don't have anywhere to live but [place]. He remains pleasantly delusional with tangential and disorganized thought process. S/I, H/I: Denies A/VH: Denies Sleep: Asleep at this time. ADL's: Requires prompting and encouragement to comb hair Group attendance: Art therapy for 15 minutes Were meds taken: Yes Any med S/E: None reported, none observed Mental Status Exam Appearance: Appropriate in green unit scrubs and nonskid socks, hair disheveled Eye contact: Direct Behavior: Cooperative, pacing halls, listening to headphones Speech: Soft, Normal tone and rate Mood: Pleasant Affect: Blunted with occasional brightening Thought process: Disorganized, loose associations Thought Content: Upcoming discharge Cognition: A&O X3 (not to time) Insight: Poor Judgment: fair Interventions PRN's used: None Therapeutic interventions: Provided therapeutic communication and active listening, administered/educated/monitored medications, encouraged attendance and participation of programs and maintained Q 15 min safety checks. Justification for continues treatment: Pt here on court order to become competent enough to stand trial.
[2019-04-03 08:00] VITALS: BP 116/66
[2019-04-03] MEDS: pantoprazole 40mg Tablet.DR PO SCH (08:43)
[2019-04-03] MEDS: clozapine 25mg tablet PO SCH (08:43)
[2019-04-03] MEDS: benztropine 1mg tablet PO SCH ×2 (08:43→20:40)
--- NOTE | 2019-04-03 15:30 | NUR ---
Nursing Progress Note: Legal hold: 1370 Client on involuntary status for GD Report received from TIARA Mayer w/use of SBAR Why are they here: Pt has been arrested multiple times for trespassing and [facility]. Pt unmedicated and very psychotic with poor hygiene. Pt is not competent to stand trial and so was placed here for stabilization of his psychiatric symptoms. Assessment What has happened this shift: Pt spends most of the shift pacing the halls with headsets on. On occasion he will stop and talk to peers or staff. He remains pleasantly delusional with tangential and disorganized thought process. He mumbles to himself at times. Pt converses well with staff and is able to advocate for himself. Pt did tell this signwriter when he leaves he will be going to "collect a large sum of money." S/I, H/I: Denies A/VH: Denies Sleep: Asleep at start of shift. Reports sleeping well at night. ADL's: Requires prompting and encouragement to comb hair Group attendance: for a few minutes in art therapy Were Meds taken: Yes Any med S/E: None reported, none observed Mental Status Exam Appearance: Appropriate in green unit scrubs and nonskid socks, hair disheveled Eye contact: Direct Behavior: Cooperative, pacing halls, listening to headphones Speech: Soft, Normal tone and rate Mood: Pleasant Affect: Blunted with occasional brightening Thought process: Disorganized, loose associations Thought Content: Unknown Cognition: A&O X3 (not to time) Insight: Poor Judgment: fair Interventions PRN's used: None Therapeutic interventions: Provided therapeutic communication and active listening, administered/educated/monitored medications, encouraged attendance and participation of programs and maintained Q 15 min safety checks. Justification for continues treatment: Pt here on court order to become competent enough to stand trial.
[2019-04-03 20:00] VITALS: BP 130/86
[2019-04-03] MEDS: haloperidol 5mg tablet PO SCH (20:39)
[2019-04-03] MEDS: clozapine 100mg tablet PO SCH (20:40)
[2019-04-03] MEDS ORDERED: BENZ1TAB7 PO (22:06)
[2019-04-03] MEDS ORDERED: PANT40TA4 PO (22:06)
[2019-04-03] MEDS ORDERED: CLOZ25TA12 PO (22:06)
[2019-04-03] MEDS ORDERED: CLOZ100T13 PO (22:06)
[2019-04-03] MEDS ORDERED: HALO5TAB PO (22:06)
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
--- NOTE | 2019-04-04 06:17 | NUR ---
Was alerted to pt's room around 1800. Pt stated he tripped on his shoe and fell to his knees. Pt states he didn't black out or hit his head "I feel embarrassed, haven't had shoes on for awhile." Pictures were taken and filed in chart. VS: BP- 127/86; T-97.7; HR-96; RR 16, SpO2-99.
[2019-04-04] MEDS: benztropine 1mg tablet PO SCH (06:47)
[2019-04-04] MEDS: pantoprazole 40mg Tablet.DR PO SCH (06:47)
[2019-04-04] MEDS: clozapine 25mg tablet PO SCH (06:48)
--- NOTE | 2019-04-04 07:02 | NUR ---
Pt dc'd with [facility] deputies at 0655. Pt leaving to go to his court hearing and is anticipated to not return. Pt sent with hard copies of prescriptions. All pt belongings returned to patient and he signed as having received all. Discharge instructions reviewed with the patient, he verbalized understanding and signed. Pt declined smoking cessation information stating he didn't need it. Pt denies suicidal thoughts this am.
== END 2019-04-04 07:00 | DRG 885 ==
LOC: ADULT MH 11:26
PROVIDERS: ADMIT Psychiatry & Neurology Psychiatry; ATTEND Psychiatry & Neurology Psychiatry
DX: F20.9 Schizophrenia, unspecified (principal); F90.9 Attention-deficit hyperactivity disorder, unspecified type; I10 Essential (primary) hypertension; M54.9 Dorsalgia, unspecified; M79.671 Pain in right foot; M79.672 Pain in left foot
CPT/HCPCS: 36415; 80048; 80061; 80076; 83036; 84443; 85025; 87081; 99285; J1200; J1630; J2060; Q0163; Z7610